=== PATIENT | male | born 1980 | race Caucasian/White ===

== ENCOUNTER 2017-08-29 13:36 | Inpatient (IN) | payer OTHER ==
--- NOTE | 2017-08-29 14:15 | PDOC ---
History of Present Illness - General History Source: Patient Exam Limitations: Other (Poor historian) - History of Present Illness Initial Comments: 08/29/17 15:31 The patient is a 37 year old male with a significant PMH of cirrhosis of liver ( on Lactulose) and further unclear history who presents to the emergency department with generalized malaise and a headache beginning earlier today s/p intoxication. The patient reports feeling lightheaded and weak earlier today with an associated headache and subjective fever. The patient reports being at [facility] yesterday night and falling out of bed, and presents with right hand pain. He notes minimally bleeding from his nose, mouth, and ears last night s/p fall but denies any active bleeding. The patient admits to alcohol and cocaine use yesterday. The patient reports that he is 'currently on the transplant list for a new liver'. The patient is a poor historian. The patient denies chest pain, shortness of breath and dizziness. Denies fever, chills, nausea, vomit, diarrhea and constipation. Denies dysuria, frequency, urgency and hematuria. Allergies: NKA Past surgical history: None reported. Social history: Alcohol use. Cocaine use. No reported cigarette use. PCP: None reported. <Dinesh Haddad - Last Filed: 08/29/17 16:15> <Kaci Morgan - Last Filed: 08/29/17 17:20> - General Chief Complaint: Pain Stated Complaint: ABD PAIN, HEADACHES (INTOX) Time Seen by Provider: 08/29/17 14:15 Past History <Dinesh Haddad - Last Filed: 08/29/17 16:15> - Past Medical History COPD: No Liver Disease: Yes Other medical history: esophogeal variasies - Suicide/Smoking/Psychosocial Hx Smoking History: Never smoked Have you smoked in the past 12 months: No Information on smoking cessation initiated: No Hx Alcohol Use: No Drug/Substance Use Hx: No Substance Use Type: Alcohol <Kaci Morgan - Last Filed: 08/29/17 17:20> - Past Medical History Allergies/Adverse Reactions: Allergies Allergy/AdvReac Type Severity Reaction Status Date / Time No Known Allergies Allergy Verified 08/29/17 14:00 Home Medications: Ambulatory Orders Folic Acid 1 mg PO DAILY 08/29/17 Nadolol 40 mg PO DAILY 08/29/17 Pantoprazole Sodium 40 mg PO DAILY 08/29/17 Prazosin HCl 1 mg PO TID 08/29/17 Rifaximin [Xifaxan] 550 mg PO BID 08/29/17 Review of Systems - Review of Systems Able to Perform ROS?: Yes Comments:: 08/29/17 15:31 GENERAL/CONSTITUTIONAL: (+) Generalized malaise. (+) Subjective fever. No fever or chills. HEAD, EYES, EARS, NOSE AND THROAT: No change in vision. No ear pain or discharge. No sore throat. CARDIOVASCULAR: No chest pain or shortness of breath. RESPIRATORY: No cough, wheezing, or hemoptysis. GASTROINTESTINAL: No nausea, vomiting, diarrhea or constipation. GENITOURINARY: No dysuria, frequency, or change in urination. MUSCULOSKELETAL: (+) Right hand pain. No joint pain. No neck or back pain. SKIN: No rash NEUROLOGIC: (+) Headache. No vertigo, loss of consciousness, or change in sensation. ENDOCRINE: No increased thirst. No abnormal weight change. HEMATOLOGIC/LYMPHATIC: No anemia, easy bleeding, or history of blood clots. ALLERGIC/IMMUNOLOGIC: No hives or skin allergy. <Dinesh Haddad - Last Filed: 08/29/17 16:15> *Physical Exam - Vital Signs Last Vital Signs Temp Pulse Resp BP Pulse Ox 98.6 F 103 H 18 140/68 100 08/29/17 13:55 08/29/17 13:55 08/29/17 13:55 08/29/17 13:55 08/29/17 13:55 - Physical Exam Comments: 08/29/17 16:15 GENERAL: Awake, alert, and fully oriented, in no acute distress HEAD: No signs of trauma EYES: PERRLA, EOMI, sclera anicteric, conjunctiva clear ENT: Auricles normal inspection, hearing grossly normal, nares patent, oropharynx clear without exudates. Moist mucosa NECK: Normal ROM, supple, no lymphadenopathy, JVD, or masses LUNGS: Breath sounds equal, clear to auscultation bilaterally. No wheezes, and no crackles HEART: Regular rate and rhythm, normal S1 and S2, no murmurs, rubs or gallops ABDOMEN: (+) Mild diffuse tenderness to deep palpation. Obese. Soft, nontender, normoactive bowel sounds. No guarding, no rebound. No masses EXTREMITIES: (+) Bruise on right arm. Normal range of motion, no edema. No clubbing or cyanosis. No cords, erythema, or tenderness NEUROLOGICAL: AO x3. Cranial nerves II through XII grossly intact. Normal speech, fluid and clear. SKIN: Warm, Dry, normal turgor, no rashes or lesions noted. <Dinesh Haddad - Last Filed: 08/29/17 16:15> - Vital Signs Last Vital Signs Temp Pulse Resp BP Pulse Ox 98.6 F 103 H 18 140/68 100 08/29/17 13:55 08/29/17 13:55 08/29/17 13:55 08/29/17 13:55 08/29/17 13:55 <Kaci Morgan - Last Filed: 08/29/17 17:20> ED Treatment Course - LABORATORY CBC & Chemistry Diagram: 08/29/17 15:40 08/29/17 15:40 <Dinesh Haddad - Last Filed: 08/29/17 16:15> - LABORATORY CBC & Chemistry Diagram: 08/29/17 15:40 08/29/17 15:40 <Kaci Morgan - Last Filed: 08/29/17 17:20> Medical Decision Making - Medical Decision Making 08/29/17 16:06 Pt presents to the Ed complaining of generalized malaise. Extensive history described above. Patient reports to me that he is on the transplant list, but has no PMD and has continued to drink. Differential includes hepatic encephalopathy, less likely sepsis, electrolyte disturbance, intracranial lesion , ACS. Will check labs, CXR, CT head and reassess. <Kaci Morgan - Last Filed: 08/29/17 17:20> *DC/Admit/Observation/Transfer - Attestations Scribe Attestion: 08/29/17 16:15 Documentation prepared by Dinesh Haddad, acting as registered medical transcriptionist for Kaci Morgan MD. <Dinesh Haddad - Last Filed: 08/29/17 16:15> - Discharge Dispostion Admit: Yes <Kaci Morgan - Last Filed: 08/29/17 17:20> Diagnosis at time of Disposition: Hepatic encephalopathy - Discharge Dispostion Condition at time of disposition: Good
[2017-08-29 15:48] LABS: BASO % 0.4 % (0-2.0); EOS % 0.5 % (0-4.5); HEMATOCRIT 24.8 % (35.4-49); HEMOGLOBIN 8.2 GM/dL (11.7-16.9); LYMPH % 29.6 % (8-40); MCH 25.9 pg (25.7-33.7); MCHC 33.2 g/dl (32.0-35.9); MEAN CELL VOLUME 78.2 fl (80-96); MEAN PLT VOLUME 8.8 fl (7.5-11.1); MONO % 19.4 % (3.8-10.2); NEUT % 50.1 % (42.8-82.8); PLATELET COUNT 92 K/MM3 (134-434); RBC 3.18 M/mm3 (4.00-5.60); RDW 21.5 % (11.9-15.9); WHITE BLOOD COUNT 5.2 K/mm3 (4.0-10.0)
[2017-08-29 15:49] LABS: ADD RBC MORPHOLOGY YES
[2017-08-29 16:31] LABS: INR 2.39 (0.82-1.09)
[2017-08-29 16:44] LABS: ALBUMIN 2.2 g/dl (3.4-5.0); ANION GAP 8 (8-16); BLOOD UREA NITROGEN 5 mg/dL (7-18); CALCIUM 7.3 mg/dL (8.5-10.1); CHLORIDE 108 mmol/L (98-107); CO2 21 mmol/L (21-32); CREATININE 0.6 mg/dL (0.7-1.3); GLUCOSE,RANDOM 123 mg/dL (74-106); POTASSIUM 3.7 mmol/L (3.5-5.1); SGOT/AST 243 U/L (15-37); SGPT/ALT 74 U/L (12-78); SODIUM 137 mmol/L (136-145)
[2017-08-29 16:47] LABS: ALK PHOS 143 U/L (45-117); BILIRUBIN,TOTAL 3.9 mg/dL (0.2-1.0); TOT PROT 8.1 g/dl (6.4-8.2)
[2017-08-29] MEDS ORDERED: LACTULOSE 20 GM/30 ML UDC (FOR ORAL USE ONLY) PO ONE (16:49)
[2017-08-29] MEDS ORDERED: SODIUM CHLORIDE 0.9% 1000 ML INFUS.BAG IV ONE (17:07)
[2017-08-29] MEDS ORDERED: LACTULOSE 20 GM/30 ML UDC (FOR ORAL USE ONLY) PO PRN (17:32)
--- NOTE | 2017-08-29 17:32 | HP ---
CHIEF COMPLAINT: Generalized weakness PCP: none HISTORY OF PRESENT ILLNESS: This is a 37 year old male with PMHx of liver cirrhosis, HCV, esophageal varices , portal hypertension, liver failure (patient reports on transplant list), chronic alcohol use (last drink last night), who presented to the ED with headache and generalized malaise. He reports he drank "a lot" last night. He is able to tell me the last time he drank before last night. He reports being at [facility] yesterday and signed out AMA. He also states he was at [facility] for 1 month and says it was because he has liver failure. The patient reports he sees Dr. Danielson at [facility] in [place] for liver transplant and that he is on the transplant list (however he drank last night). He denies any chest pain, nausea, vomiting, diarrhea, headache, dizziness now. He does state that he feels weak. ER course was notable for: (1) Temp 98.6, pulse 103, BP 140/68, resp 18, O2 100% on RA (2) Hgb 8.2, platelets 92, INR 2.39, ammonia 78.32, CPK 4031 (3) IV fluids given Recent Travel: denies PAST MEDICAL HISTORY: as above PAST SURGICAL HISTORY: denies Social History: Smoking: denies Alcohol: Drank last night, does not remember what Drugs: + Cocaine Family History: Allergies No Known Allergies Allergy (Verified 08/29/17 14:00) HOME MEDICATIONS: Home Medications Medication Instructions Recorded Folic Acid 1 mg PO DAILY 08/29/17 Lactulose 10 gm PO DAILY 08/29/17 Nadolol 40 mg PO DAILY 08/29/17 Pantoprazole Sodium 40 mg PO DAILY 08/29/17 Prazosin HCl 1 mg PO TID 08/29/17 Rifaximin [Xifaxan] 550 mg PO BID 08/29/17 REVIEW OF SYSTEMS CONSTITUTIONAL: Generalized weakness. Absent: fever, chills, diaphoresis, malaise, loss of appetite, weight change HEENT: Absent: rhinorrhea, nasal congestion, throat pain, throat swelling, difficulty swallowing, mouth swelling, ear pain, eye pain, visual changes CARDIOVASCULAR: Absent: chest pain, syncope, palpitations, irregular heart rate , lightheadedness, peripheral edema RESPIRATORY: Absent: cough, shortness of breath, dyspnea with exertion, orthopnea, wheezing, stridor, hemoptysis GASTROINTESTINAL:Absent: abdominal pain, abdominal distension, nausea, vomiting , diarrhea, constipation, melena, hematochezia GENITOURINARY: Absent: dysuria, frequency, urgency, hesitancy, hematuria, flank pain, genital pain MUSCULOSKELETAL: Absent: myalgia, arthralgia, joint swelling, back pain, neck pain SKIN: Absent: rash, itching, pallor HEMATOLOGIC/IMMUNOLOGIC: Absent: easy bleeding, easy bruising, lymphadenopathy, frequent infections ENDOCRINE:Absent: unexplained weight gain, unexplained weight loss, heat intolerance, cold intolerance NEUROLOGIC: Headache that started after drinking alcohol yesterday. Absent: focal weakness or paresthesias, dizziness, unsteady gait, seizure, bladder or bowel incontinence PSYCHIATRIC: Absent: anxiety, depression, suicidal or homicidal ideation, hallucinations. PHYSICAL EXAMINATION Vital Signs - 24 hr 08/29/17 08/29/17 13:55 16:09 Temperature 98.6 F Pulse Rate 103 H Pulse Rate [ 96 H Right Radial] Respiratory 18 18 Rate Blood Pressure 140/68 Blood Pressure 126/57 [Left Arm] O2 Sat by Pulse 100 100 Oximetry (%) GENERAL: Awake, alert, in no acute distress. HEAD: Normal with no signs of trauma. Right cheek scratch EYES: Sclera icteric. Pupils equal, round and reactive to light, extraocular movements intact. No lid lag. EARS, NOSE, THROAT: Ears normal, nares patent, oropharynx clear without exudates. Moist mucous membranes. NECK: Normal range of motion, supple without lymphadenopathy LUNGS: Breath sounds equal, clear to auscultation bilaterally. No wheezes, and no crackles. No accessory muscle use. HEART: Regular rate and rhythm, normal S1 and S2 ABDOMEN: Soft, distended. mild RUQ tenderness. no guarding, no rebound, no masses. MUSCULOSKELETAL: Normal range of motion at all joints. No bony deformities or tenderness. No CVA tenderness. UPPER EXTREMITIES: 2+ pulses, warm, well-perfused. No cyanosis. No clubbing. No peripheral edema. LOWER EXTREMITIES: + edema. 2+ pulses, warm, well-perfused. No calf tenderness. No peripheral edema. NEUROLOGICAL: Cranial nerves II-XII intact. Normal speech. Gait not observed PSYCHIATRIC: Cooperative. Poor eye contact SKIN: Warm, dry, normal turgor, no rashes or lesions noted, normal capillary refill. Laboratory Results - last 24 hr 08/29/17 08/29/17 08/29/17 15:20 15:40 15:40 WBC 5.2 RBC 3.18 L Hgb 8.2 L Hct 24.8 L MCV 78.2 L MCH 25.9 MCHC 33.2 RDW 21.5 H Plt Count 92 L MPV 8.8 Neutrophils % 50.1 Lymphocytes % 29.6 Monocytes % 19.4 H Eosinophils % 0.5 Basophils % 0.4 PT with INR INR PTT (Actin FS) Sodium 137 Potassium 3.7 Chloride 108 H Carbon Dioxide 21 Anion Gap 8 BUN 5 L Creatinine 0.6 L Creat Clearance w eGFR > 60 Random Glucose 123 H Calcium 7.3 L Total Bilirubin 3.9 H AST 243 H ALT 74 Alkaline Phosphatase 143 H Ammonia 78.32 H Creatine Kinase Creatine Kinase Index CK-MB (CK-2) Troponin I Total Protein 8.1 Albumin 2.2 L 08/29/17 08/29/17 08/29/17 15:40 15:40 15:40 WBC RBC Hgb Hct MCV MCH MCHC RDW Plt Count MPV Neutrophils % Lymphocytes % Monocytes % Eosinophils % Basophils % PT with INR 27.00 H INR 2.39 H PTT (Actin FS) 54.6 H Sodium Potassium Chloride Carbon Dioxide Anion Gap BUN Creatinine Creat Clearance w eGFR Random Glucose Calcium Total Bilirubin AST ALT Alkaline Phosphatase Ammonia Creatine Kinase 4031 H Creatine Kinase Index 0.2 CK-MB (CK-2) 9.976 H Troponin I 0.03 Total Protein Albumin Assessment: This is a 37 year old male with PMHx of liver cirrhosis, HCV, esophageal varices, portal hypertension, liver failure (patient reports on transplant list), chronic alcohol use (last drink last night), who presented to the ED with headache and generalized malaise. Plan: 1) Rhabdomyolysis - Elevated CPK may be contributing to patient's weakness - IV fluids (caution the patient doesn't become overloaded) - Trend CPK 2) GI: Liver failure - Thrombocytopenia - Coagulopathy - Hyperammonemia: increase lactulose, trend ammonia level - Continue Rifaximin - Will need to follow-up with outpatient script coordinator upon discharge Portal HTN - Continue Nadolol Esophageal varices - Continue Protonix HCV - Patient reports has not been treated for it 3) Chronic alcohol use - Patient's last drink last night, no signs of acute alcohol withdrawal - CIWA 0 - Will NOT start Librium detox at this time as there are no signs of acute alcohol withdrawal - Ativan prn seizures only - Continue Folic acid - Continue Thiamine 4) F/E/N: - Regular diet - Monitor electrolytes 5) Prophylaxis: - OOB with assistance - Hold all chemical DVT prophylaxis 2/2 elevated INR 6) Dispo: - Requires continued inpatient care CODE STATUS: FULL CODE Visit type - Emergency Visit Emergency Visit: Yes ED Registration Date: 08/29/17 Care time: The patient presented to the Emergency Department on the above date and was hospitalized for further evaluation of their emergent condition. - New Patient This patient is new to me today: Yes Date on this admission: 08/29/17 - Critical Care Critical Care patient: No
[2017-08-29] MEDS ORDERED: LORazepam 2 MG/ML SDV VIAL IVPUSH PRN (18:42)
[2017-08-29 18:51] LABS: ANISOCYTOSIS 2+
[2017-08-29 18:52] LABS: OVALOCYTE 1+; PLATELET ESTIMATE SLT DECREASE
[2017-08-29] MEDS ORDERED: LACTULOSE 20 GM/30 ML UDC (FOR ORAL USE ONLY) ONE (18:52)
--- NOTE | 2017-08-29 19:49 | PDOC ---
*Physical Exam - Vital Signs Last Vital Signs Temp Pulse Resp BP Pulse Ox 98.1 F 100 H 18 121/61 100 08/29/17 18:56 08/29/17 18:56 08/29/17 18:56 08/29/17 18:56 08/29/17 18:56 - Physical Exam Comments: 08/29/17 19:48 Called to patient's bedside. Patient reported a bowel movement with stool mixed with bright red blood. On evaluation, there are no external lesions, digital rectal examination reveals no masses and no active bleeding is noted. Blood pressure is noted to be 127/78. Heart rate is noted to be 96. We will inform the admitting team. No indication for packed RBC transfusion at this time. ED Treatment Course - LABORATORY CBC & Chemistry Diagram: 08/29/17 15:40 08/29/17 15:40 - ADDITIONAL ORDERS Additional order review: Laboratory Results 08/29/17 08/29/17 08/29/17 15:40 15:40 15:40 PT with INR 27.00 H INR 2.39 H PTT (Actin FS) 54.6 H Sodium Potassium Chloride Carbon Dioxide Anion Gap BUN Creatinine Creat Clearance w eGFR Random Glucose Calcium Total Bilirubin AST ALT Alkaline Phosphatase Ammonia Creatine Kinase 4031 H Creatine Kinase Index 0.2 CK-MB (CK-2) 9.976 H Troponin I 0.03 Total Protein Albumin 08/29/17 08/29/17 15:40 15:20 PT with INR INR PTT (Actin FS) Sodium 137 Potassium 3.7 Chloride 108 H Carbon Dioxide 21 Anion Gap 8 BUN 5 L Creatinine 0.6 L Creat Clearance w eGFR > 60 Random Glucose 123 H Calcium 7.3 L Total Bilirubin 3.9 H AST 243 H ALT 74 Alkaline Phosphatase 143 H Ammonia 78.32 H Creatine Kinase Creatine Kinase Index CK-MB (CK-2) Troponin I Total Protein 8.1 Albumin 2.2 L 08/29/17 15:40 RBC 3.18 L MCV 78.2 L MCHC 33.2 RDW 21.5 H MPV 8.8 Neutrophils % 50.1 Lymphocytes % 29.6 Monocytes % 19.4 H Eosinophils % 0.5 Basophils % 0.4 - Medications Given in the ED: ED Medications Discontinued Medications Generic Name Dose Route Start Last Admin Trade Name Freq PRN Reason Stop Dose Admin Lactulose 20 gm 08/29/17 16:49 08/29/17 18:55 Cephulac (Oral Use) PO 08/29/17 16:50 20 gm ONCE ONE Administration Sodium Chloride 1,000 ml 08/29/17 17:07 08/29/17 17:25 Normal Saline - IV 08/29/17 17:08 1,000 ml ONCE ONE Administration *DC/Admit/Observation/Transfer Diagnosis at time of Disposition: Hepatic encephalopathy - Discharge Dispostion Condition at time of disposition: Good - Referrals - Patient Instructions - Post Discharge Activity
[2017-08-29 21:21] VITALS: BMI 40.1
[2017-08-29 22:17] LABS: HEMATOCRIT 23.1 % (35.4-49); HEMOGLOBIN 7.8 GM/dL (11.7-16.9); MCH 26.4 pg (25.7-33.7); MCHC 33.6 g/dl (32.0-35.9); MEAN CELL VOLUME 78.5 fl (80-96); MEAN PLT VOLUME 9.3 fl (7.5-11.1); PLATELET COUNT 89 K/MM3 (134-434); RBC 2.95 M/mm3 (4.00-5.60); RDW 21.1 % (11.9-15.9); WHITE BLOOD COUNT 4.4 K/mm3 (4.0-10.0)
[2017-08-29] MEDS ORDERED: FLU VACCINE QUAD 60 MCG/0.5 ML (MDV 17-18) IM ONE (22:35)
[2017-08-29] MEDS ORDERED: PNEUMOC 13-VAL CONJ-DIP CRM/PF 0.5 ML DISP.SYRIN IM ONE (22:35)
[2017-08-29] MEDS ORDERED: PNEUMOCOCCAL 23 VACCINE 0.5 ML VIAL IM ONE (23:00)
[2017-08-29] MEDS: RIFAXIMIN 550 MG TABLET (UD) PO SCH (23:17)
[2017-08-29] MEDS: PRAZOSIN HCL 1 MG CAPSULE PO SCH (23:17)
[2017-08-30] MEDS: SODIUM CHLORIDE 1,000 ML IV SCH (00:05)
[2017-08-30] MEDS: PRAZOSIN HCL 1 MG CAPSULE PO SCH ×3 (06:20→21:37)
[2017-08-30 07:54] LABS: BASO % 0.8 % (0-2.0); EOS % 1.5 % (0-4.5); HEMATOCRIT 23.7 % (35.4-49); HEMOGLOBIN 7.8 GM/dL (11.7-16.9); MCHC 32.9 g/dl (32.0-35.9); MEAN CELL VOLUME 78.9 fl (80-96); MONO % 21.8 % (3.8-10.2); NEUT % 45.9 % (42.8-82.8); PLATELET COUNT 70 K/MM3 (134-434); WHITE BLOOD COUNT 3.5 K/mm3 (4.0-10.0)
[2017-08-30 08:29] LABS: ALBUMIN 2.2 g/dl (3.4-5.0); ANION GAP 9 (8-16); BLOOD UREA NITROGEN 9 mg/dL (7-18); CALCIUM 7.4 mg/dL (8.5-10.1); CHLORIDE 107 mmol/L (98-107); CO2 22 mmol/L (21-32); GLUCOSE,RANDOM 113 mg/dL (74-106); MAGNESIUM 1.5 mg/dL (1.8-2.4); POTASSIUM 3.5 mmol/L (3.5-5.1); SODIUM 138 mmol/L (136-145)
[2017-08-30 08:34] LABS: ALK PHOS 136 U/L (45-117); BILIRUBIN,TOTAL 4.1 mg/dL (0.2-1.0); CREATININE 0.7 mg/dL (0.7-1.3); SGOT/AST 230 U/L (15-37); SGPT/ALT 73 U/L (12-78); TOT PROT 7.6 g/dl (6.4-8.2)
[2017-08-30] MEDS ORDERED: ACETAMINOPHEN 325 MG TABLET (FP) ONE (08:52)
[2017-08-30] MEDS: FOLIC ACID 1 MG TABLET (FP) PO SCH (09:19)
[2017-08-30] MEDS: RIFAXIMIN 550 MG TABLET (UD) PO SCH ×2 (09:19→21:37)
[2017-08-30] MEDS: THIAMINE HCL 100 MG TABLET (FP) PO SCH (09:19)
[2017-08-30] MEDS: PANTOPRAZOLE 40 MG TABLET (FP) PO SCH (09:19)
[2017-08-30] MEDS ORDERED: NADOLOL 40 MG TABLET (FP) PO SCH (10:00)
[2017-08-30 11:06] LABS: INR 2.42 (0.82-1.09); PROTHROMBIN TIME (PATIENT) 27.4 SEC (9.98-11.88)
[2017-08-30] MEDS ORDERED: MAGNESIUM SULF 50% (8.12 MEQ/2 ML-1 GM VIAL) IVPB ONE (11:22)
--- NOTE | 2017-08-30 12:00 | PN ---
Progress Note (short form) - Note Progress Note: Subjective: The patient was seen and examined at the bedside, he reports his lips are dry and they hurt Stated he wanted to hang himself last night, placed on 1:1. Per patient he reports he did not say that, but that he attempted to hang himself 8 years ago. He reports he has "a lot to live for" now and that he would never kill himself. Awaiting psych evaluation Temp 101 this AM: UA, urine cultures, chest x-ray (PA and lateral), blood cultures, CTAP with po contrast ordered. 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 Discussed with Dr. Cosby who will evaluate the patient Per ED MD, patient had bloody bowel movement yesterday evening. Hgb low but stable (suspect given chronic alcohol abuse and liver failure the patient's Hgb is chronically low, will continue to monitor). F/u GI consult Current Medications Generic Name Dose Route Start Last Admin Trade Name Freq PRN Reason Stop Dose Admin Folic Acid 1 mg 08/30/17 10:00 08/30/17 09:19 Folic Acid - PO 1 mg DAILY KANDY Administration Sodium Chloride 1,000 mls @ 100 mls/hr 08/29/17 18:30 08/30/17 00:05 Normal Saline - IV 100 mls/hr ASDIR KANDY Administration Lactulose 20 gm 08/30/17 14:00 Cephulac (Oral Use) PO QID KANDY Lorazepam 2 mg 08/29/17 18:42 Ativan Injection - IVPUSH Q12H PRN seizure Nadolol 40 mg 08/30/17 10:00 08/30/17 09:20 Corgard - PO 40 mg DAILY KANDY Administration Pantoprazole Sodium 40 mg 08/30/17 10:00 08/30/17 09:19 Protonix - PO 40 mg DAILY KANDY Administration Prazosin HCl 1 mg 08/29/17 22:00 08/30/17 06:20 Minipress - PO 1 mg TID KANDY Administration Rifaximin 550 mg 08/29/17 22:00 08/30/17 09:19 Xifaxan - PO 550 mg BID KANDY Administration Thiamine HCl 100 mg 08/30/17 10:00 08/30/17 09:19 Vitamin B1 - PO 100 mg DAILY KANDY Administration Objective: Vital Signs Period Temp Pulse Resp BP Sys/[place] Pulse Ox Last 24 Hr 98.1 F-101 F 68-113 18-20 103-150/53-88 100-100 Physical Exam: CBCD WBC 3.5 K/mm3 (4.0-10.0) L 08/30/17 05:45 RBC 3.00 M/mm3 (4.00-5.60) L 08/30/17 05:45 Hgb 7.8 GM/dL (11.7-16.9) L 08/30/17 05:45 Hct 23.7 % (35.4-49) L 08/30/17 05:45 MCV 78.9 fl (80-96) L 08/30/17 05:45 MCHC 32.9 g/dl (32.0-35.9) 08/30/17 05:45 RDW 21.0 % (11.9-15.9) H 08/30/17 05:45 Plt Count 70 K/MM3 (134-434) L D 08/30/17 05:45 MPV 9.0 fl (7.5-11.1) 08/30/17 05:45 CMP Sodium 138 mmol/L (136-145) 08/30/17 05:45 Potassium 3.5 mmol/L (3.5-5.1) 08/30/17 05:45 Chloride 107 mmol/L (98-107) 08/30/17 05:45 Carbon Dioxide 22 mmol/L (21-32) 08/30/17 05:45 Anion Gap 9 (8-16) 08/30/17 05:45 BUN 9 mg/dL (7-18) D 08/30/17 05:45 Creatinine 0.7 mg/dL (0.7-1.3) 08/30/17 05:45 Creat Clearance w eGFR > 60 (>60) 08/30/17 05:45 Random Glucose 113 mg/dL (74-106) H 08/30/17 05:45 Calcium 7.4 mg/dL (8.5-10.1) L 08/30/17 05:45 Total Bilirubin 4.1 mg/dL (0.2-1.0) H 08/30/17 05:45 AST 230 U/L (15-37) H 08/30/17 05:45 ALT 73 U/L (12-78) 08/30/17 05:45 Alkaline Phosphatase 136 U/L (45-117) H 08/30/17 05:45 Total Protein 7.6 g/dl (6.4-8.2) 08/30/17 05:45 Albumin 2.2 g/dl (3.4-5.0) L 08/30/17 05:45 CARDIAC ENZYMES Creatine Kinase 2397 IU/L (39-308) H 08/30/17 05:45 Troponin I 0.03 ng/ml (0.00-0.05) 08/29/17 15:40 Assessment: This is a 37 year old male with PMHx of liver cirrhosis, HCV, esophageal varices, portal hypertension, liver failure (patient reports on transplant list), chronic alcohol use (last drink last night), who presented to the ED with headache and generalized malaise. Plan: 1) Rhabdomyolysis - Trending down - Elevated CPK may be contributing to patient's weakness - IV fluids (caution the patient doesn't become overloaded) 2) Fever - Tmax 101 - F/u urine/blood cultures - F/u chest x-ray today - F/u CTAP - F/u HIV testing - Possible abx coverage for peritonitis, f/u ID recommendations 3) GI: Rectal bleeding yesterday evening - Patient reports he gets rectal bleeding from "time to time" - Monitor H/H - F/u stool for occult blood - F/u GI consult Liver failure - F/u RUQ ultrasound - Thrombocytopenia - Coagulopathy - Hyperammonemia: increase lactulose, trend ammonia level - Continue Rifaximin - Will need to follow-up with outpatient supply coordinator upon discharge: attempt to get records from [facility] to report the patient drank alcohol on 08/28 (patient reports he was sober for 7 months prior to 08/28) Portal HTN - Stop Nadolol. Patient admits to using cocaine two nights ago. Should not be discharged on any bblocker Esophageal varices - Continue Protonix HCV - Patient reports has not been treated for it 4) Chronic alcohol use - Patient's last drink last night, no signs of acute alcohol withdrawal - CIWA 0 - Will NOT start Librium detox at this time as there are no signs of acute alcohol withdrawal - Ativan prn seizures only - Continue Folic acid - Continue Thiamine - F/u detox consult 5) F/E/N: - Regular diet - Monitor electrolytes 6) Prophylaxis: - OOB with assistance - Hold all chemical DVT prophylaxis 2/2 elevated INR 7) Dispo: - Requires continued inpatient care CODE STATUS: FULL CODE Visit type - Emergency Visit Emergency Visit: Yes ED Registration Date: 08/29/17 Care time: The patient presented to the Emergency Department on the above date and was hospitalized for further evaluation of their emergent condition. - New Patient This patient is new to me today: No - Critical Care Critical Care patient: No
--- NOTE | 2017-08-30 12:42 | PN ---
Progress Note (short form) - Note Progress Note: ID consult dictated imp/rccd 37 year old man with etoh liver disease (reports prior varices) reports history of lengthy hospitalizations at [facility] and at [facility], had stopped drinking ETOH 7 month ago was depressed yesterday and started drinking, went to [facility] ED and left there and came to [facility] c/o weakness reports he gets his care at the [facility] family practice clinic febrile to 101 today pe notable for jaundice and diffuse abdominal pain on exam bilateral venous stasis suggest fever liver cirrhosis ?GI bleed- patient reported blood in stools in ED-for gi evaluation, monitor cbc cultures ct scan abd/pelvis sonogram abdomen ?ascites with abdominal pain will cover for SBP with ceftriaxone check HIV ?hep serology d/w hospitalist Problem List - Problems (1) Fever Code(s): R50.9 - FEVER, UNSPECIFIED (2) Liver cirrhosis, alcoholic Code(s): K70.30 - ALCOHOLIC CIRRHOSIS OF LIVER WITHOUT ASCITES
--- NOTE | 2017-08-30 13:15 | CONS ---
DATE OF CONSULTATION: REQUESTING PHYSICIAN: Hospitalist service HISTORY: This is a 37-year-old man with a history of alcohol-related liver cirrhosis. He is an extremely poor historian who changes his history many, many times. He reports a history of liver cirrhosis, esophageal varices in the past, and liver failure. States he is on a transplant list, it is unclear where, with a history of chronic alcohol use. He reports that he was hospitalized at [facility] for several months followed by a 6-week hospitalization at [facility]. All of this is for liver-related issues. He reports being home for a while now, definitely before . Apparently, he got depressed and started drinking again. He reports he had been alcohol free for 7 months, and he went to [facility] Emergency Room where he states he fell in the bathroom there and states he left there and came to [facility] with complaints of the weakness. He was given some IV fluids. Today had a fever of 101 for which I am asked to see him. There is no history of any travel. PAST MEDICAL HISTORY: Notable for liver cirrhosis, hepatitis C, although he denies that to me, esophageal varices, portal hypertension, liver failure, chronic alcohol use. He denies any surgery. He was reported in the emergency room to have told the ER physician that he had blood in his stools. Not sure if anybody witnessed this. He had a rectal exam that was normal in the ER. He is now transferred to telemetry for closer observation for possible GI bleed. ALLERGIES: He has no known drug allergies. MEDICATIONS: At home include lactulose, rifaximin, Prazosin, nadolol, folic acid, and pantoprazole, although he reports to the admitting nurse that he does not take his medicines regularly. He states he is followed at [facility]. The hospitalist service has attempted to contacted medical records at [facility] but, unfortunately, has not been able to reach anyone there. FAMILY HISTORY: Noncontributory. SOCIAL HISTORY: He has a history of alcohol use as well as cocaine use. He does not use intravenous needles. He denies any prior history of HIV. He has been in intermediate in the past. REVIEW OF SYSTEMS: He has tattoos. He has no dysuria. He notes he has chronic abdominal pain. PHYSICAL EXAMINATION: General: He is awake and alert. Vital Signs: Temperature 101, pulse 68, blood pressure 120/53, respiratory rate 20. HEENT: He is normocephalic. His eyes are anicteric. He has no thrush. Neck: Supple. Lungs: Diminished breath sounds at the bases. Heart: Regular rate and rhythm. Abdomen: Soft. He has diffuse discomfort on palpation. Question of ascites. Extremities: Notable for bilateral venostasis changes. He has a small laceration on the back of his left calf. LABORATORIES: Notable for a white count 3.5, hemoglobin 7.8, platelets 70,000, INR 2.4. BUN 9, creatinine 0.7 with a bilirubin of 4.1, AST 230, alkaline phosphatase 136, ammonia 86. HIV negative. Blood cultures have been sent. In summary, this is a 37-year-old man with alcohol-related liver disease and cirrhosis admitted for weakness, found to have a fever, question of a GI bleed. Agree with cultures, CAT scan of the abdomen and pelvis. Sonogram of the abdomen to see if he has ascites with the abdominal pain. Would be reasonable to cover for SBP with ceftriaxone. HIV was checked as well. Consider hepatitis serology, but apparently the patient reports history of hepatitis C. Would agree with obtaining prior records. The case was discussed with the hospitalist. ERUM VILLEGAS M.D. [id number]
--- NOTE | 2017-08-30 13:41 | CON.PSY ---
Psychiatry Consult Chief Complaint: Asked to see this patient for suicidal ideation. History of Present Problem: Patient is a 37 year old male with a hx of alcoholic cirrhosis who had his last drink yesterday. Patient denies suicidal ideation at this time has no plan.: " I live for my two kids!" They are his sister's children with whom he has a good relationship and is in close contract q day. Patient denies the documented history of wanting to strangle himself with his phone cord at [facility]? . He is not a reliable historian, however. I called this number, and spoke to his niece who read out his list of medications. List includes zoloft 50 mgs which, according to him he takes q day Symptoms: reports: Depressed Mood - Current Medications Current Medications: Active Medications Folic Acid (Folic Acid -) 1 mg PO DAILY [facility] Last Admin: 08/30/17 09:19 Dose: 1 mg Sodium Chloride (Normal Saline -) 1,000 mls @ 100 mls/hr IV ASDIR [facility] Last Admin: 08/30/17 00:05 Dose: 100 mls/hr Lactulose (Cephulac (Oral Use)) 20 gm PO QID [facility] Lorazepam (Ativan Injection -) 2 mg IVPUSH Q12H PRN PRN Reason: seizure Nadolol (Corgard -) 40 mg PO DAILY [facility] Last Admin: 08/30/17 09:20 Dose: 40 mg Pantoprazole Sodium (Protonix -) 40 mg PO DAILY [facility] Last Admin: 08/30/17 09:19 Dose: 40 mg Prazosin HCl (Minipress -) 1 mg PO TID [facility] Last Admin: 08/30/17 06:20 Dose: 1 mg Rifaximin (Xifaxan -) 550 mg PO BID [facility] Last Admin: 08/30/17 09:19 Dose: 550 mg Thiamine HCl (Vitamin B1 -) 100 mg PO DAILY [facility] Last Admin: 08/30/17 09:19 Dose: 100 mg - Allergies Allergies: Allergies Allergy/AdvReac Type Severity Reaction Status Date / Time No Known Allergies Allergy Verified 08/29/17 14:00 - Current Living Status Usual Living Arrangement: Alone - Current Mental Status Evaluation Attitude: Cooperative - Affect Affect: Labile Appropriateness: Appropriate to Content - Mood Mood: Depressed - Speech/Language Expressive: Coherent Receptive: Age Appropriate Comprehension of Spoken Words - Psychomotor Activity Psychomotor Activity: Normal - Thought Process Thought Process: Intact, Loosening of Associations - Thought Content Hallucinations: Absent Delusions: Absent - Self Perception Self Perception: No Impairment - Cognition Attention: Alert Memory, Short Term: /3 Memory, Remote with Promptin/3 - Concentration Simple Calculations Intact: Yes - Abstraction Judgement: Minimally Impaired - Insight Insight: Intact - Impulse Control Impulse Control: Minimally Impaired - Suicidal Ideation Suicidal Ideation: No - Homicidal Ideation Homicidal Ideation: No Assessment/Plan Patient does not have any plan to hurt himself or others at this time He is not suicidal at this time Rec DC 1: 1 restart his zoloft as he reports taking on a regular basis monitor for ETOH withdrawal
[2017-08-30] MEDS: CEFTRIAXONE 1 GM/50 ML PREMIX IVPB SCH (15:59)
[2017-08-30] MEDS: LACTULOSE 20 GM/30 ML UDC (FOR ORAL USE ONLY) PO SCH ×3 (16:13→21:55)
[2017-08-30 16:25] LABS: URINE APPEARANCE CLEAR; URINE BILIRUBIN NEGATIVE (NEGATIVE); URINE BLOOD 2+ (NEGATIVE); URINE COLOR YELLOW; URINE GLUCOSE (UA) NEGATIVE (NEGATIVE); URINE KETONE TRACE (NEGATIVE); URINE LEUK ESTERASE NEGATIVE (NEGATIVE); URINE NITRITE NEGATIVE (NEGATIVE); URINE PROTEIN NEGATIVE (NEGATIVE); URINE UROBILINOGEN NEGATIVE mg/dL (0.2-1.0)
[2017-08-30 16:37] LABS: URINE MUCUS RARE
--- NOTE | 2017-08-30 20:20 | EKG ---
Test Reason : Blood Pressure : / mmHG Vent. Rate : 096 BPM Atrial Rate : 096 BPM P-R Int : 146 ms QRS Dur : 118 ms QT Int : 404 ms P-R-T Axes : 066 094 059 degrees QTc Int : 510 ms NORMAL SINUS RHYTHM RIGHTWARD AXIS NON-SPECIFIC INTRA-VENTRICULAR CONDUCTION DELAY PROLONGED QT ABNORMAL ECG NO PREVIOUS ECGS AVAILABLE Confirmed by ANABELLA PHILLIPS MD ([id number]) on 08/30/2017 8:20:00 PM Referred By: Confirmed By:ANABELLA PHILLIPS MD
[2017-08-30] MEDS ORDERED: PT OWN MED DRAWER 7, Y5N ONE (21:33)
[2017-08-31] MEDS: SODIUM CHLORIDE 1,000 ML IV SCH ×2 (03:30→17:32)
[2017-08-31] MEDS ORDERED: PT OWN MED DRAWER 7, Y5N ONE ×2 (05:06→09:10)
[2017-08-31] MEDS: PRAZOSIN HCL 1 MG CAPSULE PO SCH ×3 (05:12→22:14)
[2017-08-31 07:43] LABS: HEMATOCRIT 24.3 % (35.4-49); MCH 25.9 pg (25.7-33.7); MCHC 32.7 g/dl (32.0-35.9); MEAN CELL VOLUME 79.1 fl (80-96); RBC 3.08 M/mm3 (4.00-5.60); RDW 20.6 % (11.9-15.9); WHITE BLOOD COUNT 2.9 K/mm3 (4.0-10.0)
[2017-08-31 08:12] LABS: ANION GAP 8 (8-16); BLOOD UREA NITROGEN 5 mg/dL (7-18); CALCIUM 7.2 mg/dL (8.5-10.1); CHLORIDE 106 mmol/L (98-107); CO2 22 mmol/L (21-32); GLUCOSE,RANDOM 100 mg/dL (74-106); POTASSIUM 3.5 mmol/L (3.5-5.1); SGOT/AST 180 U/L (15-37); SGPT/ALT 68 U/L (12-78); SODIUM 136 mmol/L (136-145)
[2017-08-31 08:15] LABS: INR 2.58 (0.82-1.09); PROTHROMBIN TIME (PATIENT) 29.2 SEC (9.98-11.88)
[2017-08-31 08:26] LABS: ALK PHOS 127 U/L (45-117); CREATININE 0.6 mg/dL (0.7-1.3); TOT PROT 7.6 g/dl (6.4-8.2)
[2017-08-31 09:23] LABS: PLATELET COUNT 81 K/MM3 (134-434)
[2017-08-31] MEDS: PANTOPRAZOLE 40 MG TABLET (FP) PO SCH (11:19)
[2017-08-31] MEDS: SERTRALINE HCL 50 MG TABLET (FP) PO SCH (11:19)
[2017-08-31] MEDS: THIAMINE HCL 100 MG TABLET (FP) PO SCH (11:19)
[2017-08-31] MEDS: RIFAXIMIN 550 MG TABLET (UD) PO SCH ×2 (11:19→22:15)
[2017-08-31] MEDS: LACTULOSE 20 GM/30 ML UDC (FOR ORAL USE ONLY) PO SCH ×4 (11:19→22:14)
[2017-08-31] MEDS: CEFTRIAXONE 1 GM/50 ML PREMIX IVPB SCH (11:20)
[2017-08-31] MEDS: FOLIC ACID 1 MG TABLET (FP) PO SCH (11:20)
--- NOTE | 2017-08-31 11:26 | CON.GI ---
Consult Consult Specialty:: Gastroenterology ( covering Dr Kuhn) Referred by:: Rhiannon Bean NP Reason for Consultation:: Abdominal pain - History of Present Illness Chief Complaint: Abdominal pain History of Present Illness: 37M with advanced alcoholic cirrhosis is admitted with weakness and resuming abuse several days ago. He was evaluated at [facility] where he is followed in the clinic and where he has been hospitalized on multiple occasions for liver failure. He has had esophageal variceal bleeding as recently as a month ago when he was at [facility] but cannot recall when he last had an EGD and whether or not he has ever had rubber band ligation, He had quit drinking alcohol for 7 months before resuming several days ago. He was hoping to enter a liver transplant program but never got that far. 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 He fell several days ago sustaining trauma to his head, mouth and right upper extremity. He has intermittent rectal bleeding. - History Source History Provided By: Patient Limitations to Obtaining History: Poor Historian - Past Medical History Cardio/Vascular: Yes: HTN Gastrointestinal: Yes: Diverticulosis, Esophageal Varices, GI Bleed, Other ( hemorrhoidal bleeding) Hepatobiliary: Yes: Cirrhosis (alcoholic) Psych: Yes: Depression - Past Surgical History Past Surgical History: Yes: None - Alcohol/Substance Use Hx Alcohol Use: No History of Substance Use: reports: Cocaine, Heroin, Marijuana - Smoking History Smoking history: Former smoker (quit tobacco over 10 years ago) Have you smoked in the past 12 months: No If you are a former smoker, when did you quit?: over 10 years ago but still smokes marijuana - Social History Usual Living Arrangement: Other (lives with sister) ADL: Support Services Occupation: disabled kitchen staff worker Place of : Other ([place]) Came to [place] (year[place] age 13 History of Recent Travel: No Home Medications - Allergies Allergies/Adverse Reactions: Allergies Allergy/AdvReac Type Severity Reaction Status Date / Time No Known Allergies Allergy Verified 08/29/17 14:00 - Home Medications Home Medications: Ambulatory Orders Folic Acid 1 mg PO DAILY 08/29/17 Lactulose 10 gm PO DAILY 08/29/17 Nadolol 40 mg PO DAILY 08/29/17 Pantoprazole Sodium 40 mg PO DAILY 08/29/17 Prazosin HCl 1 mg PO TID 08/29/17 Rifaximin [Xifaxan] 550 mg PO BID 08/29/17 Family Disease History - Family Disease History Family Disease History: Diabetes: Father ( of diabetic complications), Other : Mother ( age 40 of cirrhosis) Review of Systems - Review of Systems Constitutional: reports: Lethargy, Weakness Eyes: reports: No Symptoms HENT: reports: No Symptoms Neck: reports: No Symptoms Cardiovascular: reports: No Symptoms Respiratory: reports: Exercise Intolerance, SOB on Exertion Gastrointestinal: reports: Abdominal Pain, Bloating, Rectal Bleeding Genitourinary: reports: No Symptoms Musculoskeletal: reports: Other (facial and RUE pain following a fall) Psychiatric: reports: Depression Physical Exam-GI Vital Signs: Vital Signs Temperature 97.6 F 08/31/17 01:00 Pulse Rate 81 08/31/17 01:00 Respiratory Rate 20 08/31/17 01:00 Blood Pressure 117/60 08/31/17 01:00 O2 Sat by Pulse Oximetry (%) 100 08/30/17 20:42 CBC,CMP WBC 2.9 K/mm3 (4.0-10.0) L 08/31/17 05:48 RBC 3.08 M/mm3 (4.00-5.60) L 08/31/17 05:48 Hgb 8.0 GM/dL (11.7-16.9) L 08/31/17 05:48 Hct 24.3 % (35.4-49) L 08/31/17 05:48 MCV 79.1 fl (80-96) L 08/31/17 05:48 MCH 25.9 pg (25.7-33.7) 08/31/17 05:48 MCHC 32.7 g/dl (32.0-35.9) 08/31/17 05:48 RDW 20.6 % (11.9-15.9) H 08/31/17 05:48 Plt Count 81 K/MM3 (134-434) L 08/31/17 05:48 MPV 10.0 fl (7.5-11.1) D 08/31/17 05:48 Neutrophils % 45.9 % (42.8-82.8) 08/30/17 05:45 Lymphocytes % 30.0 % (8-40) 08/30/17 05:45 Monocytes % 21.8 % (3.8-10.2) H 08/30/17 05:45 Eosinophils % 1.5 % (0-4.5) D 08/30/17 05:45 Basophils % 0.8 % (0-2.0) 08/30/17 05:45 Platelet Estimate Slt decrease 08/29/17 15:40 Platelet Comment 08/29/17 15:40 Polychromasia 1+ 08/29/17 15:40 Poikilocytosis 1+ 08/29/17 15:40 Anisocytosis 2+ 08/29/17 15:40 Ovalocytes 1+ 08/29/17 15:40 Sodium 136 mmol/L (136-145) 08/31/17 05:48 Potassium 3.5 mmol/L (3.5-5.1) 08/31/17 05:48 Chloride 106 mmol/L (98-107) 08/31/17 05:48 Carbon Dioxide 22 mmol/L (21-32) 08/31/17 05:48 Anion Gap 8 (8-16) 08/31/17 05:48 BUN 5 mg/dL (7-18) L D 08/31/17 05:48 Creatinine 0.6 mg/dL (0.7-1.3) L 08/31/17 05:48 Creat Clearance w eGFR > 60 (>60) 08/31/17 05:48 Random Glucose 100 mg/dL (74-106) 08/31/17 05:48 Calcium 7.2 mg/dL (8.5-10.1) L 08/31/17 05:48 Phosphorus 3.0 mg/dL (2.5-4.9) 08/30/17 05:45 Magnesium 1.5 mg/dL (1.8-2.4) L 08/30/17 05:45 Total Bilirubin 5.0 mg/dL (0.2-1.0) H D 08/31/17 05:48 AST 180 U/L (15-37) H D 08/31/17 05:48 ALT 68 U/L (12-78) 08/31/17 05:48 Alkaline Phosphatase 127 U/L (45-117) H 08/31/17 05:48 Ammonia 86.67 umol/L (11-32) H 08/30/17 05:45 Creatine Kinase 1117 IU/L (39-308) H 08/31/17 05:48 Creatine Kinase Index 0.2 % (0.0-5.0) 08/30/17 05:45 CK-MB (CK-2) 5.259 ng/mL (0.5-3.6) H 08/30/17 05:45 Troponin I 0.03 ng/ml (0.00-0.05) 08/29/17 15:40 Total Protein 7.6 g/dl (6.4-8.2) 08/31/17 05:48 Albumin 2.0 g/dl (3.4-5.0) L 08/31/17 05:48 Current Medications Generic Name Dose Route Start Last Admin Trade Name Freq PRN Reason Stop Dose Admin Folic Acid 1 mg 08/30/17 10:00 08/31/17 11:20 Folic Acid - PO 1 mg DAILY KANDY Administration Sodium Chloride 1,000 mls @ 100 mls/hr 08/29/17 18:30 08/31/17 03:30 Normal Saline - IV 100 mls/hr ASDIR KANDY Administration Lactulose 20 gm 08/30/17 14:00 08/31/17 11:19 Cephulac (Oral Use) PO 20 gm QID KANDY Administration Lorazepam 2 mg 08/29/17 18:42 Ativan Injection - IVPUSH Q12H PRN seizure Pantoprazole Sodium 40 mg 08/30/17 10:00 08/31/17 11:19 Protonix - PO 40 mg DAILY [facility]Y Administration Prazosin HCl 1 mg 08/29/17 22:00 08/31/17 05:12 Minipress - PO 1 mg TID KANDY Administration Rifaximin 550 mg 08/29/17 22:00 08/31/17 11:19 Xifaxan - PO 550 mg BID KANDY Administration Sertraline HCl 50 mg 08/31/17 10:00 08/31/17 11:19 Zoloft - PO 50 mg DAILY [facility]Y Administration Thiamine HCl 100 mg 08/30/17 10:00 08/31/17 11:19 Vitamin B1 - PO 100 mg DAILY [facility] Administration Constitutional: Yes: Calm, Other Eyes: Yes: Sclera Icterus HENT: Yes: Other (lip and forehead abrasions) Neck: Yes: Supple Cardiovascular: Yes: Regular Rate and Rhythm Respiratory: Yes: CTA Bilaterally, Other (large chest tattoos) Gastrointestinal Inspection: Yes: Distention ...Auscultate: Yes: Normoactive Bowel Sounds ...Palpate: Yes: Soft, Other (nontender) ...Rectal Exam: Yes: Guaiac Negative, Hemorrhoids/External Genitourinary: Yes: Other (atrophic testicles, no hernias) Extremities: Yes: Other (multiple tattoos) Labs: CBC, BMP 08/31/17 05:48 08/31/17 05:48 INR, PTT INR 2.58 (0.82-1.09) H 08/31/17 05:48 Imaging - Results Cat Scan: Image Reviewed (cirrhosis but no ascites or ductal dilation, perisplenic varices, thickened GB wall) Problem List - Problems (1) Esophageal varices in alcoholic cirrhosis Code(s): K70.30 - ALCOHOLIC CIRRHOSIS OF LIVER WITHOUT ASCITES; I85.10 - SECONDARY ESOPHAGEAL VARICES WITHOUT BLEEDING (2) Hepatic encephalopathy Code(s): K72.90 - HEPATIC FAILURE, UNSPECIFIED WITHOUT COMA (3) Liver cirrhosis, alcoholic Assessment/Plan: Alcoholic cirrhosis with hepatic encephalopathy, esophageal varices and thrombocytopenia with resumption of beer after 7 month abstinence. Emphasized the need to resume abstention to regain candidacy for transplantation. Continue Lactulose. The rectal bleeding appears to be hemorrhoidal in origin. He is at risk of developing hepatorenal syndrome and alcohol withdrawal. Given multisubstance abuse will screen for other forms of liver disease. Code(s): K70.30 - ALCOHOLIC CIRRHOSIS OF LIVER WITHOUT ASCITES (4) Abdominal pain Assessment/Plan: Doubt cholecystitis but will confirm with Hida scan Code(s): R10.9 - UNSPECIFIED ABDOMINAL PAIN (5) Substance abuse Code(s): F19.10 - OTHER PSYCHOACTIVE SUBSTANCE ABUSE, UNCOMPLICATED
[2017-08-31] MEDS ORDERED: chlordiazePOXIDE HCL 25 MG CAPSULE PO PRN (11:46)
--- NOTE | 2017-08-31 12:12 | PN ---
Physical Exam: SUBJECTIVE: Patient seen and examined pt c/o abdominal pain, weakness,denies N/V/D, cp, sob or palpitations. OBJECTIVE: Vital Signs Period Temp Pulse Resp BP Sys/[place] Pulse Ox Last 24 Hr 97.6 F-98.9 F 65-81 18-20 117-141/60-76 100 GENERAL: Not in acute distress, lethargic HEAD: Normal with no signs of trauma. EYES: PERRL, extraocular movements intact, sclera anicteric, conjunctiva clear. No ptosis. ENT: Ears normal, nares patent, oropharynx clear without exudates, moist mucous membranes. NECK: Trachea midline, full range of motion, supple. LUNGS: Breath sounds equal, clear to auscultation bilaterally, no wheezes, no crackles, no accessory muscle use. HEART: Regular rate and rhythm, S1, S2 without murmur, rub or gallop. ABDOMEN: Soft, diffuse abdominal tenderness,nondistended, normoactive bowel sounds, no guarding, no rebound, no hepatosplenomegaly, no masses, obese EXTREMITIES: 2+ pulses, warm, well-perfused, no edema. NEUROLOGICAL: Cranial nerves II through XII grossly intact. Normal speech, gait not observed. PSYCH: Normal mood, normal affect. SKIN: Warm, dry, normal turgor, skin abrasion lower lip and forehead Laboratory Results - last 24 hr 08/31/17 08/31/17 08/31/17 05:48 05:48 05:48 WBC 2.9 L RBC 3.08 L Hgb 8.0 L Hct 24.3 L MCV 79.1 L MCH 25.9 MCHC 32.7 RDW 20.6 H Plt Count 81 L MPV 10.0 D PT with INR 29.20 H INR 2.58 H Sodium 136 Potassium 3.5 Chloride 106 Carbon Dioxide 22 Anion Gap 8 BUN 5 L D Creatinine 0.6 L Creat Clearance w eGFR > 60 Random Glucose 100 Calcium 7.2 L Total Bilirubin 5.0 H D AST 180 H D ALT 68 Alkaline Phosphatase 127 H Creatine Kinase 1117 H Creatine Kinase Index CK-MB (CK-2) Total Protein 7.6 Albumin 2.0 L Urine Color Urine Appearance Urine pH Ur Specific [place] Urine Protein Urine Glucose (UA) Urine Ketones Urine Blood Urine Nitrite Urine Bilirubin Urine Urobilinogen Ur Leukocyte Esterase Urine WBC (Auto) Urine RBC (Auto) Urine Mucus HIV 1&2 Antibody Screen HIV P24 Antigen Active Medications Generic Name Dose Route Start Last Admin Trade Name Freq PRN Reason Stop Dose Admin Folic Acid 1 mg 08/30/17 10:00 08/31/17 11:20 Folic Acid - PO 1 mg DAILY KANDY Administration Sodium Chloride 1,000 mls @ 100 mls/hr 08/29/17 18:30 08/31/17 03:30 Normal Saline - IV 100 mls/hr ASDIR KANDY Administration Lactulose 20 gm 08/30/17 14:00 08/31/17 11:19 Cephulac (Oral Use) PO 20 gm QID KANDY Administration Lorazepam 2 mg 08/29/17 18:42 Ativan Injection - IVPUSH Q12H PRN seizure Pantoprazole Sodium 40 mg 08/30/17 10:00 08/31/17 11:19 Protonix - PO 40 mg DAILY KANDY Administration Prazosin HCl 1 mg 08/29/17 22:00 08/31/17 05:12 Minipress - PO 1 mg TID KANDY Administration Rifaximin 550 mg 08/29/17 22:00 08/31/17 11:19 Xifaxan - PO 550 mg BID KANDY Administration Sertraline HCl 50 mg 08/31/17 10:00 08/31/17 11:19 Zoloft - PO 50 mg DAILY [facility] Administration Thiamine HCl 100 mg 08/30/17 10:00 08/31/17 11:19 Vitamin B1 - PO 100 mg DAILY K[facility]Y Administration Microbiology 08/30/17 11:20 Blood Culture - Preliminary Blood - Peripheral Venous NO GROWTH OBTAINED AFTER 24 HOURS, INCUBATION TO CONTINUE FOR 4 DAYS. 08/30/17 11:15 Blood Culture - Preliminary Blood - Peripheral Venous NO GROWTH OBTAINED AFTER 24 HOURS, INCUBATION TO CONTINUE FOR 4 DAYS. ASSESSMENT/PLAN: This is a 37 year old male with PMHx of liver cirrhosis, HCV, esophageal varices , portal hypertension, liver failure (patient reports on transplant list), chronic alcohol use (last drink one day prior to admission), who presented to the ED with headache and generalized malaise. * Rhabdomyolysis- CPK improving - Elevated CPK may be contributing to patient's weakness - IV fluids (caution the patient doesn't become overloaded) Fever - Tmax 101- afebrile now,no leukocytosis - urine culture pending - BC preliminary negative - CxR: No acute pathology - CT abdomen/pelvis: Hepatic cirrhosis, varices,nonspecific pulmonary nodules, cholelithiasis, several retroperitoneal lymph nodes and adrenal nodule, rec 3 mon f/u CT -liver US: Hepatic cirrhosis, no ascites, no evidence of hepatoma - HIV- Negative - will cont on Ceftriaxone for possible abx coverage for peritonitis - ID following * Rectal bleeding yesterday evening- no further rectal bleeding reported - CBC stable -Guaiac Negative,rectal done by GI -GI consult input appreciated *Abdominal pain, ?cholecystitis - GI following- rec Hida scan *Liver cirrhosis with hepatic encephalopathy, -Thrombocytopenia - will cont on Lactulose, Rifaximin -liver US: Hepatic cirrhosis, no ascites, no evidence of hepatoma - F/u RUQ ultrasound - Will need to follow-up with outpatient dental financial coordinator upon discharge: attempt to get records from [facility] to report the patient drank alcohol on 08/28 (patient reports he was sober for 7 months prior to 08/28) Portal HTN - Stop Nadolol. Patient admits to using cocaine two nights ago. Should not be discharged on any bblocker *Esophageal varices - Continue Protonix * Hx of HCV - Patient reports has not been treated for it - f/u on hep profile *Chronic alcohol use - started on Librium - CIWA 0 - Ativan prn seizures only - Continue Folic acid - Continue Thiamine - F/u detox consult * F/E/N: - clears agueda well, will advance diet as tolerated - Monitor electrolytes * Prophylaxis: - OOB with assistance - Hold all chemical DVT prophylaxis 2/2 elevated INR * Dispo:- Requires continued inpatient care CODE STATUS: FULL CODE Visit type - Emergency Visit Emergency Visit: Yes ED Registration Date: 08/29/17 Care time: The patient presented to the Emergency Department on the above date and was hospitalized for further evaluation of their emergent condition. - New Patient This patient is new to me today: Yes Date on this admission: 08/31/17 - Critical Care Critical Care patient: No
[2017-08-31] MEDS: chlordiazePOXIDE HCL 25 MG CAPSULE PO SCH ×2 (16:39→23:01)
[2017-09-01] MEDS: PRAZOSIN HCL 1 MG CAPSULE PO SCH ×3 (05:33→21:46)
[2017-09-01] MEDS: chlordiazePOXIDE HCL 25 MG CAPSULE PO SCH ×4 (05:33→22:23)
[2017-09-01 07:19] LABS: BASO % 0.7 % (0-2.0); EOS % 6.4 % (0-4.5); HEMATOCRIT 23.7 % (35.4-49); HEMOGLOBIN 7.7 GM/dL (11.7-16.9); LYMPH % 41.5 % (8-40); MCH 25.7 pg (25.7-33.7); MCHC 32.3 g/dl (32.0-35.9); MEAN CELL VOLUME 79.7 fl (80-96); MEAN PLT VOLUME 9.1 fl (7.5-11.1); MONO % 20.9 % (3.8-10.2); NEUT % 30.5 % (42.8-82.8); PLATELET COUNT 75 K/MM3 (134-434); RBC 2.98 M/mm3 (4.00-5.60); RDW 21.3 % (11.9-15.9)
[2017-09-01 07:31] LABS: INR 2.47 (0.82-1.09); PROTHROMBIN TIME (PATIENT) 27.9 SEC (9.98-11.88)
[2017-09-01 07:55] LABS: CHLORIDE 108 mmol/L (98-107); POTASSIUM 3.6 mmol/L (3.5-5.1); SODIUM 140 mmol/L (136-145)
[2017-09-01 08:11] LABS: ALK PHOS 150 U/L (45-117); ANION GAP 9 (8-16); BLOOD UREA NITROGEN 7 mg/dL (7-18); CALCIUM 7.7 mg/dL (8.5-10.1); CO2 23 mmol/L (21-32); CREATININE 0.7 mg/dL (0.7-1.3); GLUCOSE,RANDOM 120 mg/dL (74-106); SGOT/AST 147 U/L (15-37); SGPT/ALT 60 U/L (12-78); TOT PROT 7.5 g/dl (6.4-8.2)
--- NOTE | 2017-09-01 10:32 | PN ---
Physical Exam: SUBJECTIVE: Patient seen and examined at the bedside. States he feels tired, but other than than denies pain. OBJECTIVE: Vital Signs Period Temp Pulse Resp BP Sys/[place] Pulse Ox Last 24 Hr 98.0 F-98.4 F 76-92 16-18 103-135/60-80 99 GENERAL: The patient is awake, alert, and fully oriented, in no acute distress, ambulated to the bathroom in my presence. HEAD: Normal with no signs of trauma. EYES: PERRL, extraocular movements intact, sclera anicteric, conjunctiva clear. No ptosis. ENT: Ears normal, nares patent, oropharynx clear without exudates, moist mucous membranes. NECK: Trachea midline, full range of motion, supple. LUNGS: bilateral upper lobes clear to auscultation, bilateral lower lobes diminished HEART: Regular rate and rhythm, S1, S2 without murmur, rub or gallop. ABDOMEN: Obese abdomen, distended, states he had 3 BMs overnight, on lactulose EXTREMITIES: trace edema NEUROLOGICAL: Normal speech, ambulated to bathroom, gait steady PSYCH: Normal mood, normal affect. SKIN: Warm, dry, normal turgor, no rashes or lesions noted Laboratory Results - last 24 hr 08/31/17 09/01/17 09/01/17 05:48 05:28 05:28 WBC RBC Hgb Hct MCV MCH MCHC RDW Plt Count MPV Neutrophils % Lymphocytes % Monocytes % Eosinophils % Basophils % Retic Count 2.43 H PT with INR INR Sodium 140 Potassium 3.6 Chloride 108 H Carbon Dioxide 23 Anion Gap 9 BUN 7 D Creatinine 0.7 Creat Clearance w eGFR > 60 Random Glucose 120 H Calcium 7.7 L Ferritin 45.600 Total Bilirubin 3.0 H D AST 147 H ALT 60 Alkaline Phosphatase 150 H Ammonia Creatine Kinase Index 0.2 CK-MB (CK-2) 2.980 Total Protein 7.5 Albumin 2.0 L 09/01/17 09/01/17 09/01/17 05:28 05:28 05:28 WBC 3.0 L RBC 2.98 L Hgb 7.7 L Hct 23.7 L MCV 79.7 L MCH 25.7 MCHC 32.3 RDW 21.3 H Plt Count 75 L MPV 9.1 Neutrophils % 30.5 L D Lymphocytes % 41.5 H D Monocytes % 20.9 H Eosinophils % 6.4 H D Basophils % 0.7 Retic Count PT with INR 27.90 H INR 2.47 H Sodium Potassium Chloride Carbon Dioxide Anion Gap BUN Creatinine Creat Clearance w eGFR Random Glucose Calcium Ferritin Total Bilirubin AST ALT Alkaline Phosphatase Ammonia 112.90 H Creatine Kinase Index CK-MB (CK-2) Total Protein Albumin Active Medications Generic Name Dose Route Start Last Admin Trade Name Freq PRN Reason Stop Dose Admin Chlordiazepoxide HCl 50 mg 08/31/17 17:00 09/01/17 05:33 Librium - PO 09/01/17 11:01 50 mg [id number] KANDY Administration Chlordiazepoxide HCl 25 mg 09/01/17 17:00 Librium - PO 09/02/17 11:01 [id number] KANDY Chlordiazepoxide HCl 15 mg 09/02/17 17:00 Librium - PO 09/03/17 11:01 [id number] KANDY Chlordiazepoxide HCl 25 mg 08/31/17 11:46 Librium - PO 09/03/17 11:45 Q4H PRN WITHDRAWAL(CONT SUBST) Folic Acid 1 mg 08/30/17 10:00 08/31/17 11:20 Folic Acid - PO 1 mg DAILY KANDY Administration Sodium Chloride 1,000 mls @ 100 mls/hr 08/29/17 18:30 08/31/17 17:32 Normal Saline - IV 100 mls/hr ASDIR KANDY Administration Lactulose 30 gm 09/01/17 09:00 Cephulac (Oral Use) PO QID KANDY Pantoprazole Sodium 40 mg 08/30/17 10:00 08/31/17 11:19 Protonix - PO 40 mg DAILY KANDY Administration Prazosin HCl 1 mg 08/29/17 22:00 09/01/17 05:33 Minipress - PO 1 mg TID KANDY Administration Rifaximin 550 mg 08/29/17 22:00 08/31/17 22:15 Xifaxan - PO 550 mg BID KANDY Administration Sertraline HCl 50 mg 08/31/17 10:00 08/31/17 11:19 Zoloft - PO 50 mg DAILY KANDY Administration Thiamine HCl 100 mg 08/30/17 10:00 08/31/17 11:19 Vitamin B1 - PO 100 mg DAILY KANDY Administration ASSESSMENT/PLAN: Patient is a 37 year old male with PMHx of liver cirrhosis, HCV, esophageal varices, portal hypertension, liver failure (patient reports on transplant list) , chronic alcohol use (last drink one day prior to admission), who presented to the ED with headache and generalized malaise. Renal: Rhabdomyolysis- CPK improving Monitor renal function on IVF ID: Fever Presented with fevers, now afebrile, WBC wnl ID evaluated, continue to monitor Chest xray no acute path BC and UC pending GI: GI bleed, now resolved, monitor Rectal bleeding 2 days prior, now with no further rectal bleeding reported CBC low stable, but will transfuse if hmg <7 GI following Plan for EGD on Friday Abdominal pain, rule out cholecystitis GI following, possible Hida scan Liver cirrhosis with hepatic encephalopathy, in the setting of chronic ETOH abuse Laculose 30mg QID, Rifaximin Monitor ammonia levels in a.m. Will need to follow-up with outpatient real estate closing coordinator upon discharge Portal HTN Stop Nadolol. Patient admits to using cocaine recently. Hold beta blockers Esophageal varices Continue Protonix Hx of HCV Patient reports has not been treated for it Psyche: ETOH abuse, chronic On Librium taper No withdrawals symptoms on exam Folic acid, thiamine Psyche following F.E.N. Fluids: tolerating PO Electolytes: monitor Nutrition: full liquid Prophylaxis: OOB with assistance DVT: Hold all chemical DVT prophylaxis 2/2 elevated INR GI: Protonix
[2017-09-01] MEDS: THIAMINE HCL 100 MG TABLET (FP) PO SCH (10:39)
[2017-09-01] MEDS: CEFTRIAXONE 1 GM/50 ML PREMIX IVPB SCH (10:39)
[2017-09-01] MEDS: SERTRALINE HCL 50 MG TABLET (FP) PO SCH (10:40)
[2017-09-01] MEDS: RIFAXIMIN 550 MG TABLET (UD) PO SCH ×2 (10:40→21:45)
[2017-09-01] MEDS: LACTULOSE 20 GM/30 ML UDC (FOR ORAL USE ONLY) PO SCH ×4 (10:40→21:46)
[2017-09-01] MEDS: PANTOPRAZOLE 40 MG TABLET (FP) PO SCH (10:40)
[2017-09-01] MEDS: FOLIC ACID 1 MG TABLET (FP) PO SCH (10:40)
--- NOTE | 2017-09-01 11:24 | PN ---
Progress Note, Physician History of Present Illness: No events overnight. Alert. - Current Medication List Current Medications: Active Medications Chlordiazepoxide HCl (Librium -) 25 mg PO [id number] [facility] Stop: 09/02/17 11:01 Chlordiazepoxide HCl (Librium -) 15 mg PO Q1O-VFA [facility] Stop: 09/03/17 11:01 Chlordiazepoxide HCl (Librium -) 25 mg PO Q4H PRN PRN Reason: WITHDRAWAL(CONT SUBST) Stop: 09/03/17 11:45 Folic Acid (Folic Acid -) 1 mg PO DAILY [facility] Last Admin: 09/01/17 10:40 Dose: 1 mg Sodium Chloride (Normal Saline -) 1,000 mls @ 100 mls/hr IV ASDIR [facility] Last Admin: 08/31/17 17:32 Dose: 100 mls/hr Lactulose (Cephulac (Oral Use)) 30 gm PO QID [facility] Last Admin: 09/01/17 10:40 Dose: 30 gm Pantoprazole Sodium (Protonix -) 40 mg PO DAILY [facility] Last Admin: 09/01/17 10:40 Dose: 40 mg Prazosin HCl (Minipress -) 1 mg PO TID [facility] Last Admin: 09/01/17 05:33 Dose: 1 mg Rifaximin (Xifaxan -) 550 mg PO BID [facility] Last Admin: 09/01/17 10:40 Dose: 550 mg Sertraline HCl (Zoloft -) 50 mg PO DAILY [facility] Last Admin: 09/01/17 10:40 Dose: 50 mg Thiamine HCl (Vitamin B1 -) 100 mg PO DAILY [facility] Last Admin: 09/01/17 10:39 Dose: 100 mg - Objective Vital Signs: Vital Signs Temperature 98.2 F 09/01/17 08:10 Pulse Rate 92 H 09/01/17 08:10 Respiratory Rate 16 09/01/17 08:10 Blood Pressure 126/68 09/01/17 08:10 O2 Sat by Pulse Oximetry (%) 99 08/31/17 21:00 Constitutional: Yes: No Distress, Calm Eyes: Yes: Conjunctiva Clear HENT: Yes: Atraumatic Neck: Yes: Supple Cardiovascular: Yes: Regular Rate and Rhythm Respiratory: Yes: Regular Gastrointestinal: Yes: Soft, Abdomen, Obese, Distention. No: Melena, Rectal Bleeding, Tenderness, Vomiting Neurological: Yes: Alert, Oriented Psychiatric: Yes: Alert Labs: CBC, BMP 09/01/17 05:28 09/01/17 05:28 INR, PTT INR 2.47 (0.82-1.09) H 09/01/17 05:28 Laboratory Results - last 24 hr 08/31/17 09/01/17 09/01/17 05:48 05:28 05:28 WBC RBC Hgb Hct MCV MCH MCHC RDW Plt Count MPV Neutrophils % Lymphocytes % Monocytes % Eosinophils % Basophils % Retic Count 2.43 H PT with INR INR Sodium 140 Potassium 3.6 Chloride 108 H Carbon Dioxide 23 Anion Gap 9 BUN 7 D Creatinine 0.7 Creat Clearance w eGFR > 60 Random Glucose 120 H Calcium 7.7 L Ferritin 45.600 Total Bilirubin 3.0 H D AST 147 H ALT 60 Alkaline Phosphatase 150 H Ammonia Creatine Kinase 838 H Creatine Kinase Index 0.2 CK-MB (CK-2) 2.980 Total Protein 7.5 Albumin 2.0 L 09/01/17 09/01/17 09/01/17 05:28 05:28 05:28 WBC 3.0 L RBC 2.98 L Hgb 7.7 L Hct 23.7 L MCV 79.7 L MCH 25.7 MCHC 32.3 RDW 21.3 H Plt Count 75 L MPV 9.1 Neutrophils % 30.5 L D Lymphocytes % 41.5 H D Monocytes % 20.9 H Eosinophils % 6.4 H D Basophils % 0.7 Retic Count PT with INR 27.90 H INR 2.47 H Sodium Potassium Chloride Carbon Dioxide Anion Gap BUN Creatinine Creat Clearance w eGFR Random Glucose Calcium Ferritin Total Bilirubin AST ALT Alkaline Phosphatase Ammonia 112.90 H Creatine Kinase Creatine Kinase Index CK-MB (CK-2) Total Protein Albumin 09/01/17 05:28 WBC RBC Hgb Hct MCV MCH MCHC RDW Plt Count MPV Neutrophils % Lymphocytes % Monocytes % Eosinophils % Basophils % Retic Count PT with INR INR Sodium Potassium Chloride Carbon Dioxide Anion Gap BUN Creatinine Creat Clearance w eGFR Random Glucose Calcium Ferritin Total Bilirubin AST ALT Alkaline Phosphatase Ammonia Creatine Kinase Cancelled Creatine Kinase Index CK-MB (CK-2) Total Protein Albumin - ....Imaging Ultrasound: Report Reviewed Problem List - Problems (1) Hypercoagulable state Code(s): D68.59 - OTHER PRIMARY THROMBOPHILIA (2) Esophageal varices in alcoholic cirrhosis Code(s): K70.30 - ALCOHOLIC CIRRHOSIS OF LIVER WITHOUT ASCITES; I85.10 - SECONDARY ESOPHAGEAL VARICES WITHOUT BLEEDING (3) Hepatic encephalopathy Code(s): K72.90 - HEPATIC FAILURE, UNSPECIFIED WITHOUT COMA (4) Liver cirrhosis, alcoholic Code(s): K70.30 - ALCOHOLIC CIRRHOSIS OF LIVER WITHOUT ASCITES (5) Substance abuse Code(s): F19.10 - OTHER PSYCHOACTIVE SUBSTANCE ABUSE, UNCOMPLICATED Assessment/Plan Hepatic cirrhosis, encephalopathy; varices and no ascites on imaging. Normal Bun , Cr. Hypocoagulable state. Agree with current management. Follow viral hepatitis serology Needs EGD for esophageal varices surveillance (FFP, PT, INR prior to the procedure)
[2017-09-01 12:08] LABS: HEMATOCRIT 23.8 % (35.4-49); HEMOGLOBIN 7.5 GM/dL (11.7-16.9); MCH 25.4 pg (25.7-33.7); MCHC 31.6 g/dl (32.0-35.9); MEAN CELL VOLUME 80.2 fl (80-96); MEAN PLT VOLUME 8.8 fl (7.5-11.1); PLATELET COUNT 81 K/MM3 (134-434); RBC 2.97 M/mm3 (4.00-5.60); RDW 21.2 % (11.9-15.9); WHITE BLOOD COUNT 2.9 K/mm3 (4.0-10.0)
--- NOTE | 2017-09-01 13:26 | CONSULT ---
Consult Detox [facility] Reason for Current Admission/Consult: alcohol use disorder - History History of Present Illness: 37 yo m w alcoholic cirrhosis admitted with weakness after relapsing to alcohol use several days ago prior to admission. H He had quit drinking alcohol for 7 months before resuming several days ago. He was hoping to enter a liver transplant program but never got that far. 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 He fell several days ago sustaining trauma to his head, mouth and right upper extremity. He has intermittent rectal bleeding. Patient was started on libirum detox while hospitalized which he is toerating well, is comfortable with no signs of withdrwal noted - History Source History Provided By: Patient, Medical Record Limitations to Obtaining History: No Limitations - Alcohol/Substance Use Hx Alcohol Use: Yes - Current Drug/Alcohol Use Alcohol Route: Oral Frequency: Daily Amount used: unobtainable recent relapsse to daily use Date of Last Use: 08/28/17 - Past Medical History Cardio/Vascular: Yes: HTN Gastrointestinal: Yes: Diverticulosis, Esophageal Varices, GI Bleed, Other ( hemorrhoidal bleeding) Hepatobiliary: Yes: Cirrhosis (alcoholic) Psych: Yes: Depression - Past Surgical History Past Surgical History: Yes: None - Significant Medical Findings: 37 yo m wiht h/o chronic alcoholism admitted with hepatic encephalopathy and GI bleed after relapse to alcohol use, currently on libirum detox which he is tolerating well. CIWA Score - CIWA Score Nausea/Vomitin-No Nausea/No Vomiting Muscle Tremors: None Anxiety: 0-No Anxiety, at Ease Agitation: 0-Normal Activity Paroxysmal Sweats: No Perspiration Orientation: 0-Oriented Tacttile Disturbances: 0-None Auditory Disturbances: 0-None Visual Disturbances: 0-None Headache: 0-None Present CIWA-Ar Total Score: 0 Assessment Plan - Diagnosis (1) Hepatic encephalopathy Status: Acute (2) Alcohol dependence with uncomplicated withdrawal Status: Acute (3) Esophageal varices in alcoholic cirrhosis Status: Acute - Plan Plan: Lina reviewed, labs reviewed, imaging reviewed, casse discussed with nursing staff. Sangita examined 37 yo m with alcohol use disorder, severe, end stage liver disease with esophageal varices admitted after relapse to alcohol use, fall, bleed and hepatic encephalopathy on librium taper with no signs of withdrawal noted If patient can participatte in program consider transferring to rehab for after care at [facility] if he is in agreement. Conor Francis MD - Medication Detox Regimen/Protocol: Librium
--- NOTE | 2017-09-01 13:48 | PN ---
Progress Note (short form) - Note Progress Note: feels well no further fevers Vital Signs Period Temp Pulse Resp BP Sys/[place] Pulse Ox Last 24 Hr 97.8 F-98.4 F 76-92 16-18 103-138/60-87 99-99 cor-rrr llungs clear abd soft,nt ext venous stasis CBC, BMP 09/01/17 12:00 09/01/17 05:28 Microbiology 08/30/17 11:20 Blood - Peripheral Venous Blood Culture - Preliminary NO GROWTH OBTAINED AFTER 48 HOURS, INCUBATION TO CONTINUE FOR 3 DAYS. 08/30/17 11:15 Blood - Peripheral Venous Blood Culture - Preliminary NO GROWTH OBTAINED AFTER 48 HOURS, INCUBATION TO CONTINUE FOR 3 DAYS. 08/30/17 15:05 Urine - Urine Clean Catch Urine Culture - Final NO GROWTH OBTAINED a/p fevers resolve, no ascites on imaging studies, cultures negative, will d/c antibiotics liver cirrhosis ?GI bleed- patient reported blood in stools in ED-for gi evaluation, monitor cbc please call back if needed Problem List - Problems (1) Fever Code(s): R50.9 - FEVER, UNSPECIFIED (2) Liver cirrhosis, alcoholic Code(s): K70.30 - ALCOHOLIC CIRRHOSIS OF LIVER WITHOUT ASCITES
[2017-09-01 14:27] LABS: PLATELET ESTIMATE DECREASED
--- NOTE | 2017-09-01 14:49 | PN ---
Progress Note (short form) - Note Progress Note: Plan EGD on Friday Problem List - Problems (1) Hypercoagulable state Code(s): D68.59 - OTHER PRIMARY THROMBOPHILIA (2) Esophageal varices in alcoholic cirrhosis Code(s): K70.30 - ALCOHOLIC CIRRHOSIS OF LIVER WITHOUT ASCITES; I85.10 - SECONDARY ESOPHAGEAL VARICES WITHOUT BLEEDING (3) Hepatic encephalopathy Code(s): K72.90 - HEPATIC FAILURE, UNSPECIFIED WITHOUT COMA (4) Liver cirrhosis, alcoholic Code(s): K70.30 - ALCOHOLIC CIRRHOSIS OF LIVER WITHOUT ASCITES (5) Substance abuse Code(s): F19.10 - OTHER PSYCHOACTIVE SUBSTANCE ABUSE, UNCOMPLICATED
[2017-09-01] MEDS: SODIUM CHLORIDE 1,000 ML IV SCH (17:38)
[2017-09-02] MEDS: chlordiazePOXIDE HCL 25 MG CAPSULE PO SCH ×2 (04:52→12:33)
[2017-09-02 06:11] LABS: SERUM IRON SATURATION 10 % (15-55); TOTAL IRON BINDING CAPACITY 240 ug/dL (250-450); UIBC 216 ug/dL (111-343)
[2017-09-02] MEDS ORDERED: PT OWN MED DRAWER 7, Y5N ONE (06:25)
[2017-09-02 07:26] LABS: HEMATOCRIT 23.6 % (35.4-49); HEMOGLOBIN 7.5 GM/dL (11.7-16.9); MCH 25.5 pg (25.7-33.7); MCHC 31.8 g/dl (32.0-35.9); MEAN CELL VOLUME 80.2 fl (80-96); MEAN PLT VOLUME 8.9 fl (7.5-11.1); PLATELET COUNT 82 K/MM3 (134-434); RBC 2.94 M/mm3 (4.00-5.60); RDW 20.5 % (11.9-15.9); WHITE BLOOD COUNT 2.9 K/mm3 (4.0-10.0)
[2017-09-02 08:05] LABS: ALBUMIN 1.7 g/dl (3.4-5.0); ANION GAP 7 (8-16); BLOOD UREA NITROGEN 5 mg/dL (7-18); CALCIUM 7.6 mg/dL (8.5-10.1); CHLORIDE 110 mmol/L (98-107); CO2 24 mmol/L (21-32); CREATININE 0.5 mg/dL (0.7-1.3); GLUCOSE,RANDOM 83 mg/dL (74-106); POTASSIUM 3.3 mmol/L (3.5-5.1); SGOT/AST 114 U/L (15-37); SGPT/ALT 53 U/L (12-78); SODIUM 141 mmol/L (136-145)
[2017-09-02 08:07] LABS: ALK PHOS 126 U/L (45-117); BILIRUBIN,TOTAL 2.8 mg/dL (0.2-1.0); TOT PROT 6.6 g/dl (6.4-8.2)
--- NOTE | 2017-09-02 09:14 | PN ---
Physical Exam: SUBJECTIVE: Patient seen and examined OBJECTIVE: Ammonia levels improving EGD tomorrow Symptomatc anemia with ambulation, transfuse 1 unit of prbc. K. 3.3, repleted with PO K dur 40meq x 1 Patient is having an acute outbreak of herpes zoster on borderof lips, started on Valtrex BID, ID consulted Contact precautions Vital Signs Period Temp Pulse Resp BP Sys/[place] Pulse Ox Last 24 Hr 97.8 F-99.0 F 73-93 16-20 117-158/63-88 GENERAL: The patient is awake, alert, and fully oriented, in no acute distress, ambulated to the bathroom in my presence. HEAD: Normal with no signs of trauma. EYES: PERRL, extraocular movements intact, sclera anicteric, conjunctiva clear. No ptosis. ENT: Ears normal, nares patent, oropharynx clear without exudates, moist mucous membranes. NECK: Trachea midline, full range of motion, supple. LUNGS: bilateral upper lobes clear to auscultation, bilateral lower lobes diminished HEART: Regular rate and rhythm, S1, S2 without murmur, rub or gallop. ABDOMEN: Obese abdomen, distended, states he had 3 BMs overnight, on lactulose EXTREMITIES: trace edema NEUROLOGICAL: Normal speech, ambulated to bathroom, gait steady PSYCH: Normal mood, normal affect. SKIN: Warm, dry, normal turgor, no rashes or lesions noted Laboratory Results - last 24 hr 09/01/17 09/01/17 09/01/17 05:28 05:28 05:28 WBC RBC Hgb Hct MCV MCH MCHC RDW Plt Count MPV Neutrophils % Neutrophils % (Manual) Band Neutrophils % Lymphocytes % Lymphocytes % (Manual) Monocytes % (Manual) Eosinophils % (Manual) Basophils % (Manual) Myelocytes % (Man) Metamyelocytes Platelet Estimate Sodium 140 Potassium 3.6 Chloride 108 H Carbon Dioxide 23 Anion Gap 9 BUN 7 D Creatinine 0.7 Creat Clearance w eGFR > 60 Random Glucose 120 H Calcium 7.7 L Iron 24 L TIBC 240 L Iron Saturation 10 L Ferritin 45.600 Total Bilirubin 3.0 H D AST 147 H ALT 60 Alkaline Phosphatase 150 H Ammonia Creatine Kinase 838 H Cancelled Creatine Kinase Index 0.2 CK-MB (CK-2) 1.855 Total Protein 7.5 Albumin 2.0 L Tumor Marker AFP 24.5 H Hepatitis C Antibody 0.2 09/01/17 09/02/17 09/02/17 12:00 05:05 05:05 WBC 2.9 L 2.9 L RBC 2.97 L 2.94 L Hgb 7.5 L 7.5 L Hct 23.8 L 23.6 L MCV 80.2 80.2 MCH 25.4 L 25.5 L MCHC 31.6 L 31.8 L RDW 21.2 H 20.5 H Plt Count 81 L 82 L MPV 8.8 8.9 Neutrophils % No Result Required. No Result Required. Neutrophils % (Manual) 31.3 L Band Neutrophils % 0.0 Lymphocytes % No Result Required. No Result Required. Lymphocytes % (Manual) 51.0 H Monocytes % (Manual) 14 H Eosinophils % (Manual) 4.2 Basophils % (Manual) 0.0 Myelocytes % (Man) 0 Metamyelocytes 0 Platelet Estimate Decreased Sodium 141 Potassium 3.3 L Chloride 110 H Carbon Dioxide 24 Anion Gap 7 L BUN 5 L D Creatinine 0.5 L D Creat Clearance w eGFR > 60 Random Glucose 83 D Calcium 7.6 L Iron TIBC Iron Saturation Ferritin Total Bilirubin 2.8 H AST 114 H D ALT 53 Alkaline Phosphatase 126 H Ammonia Creatine Kinase Creatine Kinase Index CK-MB (CK-2) Total Protein 6.6 Albumin 1.7 L Tumor Marker AFP Hepatitis C Antibody 09/02/17 05:05 WBC RBC Hgb Hct MCV MCH MCHC RDW Plt Count MPV Neutrophils % Neutrophils % (Manual) Band Neutrophils % Lymphocytes % Lymphocytes % (Manual) Monocytes % (Manual) Eosinophils % (Manual) Basophils % (Manual) Myelocytes % (Man) Metamyelocytes Platelet Estimate Sodium Potassium Chloride Carbon Dioxide Anion Gap BUN Creatinine Creat Clearance w eGFR Random Glucose Calcium Iron TIBC Iron Saturation Ferritin Total Bilirubin AST ALT Alkaline Phosphatase Ammonia 71.61 H Creatine Kinase Creatine Kinase Index CK-MB (CK-2) Total Protein Albumin Tumor Marker AFP Hepatitis C Antibody Active Medications Generic Name Dose Route Start Last Admin Trade Name Freq PRN Reason Stop Dose Admin Chlordiazepoxide HCl 25 mg 09/01/17 17:00 09/02/17 04:52 Librium - PO 09/02/17 11:01 25 mg [id number] KANDY Administration Chlordiazepoxide HCl 15 mg 09/02/17 17:00 Librium - PO 09/03/17 11:01 [id number] KANDY Chlordiazepoxide HCl 25 mg 08/31/17 11:46 Librium - PO 09/03/17 11:45 Q4H PRN WITHDRAWAL(CONT SUBST) Folic Acid 1 mg 08/30/17 10:00 09/01/17 10:40 Folic Acid - PO 1 mg DAILY KANDY Administration Sodium Chloride 1,000 mls @ 100 mls/hr 08/29/17 18:30 09/01/17 17:38 Normal Saline - IV 100 mls/hr ASDIR KANDY Administration Lactulose 30 gm 09/01/17 18:00 09/01/17 21:46 Cephulac (Oral Use) PO 30 gm QID KANDY Administration Pantoprazole Sodium 40 mg 08/30/17 10:00 09/01/17 10:40 Protonix - PO 40 mg DAILY KANDY Administration Prazosin HCl 1 mg 08/29/17 22:00 09/01/17 21:46 Minipress - PO 1 mg TID KANDY Administration Rifaximin 550 mg 08/29/17 22:00 09/01/17 21:45 Xifaxan - PO 550 mg BID KANDY Administration Sertraline HCl 50 mg 08/31/17 10:00 09/01/17 10:40 Zoloft - PO 50 mg DAILY KANDY Administration Thiamine HCl 100 mg 08/30/17 10:00 09/01/17 10:39 Vitamin B1 - PO 100 mg DAILY KANDY Administration ASSESSMENT/PLAN: Patient is a 37 year old male with PMHx of liver cirrhosis, HCV, esophageal varices, portal hypertension, liver failure (patient reports on transplant list) , chronic alcohol use (last drink one day prior to admission), who presented to the ED with headache and generalized malaise. Renal: Rhabdomyolysis- CPK improving Monitor renal function on IVF ID: Fevers, resolved Presented with fevers, now afebrile, WBC wnl ID evaluated, continue to monitor Chest xray no acute pathology BC and UC pending Herpes Simplex, acute Cold sores around border of lips Started on Valtrex ID consulted Contact isolation GI: GI bleed, now resolved, monitor Rectal bleeding 2 days prior, no further rectal bleeding reported but having symptomatic anemia CBC 7.5/23.6, transfuse 1 unit of prbc now GI following Plan for EGD tomorrow Abdominal pain, rule out cholecystitis GI following, possible Hida scan Liver cirrhosis with hepatic encephalopathy, in the setting of chronic ETOH abuse Laculose 30mg QID, Rifaximin Monitor ammonia levels in a.m. Will need to follow-up with outpatient home health care coordinator upon discharge Portal HTN Stop Nadolol. Patient admits to using cocaine recently. Hold beta blockers Esophageal varices Continue Protonix Hx of HCV Patient reports has not been treated for it Psyche: ETOH abuse, chronic On Librium taper No withdrawals symptoms on exam Folic acid, thiamine Psyche following F.E.N. Fluids: tolerating PO Electolytes: monitor Nutrition: full liquid Prophylaxis: OOB with assistance DVT: Hold all chemical DVT prophylaxis 2/2 elevated INR GI: Protonix Visit type - Emergency Visit Emergency Visit: Yes ED Registration Date: 08/29/17 Care time: The patient presented to the Emergency Department on the above date and was hospitalized for further evaluation of their emergent condition. - New Patient This patient is new to me today: No - Critical Care Critical Care patient: No - Discharge Referral Referred to [facility] No
[2017-09-02] MEDS ORDERED: POTASSIUM CHLORIDE TABS 20 MEQ TABLET.ER (FP) PO ONE (09:42)
[2017-09-02] MEDS ORDERED: LACTULOSE 20 GM/30 ML UDC (FOR ORAL USE ONLY) PO SCH ×2 (10:00)
[2017-09-02] MEDS: LACTULOSE 20 GM/30 ML UDC (FOR ORAL USE ONLY) PO SCH ×4 (10:14→21:53)
[2017-09-02] MEDS: RIFAXIMIN 550 MG TABLET (UD) PO SCH ×2 (10:14→21:53)
[2017-09-02] MEDS: SERTRALINE HCL 50 MG TABLET (FP) PO SCH (10:14)
[2017-09-02] MEDS: PANTOPRAZOLE 40 MG TABLET (FP) PO SCH (10:14)
[2017-09-02] MEDS: THIAMINE HCL 100 MG TABLET (FP) PO SCH (10:14)
[2017-09-02] MEDS: FOLIC ACID 1 MG TABLET (FP) PO SCH (10:14)
[2017-09-02 10:49] LABS: MAGNESIUM 1.5 mg/dL (1.8-2.4)
[2017-09-02] MEDS ORDERED: MAGNESIUM SULF 50% (8.12 MEQ/2 ML-1 GM VIAL) IVPB ONE (11:42)
[2017-09-02] MEDS: PRAZOSIN HCL 1 MG CAPSULE PO SCH ×2 (13:03→21:52)
[2017-09-02 14:10] LABS: ANISOCYTOSIS 2+; MACROCYTOSIS 2+; TARGET CELLS 3+
[2017-09-02 15:29] LABS: PLATELET ESTIMATE DECREASED
[2017-09-02] MEDS: chlordiazePOXIDE 5 MG CAPSULE PO SCH ×2 (17:12→23:30)
[2017-09-02] MEDS: SODIUM CHLORIDE 1,000 ML IV SCH (18:34)
[2017-09-02 18:44] LABS: BASO % 0.8 % (0-2.0); EOS % 7.8 % (0-4.5); HEMATOCRIT 26.3 % (35.4-49); HEMOGLOBIN 8.6 GM/dL (11.7-16.9); LYMPH % 35.7 % (8-40); MCH 26.5 pg (25.7-33.7); MCHC 32.7 g/dl (32.0-35.9); MEAN CELL VOLUME 80.9 fl (80-96); MEAN PLT VOLUME 9.4 fl (7.5-11.1); MONO % 23.3 % (3.8-10.2); NEUT % 32.4 % (42.8-82.8); PLATELET COUNT 98 K/MM3 (134-434); RBC 3.25 M/mm3 (4.00-5.60); RDW 20.4 % (11.9-15.9); WHITE BLOOD COUNT 2.7 K/mm3 (4.0-10.0)
[2017-09-02] MEDS: valACYclovir HCL 500 MG TABLET (FP) PO SCH ×2 (18:57→21:52)
[2017-09-03] MEDS: chlordiazePOXIDE 5 MG CAPSULE PO SCH ×3 (00:20→13:32)
[2017-09-03] MEDS: PRAZOSIN HCL 1 MG CAPSULE PO SCH ×3 (05:59→21:24)
[2017-09-03 08:19] LABS: BASO % 0.7 % (0-2.0); EOS % 7.9 % (0-4.5); HEMATOCRIT 26.6 % (35.4-49); HEMOGLOBIN 8.7 GM/dL (11.7-16.9); LYMPH % 33.7 % (8-40); MCH 26.4 pg (25.7-33.7); MCHC 32.8 g/dl (32.0-35.9); MEAN CELL VOLUME 80.4 fl (80-96); MEAN PLT VOLUME 9.1 fl (7.5-11.1); MONO % 18.9 % (3.8-10.2); NEUT % 38.8 % (42.8-82.8); PLATELET COUNT 92 K/MM3 (134-434); RBC 3.31 M/mm3 (4.00-5.60); RDW 20.9 % (11.9-15.9); WHITE BLOOD COUNT 3.1 K/mm3 (4.0-10.0)
[2017-09-03 08:25] LABS: ADD RBC MORPHOLOGY YES
[2017-09-03 08:39] LABS: INR 2.57 (0.82-1.09)
[2017-09-03 08:49] LABS: ALBUMIN 1.9 g/dl (3.4-5.0); ANION GAP 9 (8-16); BLOOD UREA NITROGEN 4 mg/dL (7-18); CALCIUM 7.7 mg/dL (8.5-10.1); CHLORIDE 109 mmol/L (98-107); CO2 26 mmol/L (21-32); GLUCOSE,RANDOM 66 mg/dL (74-106); MAGNESIUM 1.6 mg/dL (1.8-2.4); POTASSIUM 3.4 mmol/L (3.5-5.1); SODIUM 144 mmol/L (136-145)
[2017-09-03 08:53] LABS: ALK PHOS 113 U/L (45-117); BILIRUBIN,TOTAL 3.6 mg/dL (0.2-1.0); CREATININE 0.5 mg/dL (0.7-1.3); SGOT/AST 102 U/L (15-37); SGPT/ALT 49 U/L (12-78); TOT PROT 7.1 g/dl (6.4-8.2)
[2017-09-03] MEDS ORDERED: PT OWN MED DRAWER 7, Y5N ONE ×2 (09:11→21:14)
[2017-09-03] MEDS: FOLIC ACID 1 MG TABLET (FP) PO SCH (09:57)
[2017-09-03 10:31] LABS: ANISOCYTOSIS 1+; MACROCYTOSIS 0
[2017-09-03] MEDS ORDERED: MIDAZOLAM HCL 2 MG/2 ML SINGLE DOSE VIAL ONE ×2 (11:32)
[2017-09-03] MEDS ORDERED: PROPOFOL 20 ML ONE ×2 (11:32)
--- NOTE | 2017-09-03 12:11 | PROC ---
Endoscopy Procedure Endoscopy procedure completed. Please see scanned procedure report. single, grade 4 varix with stigmata of impending bleeding was found in the esophagus. The varix was successfully banded x 2. No imediate complications. clear liquid diet today Protonix po bid Liquid carafate 1 gm po qid Nadalol 40 mg po qd
[2017-09-03] MEDS: LACTULOSE 20 GM/30 ML UDC (FOR ORAL USE ONLY) PO SCH ×4 (13:31→21:24)
[2017-09-03] MEDS: PANTOPRAZOLE 40 MG TABLET (FP) PO SCH ×2 (13:33→21:24)
[2017-09-03] MEDS: THIAMINE HCL 100 MG TABLET (FP) PO SCH (13:35)
[2017-09-03] MEDS: RIFAXIMIN 550 MG TABLET (UD) PO SCH ×2 (13:35→21:24)
[2017-09-03] MEDS: valACYclovir HCL 500 MG TABLET (FP) PO SCH ×2 (13:35→21:24)
[2017-09-03] MEDS: SERTRALINE HCL 50 MG TABLET (FP) PO SCH (13:35)
[2017-09-03] MEDS: NADOLOL 40 MG TABLET (FP) PO SCH (15:01)
[2017-09-03] MEDS: SUCRALFATE 1 GM/10 ML UNIT DOSE CUPS PO SCH ×3 (15:03→21:24)
[2017-09-03] MEDS ORDERED: MAGNESIUM SULF 50% (8.12 MEQ/2 ML-1 GM VIAL) IVPB ONE (17:48)
--- NOTE | 2017-09-03 17:57 | PN ---
Progress Note (short form) - Note Progress Note: Subjective: The patient was seen and examined at the bedside, he claims he is hungry and would like to eat. Discussed sustaining from alcohol use as it can lead to and the patient states, "ok, but does that mean I can't do drugs" and then goes on to say that he will "still do cocaine" upon discharge. Instructed the patient that mixing nadolol (which is a varices prophylaxis) and cocaine can cause serious complications, the patient is aware of the risks and states he "does not care". Current Medications Generic Name Dose Route Start Last Admin Trade Name Freq PRN Reason Stop Dose Admin Folic Acid 1 mg 08/30/17 10:00 09/03/17 09:57 Folic Acid - PO Not Given DAILY KANDY Sodium Chloride 1,000 mls @ 100 mls/hr 08/29/17 18:30 09/02/17 18:34 Normal Saline - IV 100 mls/hr ASDIR KANDY Administration Lactulose 30 gm 09/01/17 18:00 09/03/17 17:19 Cephulac (Oral Use) PO 30 gm QID KANDY Administration Nadolol 40 mg 09/03/17 12:15 09/03/17 15:01 Corgard - PO 40 mg DAILY KANDY Administration Pantoprazole Sodium 40 mg 09/03/17 22:00 Protonix - PO BID KANDY Prazosin HCl 1 mg 08/29/17 22:00 09/03/17 15:02 Minipress - PO 1 mg TID KANDY Administration Rifaximin 550 mg 08/29/17 22:00 09/03/17 13:35 Xifaxan - PO 550 mg BID KANDY Administration Sertraline HCl 50 mg 08/31/17 10:00 09/03/17 13:35 Zoloft - PO 50 mg DAILY KANDY Administration Sucralfate 1 gm 09/03/17 14:00 09/03/17 17:19 Carafate Oral Suspension - PO 1 gm QID KANDY Administration Thiamine HCl 100 mg 08/30/17 10:00 09/03/17 13:35 Vitamin B1 - PO 100 mg DAILY KANDY Administration Valacyclovir HCl 500 mg 09/02/17 16:45 09/03/17 13:35 Valtrex - PO 500 mg BID KANDY Administration Objective: Vital Signs Period Temp Pulse Resp BP Sys/[place] Pulse Ox Last 24 Hr 97.4 F-98.4 F 68-84 17-22 108-143/60-89 98-100 Physical Exam: Refused CBCD WBC 3.1 K/mm3 (4.0-10.0) L 09/03/17 05:45 RBC 3.31 M/mm3 (4.00-5.60) L 09/03/17 05:45 Hgb 8.7 GM/dL (11.7-16.9) L 09/03/17 05:45 Hct 26.6 % (35.4-49) L 09/03/17 05:45 MCV 80.4 fl (80-96) 09/03/17 05:45 MCHC 32.8 g/dl (32.0-35.9) 09/03/17 05:45 RDW 20.9 % (11.9-15.9) H 09/03/17 05:45 Plt Count 92 K/MM3 (134-434) L 09/03/17 05:45 MPV 9.1 fl (7.5-11.1) 09/03/17 05:45 CMP Sodium 144 mmol/L (136-145) 09/03/17 05:45 Potassium 3.4 mmol/L (3.5-5.1) L 09/03/17 05:45 Chloride 109 mmol/L (98-107) H 09/03/17 05:45 Carbon Dioxide 26 mmol/L (21-32) 09/03/17 05:45 Anion Gap 9 (8-16) 09/03/17 05:45 BUN 4 mg/dL (7-18) L 09/03/17 05:45 Creatinine 0.5 mg/dL (0.7-1.3) L 09/03/17 05:45 Creat Clearance w eGFR > 60 (>60) 09/03/17 05:45 Random Glucose 66 mg/dL (74-106) L D 09/03/17 05:45 Calcium 7.7 mg/dL (8.5-10.1) L 09/03/17 05:45 Total Bilirubin 3.6 mg/dL (0.2-1.0) H D 09/03/17 05:45 AST 102 U/L (15-37) H 09/03/17 05:45 ALT 49 U/L (12-78) 09/03/17 05:45 Alkaline Phosphatase 113 U/L (45-117) 09/03/17 05:45 Total Protein 7.1 g/dl (6.4-8.2) 09/03/17 05:45 Albumin 1.9 g/dl (3.4-5.0) L 09/03/17 05:45 CARDIAC ENZYMES Creatine Kinase 385 IU/L (39-308) H 09/02/17 18:00 Troponin I 0.03 ng/ml (0.00-0.05) 08/29/17 15:40 Microbiology 08/30/17 11:20 Blood - Peripheral Venous Blood Culture - Preliminary NO GROWTH OBTAINED AFTER 96 HOURS, INCUBATION TO CONTINUE FOR 1 DAYS. 08/30/17 11:15 Blood - Peripheral Venous Blood Culture - Preliminary NO GROWTH OBTAINED AFTER 96 HOURS, INCUBATION TO CONTINUE FOR 1 DAYS. 08/30/17 15:05 Urine - Urine Clean Catch Urine Culture - Final NO GROWTH OBTAINED Assessment: This is a 37 year old male with PMHx of liver cirrhosis, HCV, esophageal varices, portal hypertension, liver failure (patient reports on transplant list), chronic alcohol use (last drink last night), who presented to the ED with headache and generalized malaise. Plan: 1) Rhabdomyolysis - Resolved 2) Esophageal varices in alcoholic cirrhosis - S/p EGD today: single grade 4 varix with stigmata of impending bleeding found in the esophagus. Varix was banded x2 - Clear liquid diet - Protonix bid - Liquid carafate 1gm po qid - Nadolol 40 po qd - Appreciate GI consult 2) Fever - Resolved - No ascites on imaging to culture - Cultures negative - Continue to monitor off all antibiotics - Appreciate ID consult 3) GI: Liver failure - RUQ ultrasound reviewed - Thrombocytopenia - Coagulopathy - Hyperammonemia: continue lactulose, trend ammonia level - Continue Rifaximin - Will need to follow-up with outpatient GI provider: reviewed notes from [facility] recent admission, does not appear the patient is on a liver transplant list HCV - Patient reports has not been treated for it 4) Chronic alcohol use - Completed Librium detox - Continue Folic acid - Continue Thiamine 5) F/E/N: - Regular diet - Monitor electrolytes 6) Prophylaxis: - OOB with assistance - Hold all chemical DVT prophylaxis 2/2 elevated INR 7) Dispo: - Requires continued inpatient care CODE STATUS: FULL CODE Visit type - Emergency Visit Emergency Visit: Yes ED Registration Date: 08/29/17 Care time: The patient presented to the Emergency Department on the above date and was hospitalized for further evaluation of their emergent condition. - New Patient This patient is new to me today: No - Critical Care Critical Care patient: No
[2017-09-03] MEDS ORDERED: SODIUM CHLORIDE IVPB ONE (18:00)
[2017-09-03] MEDS ORDERED: POTASSIUM CHLORIDE IVPB ONE (18:00)
[2017-09-03] MEDS: SODIUM CHLORIDE 1,000 ML IV SCH (18:23)
[2017-09-04 00:06] LABS: HBSAG SCREEN Negative (Negative); HEP A AB, IGM Negative (Negative); HEP B CORE AB, TOT Negative (Negative)
[2017-09-04] MEDS: PRAZOSIN HCL 1 MG CAPSULE PO SCH ×2 (05:46→14:05)
[2017-09-04 07:26] LABS: HEMATOCRIT 27.5 % (35.4-49); HEMOGLOBIN 8.8 GM/dL (11.7-16.9); MCHC 32.2 g/dl (32.0-35.9); MEAN CELL VOLUME 80.6 fl (80-96); MEAN PLT VOLUME 8.8 fl (7.5-11.1); PLATELET COUNT 87 K/MM3 (134-434); RBC 3.41 M/mm3 (4.00-5.60); RDW 20.7 % (11.9-15.9)
[2017-09-04 07:39] LABS: INR 2.35 (0.82-1.09); PROTHROMBIN TIME (PATIENT) 26.5 SEC (9.98-11.88)
[2017-09-04 08:04] LABS: BLOOD UREA NITROGEN 4 mg/dL (7-18); CALCIUM 7.2 mg/dL (8.5-10.1); CHLORIDE 108 mmol/L (98-107); POTASSIUM 3.4 mmol/L (3.5-5.1); SODIUM 141 mmol/L (136-145)
[2017-09-04 08:10] LABS: ALK PHOS 110 U/L (45-117); ANION GAP 7 (8-16); BILIRUBIN,TOTAL 3.6 mg/dL (0.2-1.0); CO2 26 mmol/L (21-32); CREATININE 0.5 mg/dL (0.7-1.3); GLUCOSE,RANDOM 63 mg/dL (74-106); MAGNESIUM 1.7 mg/dL (1.8-2.4); SGOT/AST 89 U/L (15-37); SGPT/ALT 45 U/L (12-78); TOT PROT 7.5 g/dl (6.4-8.2)
[2017-09-04] MEDS ORDERED: PT OWN MED DRAWER 7, Y5N ONE (09:32)
[2017-09-04] MEDS ORDERED: MAGNESIUM OXIDE 400 MG TABLET (FP) PO ONE (09:59)
[2017-09-04] MEDS ORDERED: KCL 10 MEQ IVPB 10 MEQ/100 ML INFUS.BAG IVPB SCH (10:00)
[2017-09-04] MEDS: THIAMINE HCL 100 MG TABLET (FP) PO SCH (10:01)
[2017-09-04] MEDS: RIFAXIMIN 550 MG TABLET (UD) PO SCH (10:02)
[2017-09-04] MEDS: FOLIC ACID 1 MG TABLET (FP) PO SCH (10:02)
[2017-09-04] MEDS: PANTOPRAZOLE 40 MG TABLET (FP) PO SCH (10:02)
[2017-09-04] MEDS: valACYclovir HCL 500 MG TABLET (FP) PO SCH ×2 (10:02→14:52)
[2017-09-04] MEDS: SERTRALINE HCL 50 MG TABLET (FP) PO SCH (10:02)
[2017-09-04] MEDS: SUCRALFATE 1 GM/10 ML UNIT DOSE CUPS PO SCH ×2 (10:02→14:05)
[2017-09-04] MEDS: LACTULOSE 20 GM/30 ML UDC (FOR ORAL USE ONLY) PO SCH ×2 (10:03→14:05)
[2017-09-04] MEDS: NADOLOL 40 MG TABLET (FP) PO SCH (10:13)
[2017-09-04] MEDS ORDERED: POTASSIUM CHLORIDE 20 MEQ in SODIUM CHLORIDE 250 ML IVPB ONE (11:00)
--- NOTE | 2017-09-04 11:37 | EKG ---
Test Reason : Blood Pressure : / mmHG Vent. Rate : 094 BPM Atrial Rate : 094 BPM P-R Int : 148 ms QRS Dur : 116 ms QT Int : 414 ms P-R-T Axes : 058 090 048 degrees QTc Int : 517 ms NORMAL SINUS RHYTHM RIGHTWARD AXIS PROLONGED QT ABNORMAL ECG WHEN COMPARED WITH ECG OF 29-AUG-2017 15:47, NO SIGNIFICANT CHANGE WAS FOUND Confirmed by VILMA THORPE MD ([id number]) on 09/04/2017 11:37:22 AM Referred By: Confirmed By:VILMA THORPE MD
--- NOTE | 2017-09-04 12:13 | PN ---
Progress Note, Physician History of Present Illness: No events overnight. Alert. Some epigastric discomfort. No melena, hematochezia , hematemesis, fever. - Current Medication List Current Medications: Active Medications Folic Acid (Folic Acid -) 1 mg PO DAILY [facility] Last Admin: 09/04/17 10:02 Dose: 1 mg Sodium Chloride (Normal Saline -) 1,000 mls @ 100 mls/hr IV ASDIR [facility] Last Admin: 09/03/17 18:23 Dose: 100 mls/hr Potassium Chloride 20 meq/ (Sodium Chloride) 260 mls @ 130 mls/hr IVPB ONCE ONE Stop: 09/04/17 12:59 Lactulose (Cephulac (Oral Use)) 30 gm PO QID [facility] Last Admin: 09/04/17 10:03 Dose: 30 gm Nadolol (Corgard -) 40 mg PO DAILY [facility] Last Admin: 09/04/17 10:13 Dose: 40 mg Pantoprazole Sodium (Protonix -) 40 mg PO BID [facility] Last Admin: 09/04/17 10:02 Dose: 40 mg Prazosin HCl (Minipress -) 1 mg PO TID [facility] Last Admin: 09/04/17 05:46 Dose: 1 mg Rifaximin (Xifaxan -) 550 mg PO BID [facility] Last Admin: 09/04/17 10:02 Dose: 550 mg Sertraline HCl (Zoloft -) 50 mg PO DAILY [facility] Last Admin: 09/04/17 10:02 Dose: 50 mg Sucralfate (Carafate Oral Suspension -) 1 gm PO QID [facility] Last Admin: 09/04/17 10:02 Dose: 1 gm Thiamine HCl (Vitamin B1 -) 100 mg PO DAILY [facility] Last Admin: 09/04/17 10:01 Dose: 100 mg Valacyclovir HCl (Valtrex -) 500 mg PO BID [facility] Last Admin: 09/04/17 10:02 Dose: 500 mg - Objective Vital Signs: Vital Signs Temperature 97.3 F L 09/04/17 09:11 Pulse Rate 81 09/04/17 09:11 Respiratory Rate 16 09/04/17 09:11 Blood Pressure 131/74 09/04/17 09:11 O2 Sat by Pulse Oximetry (%) 96 09/04/17 09:00 Constitutional: Yes: No Distress, Calm Gastrointestinal: Yes: Soft, Abdomen, Obese. No: Tenderness Neurological: Yes: Alert, Oriented Labs: CBC, BMP 09/04/17 05:05 09/04/17 05:05 INR, PTT INR 2.35 (0.82-1.09) H 09/04/17 05:05 Laboratory Results - last 24 hr 09/01/17 09/04/17 09/04/17 05:28 05:05 05:05 WBC 3.0 L RBC 3.41 L Hgb 8.8 L Hct 27.5 L MCV 80.6 MCH 26.0 MCHC 32.2 RDW 20.7 H Plt Count 87 L MPV 8.8 PT with INR 26.50 H INR 2.35 H Sodium Potassium Chloride Carbon Dioxide Anion Gap BUN Creatinine Creat Clearance w eGFR Random Glucose Calcium Magnesium Total Bilirubin AST ALT Alkaline Phosphatase Total Protein Albumin Hep A IgM Ab Confirm Negative Hepatitis A Ab Total Positive H Hep Bs Antigen Negative Hep Bs Antibody Non reactive Hep B Core Total Ab Negative 09/04/17 05:05 WBC RBC Hgb Hct MCV MCH MCHC RDW Plt Count MPV PT with INR INR Sodium 141 Potassium 3.4 L Chloride 108 H Carbon Dioxide 26 Anion Gap 7 L BUN 4 L Creatinine 0.5 L Creat Clearance w eGFR > 60 Random Glucose 63 L Calcium 7.2 L Magnesium 1.7 L Total Bilirubin 3.6 H AST 89 H ALT 45 Alkaline Phosphatase 110 Total Protein 7.5 Albumin 2.0 L Hep A IgM Ab Confirm Hepatitis A Ab Total Hep Bs Antigen Hep Bs Antibody Hep B Core Total Ab Problem List - Problems (1) Hypercoagulable state Code(s): D68.59 - OTHER PRIMARY THROMBOPHILIA (2) Esophageal varices in alcoholic cirrhosis Code(s): K70.30 - ALCOHOLIC CIRRHOSIS OF LIVER WITHOUT ASCITES; I85.10 - SECONDARY ESOPHAGEAL VARICES WITHOUT BLEEDING (3) Hepatic encephalopathy Code(s): K72.90 - HEPATIC FAILURE, UNSPECIFIED WITHOUT COMA (4) Liver cirrhosis, alcoholic Code(s): K70.30 - ALCOHOLIC CIRRHOSIS OF LIVER WITHOUT ASCITES (5) Substance abuse Code(s): F19.10 - OTHER PSYCHOACTIVE SUBSTANCE ABUSE, UNCOMPLICATED Assessment/Plan continue current management soft diet
[2017-09-04] MEDS ORDERED: MAG HYDROX/AL HYDROX/SIMETH 30 ML UNIT-DOSE CUP PO ONE (14:20)
--- NOTE | 2017-09-04 14:27 | DS ---
Physical Examination Vital Signs: Vital Signs Temperature 97.3 F L 09/04/17 09:11 Pulse Rate 81 09/04/17 09:11 Respiratory Rate 16 09/04/17 09:11 Blood Pressure 131/74 09/04/17 09:11 O2 Sat by Pulse Oximetry (%) 96 09/04/17 09:00 Labs: CBC, BMP 09/04/17 05:05 09/04/17 05:05 Discharge Summary Reason For Visit: HEPATIC ENCEPHALOPATHY Current Active Problems Abdominal pain (Acute) Alcohol dependence with uncomplicated withdrawal (Acute) Esophageal varices in alcoholic cirrhosis (Acute) Fever (Acute) Hepatic encephalopathy (Acute) Hypercoagulable state (Acute) Liver cirrhosis, alcoholic (Acute) Substance abuse (Acute) Hospital Course: Discussed with the patient the possibility of going to inpatient rehab, he has refused stating "I am a strong person, I will not drink or do drugs if I don't want to". Informed patient of the dangers of taking Nadolol and cocaine. The patient states he will NOT stop his cocaine use. Because of this, instructed the patient not to take his home nadolol and to follow-up with his GI doctor for further instruction regarding restarting this medication. Dr. Kuhn informed of the same. Reviewed medical records sent from [facility] for the patient's recent admission there. According to those notes, the patient is NOT on the liver transplant list and does not follow-up with a liver center. Would recommend having Dr. Kuhn refer the patient to a liver service at a tertiary care center once he becomes sober. Discussed with patient that if he does not abstain from alcohol use that he will . The patient is aware of the gravity of the situation and states he "will quit if he wants to". Again, the patient decline rehab. Condition: Improved - Instructions Diet, Activity, Other Instructions: Please return to the ED with new, persistent, or worsening symptoms. Please follow-up with your GI doctor as scheduled on 09/09 at 3:30 pm. You MUST STOP taking the Nadolol. Discuss with your outpatient GI physician whether or not you will restart it. Referrals: David Mendoza MD [Staff Physician] - 1 Week Alejandro Kuhn MD [Staff Physician] - (Please follow-up with GI on 09/09/17 at 3: 20pm to further management of your end stage liver disease.) Disposition: HOME - Home Medications Comprehensive Discharge Medication List: Ambulatory Orders Folic Acid 1 mg PO DAILY 08/29/17 Prazosin HCl 1 mg PO TID 08/29/17 Rifaximin [Xifaxan -] 550 mg PO BID 08/29/17 Lactulose (Oral Use) [Cephulac -] 30 gm PO QID #40 udc 09/04/17 Pantoprazole Sodium [Protonix -] 40 mg PO BID #60 tablet.ec 09/04/17 Sertraline HCl [Zoloft -] 50 mg PO DAILY #10 tablet 09/04/17 Sucralfate Oral Suspension [Carafate Oral Suspension -] 1 gm PO QID #120 ml Thiamine HCl [Vitamin B1 -] 100 mg PO DAILY #30 tablet 09/04/17 - Discharge Referral Referred to [facility] No
[2017-09-04 15:06] VITALS: BP 138/72; PULSE 83; TEMP 97.6
== END 2017-09-04 15:25 | disposition home or self-care (01) | DRG 279 ==
LOC: JER 13:36 → JERBED 17:20 → J7W 20:44 → J4W 22:59
PROVIDERS: ADMIT Internal Medicine; ATTEND Registered Nurse
PROC: 30233N1 Transfusion of Nonautologous Red Blood Cells into Peripheral Vein, Percutaneous Approach (ICD-10-PCS; 2017-09-02)
PROC: 30233L1 Transfusion of Nonautologous Fresh Plasma into Peripheral Vein, Percutaneous Approach (ICD-10-PCS; 2017-09-03)
PROC: 30233K1 Transfusion of Nonautologous Frozen Plasma into Peripheral Vein, Percutaneous Approach (ICD-10-PCS; 2017-09-03)
PROC: 06L38CZ Occlusion of Esophageal Vein with Extraluminal Device, Via Natural or Artificial Opening Endoscopic (ICD-10-PCS; principal; 2017-09-03 10:30)
DX: K72.90 Hepatic failure, unspecified without coma (principal); E72.20 Disorder of urea cycle metabolism, unspecified; M62.82 Rhabdomyolysis; I85.10 Secondary esophageal varices without bleeding; K92.2 Gastrointestinal hemorrhage, unspecified; D69.6 Thrombocytopenia, unspecified; B02.9 Zoster without complications; D68.59 Other primary thrombophilia; R91.1 Solitary pulmonary nodule; F12.10 Cannabis abuse, uncomplicated; B19.20 Unspecified viral hepatitis C without hepatic coma; K76.6 Portal hypertension; F14.10 Cocaine abuse, uncomplicated; R50.9 Fever, unspecified; K70.30 Alcoholic cirrhosis of liver without ascites; D64.9 Anemia, unspecified; K80.20 Calculus of gallbladder without cholecystitis without obstruction
CPT/HCPCS: 36415; 36430; 70450-TC; 71010-TC; 71020-TC; 74176-TC; 76705-TC; 80053; 81003; 81015; 82105; 82140; 82550; 82553; 82728; 83540; 83550; 83735; 84100; 84484; 85025; 85027; 85044; 85610; 85730; 86038; 86704; 86706; 86708; 86803; 86850; 86900; 86901; 86922; 87040; 87086; 87340; 87389; 90688; 90732; 93005; 93010; 99284-25; G0008; G0009; P9017; P9038; P9058

== ENCOUNTER 2017-09-07 12:40 | Inpatient (IN) | payer OTHER ==
[2017-09-07 13:01] VITALS: BMI 40.7
--- NOTE | 2017-09-07 13:26 | PDOC ---
History of Present Illness - General Chief Complaint: Pain Stated Complaint: ABDOMINAL PAIN, CHEST PAIN Time Seen by Provider: 09/07/17 13:25 Past History - Past Medical History Allergies/Adverse Reactions: Allergies Allergy/AdvReac Type Severity Reaction Status Date / Time No Known Allergies Allergy Verified 09/07/17 13:01 Home Medications: Ambulatory Orders Folic Acid 1 mg PO DAILY 08/29/17 Prazosin HCl 1 mg PO TID 08/29/17 Rifaximin [Xifaxan -] 550 mg PO BID 08/29/17 Lactulose (Oral Use) [Cephulac -] 30 gm PO QID #40 udc 09/04/17 Pantoprazole Sodium [Protonix -] 40 mg PO BID #60 tablet.ec 09/04/17 Sertraline HCl [Zoloft -] 50 mg PO DAILY #10 tablet 09/04/17 Sucralfate Oral Suspension [Carafate Oral Suspension -] 1 gm PO QID #120 ml Thiamine HCl [Vitamin B1 -] 100 mg PO DAILY #30 tablet 09/04/17 COPD: No HTN: Yes Liver Disease: Yes (CIRRHOSIS) - Suicide/Smoking/Psychosocial Hx Smoking History: Never smoked Have you smoked in the past 12 months: No If you are a former smoker, when did you quit?: over 10 years ago but still smokes marijuana Hx Alcohol Use: No Drug/Substance Use Hx: No Substance Use Type: None Hx Substance Use Treatment: No *Physical Exam - Vital Signs Last Vital Signs Temp Pulse Resp BP Pulse Ox 100.4 F H 134 H 26 H 163/94 99 09/07/17 12:55 09/07/17 12:55 09/07/17 12:55 09/07/17 12:55 09/07/17 12:55
[2017-09-07 13:52] LABS: VENOUS BLOOD GAS HCO3 23.1 meq/L (19-25); VENOUS PH 7.38 (7.32-7.42)
[2017-09-07 13:58] LABS: EOS % 3.9 % (0-4.5); MCH 25.5 pg (25.7-33.7); MCHC 31.2 g/dl (32.0-35.9); MEAN CELL VOLUME 81.9 fl (80-96); MEAN PLT VOLUME 8.4 fl (7.5-11.1); NEUT % 49.5 % (42.8-82.8); PLATELET COUNT 92 K/MM3 (134-434); RDW 21.4 % (11.9-15.9); WHITE BLOOD COUNT 2.1 K/mm3 (4.0-10.0)
--- NOTE | 2017-09-07 14:01 | PDOC ---
History of Present Illness - General Chief Complaint: Pain Stated Complaint: ABDOMINAL PAIN, CHEST PAIN Time Seen by Provider: 09/07/17 13:25 - History of Present Illness Initial Comments: 09/07/17 13:58 37 yo M with h/o liver cirrhosis, HCV, portal HTN, and liver failure (patient reported to be on transplant list), EtOH abuse,and cocaine abuse, who presents to ED with AMS and abdominal pain. Patient niece and sister at bedside to assist in reports. Patient is non verbal and non communicative. Family reports that patient was alert and oriented yesterday, but this morning developed severe abdominal pain, shortness of breath with labored breathing, and confusion. Has had reported episodes of non bloody emesis this morning. Patient has not spoken since arrival to the emergency department. Family is unaware of last alcoholic intake or drug status. Patient last seen in [facility] ED. Past History - Past Medical History Allergies/Adverse Reactions: Allergies Allergy/AdvReac Type Severity Reaction Status Date / Time No Known Allergies Allergy Verified 09/07/17 13:01 Home Medications: Ambulatory Orders Folic Acid 1 mg PO DAILY 09/07/17 Lactulose [Cephulac -] 30 gm PO QID 09/07/17 Pantoprazole Sodium [Protonix] 40 mg PO BID 09/07/17 Prazosin HCl [Minipress -] 1 mg PO TID 09/07/17 Rifaximin [Xifaxan] 550 mg PO BID 09/07/17 Sertraline HCl [Zoloft -] 50 mg PO DAILY 09/07/17 Sucralfate [Carafate -] 1 gm PO QID 09/07/17 Thiamine HCl [Vitamin B-1] 100 mg PO DAILY 09/07/17 COPD: No HTN: Yes Liver Disease: Yes (CIRRHOSIS) - Suicide/Smoking/Psychosocial Hx Smoking History: Never smoked Have you smoked in the past 12 months: No If you are a former smoker, when did you quit?: over 10 years ago but still smokes marijuana Hx Alcohol Use: No Drug/Substance Use Hx: No Substance Use Type: None Hx Substance Use Treatment: No Review of Systems - Review of Systems Comments:: 09/07/17 14:19 Patient with AMS and non verbal/non communicative. Unable to provide ROS. *Physical Exam - Vital Signs Last Vital Signs Temp Pulse Resp BP Pulse Ox 100.4 F H 113 H 26 H 163/94 99 09/07/17 12:55 09/07/17 13:47 09/07/17 12:55 09/07/17 12:55 09/07/17 13:47 - Physical Exam Comments: 09/07/17 14:20 GENERAL: Awake, alert and disoriented. HEAD: No signs of trauma, normocephalic, atraumatic EYES: PERRLA, sclera icterus ENT: Fissures present on bottom and upper lip . exudates. Moist mucosa NECK: Normal ROM, supple, no lymphadenopathy, JVD, or masses LUNGS: Patient tachypneic with labored breathing. HEART: Regular rate and rhythm, normal S1 and S2, no murmurs, rubs or gallops, peripheral pulses normal and equal bilaterally. ABDOMEN: Abdomen is distended with diffuse ttp and RLQ, LLQ predominance, hypoactive BS, dull percussion, and guarding. No masses. Neg CVA ttp. EXTREMITIES : Normal inspection, Normal range of motion, no edema. No clubbing or cyanosis. NEUROLOGICAL: Unable to adequately asses d/t AMS. SKIN: Warm, Dry, normal turgor, no rashes or lesions noted. ED Treatment Course - LABORATORY CBC & Chemistry Diagram: 09/07/17 13:47 09/07/17 13:47 - ADDITIONAL ORDERS Additional order review: Laboratory Results 09/07/17 13:47 VBG pH 7.38 POC VBG pCO2 40.4 POC VBG pO2 33.0 Mixed VBG HCO3 23.1 Medical Decision Making - Medical Decision Making 09/07/17 14:25 37 yo M with h/o liver cirrhosis, HCV, portal HTN, and liver failure/ESLD ( patient reported to be on transplant list), EtOH abuse,and cocaine abuse, who presents to ED with 3/4 SIRS criteria ( tachycardic 134, tachypeniec 26, and temp 100.4 criteria ), AMS and abdominal pain. Patient niece and sister at bedside to assist in reports. Patient is non verbal and non communicative. Family reports that patient was alert and oriented yesterday, but this morning developed severe abdominal pain, shortness of breath with labored breathing, and confusion. Has had reported episodes of non bloody emesis this morning. Patient has not spoken since arrival to the emergency department. Family is unaware of last alcoholic intake or drug status. Physical exam reveals scleral icetrus,and disorientation. Abdomen is distended with diffuse ttp and RLQ, LLQ predominance, hypoactive BS, dull percussion, and guarding. No masses. Patient AMS most likely d/t hepatic encephalopathy 2/2 suspected EtOH abuse. Patient is septic with suspected abdominal source of infection. Pain and distension of abdomen consistent with spontaneous bacterial peritonitis in setting of heavy/ chronic alcohol use. ED Course: WBC: 2 Plt: 92 H/H: 10.1/32.5 09/07/17 14:31 VBG: Normal pH 7.38 09/07/17 14:31 Ammonia 163 H Lactic acid 4.3 Has received Ceftriaxone 1 g ( no Cefotaxime in ED 2 g IV), Vancomycin 1 G IVPB. 09/07/17 15:12 Attempted u/s paracentesis with no identifiable fluid collections visualized. 09/07/17 15:[address] Cantu Med/Surg Inpt. *DC/Admit/Observation/Transfer Diagnosis at time of Disposition: Hepatic encephalopathy - Discharge Dispostion Admit: Yes - Referrals Referrals: STAFF,NOT ON [Primary Care Provider] - - Patient Instructions - Post Discharge Activity
[2017-09-07 14:10] LABS: INR 2.58 (0.82-1.09); PROTHROMBIN TIME (PATIENT) 29.1 SEC (9.98-11.88)
[2017-09-07] MEDS ORDERED: CEFOTAXIME SODIUM 2,000 MG in DEXTROSE 5%-WATER - 50 ML IVPB ONE (14:10)
[2017-09-07] MEDS ORDERED: THIAMINE HCL 200 MG/2 ML VIAL IVPB ONE (14:10)
[2017-09-07 14:13] LABS: ACTIVATED PTT 46.3 SECONDS (26.9-34.4)
[2017-09-07] MEDS ORDERED: ONDANSETRON 4 MG/2 ML VIAL IVPUSH ONE (14:14)
[2017-09-07] MEDS ORDERED: SODIUM CHLORIDE 0.9% 1000 ML INFUS.BAG IV ONE (14:14)
--- NOTE | 2017-09-07 14:14 | PDOC ---
Attending Attestation - Resident Resident Name: NolbertoRickRaoul - ED Attending Attestation I have performed the following: I have examined & evaluated the patient, The case was reviewed & discussed with the resident, I agree w/resident's findings & plan, Exceptions are as noted - HPI HPI: 09/07/17 14:21 37-year-old male with a history of end-stage liver disease secondary to presumed alcohol abuse and hepatitis C, recently admitted to our hospital last week for similar symptoms presents with diffuse abdominal pain associated with innumerable episodes of nonbloody and nonbilious emesis. Patient is currently vomiting and thus difficult interview. On arrival he is tachycardic to the 130s and febrile to 100.4 orally. Patient admits to drinking alcohol since discharge from the hospital 2 days ago. - Physicial Exam PE: 09/07/17 14:24 GENERAL: Awake, appears uncomfortable, actively vomiting NBNB emesis HEAD: No signs of trauma EYES: PERRLA, EOMI, scleral icterus ENT: dry MM NECK: Normal ROM, supple, no lymphadenopathy, JVD, or masses LUNGS: Breath sounds equal, clear to auscultation bilaterally. No wheezes, and no crackles HEART: tachy to 120 but regular, normal S1 and S2, no murmurs, rubs or gallops ABDOMEN: Soft, diffusely tender and distended. +dullness to percussion EXTREMITIES: Normal range of motion, no edema. No clubbing or cyanosis. No cords, erythema, or tenderness NEUROLOGICAL: Normal speech, cranial nerves grossly intact, negative pronator drift, 5/5 strength in all 4 extremities, normal sensation to light touch in all 4 extremities, normal gait - Medical Decision Making 09/07/17 14:29 37-year-old male with end-stage liver disease presents with diffuse abdominal pain associated with nausea and vomiting. In the ED the patient is febrile tachycardic and tachypneic. Exam is remarkable for diffuse abdominal tenderness to palpation and dullness percussion. High suspicion for SBP, will cover the patient with ceftriaxone (cefotaxime is not availible in the hospital) and do a diagnostic tap. 09/07/17 15:38 No large pocket of ascites for diagnostic tap and thus the tap was deferred for now. Pt covered with ceftriaxone and vanco given elevated lactate, fever, tachycardia. The patient has been admitted to Dr. Shepherd for further management. Case discussed in detail with admitting physician including history, physical exam and ancillary studies. Admitting physician has assumed care for the patient, will follow all pending diagnostics and will complete the evaluation and treatment. Heart Score/ECG Review #1 09/07/17 14:32 Twelve-lead EKG was performed and reviewed by me. Sinus tachycardia, rate 113. Normal axis and intervals. No ST elevations.
[2017-09-07] MEDS ORDERED: THIAMINE HCL 200 MG/2 ML VIAL ONE (14:15)
[2017-09-07] MEDS ORDERED: CEFTRIAXONE 1 GM in DEXTROSE 5%-WATER - 50 ML IVPB ONE (14:18)
[2017-09-07 14:21] LABS: ALBUMIN 2.2 g/dl (3.4-5.0); ANION GAP 11 (8-16); CALCIUM 7.9 mg/dL (8.5-10.1); CO2 23 mmol/L (21-32); CREATININE 0.9 mg/dL (0.7-1.3); GLUCOSE,RANDOM 121 mg/dL (74-106); SGOT/AST 81 U/L (15-37); SGPT/ALT 43 U/L (12-78); TOT PROT 8.2 g/dl (6.4-8.2)
[2017-09-07 14:23] LABS: ALK PHOS 309 U/L (45-117); CPK 159 IU/L (39-308); TROPONIN I < 0.02 ng/ml (0.00-0.05)
[2017-09-07] MEDS ORDERED: CEFTRIAXONE 1 GM/50 ML BAG ONE (14:23)
[2017-09-07] MEDS ORDERED: ONDANSETRON 4 MG/2 ML VIAL ONE (14:25)
[2017-09-07] MEDS ORDERED: VANCOMYCIN 1 GRAM (PRE-DOCKED) 1,000 MG/250 ML BAG IVPB ONE ×2 (14:43→14:59)
[2017-09-07] MEDS ORDERED: LORazepam 2 MG/ML SDV VIAL IVPUSH PRN (15:59)
--- NOTE | 2017-09-07 16:18 | HP ---
CHIEF COMPLAINT: altered mental status PCP: none HISTORY OF PRESENT ILLNESS: This is a 37 year old male with PMHx of liver cirrhosis, HCV, esophageal varices (banding 09/03/17), portal hypertension, liver failure, chronic alcohol use (last drink 2 days ago), cocaine use, who presented to the ED with his sister for altered mental status. The patient's niece and sister at the bedside stat that the patient's last drink was 2 days ago. They are unaware if the patient is complaint with his home medications. The patient is A&Ox1 (person only), he awakes to speech but is lethargic. He states he has chest pain that radiates to his abdomen. He denies any vomiting or bloody bowel movements. He does state that his last cocaine use was this morning. The patient and family deny any falls with any trauma to head or body ER course was notable for: (1) WBC 2.1, Hgb 10.1, Hct 32.5, platelets 92 (2) INR 2.58 (3) Lactic acid: 4.3 (4) Ammonia 163 (5) Temp 100.4, pulse 134, resp 26, O2 99% on RA (6) Chest X-ray with no acute pathology Recent Travel: denies PAST MEDICAL HISTORY: as above PAST SURGICAL HISTORY: Esophageal varix banding on 09/03/17 Social History: Smoking: denies Alcohol: Last drink 2 days ago Drugs: +cocaine, last use today Family History: Allergies No Known Allergies Allergy (Verified 09/07/17 13:01) HOME MEDICATIONS: Home Medications Medication Instructions Recorded Folic Acid 1 mg PO DAILY 09/07/17 Lactulose [Cephulac -] 30 gm PO QID 09/07/17 Pantoprazole Sodium [Protonix] 40 mg PO BID 09/07/17 Prazosin HCl [Minipress -] 1 mg PO TID 09/07/17 Rifaximin [Xifaxan] 550 mg PO BID 09/07/17 Sertraline HCl [Zoloft -] 50 mg PO DAILY 09/07/17 Sucralfate [Carafate -] 1 gm PO QID 09/07/17 Thiamine HCl [Vitamin B-1] 100 mg PO DAILY 09/07/17 REVIEW OF SYSTEMS: obtained partially from patient, not reliable historian CONSTITUTIONAL: Absent: fever, chills CARDIOVASCULAR: Chest pain, unknown when it began. Radiates to RUQ. Absent: chest pain RESPIRATORY: Absent: cough, shortness of breath, GASTROINTESTINAL: RUQ pain, unknown when it began. Last alcoholic beverage was 2 days ago according to the niece and sister. Absent: vomiting, melena SKIN: Absent: rash, itching, pallor PSYCHIATRIC: Absent: suicidal or homicidal ideation, hallucinations. PHYSICAL EXAMINATION Vital Signs - 24 hr 09/07/17 09/07/17 09/07/17 12:55 13:47 14:32 Temperature 100.4 F H Pulse Rate 134 H 113 H Pulse Rate [ 115 H Apical] Respiratory 26 H 22 Rate Blood Pressure 163/94 Blood Pressure 100/57 [Left Arm] O2 Sat by Pulse 99 99 100 Oximetry (%) 09/07/17 15:16 Temperature Pulse Rate Pulse Rate [ 113 H Apical] Respiratory 18 Rate Blood Pressure Blood Pressure 118/65 [Left Arm] O2 Sat by Pulse 99 Oximetry (%) GENERAL: Lethargic, arousable to verbal stimuli HEAD: Normal with no signs of trauma. EYES: Sclera icteric. Pupils equal, round and reactive to light EARS, NOSE, THROAT: Lips with dried blood. Ears normal, nares patent, oropharynx clear without exudates. Moist mucous membranes. NECK: Normal range of motion, supple without lymphadenopathy LUNGS: Snoring. Breath sounds equal. No wheezes, and no crackles. No accessory muscle use. HEART: Regular rate and rhythm, normal S1 and S2 ABDOMEN: Soft, distended. Non-tender. No guarding, no rebound, no masses. MUSCULOSKELETAL: Normal range of motion at all joints. No bony deformities or tenderness. No CVA tenderness. UPPER EXTREMITIES: 2+ pulses, warm, well-perfused. No cyanosis. No clubbing. No peripheral edema. LOWER EXTREMITIES: + edema. 2+ pulses, warm, well-perfused. No calf tenderness. No peripheral edema. NEUROLOGICAL: Unable to assess cranial nerves. Gait not observed PSYCHIATRIC: Uncooperative. Poor eye contact SKIN: Warm, dry, normal turgor, no rashes or lesions noted, normal capillary refill. Laboratory Results - last 24 hr 09/07/17 09/07/17 09/07/17 13:45 13:47 13:47 WBC 2.1 L RBC 3.97 L Hgb 10.1 L D Hct 32.5 L D MCV 81.9 MCH 25.5 L MCHC 31.2 L RDW 21.4 H Plt Count 92 L MPV 8.4 Neutrophils % 49.5 D Lymphocytes % 43.7 H D Monocytes % 0.9 L D Eosinophils % 3.9 Basophils % 2.0 PT with INR 29.10 H INR 2.58 H PTT (Actin FS) 46.3 H VBG pH POC VBG pCO2 POC VBG pO2 Mixed VBG HCO3 Sodium Potassium Chloride Carbon Dioxide Anion Gap BUN Creatinine Creat Clearance w eGFR Random Glucose Lactic Acid Calcium Total Bilirubin AST ALT Alkaline Phosphatase Ammonia Creatine Kinase Creatine Kinase Index CK-MB (CK-2) Troponin I Total Protein Albumin Blood Type O POSITIVE Antibody Screen 09/07/17 09/07/17 09/07/17 13:47 13:47 13:47 WBC RBC Hgb Hct MCV MCH MCHC RDW Plt Count MPV Neutrophils % Lymphocytes % Monocytes % Eosinophils % Basophils % PT with INR INR PTT (Actin FS) VBG pH 7.38 POC VBG pCO2 40.4 POC VBG pO2 33.0 Mixed VBG HCO3 23.1 Sodium 140 Potassium 3.6 Chloride 106 Carbon Dioxide 23 Anion Gap 11 BUN 7 D Creatinine 0.9 D Creat Clearance w eGFR > 60 Random Glucose 121 H D Lactic Acid 4.3 H* Calcium 7.9 L Total Bilirubin 3.0 H AST 81 H ALT 43 Alkaline Phosphatase 309 H D Ammonia Creatine Kinase 159 Creatine Kinase Index 0.6 CK-MB (CK-2) < 1.000 Troponin I < 0.02 D Total Protein 8.2 Albumin 2.2 L Blood Type Antibody Screen 09/07/17 09/07/17 13:47 13:47 WBC RBC Hgb Hct MCV MCH MCHC RDW Plt Count MPV Neutrophils % Lymphocytes % Monocytes % Eosinophils % Basophils % PT with INR INR PTT (Actin FS) VBG pH POC VBG pCO2 POC VBG pO2 Mixed VBG HCO3 Sodium Potassium Chloride Carbon Dioxide Anion Gap BUN Creatinine Creat Clearance w eGFR Random Glucose Lactic Acid Calcium Total Bilirubin AST ALT Alkaline Phosphatase Ammonia 163 H Creatine Kinase Creatine Kinase Index CK-MB (CK-2) Troponin I Total Protein Albumin Blood Type O POSITIVE Antibody Screen Negative Assessment: This is a 37 year old male with PMHx of liver cirrhosis, HCV, esophageal varices, portal hypertension, liver failure (patient reports on transplant list), chronic alcohol use (last drink last night), who presented to the ED with headache and generalized malaise. 1) Cardiology: Chest pain - R/o CO - EKG with sinus tachycardia, incomplete RBBB, left posterior fascicular block - Cardiac monitoring - Trend troponins 2) GI: Abdominal pain - F/u lipase - F/u abdominal ultrasound to r/o ascites and evaluate for cholecystitis - Elevated lactate with concern for SBP. On last admission patient did not have ascites on ultrasound. Was given Ceftriaxone and Vancomycin in the ED. Will continue Ceftriaxone for now until all cultures return - Trend lactic acid Acute hepatic encephalopathy 2/2 liver cirrhosis - Unknown if compliant with home medications - Will give Lactulose enema now as patient has poor mental status - Resume home Lactulose - Resume home Rifaximin Liver failure - Thrombocytopenia - Coagulopathy - Needs outpatient GI follow-up. Per review of chart from [facility] the patient does not appear to be on a liver transplant list or follow-up with any GI specialist outpatient Esophageal varices - S/p EGD with banding x2 on 09/03 - Not on Nadolol as the patient admits to cocaine use and is unwilling to abstain - Continue Protonix - Continue carafate 3) Psych: Chronic alcohol use - Patient's last drink 2 days ago per niece and sister - Difficult to obtain CIWA - Concern for starting Librium detox as the patient has liver failure - Ativan prn seizures only - Continue Folic acid - Continue Thiamine - F/u detox consult 4) F/E/N: - NPO until mental status improves - Monitor electrolytes 5) Prophylaxis: - OOB with assistance - Hold all chemical DVT prophylaxis 2/2 elevated INR 6) Dispo: - Requires continued inpatient care CODE STATUS: FULL CODE Visit type - Emergency Visit Emergency Visit: Yes ED Registration Date: 09/07/17 Care time: The patient presented to the Emergency Department on the above date and was hospitalized for further evaluation of their emergent condition. - New Patient This patient is new to me today: Yes Date on this admission: 09/10/17 - Critical Care Critical Care patient: No
[2017-09-07] MEDS ORDERED: LACTULOSE 20 GM/30 ML UDC (FOR RECTAL USE ONLY) PR ONE (16:30)
[2017-09-07] MEDS ORDERED: LACTULOSE 20 GM/30 ML UDC (FOR ORAL USE ONLY) ONE (16:32)
[2017-09-07] MEDS: SODIUM CHLORIDE 1,000 ML IV SCH (17:06)
[2017-09-07 18:03] LABS: CPK 168 IU/L (39-308); TROPONIN I < 0.02 ng/ml (0.00-0.05)
[2017-09-07] MEDS ORDERED: SUCRALFATE 1 GM TABLET (FP) ONE ×2 (20:50→22:57)
[2017-09-07] MEDS: SUCRALFATE 1 GM TABLET (FP) PO SCH ×2 (20:57→23:17)
[2017-09-07] MEDS ORDERED: PANTOPRAZOLE 40 MG TABLET (FP) PO SCH (22:00)
[2017-09-07] MEDS ORDERED: RIFAXIMIN 550 MG TABLET (UD) PO SCH (22:00)
[2017-09-07] MEDS ORDERED: PANTOPRAZOLE 40 MG TABLET (FP) ONE (22:57)
[2017-09-07] MEDS: PRAZOSIN HCL 1 MG CAPSULE PO SCH (23:17)
[2017-09-08 01:18] LABS: CPK 193 IU/L (39-308); TROPONIN I < 0.02 ng/ml (0.00-0.05)
[2017-09-08] MEDS ORDERED: SODIUM CHLORIDE 500 ML IV ONE (01:45)
[2017-09-08] MEDS ORDERED: ACETAMINOPHEN 650 MG SUPP.RECT PR ONE (02:45)
[2017-09-08 04:36] LABS: URINE APPEARANCE CLOUDY; URINE BILIRUBIN NEGATIVE (NEGATIVE); URINE BLOOD 3+ (NEGATIVE); URINE COLOR AMBER; URINE GLUCOSE (UA) 1+ (NEGATIVE); URINE KETONE TRACE (NEGATIVE); URINE LEUK ESTERASE NEGATIVE (NEGATIVE); URINE NITRITE NEGATIVE (NEGATIVE); URINE UROBILINOGEN NEGATIVE mg/dL (0.2-1.0)
[2017-09-08 04:40] LABS: URINE PROTEIN 2+ (NEGATIVE)
[2017-09-08 04:47] LABS: URINE BACTERIA RARE /hpf (NONE SEEN); URINE MUCUS RARE; URINE RBC 67 /hpf (0-3); URINE WBC 8 /hpf (3-5); YEAST RARE
[2017-09-08] MEDS: PRAZOSIN HCL 1 MG CAPSULE PO SCH (05:34)
[2017-09-08] MEDS ORDERED: IBUPROFEN 800 MG/8 ML IJ IVPB ONE (05:45)
[2017-09-08 05:49] LABS: URINE MARIJUANA THC NEGATIVE ng/ml (CUTOFF=50)
[2017-09-08] MEDS ORDERED: LACTULOSE 20 GM/30 ML UDC (FOR ORAL USE ONLY) PO SCH ×2 (06:00)
[2017-09-08] MEDS: SODIUM CHLORIDE 1,000 ML IV SCH ×3 (06:30→17:07)
[2017-09-08] MEDS: LACTULOSE 20 GM/30 ML UDC (FOR RECTAL USE ONLY) PR SCH ×2 (06:58→15:58)
[2017-09-08 08:10] LABS: ARTERIAL BLD GAS O2 SATURATION 94.4 % (90-98.9); ARTERIAL BLOOD GAS BASE EXCESS -5.7 meq/l (-2-2); ARTERIAL BLOOD GAS HCO3 17.9 meq/L (22-26)
[2017-09-08 08:12] LABS: ALLENS TEST POSITIVE
[2017-09-08 08:13] LABS: ART PUNCT SITE RIGHT RADIAL; PT. ON O2? YES
[2017-09-08] MEDS ORDERED: SODIUM CHLORIDE 2,000 ML IV STA (08:18)
[2017-09-08] MEDS ORDERED: PIPERACIL/TAZOB 3.375 GM 3.375 GM/50 ML PREMIX IVPB ONE (08:24)
[2017-09-08 08:38] LABS: BASO % 0.2 % (0-2.0); MCH 25.4 pg (25.7-33.7); MCHC 31.5 g/dl (32.0-35.9); MEAN CELL VOLUME 80.7 fl (80-96); MEAN PLT VOLUME 8.4 fl (7.5-11.1); NEUT % 86.1 % (42.8-82.8); PLATELET COUNT 62 K/MM3 (134-434); RDW 21.4 % (11.9-15.9)
[2017-09-08 08:53] LABS: PROTHROMBIN TIME (PATIENT) 46.3 SEC (9.98-11.88)
[2017-09-08] MEDS ORDERED: SODIUM CHLORIDE 500 ML IV STA (08:53)
[2017-09-08 08:59] LABS: ALBUMIN 1.7 g/dl (3.4-5.0); ANION GAP 12 (8-16); CO2 18 mmol/L (21-32); CREATININE 1.8 mg/dL (0.7-1.3); GLUCOSE,RANDOM 90 mg/dL (74-106); MAGNESIUM 1.3 mg/dL (1.8-2.4); PHOSPHOROUS 3.9 mg/dL (2.5-4.9); SGOT/AST 83 U/L (15-37); SGPT/ALT 39 U/L (12-78)
[2017-09-08 09:00] LABS: ALK PHOS 99 U/L (45-117); BILIRUBIN,TOTAL 2.8 mg/dL (0.2-1.0); TOT PROT 6.6 g/dl (6.4-8.2)
[2017-09-08] MEDS: DOPAMINE 400 MG/D5W - 400,000 MCG/250 ML INFUS.BAG IVPB SCH (09:00)
[2017-09-08 09:08] LABS: CALCIUM 6.6 mg/dL (8.5-10.1)
[2017-09-08 09:12] LABS: INR 4.1 (0.82-1.09)
[2017-09-08] MEDS ORDERED: IBUPROFEN 800 MG/8 ML IJ IVPB PRN (09:29)
[2017-09-08] MEDS ORDERED: MAGNESIUM SULF 50% (8.12 MEQ/2 ML-1 GM VIAL) IVPB ONE (09:30)
[2017-09-08] MEDS ORDERED: PIPERACILLIN/TAZOB 3.375 GM 3.375 GM in DEXTROSE 5%-WATER - 100 ML IVPB ONE (09:30)
--- NOTE | 2017-09-08 09:49 | PN ---
Physical Exam: SUBJECTIVE: Patient seen and examined. Rapid response called for severe hypotension, 60/30. Fluid resuscitation NS x 2L without improvement, dopamine drip started. Transferred to ICU. OBJECTIVE: Vital Signs Period Temp Pulse Resp BP Sys/[place] Pulse Ox Last 24 Hr 98.4 F-102.2 F 77-134 16-26 97-163/37-94 98-100 GENERAL: The patient was initially somnolent; more awake, interacting with staff HEAD: Normal with no signs of trauma. EYES: PERRL, sclera anicteric, conjunctiva clear. No ptosis. LUNGS: Wheezing anterior left upper lobe HEART: Regular rate and rhythm, S1, S2 without murmur, rub or gallop. ABDOMEN: Soft, nontender, nondistended, normoactive bowel sounds, no guarding, no rebound, no hepatosplenomegaly, no masses. EXTREMITIES: 2+ pulses, warm, well-perfused, no edema. NEUROLOGICAL: Cranial nerves II through XII grossly intact. Normal speech, gait not observed. PSYCH: Normal mood, normal affect. SKIN: Warm, dry, normal turgor, no rashes or lesions noted Laboratory Results - last 24 hr 09/07/17 09/07/17 09/07/17 13:45 13:47 13:47 WBC 2.1 L RBC 3.97 L Hgb 10.1 L D Hct 32.5 L D MCV 81.9 MCH 25.5 L MCHC 31.2 L RDW 21.4 H Plt Count 92 L MPV 8.4 Neutrophils % 49.5 D Lymphocytes % 43.7 H D Monocytes % 0.9 L D Eosinophils % 3.9 Basophils % 2.0 PT with INR 29.10 H INR 2.58 H PTT (Actin FS) 46.3 H Puncture Site ABG pH ABG pCO2 at Pt Temp ABG pO2 at Pt Temp ABG HCO3 ABG O2 Sat (Measured) ABG O2 Content ABG Base Excess Luther Test VBG pH POC VBG pCO2 POC VBG pO2 Mixed VBG HCO3 Oxygen Flow Rate Sodium Potassium Chloride Carbon Dioxide Anion Gap BUN Creatinine Creat Clearance w eGFR Random Glucose Lactic Acid Calcium Phosphorus Magnesium Total Bilirubin AST ALT Alkaline Phosphatase Ammonia Creatine Kinase Creatine Kinase Index CK-MB (CK-2) Troponin I C-Reactive Protein Total Protein Albumin Lipase Urine Color Urine Appearance Urine pH Ur Specific [place] Urine Protein Urine Glucose (UA) Urine Ketones Urine Blood Urine Nitrite Urine Bilirubin Urine Urobilinogen Urine WBC (Auto) Urine RBC (Auto) Ur Epithelial Cells Urine Bacteria Urine Mucus Urine Yeast Opiates Screen Methadone Screen Barbiturate Screen Phencyclidine Screen Ur Amphetamines Screen MDMA (Ecstasy) Screen Benzodiazepines Screen Cocaine Screen U Marijuana (THC) Screen Alcohol, Quantitative Blood Type O POSITIVE Antibody Screen 09/07/17 09/07/17 09/07/17 13:47 13:47 13:47 WBC RBC Hgb Hct MCV MCH MCHC RDW Plt Count MPV Neutrophils % Lymphocytes % Monocytes % Eosinophils % Basophils % PT with INR INR PTT (Actin FS) Puncture Site ABG pH ABG pCO2 at Pt Temp ABG pO2 at Pt Temp ABG HCO3 ABG O2 Sat (Measured) ABG O2 Content ABG Base Excess Luther Test VBG pH 7.38 POC VBG pCO2 40.4 POC VBG pO2 33.0 Mixed VBG HCO3 23.1 Oxygen Flow Rate Sodium 140 Potassium 3.6 Chloride 106 Carbon Dioxide 23 Anion Gap 11 BUN 7 D Creatinine 0.9 D Creat Clearance w eGFR > 60 Random Glucose 121 H D Lactic Acid 4.3 H* Calcium 7.9 L Phosphorus Magnesium Total Bilirubin 3.0 H AST 81 H ALT 43 Alkaline Phosphatase 309 H D Ammonia Creatine Kinase 159 Creatine Kinase Index 0.6 CK-MB (CK-2) < 1.000 Troponin I < 0.02 D C-Reactive Protein Total Protein 8.2 Albumin 2.2 L Lipase 321 Urine Color Urine Appearance Urine pH Ur Specific [place] Urine Protein Urine Glucose (UA) Urine Ketones Urine Blood Urine Nitrite Urine Bilirubin Urine Urobilinogen Urine WBC (Auto) Urine RBC (Auto) Ur Epithelial Cells Urine Bacteria Urine Mucus Urine Yeast Opiates Screen Methadone Screen Barbiturate Screen Phencyclidine Screen Ur Amphetamines Screen MDMA (Ecstasy) Screen Benzodiazepines Screen Cocaine Screen U Marijuana (THC) Screen Alcohol, Quantitative Blood Type Antibody Screen 09/07/17 09/07/17 09/07/17 13:47 13:47 17:06 WBC RBC Hgb Hct MCV MCH MCHC RDW Plt Count MPV Neutrophils % Lymphocytes % Monocytes % Eosinophils % Basophils % PT with INR INR PTT (Actin FS) Puncture Site ABG pH ABG pCO2 at Pt Temp ABG pO2 at Pt Temp ABG HCO3 ABG O2 Sat (Measured) ABG O2 Content ABG Base Excess Luther Test VBG pH POC VBG pCO2 POC VBG pO2 Mixed VBG HCO3 Oxygen Flow Rate Sodium Potassium Chloride Carbon Dioxide Anion Gap BUN Creatinine Creat Clearance w eGFR Random Glucose Lactic Acid Calcium Phosphorus Magnesium Total Bilirubin AST ALT Alkaline Phosphatase Ammonia 163 H Creatine Kinase Creatine Kinase Index CK-MB (CK-2) Troponin I C-Reactive Protein Total Protein Albumin Lipase Cancelled Urine Color Urine Appearance Urine pH Ur Specific [place] Urine Protein Urine Glucose (UA) Urine Ketones Urine Blood Urine Nitrite Urine Bilirubin Urine Urobilinogen Urine WBC (Auto) Urine RBC (Auto) Ur Epithelial Cells Urine Bacteria Urine Mucus Urine Yeast Opiates Screen Methadone Screen Barbiturate Screen Phencyclidine Screen Ur Amphetamines Screen MDMA (Ecstasy) Screen Benzodiazepines Screen Cocaine Screen U Marijuana (THC) Screen Alcohol, Quantitative Blood Type O POSITIVE Antibody Screen Negative 09/07/17 09/07/17 09/07/17 17:15 17:15 17:23 WBC RBC Hgb Hct MCV MCH MCHC RDW Plt Count MPV Neutrophils % Lymphocytes % Monocytes % Eosinophils % Basophils % PT with INR INR PTT (Actin FS) Puncture Site ABG pH ABG pCO2 at Pt Temp ABG pO2 at Pt Temp ABG HCO3 ABG O2 Sat (Measured) ABG O2 Content ABG Base Excess Luther Test VBG pH POC VBG pCO2 POC VBG pO2 Mixed VBG HCO3 Oxygen Flow Rate Sodium Potassium Chloride Carbon Dioxide Anion Gap BUN Creatinine Creat Clearance w eGFR Random Glucose Lactic Acid 3.1 H* Calcium Phosphorus Magnesium Total Bilirubin AST ALT Alkaline Phosphatase Ammonia Creatine Kinase 168 Creatine Kinase Index 0.5 CK-MB (CK-2) < 1.000 Troponin I < 0.02 C-Reactive Protein Total Protein Albumin Lipase Urine Color Urine Appearance Urine pH Ur Specific [place] Urine Protein Urine Glucose (UA) Urine Ketones Urine Blood Urine Nitrite Urine Bilirubin Urine Urobilinogen Urine WBC (Auto) Urine RBC (Auto) Ur Epithelial Cells Urine Bacteria Urine Mucus Urine Yeast Opiates Screen Methadone Screen Barbiturate Screen Phencyclidine Screen Ur Amphetamines Screen MDMA (Ecstasy) Screen Benzodiazepines Screen Cocaine Screen U Marijuana (THC) Screen Alcohol, Quantitative < 5.0 Blood Type Antibody Screen 09/08/17 09/08/17 09/08/17 00:24 00:24 03:37 WBC RBC Hgb Hct MCV MCH MCHC RDW Plt Count MPV Neutrophils % Lymphocytes % Monocytes % Eosinophils % Basophils % PT with INR INR PTT (Actin FS) Puncture Site ABG pH ABG pCO2 at Pt Temp ABG pO2 at Pt Temp ABG HCO3 ABG O2 Sat (Measured) ABG O2 Content ABG Base Excess Luther Test VBG pH POC VBG pCO2 POC VBG pO2 Mixed VBG HCO3 Oxygen Flow Rate Sodium Potassium Chloride Carbon Dioxide Anion Gap BUN Creatinine Creat Clearance w eGFR Random Glucose Lactic Acid 4.4 H* Calcium Phosphorus Magnesium Total Bilirubin AST ALT Alkaline Phosphatase Ammonia Creatine Kinase 193 Creatine Kinase Index 0.5 CK-MB (CK-2) < 1.000 Troponin I < 0.02 C-Reactive Protein Total Protein Albumin Lipase Urine Color Andra Urine Appearance Cloudy Urine pH 6.0 Ur Specific [place] 1.019 Urine Protein 2+ H Urine Glucose (UA) 1+ H Urine Ketones Trace H Urine Blood 3+ H Urine Nitrite Negative Urine Bilirubin Negative Urine Urobilinogen Negative Urine WBC (Auto) 8 Urine RBC (Auto) 67 Ur Epithelial Cells Rare Urine Bacteria Rare Urine Mucus Rare Urine Yeast Rare Opiates Screen Methadone Screen Barbiturate Screen Phencyclidine Screen Ur Amphetamines Screen MDMA (Ecstasy) Screen Benzodiazepines Screen Cocaine Screen U Marijuana (THC) Screen Alcohol, Quantitative Blood Type Antibody Screen 09/08/17 09/08/17 09/08/17 03:37 08:06 08:30 WBC RBC Hgb Hct MCV MCH MCHC RDW Plt Count MPV Neutrophils % Lymphocytes % Monocytes % Eosinophils % Basophils % PT with INR 46.30 H INR 4.10 H* D PTT (Actin FS) Puncture Site Right radial ABG pH 7.40 ABG pCO2 at Pt Temp 29.5 L ABG pO2 at Pt Temp 71.0 L ABG HCO3 17.9 L ABG O2 Sat (Measured) 94.4 ABG O2 Content 10.5 L ABG Base Excess -5.7 L Luther Test Positive VBG pH POC VBG pCO2 POC VBG pO2 Mixed VBG HCO3 Oxygen Flow Rate Yes Sodium Potassium Chloride Carbon Dioxide Anion Gap BUN Creatinine Creat Clearance w eGFR Random Glucose Lactic Acid Calcium Phosphorus Magnesium Total Bilirubin AST ALT Alkaline Phosphatase Ammonia Creatine Kinase Creatine Kinase Index CK-MB (CK-2) Troponin I C-Reactive Protein Total Protein Albumin Lipase Urine Color Urine Appearance Urine pH Ur Specific [place] Urine Protein Urine Glucose (UA) Urine Ketones Urine Blood Urine Nitrite Urine Bilirubin Urine Urobilinogen Urine WBC (Auto) Urine RBC (Auto) Ur Epithelial Cells Urine Bacteria Urine Mucus Urine Yeast Opiates Screen Negative Methadone Screen Negative Barbiturate Screen Negative Phencyclidine Screen Negative Ur Amphetamines Screen Negative MDMA (Ecstasy) Screen Negative Benzodiazepines Screen Positive Cocaine Screen Negative U Marijuana (THC) Screen Negative Alcohol, Quantitative Blood Type Antibody Screen 09/08/17 09/08/17 09/08/17 08:30 08:30 08:30 WBC 11.0 H D RBC 3.13 L D Hgb 8.0 L D Hct 25.3 L D MCV 80.7 MCH 25.4 L MCHC 31.5 L RDW 21.4 H Plt Count 62 L D MPV 8.4 Neutrophils % 86.1 H D Lymphocytes % 5.4 L D Monocytes % 8.3 D Eosinophils % 0.0 D Basophils % 0.2 PT with INR INR PTT (Actin FS) Puncture Site ABG pH ABG pCO2 at Pt Temp ABG pO2 at Pt Temp ABG HCO3 ABG O2 Sat (Measured) ABG O2 Content ABG Base Excess Luther Test VBG pH POC VBG pCO2 POC VBG pO2 Mixed VBG HCO3 Oxygen Flow Rate Sodium 143 Cancelled Potassium 3.5 Cancelled Chloride 113 H Cancelled Carbon Dioxide 18 L D Cancelled Anion Gap 12 Cancelled BUN 19 H D Cancelled Creatinine 1.8 H D Cancelled Creat Clearance w eGFR 42.67 Cancelled Random Glucose 90 D Cancelled Lactic Acid Calcium 6.6 L* Cancelled Phosphorus 3.9 D Magnesium 1.3 L D Total Bilirubin 2.8 H Cancelled AST 83 H Cancelled ALT 39 Cancelled Alkaline Phosphatase 99 D Cancelled Ammonia Creatine Kinase Creatine Kinase Index CK-MB (CK-2) Troponin I < 0.02 C-Reactive Protein Total Protein 6.6 Cancelled Albumin 1.7 L D Cancelled Lipase Urine Color Urine Appearance Urine pH Ur Specific [place] Urine Protein Urine Glucose (UA) Urine Ketones Urine Blood Urine Nitrite Urine Bilirubin Urine Urobilinogen Urine WBC (Auto) Urine RBC (Auto) Ur Epithelial Cells Urine Bacteria Urine Mucus Urine Yeast Opiates Screen Methadone Screen Barbiturate Screen Phencyclidine Screen Ur Amphetamines Screen MDMA (Ecstasy) Screen Benzodiazepines Screen Cocaine Screen U Marijuana (THC) Screen Alcohol, Quantitative Blood Type Antibody Screen 09/08/17 09/08/17 08:30 09:25 WBC RBC Hgb Hct MCV MCH MCHC RDW Plt Count MPV Neutrophils % Lymphocytes % Monocytes % Eosinophils % Basophils % PT with INR INR PTT (Actin FS) Puncture Site ABG pH ABG pCO2 at Pt Temp ABG pO2 at Pt Temp ABG HCO3 ABG O2 Sat (Measured) ABG O2 Content ABG Base Excess Luther Test VBG pH POC VBG pCO2 POC VBG pO2 Mixed VBG HCO3 Oxygen Flow Rate Sodium Potassium Chloride Carbon Dioxide Anion Gap BUN Creatinine Creat Clearance w eGFR Random Glucose Lactic Acid 4.3 H* Calcium Phosphorus Magnesium Total Bilirubin AST ALT Alkaline Phosphatase Ammonia Creatine Kinase Creatine Kinase Index CK-MB (CK-2) Troponin I C-Reactive Protein Cancelled Total Protein Albumin Lipase Urine Color Urine Appearance Urine pH Ur Specific [place] Urine Protein Urine Glucose (UA) Urine Ketones Urine Blood Urine Nitrite Urine Bilirubin Urine Urobilinogen Urine WBC (Auto) Urine RBC (Auto) Ur Epithelial Cells Urine Bacteria Urine Mucus Urine Yeast Opiates Screen Methadone Screen Barbiturate Screen Phencyclidine Screen Ur Amphetamines Screen MDMA (Ecstasy) Screen Benzodiazepines Screen Cocaine Screen U Marijuana (THC) Screen Alcohol, Quantitative Blood Type Antibody Screen Active Medications Generic Name Dose Route Start Last Admin Trade Name Freq PRN Reason Stop Dose Admin Sodium Chloride 1,000 mls @ 100 mls/hr 09/07/17 15:45 09/08/17 06:30 Normal Saline - IV 100 mls/hr ASDIR KANDY Administration Dopamine HCl/Dextrose 400,000 mcg in 250 mls @ 22.113 mls/hr 09/08/17 09:00 Dopamine 400 Mg/D5w - IVPB TITR KANDY Protocol 5 MCG/KG/MIN Sodium Chloride 500 mls @ 500 mls/hr 09/08/17 08:53 Normal Saline - IV 09/08/17 09:52 ASDIR STA Ceftriaxone Sodium 2 gm/ 100 mls @ 200 mls/hr 09/08/17 10:00 Dextrose IVPB DAILY KANDY Potassium Chloride 10 meq in 100 mls @ 100 mls/hr 09/08/17 09:30 Potassium Chloride 10 Meq Premix Ivpb - IVPB 09/08/17 12:29 Q60M KANDY Vancomycin HCl 1,250 mg/ 250 mls @ 166.667 mls/hr 09/09/17 10:00 Dextrose IVPB BID KANDY Protocol Vancomycin HCl 1,250 mg/ 250 mls @ 166.667 mls/hr 09/08/17 10:00 Dextrose IVPB 09/08/17 23:29 BID KANDY Protocol Ibuprofen 400 mg 09/08/17 09:29 Caldolor Injection - IVPB Q6H PRN FEVER Lactulose 200 gm 09/08/17 06:45 09/08/17 06:58 Cephulac (Rectal Use) IA 200 gm Q6HPO KANDY Administration Sucralfate 1 gm 09/07/17 18:00 09/07/17 23:17 Carafate - PO 1 gm QID KANDY Administration Microbiology 09/07/17 13:47 Blood - Peripheral Venous Blood Culture - Preliminary Pending Organism-GPC in chains 09/07/17 13:47 Blood - Peripheral Venous Blood Culture - Preliminary Pending Organism-GPC in chains ASSESSMENT/PLAN 37 year-old male with PMH significant for liver cirrhosis, HCV, esophageal varices (banding 09/03/17), portal hypertension, polysubstance abuse (alcohol, cocaine). Liver cirrhosis Hep C Esophageal varices s/p banding Portal hypertension --INR 2.58-->4.1 --there is no ascites, low suspicion for SBP --ammonia 163 on admission, continue lactulose enemas q6h Septic shock likely secondary to bacterial pneumonia --remained hypotensive after 3L resuscitation, dopamine drip started --lactic acid 4.3 --ceftriaxone (09/07--); Vanc (09/07--) --duonebs Hypomagnesemia --replete Hypokalemia --replete Hypocalcemia --corrected calcium 8.4, borderline; repeat Polysubstance abuse --detox consult pending DVT prophylaxis: INR supratherapeutic Visit type - Emergency Visit Emergency Visit: Yes ED Registration Date: 09/07/17 Care time: The patient presented to the Emergency Department on the above date and was hospitalized for further evaluation of their emergent condition. - New Patient This patient is new to me today: Yes Date on this admission: 09/09/17 - Critical Care Critical Care patient: Yes Total Critical Care Time (in minutes): 60 Critical Care Statement: The care of this patient involved high complexity decision making to prevent further life threatening deterioration of the patient 's condition and/or to evaluate & treat vital organ system(s) failure or risk of failure.
[2017-09-08] MEDS ORDERED: SODIUM CHLORIDE 1,000 ML IV STA ×2 (09:57→11:05)
[2017-09-08 09:58] LABS: C-REACTIVE PROTEIN 3.8 MG/DL (0.00-0.3)
[2017-09-08] MEDS ORDERED: THIAMINE HCL 100 MG TABLET (FP) PO SCH (10:00)
[2017-09-08] MEDS ORDERED: FOLIC ACID 1 MG TABLET (FP) PO SCH (10:00)
[2017-09-08] MEDS ORDERED: VANCOMYCIN 1,250 MG in DEXTROSE 5%-WATER - 250 ML IVPB SCH (10:00)
[2017-09-08] MEDS ORDERED: chlordiazePOXIDE HCL 25 MG CAPSULE PO PRN (10:38)
--- NOTE | 2017-09-08 10:41 | CON.GI ---
Consult Consult Specialty:: GI - History of Present Illness History of Present Illness: This is a 37 year old male know to GI service from recent admission. Continues to drink alcohol, last intake 3 days ago. Used cocaine 2 days go. Has liver cirrhosis with PHT and esophageal varices, s/p banding last week. untreated HCV , presented to the ED with his sister for altered mental status. As per records , he stated he had chest pain that radiates to his abdomen. He denied any vomiting or bloody bowel movements. A the time of this encounter, lethargic, responds to verbal stimuli, however unable to maintain conversation. Found to have low grade fever and positive blood cultures. No ascites on repeat US of the abdomen. - History Source History Provided By: Medical Record Limitations to Obtaining History: Clinical Condition - Past Medical History Cardio/Vascular: Yes: HTN Gastrointestinal: Yes: Diverticulosis, Esophageal Varices, GI Bleed, Other ( hemorrhoidal bleeding) Hepatobiliary: Yes: Cirrhosis (alcoholic), Hepatitis C Psych: Yes: Depression - Past Surgical History Past Surgical History: Yes: None - Alcohol/Substance Use Hx Alcohol Use: Yes (BEERS-09/03/17) History of Substance Use: reports: Cocaine, Heroin, Marijuana - Smoking History Smoking history: Never smoked Have you smoked in the past 12 months: No If you are a former smoker, when did you quit?: over 10 years ago but still smokes marijuana - Social History Usual Living Arrangement: Other (lives with sister) ADL: Support Services Occupation: disabled kitchen staff worker History of Recent Travel: No Home Medications - Allergies Allergies/Adverse Reactions: Allergies Allergy/AdvReac Type Severity Reaction Status Date / Time No Known Allergies Allergy Verified 09/07/17 13:01 - Home Medications Home Medications: Ambulatory Orders Folic Acid 1 mg PO DAILY 09/07/17 Lactulose [Cephulac -] 30 gm PO QID 09/07/17 Pantoprazole Sodium [Protonix] 40 mg PO BID 09/07/17 Prazosin HCl [Minipress -] 1 mg PO TID 09/07/17 Rifaximin [Xifaxan] 550 mg PO BID 09/07/17 Sertraline HCl [Zoloft -] 50 mg PO DAILY 09/07/17 Sucralfate [Carafate -] 1 gm PO QID 09/07/17 Thiamine HCl [Vitamin B-1] 100 mg PO DAILY 09/07/17 Family Disease History - Family Disease History Family History: Unremarkable Family Disease History: Diabetes: Father ( of diabetic complications), Other : Mother ( age 40 of cirrhosis) Review of Systems Findings/Remarks: please refer to H&P Physical Exam-GI Vital Signs: Vital Signs Temperature 98.4 F 09/08/17 08:50 Pulse Rate 113 H 09/08/17 09:05 Respiratory Rate 17 09/08/17 09:05 Blood Pressure 113/49 09/08/17 09:05 O2 Sat by Pulse Oximetry (%) 100 09/08/17 09:00 Constitutional: Yes: Calm Eyes: No: Sclera Icterus Respiratory: Yes: Regular ...Auscultate: Yes: Normoactive Bowel Sounds ...Palpate: Yes: Soft. No: Tenderness Neurological: Yes: Lethargy Labs: CBC, BMP 09/08/17 08:30 09/08/17 08:30 INR, PTT INR 4.10 (0.82-1.09) H* D 09/08/17 08:30 Laboratory Tests 09/07/17 09/07/17 09/07/17 13:45 13:47 13:47 WBC 2.1 L RBC 3.97 L Hgb 10.1 L D Hct 32.5 L D MCV 81.9 MCH 25.5 L MCHC 31.2 L RDW 21.4 H Plt Count 92 L MPV 8.4 Neutrophils % 49.5 D Lymphocytes % 43.7 H D Monocytes % 0.9 L D Eosinophils % 3.9 Basophils % 2.0 PT with INR 29.10 H INR 2.58 H PTT (Actin FS) 46.3 H Puncture Site ABG pH ABG pCO2 at Pt Temp ABG pO2 at Pt Temp ABG HCO3 ABG O2 Sat (Measured) ABG O2 Content ABG Base Excess Luther Test VBG pH POC VBG pCO2 POC VBG pO2 Mixed VBG HCO3 Oxygen Flow Rate Sodium Potassium Chloride Carbon Dioxide Anion Gap BUN Creatinine Creat Clearance w eGFR Random Glucose Lactic Acid Calcium Phosphorus Magnesium Total Bilirubin AST ALT Alkaline Phosphatase Ammonia Creatine Kinase Creatine Kinase Index CK-MB (CK-2) Troponin I C-Reactive Protein Total Protein Albumin Lipase Urine Color Urine Appearance Urine pH Ur Specific [place] Urine Protein Urine Glucose (UA) Urine Ketones Urine Blood Urine Nitrite Urine Bilirubin Urine Urobilinogen Urine WBC (Auto) Urine RBC (Auto) Ur Epithelial Cells Urine Bacteria Urine Mucus Urine Yeast Opiates Screen Methadone Screen Barbiturate Screen Phencyclidine Screen Ur Amphetamines Screen MDMA (Ecstasy) Screen Benzodiazepines Screen Cocaine Screen U Marijuana (THC) Screen Alcohol, Quantitative Blood Type O POSITIVE Antibody Screen 09/07/17 09/07/17 09/07/17 13:47 13:47 13:47 WBC RBC Hgb Hct MCV MCH MCHC RDW Plt Count MPV Neutrophils % Lymphocytes % Monocytes % Eosinophils % Basophils % PT with INR INR PTT (Actin FS) Puncture Site ABG pH ABG pCO2 at Pt Temp ABG pO2 at Pt Temp ABG HCO3 ABG O2 Sat (Measured) ABG O2 Content ABG Base Excess Luther Test VBG pH 7.38 POC VBG pCO2 40.4 POC VBG pO2 33.0 Mixed VBG HCO3 23.1 Oxygen Flow Rate Sodium 140 Potassium 3.6 Chloride 106 Carbon Dioxide 23 Anion Gap 11 BUN 7 D Creatinine 0.9 D Creat Clearance w eGFR > 60 Random Glucose 121 H D Lactic Acid 4.3 H* Calcium 7.9 L Phosphorus Magnesium Total Bilirubin 3.0 H AST 81 H ALT 43 Alkaline Phosphatase 309 H D Ammonia Creatine Kinase 159 Creatine Kinase Index 0.6 CK-MB (CK-2) < 1.000 Troponin I < 0.02 D C-Reactive Protein Total Protein 8.2 Albumin 2.2 L Lipase 321 Urine Color Urine Appearance Urine pH Ur Specific [place] Urine Protein Urine Glucose (UA) Urine Ketones Urine Blood Urine Nitrite Urine Bilirubin Urine Urobilinogen Urine WBC (Auto) Urine RBC (Auto) Ur Epithelial Cells Urine Bacteria Urine Mucus Urine Yeast Opiates Screen Methadone Screen Barbiturate Screen Phencyclidine Screen Ur Amphetamines Screen MDMA (Ecstasy) Screen Benzodiazepines Screen Cocaine Screen U Marijuana (THC) Screen Alcohol, Quantitative Blood Type Antibody Screen 09/07/17 09/07/17 09/07/17 13:47 13:47 17:06 WBC RBC Hgb Hct MCV MCH MCHC RDW Plt Count MPV Neutrophils % Lymphocytes % Monocytes % Eosinophils % Basophils % PT with INR INR PTT (Actin FS) Puncture Site ABG pH ABG pCO2 at Pt Temp ABG pO2 at Pt Temp ABG HCO3 ABG O2 Sat (Measured) ABG O2 Content ABG Base Excess Luther Test VBG pH POC VBG pCO2 POC VBG pO2 Mixed VBG HCO3 Oxygen Flow Rate Sodium Potassium Chloride Carbon Dioxide Anion Gap BUN Creatinine Creat Clearance w eGFR Random Glucose Lactic Acid Calcium Phosphorus Magnesium Total Bilirubin AST ALT Alkaline Phosphatase Ammonia 163 H Creatine Kinase Creatine Kinase Index CK-MB (CK-2) Troponin I C-Reactive Protein Total Protein Albumin Lipase Cancelled Urine Color Urine Appearance Urine pH Ur Specific [place] Urine Protein Urine Glucose (UA) Urine Ketones Urine Blood Urine Nitrite Urine Bilirubin Urine Urobilinogen Urine WBC (Auto) Urine RBC (Auto) Ur Epithelial Cells Urine Bacteria Urine Mucus Urine Yeast Opiates Screen Methadone Screen Barbiturate Screen Phencyclidine Screen Ur Amphetamines Screen MDMA (Ecstasy) Screen Benzodiazepines Screen Cocaine Screen U Marijuana (THC) Screen Alcohol, Quantitative Blood Type O POSITIVE Antibody Screen Negative 09/07/17 09/07/17 09/07/17 17:15 17:15 17:23 WBC RBC Hgb Hct MCV MCH MCHC RDW Plt Count MPV Neutrophils % Lymphocytes % Monocytes % Eosinophils % Basophils % PT with INR INR PTT (Actin FS) Puncture Site ABG pH ABG pCO2 at Pt Temp ABG pO2 at Pt Temp ABG HCO3 ABG O2 Sat (Measured) ABG O2 Content ABG Base Excess Luther Test VBG pH POC VBG pCO2 POC VBG pO2 Mixed VBG HCO3 Oxygen Flow Rate Sodium Potassium Chloride Carbon Dioxide Anion Gap BUN Creatinine Creat Clearance w eGFR Random Glucose Lactic Acid 3.1 H* Calcium Phosphorus Magnesium Total Bilirubin AST ALT Alkaline Phosphatase Ammonia Creatine Kinase 168 Creatine Kinase Index 0.5 CK-MB (CK-2) < 1.000 Troponin I < 0.02 C-Reactive Protein Total Protein Albumin Lipase Urine Color Urine Appearance Urine pH Ur Specific [place] Urine Protein Urine Glucose (UA) Urine Ketones Urine Blood Urine Nitrite Urine Bilirubin Urine Urobilinogen Urine WBC (Auto) Urine RBC (Auto) Ur Epithelial Cells Urine Bacteria Urine Mucus Urine Yeast Opiates Screen Methadone Screen Barbiturate Screen Phencyclidine Screen Ur Amphetamines Screen MDMA (Ecstasy) Screen Benzodiazepines Screen Cocaine Screen U Marijuana (THC) Screen Alcohol, Quantitative < 5.0 Blood Type Antibody Screen 09/08/17 09/08/17 09/08/17 00:24 00:24 03:37 WBC RBC Hgb Hct MCV MCH MCHC RDW Plt Count MPV Neutrophils % Lymphocytes % Monocytes % Eosinophils % Basophils % PT with INR INR PTT (Actin FS) Puncture Site ABG pH ABG pCO2 at Pt Temp ABG pO2 at Pt Temp ABG HCO3 ABG O2 Sat (Measured) ABG O2 Content ABG Base Excess Luther Test VBG pH POC VBG pCO2 POC VBG pO2 Mixed VBG HCO3 Oxygen Flow Rate Sodium Potassium Chloride Carbon Dioxide Anion Gap BUN Creatinine Creat Clearance w eGFR Random Glucose Lactic Acid 4.4 H* Calcium Phosphorus Magnesium Total Bilirubin AST ALT Alkaline Phosphatase Ammonia Creatine Kinase 193 Creatine Kinase Index 0.5 CK-MB (CK-2) < 1.000 Troponin I < 0.02 C-Reactive Protein Total Protein Albumin Lipase Urine Color Andra Urine Appearance Cloudy Urine pH 6.0 Ur Specific [place] 1.019 Urine Protein 2+ H Urine Glucose (UA) 1+ H Urine Ketones Trace H Urine Blood 3+ H Urine Nitrite Negative Urine Bilirubin Negative Urine Urobilinogen Negative Urine WBC (Auto) 8 Urine RBC (Auto) 67 Ur Epithelial Cells Rare Urine Bacteria Rare Urine Mucus Rare Urine Yeast Rare Opiates Screen Methadone Screen Barbiturate Screen Phencyclidine Screen Ur Amphetamines Screen MDMA (Ecstasy) Screen Benzodiazepines Screen Cocaine Screen U Marijuana (THC) Screen Alcohol, Quantitative Blood Type Antibody Screen 09/08/17 09/08/17 09/08/17 03:37 08:06 08:30 WBC RBC Hgb Hct MCV MCH MCHC RDW Plt Count MPV Neutrophils % Lymphocytes % Monocytes % Eosinophils % Basophils % PT with INR 46.30 H INR 4.10 H* D PTT (Actin FS) Puncture Site Right radial ABG pH 7.40 ABG pCO2 at Pt Temp 29.5 L ABG pO2 at Pt Temp 71.0 L ABG HCO3 17.9 L ABG O2 Sat (Measured) 94.4 ABG O2 Content 10.5 L ABG Base Excess -5.7 L Luther Test Positive VBG pH POC VBG pCO2 POC VBG pO2 Mixed VBG HCO3 Oxygen Flow Rate Yes Sodium Potassium Chloride Carbon Dioxide Anion Gap BUN Creatinine Creat Clearance w eGFR Random Glucose Lactic Acid Calcium Phosphorus Magnesium Total Bilirubin AST ALT Alkaline Phosphatase Ammonia Creatine Kinase Creatine Kinase Index CK-MB (CK-2) Troponin I C-Reactive Protein Total Protein Albumin Lipase Urine Color Urine Appearance Urine pH Ur Specific [place] Urine Protein Urine Glucose (UA) Urine Ketones Urine Blood Urine Nitrite Urine Bilirubin Urine Urobilinogen Urine WBC (Auto) Urine RBC (Auto) Ur Epithelial Cells Urine Bacteria Urine Mucus Urine Yeast Opiates Screen Negative Methadone Screen Negative Barbiturate Screen Negative Phencyclidine Screen Negative Ur Amphetamines Screen Negative MDMA (Ecstasy) Screen Negative Benzodiazepines Screen Positive Cocaine Screen Negative U Marijuana (THC) Screen Negative Alcohol, Quantitative Blood Type Antibody Screen 09/08/17 09/08/17 09/08/17 08:30 08:30 08:30 WBC 11.0 H D RBC 3.13 L D Hgb 8.0 L D Hct 25.3 L D MCV 80.7 MCH 25.4 L MCHC 31.5 L RDW 21.4 H Plt Count 62 L D MPV 8.4 Neutrophils % 86.1 H D Lymphocytes % 5.4 L D Monocytes % 8.3 D Eosinophils % 0.0 D Basophils % 0.2 PT with INR INR PTT (Actin FS) Puncture Site ABG pH ABG pCO2 at Pt Temp ABG pO2 at Pt Temp ABG HCO3 ABG O2 Sat (Measured) ABG O2 Content ABG Base Excess Luther Test VBG pH POC VBG pCO2 POC VBG pO2 Mixed VBG HCO3 Oxygen Flow Rate Sodium 143 Cancelled Potassium 3.5 Cancelled Chloride 113 H Cancelled Carbon Dioxide 18 L D Cancelled Anion Gap 12 Cancelled BUN 19 H D Cancelled Creatinine 1.8 H D Cancelled Creat Clearance w eGFR 42.67 Cancelled Random Glucose 90 D Cancelled Lactic Acid Calcium 6.6 L* Cancelled Phosphorus 3.9 D Magnesium 1.3 L D Total Bilirubin 2.8 H Cancelled AST 83 H Cancelled ALT 39 Cancelled Alkaline Phosphatase 99 D Cancelled Ammonia Creatine Kinase Creatine Kinase Index CK-MB (CK-2) Troponin I < 0.02 C-Reactive Protein 3.8 H Total Protein 6.6 Cancelled Albumin 1.7 L D Cancelled Lipase Urine Color Urine Appearance Urine pH Ur Specific [place] Urine Protein Urine Glucose (UA) Urine Ketones Urine Blood Urine Nitrite Urine Bilirubin Urine Urobilinogen Urine WBC (Auto) Urine RBC (Auto) Ur Epithelial Cells Urine Bacteria Urine Mucus Urine Yeast Opiates Screen Methadone Screen Barbiturate Screen Phencyclidine Screen Ur Amphetamines Screen MDMA (Ecstasy) Screen Benzodiazepines Screen Cocaine Screen U Marijuana (THC) Screen Alcohol, Quantitative Blood Type Antibody Screen 09/08/17 09/08/17 08:30 09:25 WBC RBC Hgb Hct MCV MCH MCHC RDW Plt Count MPV Neutrophils % Lymphocytes % Monocytes % Eosinophils % Basophils % PT with INR INR PTT (Actin FS) Puncture Site ABG pH ABG pCO2 at Pt Temp ABG pO2 at Pt Temp ABG HCO3 ABG O2 Sat (Measured) ABG O2 Content ABG Base Excess Luther Test VBG pH POC VBG pCO2 POC VBG pO2 Mixed VBG HCO3 Oxygen Flow Rate Sodium Potassium Chloride Carbon Dioxide Anion Gap BUN Creatinine Creat Clearance w eGFR Random Glucose Lactic Acid 4.3 H* Calcium Phosphorus Magnesium Total Bilirubin AST ALT Alkaline Phosphatase Ammonia Creatine Kinase Creatine Kinase Index CK-MB (CK-2) Troponin I C-Reactive Protein Cancelled Total Protein Albumin Lipase Urine Color Urine Appearance Urine pH Ur Specific [place] Urine Protein Urine Glucose (UA) Urine Ketones Urine Blood Urine Nitrite Urine Bilirubin Urine Urobilinogen Urine WBC (Auto) Urine RBC (Auto) Ur Epithelial Cells Urine Bacteria Urine Mucus Urine Yeast Opiates Screen Methadone Screen Barbiturate Screen Phencyclidine Screen Ur Amphetamines Screen MDMA (Ecstasy) Screen Benzodiazepines Screen Cocaine Screen U Marijuana (THC) Screen Alcohol, Quantitative Blood Type Antibody Screen Imaging - Results Ultrasound: Report Reviewed Problem List - Problems (1) Cholestasis Code(s): K83.1 - OBSTRUCTION OF BILE DUCT (2) Hepatic encephalopathy Code(s): K72.90 - HEPATIC FAILURE, UNSPECIFIED WITHOUT COMA (3) Alcohol dependence with uncomplicated withdrawal Code(s): F10.230 - ALCOHOL DEPENDENCE WITH WITHDRAWAL, UNCOMPLICATED (4) Esophageal varices in alcoholic cirrhosis Code(s): K70.30 - ALCOHOLIC CIRRHOSIS OF LIVER WITHOUT ASCITES; I85.10 - SECONDARY ESOPHAGEAL VARICES WITHOUT BLEEDING (5) Fever Code(s): R50.9 - FEVER, UNSPECIFIED (6) Hypercoagulable state Code(s): D68.59 - OTHER PRIMARY THROMBOPHILIA (7) Liver cirrhosis, alcoholic Code(s): K70.30 - ALCOHOLIC CIRRHOSIS OF LIVER WITHOUT ASCITES (8) Substance abuse Code(s): F19.10 - OTHER PSYCHOACTIVE SUBSTANCE ABUSE, UNCOMPLICATED Assessment/Plan A 37 yom with advanced, multifactorial, liver disease and continued use of alcohol and cocaine. Now with positive blood cultures and low grade fever. No US evidence of ascites. No sighs of recent or ongoing GI bleeding. Lethargic. Acute changes in bloodwork results in the last 24 hrs. Repeat CBC, CMP, PT/INR Lactulose FL NPO Gentle hydration Abx, septic workup as per ID do not suspect SBP substances of abuse withdrawal protocol
[2017-09-08 10:52] LABS: URINE APPEARANCE SLCLOUDY; URINE BILIRUBIN NEGATIVE (NEGATIVE); URINE BLOOD 3+ (NEGATIVE); URINE COLOR YELLOW; URINE GLUCOSE (UA) NEGATIVE (NEGATIVE); URINE KETONE NEGATIVE (NEGATIVE); URINE LEUK ESTERASE NEGATIVE (NEGATIVE); URINE NITRITE NEGATIVE (NEGATIVE); URINE PROTEIN NEGATIVE (NEGATIVE); URINE UROBILINOGEN NEGATIVE mg/dL (0.2-1.0)
[2017-09-08] MEDS: SUCRALFATE 1 GM TABLET (FP) PO SCH ×4 (11:09→23:47)
[2017-09-08 11:15] LABS: URINE BACTERIA RARE /hpf (NONE SEEN); URINE MUCUS RARE; URINE RBC 14 /hpf (0-3); URINE WBC 5 /hpf (3-5)
[2017-09-08 11:29] LABS: BASO % 0.3 % (0-2.0); MCH 25.6 pg (25.7-33.7); MCHC 31.7 g/dl (32.0-35.9); MEAN CELL VOLUME 80.7 fl (80-96); MEAN PLT VOLUME 8.4 fl (7.5-11.1); NEUT % 86.8 % (42.8-82.8); PLATELET COUNT 60 K/MM3 (134-434); RDW 21.3 % (11.9-15.9); WHITE BLOOD COUNT 9.9 K/mm3 (4.0-10.0)
[2017-09-08 11:44] LABS: PROTHROMBIN TIME (PATIENT) 49.3 SEC (9.98-11.88)
[2017-09-08 11:51] LABS: ALBUMIN 1.8 g/dl (3.4-5.0); ANION GAP 12 (8-16); CO2 19 mmol/L (21-32); GLUCOSE,RANDOM 98 mg/dL (74-106)
[2017-09-08 11:55] LABS: BILIRUBIN,DIRECT 1.6 mg/dL (0.0-0.2); BILIRUBIN,TOTAL 2.9 mg/dL (0.2-1.0); CREATININE 1.4 mg/dL (0.7-1.3); SGOT/AST 88 U/L (15-37); SGPT/ALT 41 U/L (12-78)
[2017-09-08 11:57] LABS: ALK PHOS 93 U/L (45-117); INR 4.36 (0.82-1.09)
[2017-09-08] MEDS ORDERED: MAGNESIUM SULF 50% (8.12 MEQ/2 ML-1 GM VIAL) ONE (12:01)
[2017-09-08 12:02] LABS: CALCIUM 6.9 mg/dL (8.5-10.1)
[2017-09-08] MEDS: CEFTRIAXONE 2 GM in DEXTROSE 5%-WATER - 100 ML IVPB SCH (12:06)
[2017-09-08] MEDS: KCL 10 MEQ IVPB 10 MEQ/100 ML INFUS.BAG IVPB SCH ×4 (12:33→17:06)
--- NOTE | 2017-09-08 12:46 | PN ---
Teaching Attending Note Name of Resident: Gabriel Davies ATTENDING PHYSICIAN STATEMENT I saw and evaluated the patient. I reviewed the resident's note and discussed the case with the resident. I agree with the resident's findings and plan as documented. SUBJECTIVE: Pt seen and examined in the ICU. Briefly, 37yo male with h/o alcoholic liver cirrhosis, Hep C, esophageal varices s/p recent banding, cocaine abuse who was admitted with altered mental status. Febrile, tachycardic, transferred to the ICU for worsening lethargy and hypotension. Started on dopamine gtt after IVF boluses. Gram positive cocci in chains growing in blood cultures. OBJECTIVE: Last Vital Signs Temp Pulse Resp BP Pulse Ox 99.8 F H 104 H 19 136/48 100 09/08/17 11:03 09/08/17 12:00 09/08/17 12:00 09/08/17 12:00 09/08/17 09:00 Intake & Output 09/05/17 09/06/17 09/07/17 09/08/17 23:59 23:59 23:59 23:59 Intake Total 5350 Output Total 400 Balance 4950 Weight 259 lb 15.999 oz Gen: lethargic, mildly tachypneic Heart: tachycardic, regular Lung: decreased breath sounds at the bases Abd: soft, obese, nontender Ext: no edema CBC, BMP 09/08/17 11:14 09/08/17 11:14 INR, PTT INR 4.36 (0.82-1.09) H* 09/08/17 11:14 Active Medications Albuterol/Ipratropium (Duoneb -) 1 amp NEB TIDR KANDY Chlordiazepoxide HCl (Librium -) 25 mg PO ONCE PRN PRN Reason: AGITATION Stop: 09/08/17 23:59 Sodium Chloride (Normal Saline -) 1,000 mls @ 100 mls/hr IV ASDIR KANDY Last Admin: 09/08/17 06:30 Dose: 100 mls/hr Dopamine HCl/Dextrose (Dopamine 400 Mg/D5w -) 400,000 mcg in 250 mls @ 22.113 mls/hr IVPB TITR KANDY; 5 MCG/KG/MIN PRN Reason: Protocol Last Admin: 09/08/17 09:00 Dose: 5 mcg/kg/min, 22.113 mls/hr Ceftriaxone Sodium 2 gm/ (Dextrose) 100 mls @ 200 mls/hr IVPB DAILY [facility] Last Admin: 09/08/17 12:06 Dose: 200 mls/hr Vancomycin HCl 1,250 mg/ (Dextrose) 250 mls @ 166.667 mls/hr IVPB BID KANDY PRN Reason: Protocol Stop: 09/08/17 23:29 Last Admin: 09/08/17 12:04 Dose: 166.667 mls/hr Sodium Chloride (Normal Saline -) 1,000 mls @ 150 mls/hr IV ASDIR [facility] Ibuprofen (Caldolor Injection -) 400 mg IVPB Q6H PRN PRN Reason: FEVER Lactulose (Cephulac (Rectal Use)) 200 gm CO Q6HPO [facility] Last Admin: 09/08/17 06:58 Dose: 200 gm Lorazepam (Ativan Injection -) 2 mg IVPUSH ONCE PRN PRN Reason: AGITATION Stop: 09/08/17 23:59 Phytonadione (Aqua Mephyton Injection -) 5 mg IVPB ONCE ONE Stop: 09/08/17 13:01 Sucralfate (Carafate -) 1 gm PO QID [facility] Last Admin: 09/08/17 11:09 Dose: Not Given ASSESSMENT AND PLAN: Altered Mental Status Gram Positive Bacteremia Septic Shock Acute Kidney Injury Lactic Acidosis Alcoholic Liver Cirrhosis Hepatic Encephalopathy Cocaine Abuse Coagulopathy Thrombocytopenia - IV antibiotics - f/u cultures - IVF resuscitation - titrate pressors to keep MAP >65 - may need central line and levophed gtt if remains hypotensive - monitor urine output, creatinine - trend lactate - replete lytes - check ammonia level - vitamin K - monitor coags, platelets - DVT prophylaxis - continue ICU monitoring critical care time spent in reviewing chart, evaluating patient and formulating plan 40 min
[2017-09-08] MEDS ORDERED: PHYTONADIONE 10 MG/1 ML AMP IVPB ONE (13:00)
[2017-09-08] MEDS ORDERED: PHYTONADIONE 5 MG TABLET PO ONE (13:00)
--- NOTE | 2017-09-08 13:50 | PN ---
Teaching Attending Note Name of Resident: Carley Winkler ATTENDING PHYSICIAN STATEMENT I saw and evaluated the patient. I reviewed the resident's note and discussed the case with the resident. I agree with the resident's findings and plan as documented. SUBJECTIVE:37 year old [place] man living in [place] with sepsis syndrome altered mental status and Liver cirrhosis with Hep C Lab report positive blood for gram positive in chains. Denies headaches abd pains No ascites on songram. Uses cocaine but no IVDA. ECHO shows no vegetations OBJECTIVE: ASSESSMENT AND PLAN: Selected Entries 09/08/17 09/08/17 11:03 12:00 Temperature 99.8 F H Pulse Rate 104 H Respiratory 19 Rate Blood Pressure 136/48 Neck Supple Lung Clear Cor S1S2 RR Abd Soft nontender Ext No edema Microbiology 09/07/17 13:47 Blood - Peripheral Venous Blood Culture - Preliminary Pending Organism 09/07/17 13:47 Blood - Peripheral Venous Blood Culture - Preliminary Pending Organism Laboratory Tests 09/07/17 09/08/17 09/08/17 13:47 03:37 08:06 WBC 2.1 L Hgb 10.1 L D Hct 32.5 L D Plt Count 92 L INR ABG pH 7.40 ABG pCO2 at Pt Temp 29.5 L ABG pO2 at Pt Temp 71.0 L BUN Creatinine Creat Clearance w eGFR Direct Bilirubin AST ALT Ammonia Urine Blood 3+ H Urine WBC (Auto) 8 Urine RBC (Auto) 67 09/08/17 09/08/17 09/08/17 10:10 11:14 11:14 WBC 9.9 Hgb 8.6 L Hct 27.0 L Plt Count 60 L INR 4.36 H* ABG pH ABG pCO2 at Pt Temp ABG pO2 at Pt Temp BUN Creatinine Creat Clearance w eGFR Direct Bilirubin AST ALT Ammonia Urine Blood 3+ H Urine WBC (Auto) 5 Urine RBC (Auto) 14 09/08/17 09/08/17 11:14 11:14 WBC Hgb Hct Plt Count INR ABG pH ABG pCO2 at Pt Temp ABG pO2 at Pt Temp BUN 17 Creatinine 1.4 H D Creat Clearance w eGFR 57.03 Direct Bilirubin 1.6 H AST 88 H ALT 41 Ammonia 58.2 H Urine Blood Urine WBC (Auto) Urine RBC (Auto) Assessment Sepsis syndrome with bacteremia ? source Lung Consider pneumococcus or Group B strep ? lung Liver cirrhosis Hepatitis C ELSI Pancytopenia Varices Plan Repeat the blood cultures tomorrow Vancomcycin 15mg kg/ should be 1.75 grs first dose Continue Ceftriaxone for now Legionella Ag for strep pneumonia CRP HIV testing Miryam AMBROSE Problem List - Problems (1) Gram-positive bacteremia Code(s): R78.81 - BACTEREMIA (2) Hepatic encephalopathy Code(s): K72.90 - HEPATIC FAILURE, UNSPECIFIED WITHOUT COMA (3) Alcohol dependence with uncomplicated withdrawal Code(s): F10.230 - ALCOHOL DEPENDENCE WITH WITHDRAWAL, UNCOMPLICATED (4) Fever Code(s): R50.9 - FEVER, UNSPECIFIED (5) Liver cirrhosis, alcoholic Code(s): K70.30 - ALCOHOLIC CIRRHOSIS OF LIVER WITHOUT ASCITES
[2017-09-08] MEDS ORDERED: LACTULOSE 20 GM/30 ML UDC (FOR ORAL USE ONLY) PO PRN (13:56)
[2017-09-08] MEDS: ALBUTEROL SO4 2.5/IPRATROPIUM 0.5 INH SOL 3 ML VIAL.NEB. NEB SCH ×2 (14:33→23:00)
[2017-09-08 15:09] LABS: C-REACTIVE PROTEIN 4.8 MG/DL (0.00-0.3)
--- NOTE | 2017-09-08 15:18 | CONSULT ---
Consultation: REQUESTING PROVIDER: CONSULT REQUEST: We have been asked to medically evaluate this patient for bacteremia. HISTORY OF PRESENT ILLNESS: 37 y/o M with PMH liver cirrhosis, HCV, esophageal varices (banded 09/03/17), liver failure, chronic EtOH use (last drink two days prior to admission), and cocaine use (on day of admission, though - utox), who presented with headache, general malaise and altered mental status x 1 week. Pt also endorsed episodes of nonbloody emesis. Denied fever, chills, SOB, N/V/D. In ED, pt had WBC count of 2.1, thrombocytopenia (72k), elevated lactic acid 4.3 , elevated ammonia level 163. He fulfilled 3/4 sepsis criteria as he was febrile (100.4F), tachycardic (rate 134), RR 26. He received 1 dose of ceftriaxone and vancomycin in ED. Pt subsequently had a rapid response called where he became hypotensive, without response to NS fluid bolus challenges. He was thus placed on dopamine gtt. ID team consulted for bacteremia. REVIEW OF SYSTEMS: CONSTITUTIONAL: +generalized weakness Absent: fever, chills, diaphoresis, generalized weakness, malaise, loss of appetite, weight change HEENT: Absent: rhinorrhea, nasal congestion, throat pain, throat swelling, difficulty swallowing, mouth swelling, ear pain, eye pain, visual changes CARDIOVASCULAR: Absent: chest pain, syncope, palpitations, irregular heart rate, lightheadedness , peripheral edema RESPIRATORY: +SOB Absent: cough, shortness of breath, dyspnea with exertion, orthopnea, wheezing, stridor, hemoptysis GASTROINTESTINAL: Absent: abdominal pain, abdominal distension, nausea, vomiting, diarrhea, constipation, melena, hematochezia GENITOURINARY: Absent: dysuria, frequency, urgency, hesitancy, hematuria, flank pain, genital pain MUSCULOSKELETAL: Absent: myalgia, arthralgia, joint swelling, back pain, neck pain SKIN: Absent: rash, itching, pallor HEMATOLOGIC/IMMUNOLOGIC: Absent: easy bleeding, easy bruising, lymphadenopathy, frequent infections ENDOCRINE: Absent: unexplained weight gain, unexplained weight loss, heat intolerance, cold intolerance NEUROLOGIC: Absent: headache, focal weakness or paresthesias, dizziness, unsteady gait, seizure, mental status changes, bladder or bowel incontinence PSYCHIATRIC: Absent: anxiety, depression, suicidal or homicidal ideation, hallucinations. PHYSICAL EXAMINATION Selected Entries 09/08/17 11:03 Temperature 99.8 F H Pulse Rate 110 H Respiratory 18 Rate Blood Pressure 125/57 GENERAL: Awake,lethargic, in mild distress. Lying down, on 2L NC. HEAD: Normal with no signs of trauma. EYES: Pupils equal, round and reactive to light, extraocular movements intact, sclera anicteric, conjunctiva clear, without hemorrhages. EARS, NOSE, THROAT: Ears normal, nares patent, oropharynx clear without exudates. Moist mucous membranes. NECK: Normal range of motion, supple. Without neck stiffness LUNGS: rhonchi appreciated b/l. Did not appreciate wheezes or crackles. HEART: Regular rate and rhythm, normal S1 and S2 without murmur, rub or gallop. ABDOMEN: Soft, obese, diffusely tender to palpation. Mildly distended, with normoactive bowel sounds, no guarding, no rebound LOWER EXTREMITIES: 2+ posterior tibial pulses, well-perfused. No calf tenderness. No peripheral edema. NEUROLOGICAL: Cranial nerves II-XII intact. Laboratory Tests 09/07/17 09/07/17 09/08/17 13:47 13:47 08:06 WBC Hgb Hct ABG pH 7.40 ABG pCO2 at Pt Temp 29.5 L ABG pO2 at Pt Temp 71.0 L ABG HCO3 17.9 L Sodium Potassium Lactic Acid 4.3 H* Ammonia 163 H 09/08/17 09/08/17 09/08/17 08:30 08:30 08:30 WBC 11.0 H D Hgb 8.0 L D Hct 25.3 L D ABG pH ABG pCO2 at Pt Temp ABG pO2 at Pt Temp ABG HCO3 Sodium 143 Potassium 3.5 Lactic Acid 4.3 H* Ammonia 09/08/17 11:14 WBC Hgb Hct ABG pH ABG pCO2 at Pt Temp ABG pO2 at Pt Temp ABG HCO3 Sodium Potassium Lactic Acid Ammonia 58.2 H Active Medications Generic Name Dose Route Start Last Admin Trade Name Freq PRN Reason Stop Dose Admin Albuterol/Ipratropium 1 amp 09/08/17 14:00 09/08/17 14:33 Duoneb - NEB Not Given TIDR KANDY Chlordiazepoxide HCl 25 mg 09/08/17 10:38 Librium - PO 09/08/17 23:59 ONCE PRN AGITATION Sodium Chloride 1,000 mls @ 100 mls/hr 09/07/17 15:45 09/08/17 06:30 Normal Saline - IV 100 mls/hr ASDIR KANDY Administration Dopamine HCl/Dextrose 400,000 mcg in 250 mls @ 22.113 mls/hr 09/08/17 09:00 09/08/17 09:00 Dopamine 400 Mg/D5w - IVPB 5 mcg/kg/min TITR KANDY 22.113 mls/hr Protocol Administration 5 MCG/KG/MIN Ceftriaxone Sodium 2 gm/ 100 mls @ 200 mls/hr 09/08/17 10:00 09/08/17 12:06 Dextrose IVPB 200 mls/hr DAILY KANDY Administration Vancomycin HCl 1,250 mg/ 250 mls @ 166.667 mls/hr 09/08/17 10:00 09/08/17 12: 04 Dextrose IVPB 09/08/17 23:29 166.667 mls/hr BID KANDY Administration Protocol Sodium Chloride 1,000 mls @ 150 mls/hr 09/08/17 12:45 Normal Saline - IV ASDIR KANDY Ibuprofen 400 mg 09/08/17 09:29 Caldolor Injection - IVPB Q6H PRN FEVER Lactulose 20 gm 09/08/17 13:56 Cephulac (Oral Use) PO TID PRN elevated ammonia/consitpation Lorazepam 2 mg 09/08/17 10:39 Ativan Injection - IVPUSH 09/08/17 23:59 ONCE PRN AGITATION Sucralfate 1 gm 09/07/17 18:00 09/08/17 11:09 Carafate - PO Not Given QID [facility] Microbiology 09/08/17 11:35 Nasopharyngeal Swab Influenza Types A,B Antigen (FLORIDALMA) - Final 09/08/17 11:35 Nasopharyngeal Swab - Final 09/07/17 13:47 Blood - Peripheral Venous Blood Culture - Preliminary Pending Organism 09/07/17 13:47 Blood - Peripheral Venous Blood Culture - Preliminary Pending Organism ASSESSMENT/PLAN: #Sepsis with bacteremia 2/2 possible liver, cardiac, lung source -Pt hx Hep C, liver cirrhosis, encephalopathy -Currently afebrile, leukocytosis 11k -ECHO: no vegetations noted, ?may have already embolized (+) Blood cx : gram + cocci in chains -F/u urine cx -F/u legionella antigen strep pneumo -F/u CRP -F/u HIV test -Vanco loading dose 1.75 g -Continue ceftriaxone -Repeat blood cx tomorrow Carley Winkler MD PGY-1 ID Team Dispo: We will continue to follow the patient. Thank you for this consultative opportunity. Visit type - Emergency Visit Emergency Visit: No - New Patient This patient is new to me today: Yes Date on this admission: 09/08/17 - Critical Care Critical Care patient: No
--- NOTE | 2017-09-08 15:49 | CONSULT ---
Consult Consult Specialty:: Pulm/CCM Referred by:: Lul Reason for Consultation:: ICU admission - History of Present Illness Chief Complaint: hypotension History of Present Illness: 37M PMH of liver cirrhosis, HCV, esophageal varices s/p banding on 09/03/17, portal hypertension, liver failure, chronic alcohol use (last drink 2 days ago) , cocaine use last use 1 day ago, who presented to the ED for altered mental status. Patient had an elevated ammonia level and was being treated with lactulose. Patient presented with leukopenia, tachycardia, and fever. Patient was on telemetry and a rapid response was called as the patient became hypotensive to 60s/30s. Patient was resuscitated with IVF started on dopamine and transferred to ICU. Patient has been spiking fevers on the floor and was found to have streptococci bacteremia. - History Source History Provided By: Medical Record Limitations to Obtaining History: Clinical Condition - Past Medical History Cardio/Vascular: Yes: HTN Gastrointestinal: Yes: Diverticulosis, Esophageal Varices, GI Bleed, Other ( hemorrhoidal bleeding) Hepatobiliary: Yes: Cirrhosis (alcoholic), Hepatitis C Psych: Yes: Depression - Past Surgical History Past Surgical History: Yes: None - Alcohol/Substance Use Hx Alcohol Use: Yes (BEERS-09/03/17) History of Substance Use: reports: Cocaine, Heroin, Marijuana - Smoking History Smoking history: Never smoked Have you smoked in the past 12 months: No If you are a former smoker, when did you quit?: over 10 years ago but still smokes marijuana - Social History Usual Living Arrangement: Other (lives with sister) ADL: Support Services Occupation: disabled kitchen staff worker History of Recent Travel: No Home Medications - Allergies Allergies/Adverse Reactions: Allergies Allergy/AdvReac Type Severity Reaction Status Date / Time No Known Allergies Allergy Verified 09/07/17 13:01 - Home Medications Home Medications: Ambulatory Orders Folic Acid 1 mg PO DAILY 09/07/17 Lactulose [Cephulac -] 30 gm PO QID 09/07/17 Pantoprazole Sodium [Protonix] 40 mg PO BID 09/07/17 Prazosin HCl [Minipress -] 1 mg PO TID 09/07/17 Rifaximin [Xifaxan] 550 mg PO BID 09/07/17 Sertraline HCl [Zoloft -] 50 mg PO DAILY 09/07/17 Sucralfate [Carafate -] 1 gm PO QID 09/07/17 Thiamine HCl [Vitamin B-1] 100 mg PO DAILY 09/07/17 Family Disease History - Family Disease History Family Disease History: Diabetes: Father ( of diabetic complications), Other : Mother ( age 40 of cirrhosis) Review of Systems Unable to obtain ROS, reason: patient lehtargic Physical Exam Vital Signs: Vital Signs Temperature 98.8 F 09/08/17 14:00 Pulse Rate 88 09/08/17 15:00 Respiratory Rate 14 09/08/17 15:00 Blood Pressure 110/67 09/08/17 15:00 O2 Sat by Pulse Oximetry (%) 100 09/08/17 09:00 Constitutional: Yes: Other (lethargic) Eyes: Yes: PERRL HENT: Yes: Atraumatic Neck: Yes: Supple Cardiovascular: Yes: Regular Rate and Rhythm. No: Murmur Respiratory: Yes: Diminished (at bases) Gastrointestinal: Yes: Soft, Abdomen, Obese Labs: CBC, BMP 09/08/17 11:14 09/08/17 11:14 Imaging - Results Chest X-ray: Report Reviewed, Image Reviewed Assessment/Plan 37M with multiple medical problems presents to the ICU with septic shock requiring aggressive resuscitation and pressors. Altered Mental Status/hepatic encephalopathy: likely due to elevated ammonia levels Give lactulose trend ammonia levels septic shock secondary to Gram Positive Bacteremia ID consult appreciated possibly source is coming from lungs continue vanco ceftriaxone Central line if worsens wean off dopamine Acute Kidney Injury likely prerenal from dehydration aggressive fluid resuscitation trend Cr Lactic acidosis given 4 liters IVF will repeat Lactic acid Liver failure: Alcoholic liver cirrhosis: patient refuses to stop drinking alcohol GI consult appreciated no ascites on abdominal ultrasound unlikely to have SBP Coagulopathy Will give vitamin K Thrombocytopenia: FEN: NS @ 150ml/hr hypokalemia and hypomagnesemia: will replete NPO for now PPx: SCDs/supratherapeutic INR no GI PPx indicated CCTime 60min
[2017-09-08] MEDS ORDERED: PHYTONADIONE 10 MG/1 ML AMP ONE (15:51)
[2017-09-08 15:59] LABS: URINE LEUK ESTERASE Negative (NEGATIVE)
[2017-09-08 16:21] LABS: URINE LEUK ESTERASE Negative (NEGATIVE)
--- NOTE | 2017-09-08 16:27 | PN ---
Progress Note (short form) - Note Progress Note: CBCD WBC 9.9 K/mm3 (4.0-10.0) 09/08/17 11:14 RBC 3.34 M/mm3 (4.00-5.60) L 09/08/17 11:14 Hgb 8.6 GM/dL (11.7-16.9) L 09/08/17 11:14 Hct 27.0 % (35.4-49) L 09/08/17 11:14 MCV 80.7 fl (80-96) 09/08/17 11:14 MCHC 31.7 g/dl (32.0-35.9) L 09/08/17 11:14 RDW 21.3 % (11.9-15.9) H 09/08/17 11:14 Plt Count 60 K/MM3 (134-434) L 09/08/17 11:14 MPV 8.4 fl (7.5-11.1) 09/08/17 11:14 CMP Sodium 145 mmol/L (136-145) 09/08/17 11:14 Potassium 3.3 mmol/L (3.5-5.1) L 09/08/17 11:14 Chloride 114 mmol/L (98-107) H 09/08/17 11:14 Carbon Dioxide 19 mmol/L (21-32) L 09/08/17 11:14 Anion Gap 12 (8-16) 09/08/17 11:14 BUN 17 mg/dL (7-18) 09/08/17 11:14 Creatinine 1.4 mg/dL (0.7-1.3) H D 09/08/17 11:14 Creat Clearance w eGFR 57.03 (>60) 09/08/17 11:14 Calcium 6.9 mg/dL (8.5-10.1) L* 09/08/17 11:14 Total Bilirubin 2.9 mg/dL (0.2-1.0) H 09/08/17 11:14 AST 88 U/L (15-37) H 09/08/17 11:14 ALT 41 U/L (12-78) 09/08/17 11:14 Alkaline Phosphatase 93 U/L (45-117) 09/08/17 11:14 Total Protein 7.0 g/dl (6.4-8.2) 09/08/17 11:14 Albumin 1.8 g/dl (3.4-5.0) L 09/08/17 11:14 INR, PTT INR 4.36 (0.82-1.09) H* 09/08/17 11:14 MELD 28 Problem List - Problems (1) Cholestasis Code(s): K83.1 - OBSTRUCTION OF BILE DUCT (2) Hepatic encephalopathy Code(s): K72.90 - HEPATIC FAILURE, UNSPECIFIED WITHOUT COMA (3) Alcohol dependence with uncomplicated withdrawal Code(s): F10.230 - ALCOHOL DEPENDENCE WITH WITHDRAWAL, UNCOMPLICATED (4) Esophageal varices in alcoholic cirrhosis Code(s): K70.30 - ALCOHOLIC CIRRHOSIS OF LIVER WITHOUT ASCITES; I85.10 - SECONDARY ESOPHAGEAL VARICES WITHOUT BLEEDING (5) Fever Code(s): R50.9 - FEVER, UNSPECIFIED (6) Hypercoagulable state Code(s): D68.59 - OTHER PRIMARY THROMBOPHILIA (7) Liver cirrhosis, alcoholic Code(s): K70.30 - ALCOHOLIC CIRRHOSIS OF LIVER WITHOUT ASCITES (8) Substance abuse Code(s): F19.10 - OTHER PSYCHOACTIVE SUBSTANCE ABUSE, UNCOMPLICATED
[2017-09-08] MEDS ORDERED: VANCOMYCIN 500 MG in DEXTROSE 5%-WATER - 100 ML IVPB ONE (16:45)
--- NOTE | 2017-09-08 17:38 | CONSULT ---
Consult Detox [facility] Reason for Current Admission/Consult: alcohol use disorder Referred by:: ace queen NP - History History of Present Illness: 37 y o m known to me from previous admission with PMHx chronic alcoholism, actively drinking on last admission requiring detox, as per chart last drink 2 days prior to admission and cocaine use day of admission, liver cirrhosis, HCV, esophageal varices (banding 09/03/17), portal hypertension, liver failure, presented to the ED w AMS, Patient unresponsive in ICU at time of consultation. - History Source History Provided By: Medical Record, Caregiver Limitations to Obtaining History: Clinical Condition - Alcohol/Substance Use Hx Alcohol Use: Yes (BEERS-09/03/17) Hx Substance Use: Yes Hx Substance Use Treatment: Yes - Current Drug/Alcohol Use Alcohol Route: Oral Frequency: Daily Date of Last Use: 09/06/17 Cocaine Route: Inhalation Frequency: Daily Date of Last Use: 09/07/17 - Past Medical History Cardio/Vascular: Yes: HTN Gastrointestinal: Yes: Diverticulosis, Esophageal Varices, GI Bleed, Other ( hemorrhoidal bleeding) Hepatobiliary: Yes: Cirrhosis (alcoholic), Hepatitis C Psych: Yes: Depression - Past Surgical History Past Surgical History: Yes: None - Significant Medical Findings: 37 yo m with chronic alcoholism and cocaine use, active , admitted by fmaily to ICU w AMS, unresponsive no signs of withdrwal noted. CIWA Score - CIWA Score Nausea/Vomitin-No Nausea/No Vomiting Muscle Tremors: None Anxiety: 0-No Anxiety, at Ease Agitation: 0-Normal Activity Paroxysmal Sweats: No Perspiration Orientation: 4Disoriented Place/Person Tacttile Disturbances: 0-None Auditory Disturbances: 0-None Visual Disturbances: 0-None Headache: 0-None Present (unable to respond to questioning) CIWA-Ar Total Score: 4 Assessment Plan - Diagnosis (1) Alcohol dependence Status: Acute (2) Cocaine dependence Status: Acute (3) Hepatic encephalopathy Status: Acute (4) Esophageal varices in alcoholic cirrhosis Status: Acute (5) Liver cirrhosis, alcoholic Status: Acute - Plan Plan: Chart reviewed, labs reviewed, imaging reviewed, case discussed with staff, patient examined. 37 yo m known to me from prior admission with cnronic alcoholism and cocaine dependence PMHX end stage liver disease with hepatic cirrhosis, esophageal varices admitted with AMS now unresponsive. would not use libirum detox at this time, if needed can use ativan ivp for anxiety or agitation. consider subduralintracranial bleed from previous falls and bleeding diathesis from liver disease Conor Francis MD [phone] - Medication Detox Regimen/Protocol: Not Applicable
[2017-09-08] MEDS ORDERED: LORazepam 2 MG/ML SDV VIAL IVPUSH PRN (17:40)
[2017-09-08] MEDS ORDERED: POTASSIUM CHLORIDE TABS 20 MEQ TABLET.ER (FP) PO ONE (17:42)
--- NOTE | 2017-09-08 19:16 | RAPID ---
Physical Examination Vital Signs: Vital Signs Temperature 98.2 F 09/08/17 17:00 Pulse Rate 76 09/08/17 18:06 Respiratory Rate 18 09/08/17 18:00 Blood Pressure 104/49 09/08/17 18:06 O2 Sat by Pulse Oximetry (%) 100 09/08/17 09:00 Constitutional: Yes: Diaphoresis Eyes: Yes: Other (left pupil tremored in response to light) Cardiovascular: Yes: WNL Respiratory: Yes: Tachypnea. No: Rales, Rhonchi Gastrointestinal: Yes: WNL Extremities: Yes: WNL Edema: Yes Edema: LLE: Trace, RLE: Trace Peripheral Pulses WNL: Yes Neurological: Yes: Lethargy, Unresponsive Labs: CBC, BMP 09/08/17 11:14 09/08/17 11:14 Rapid Response - Rapid Response Assessment: rapid response called for this 37M w/ hx of liver cirrhosis and HCV who presented with AMS who was found to have BP of 70s/30s. MD came to evaluate pt who was found mainly unresponsive to verbal and physical stimuli. BP was repeated, and it was 60/30s, pt satting in the 90% range on O2. Cardiac exam revealed RRR, no murmurs. Pulmonary exam showed tachypnea, no wheezing, rales, or rhonchi. Abdominal exam soft, ND. Extremities warm to touch, distal pulses palpable. A/P: Low BP 2/2 septic shock of unclear etiology. -b/l NS boluses given. BP did not significantly increase. -dopamine initiated -pt transferred to ICU -EKG, CXR, CBC, CMP, lactic acid, trop ordered. Critical Care Total Critical Care Time (in minutes): 40 Critical Care Statement: The care of this patient involved high complexity decision making to prevent further life threatening deterioration of the patient 's condition and/or to evaluate & treat vital organ system(s) failure or risk of failure.
[2017-09-08] MEDS ORDERED: PROPOFOL 1,000,000 MCG/100 ML VIAL ONE (22:41)
[2017-09-08] MEDS ORDERED: MIDAZOLAM HCL 5 MG/1 ML Single Dose Vial ONE (22:41)
[2017-09-08] MEDS ORDERED: RAPID SEQUENCE INTUBATION KIT NR ONE (22:47)
[2017-09-08] MEDS ORDERED: LACTULOSE 20 GM/30 ML UDC (FOR ORAL USE ONLY) GT PRN (22:55)
[2017-09-08] MEDS ORDERED: PROPOFOL 1,000,000 MCG/100 ML VIAL IVPB SCH (23:00)
--- NOTE | 2017-09-08 23:06 | RAPID ---
Physical Examination Vital Signs: Vital Signs Temperature 98.2 F 09/08/17 17:00 Pulse Rate 76 09/08/17 18:06 Respiratory Rate 18 09/08/17 21:00 Blood Pressure 104/49 09/08/17 18:06 O2 Sat by Pulse Oximetry (%) 100 09/08/17 21:18 Findings/Remarks: Called to see a 37M PMH of liver cirrhosis, HCV, esophageal varices s/p banding on 09/03/17, portal hypertension, liver failure, chronic alcohol use (last drink 2 days ago), recent cocaine use, who presented to the ED for altered mental status, had improved earlier today and was talking, but was said to have become non responsive this evening. Pulse present. As patient was non responsive , patient was intubated to protect his airway. OGT was placed with minimal blood. Phone call to the patient's brother via the patient's niece as an residential finish carpenter, confirmed the patient as full code. The brother said he is on his way. Constitutional: Yes: Obese, Other (Patient is non responsive) Eyes: Yes: Other (Right eye- 3mm, L eye 5mm both reacting to light) HENT: Yes: Atraumatic, Other (bleeding esophageal varices) Cardiovascular: Yes: S1, S2 Respiratory: Yes: Intubated, Rales Gastrointestinal: Yes: Abdomen, Obese Labs: CBC, BMP 09/08/17 11:14 09/08/17 11:14 Rapid Response - Rapid Response Assessment: Assessment Metabolic encephalopathy 2/2 to elevated ammonia in background Plan: Intubated stat CXR ABG Propofol drip PRN Head CT OGT placed Family (Richy Umanzor) was contacted and updated about the situation
--- NOTE | 2017-09-08 23:17 | PN ---
Progress Note (short form) - Note Progress Note: Anesthesiologist note stat call to ICU for intubation. Pat with ESLD. Sudden LOC and labor breathing. Pat non responsive, Spontaneous ventilation with supplemental O2 with ambu. SpO2 : 98%. BP: 125/75 HR: 87 RR: 22. Midazolam 2mg and succinylcholine 100 mg given, X1 attempt, EZ intubation. Kurtz #3, ETT #8. Secured at 22 cm at teeth. + ET Co2. CXRAY post intubation. VSS post intubation.
[2017-09-08] MEDS: PRENATAL VITAMINS W/ FOLIC ACID TABLET (FP) PO SCH (23:46)
[2017-09-09 00:30] LABS: ARTERIAL BLD GAS O2 SATURATION 96.7 % (90-98.9); ARTERIAL BLOOD GAS BASE EXCESS -9.4 meq/l (-2-2); ARTERIAL BLOOD GAS HCO3 14.8 meq/L (22-26); ARTERIAL BLOOD GAS PO2 89.8 mmHg (80-100); ARTERIAL BLOOD GAS pH 7.35 (7.35-7.45)
[2017-09-09 00:34] LABS: ART PUNCT SITE RIGHT RADIAL; LPM/O2% 40; PT. ON O2? YES; TYPE OF O2 VENTILATOR
[2017-09-09 00:35] LABS: VENT RATE 14
[2017-09-09] MEDS: THIAMINE HCL 100 MG TABLET (FP) PO SCH ×2 (01:14→23:45)
--- NOTE | 2017-09-09 01:24 | EKG ---
Test Reason : Blood Pressure : / mmHG Vent. Rate : 076 BPM Atrial Rate : 076 BPM P-R Int : 156 ms QRS Dur : 120 ms QT Int : 440 ms P-R-T Axes : 037 085 023 degrees QTc Int : 495 ms NORMAL SINUS RHYTHM NON-SPECIFIC INTRA-VENTRICULAR CONDUCTION DELAY BORDERLINE ECG WHEN COMPARED WITH ECG OF 07-SEP-2017 22:57, NO SIGNIFICANT CHANGE WAS FOUND Confirmed by ANGELICA FREEDMAN MD ([id number]) on 09/09/2017 1:24:04 AM Referred By: Confirmed By:ANGELICA FREEDMAN MD
--- NOTE | 2017-09-09 01:29 | EKG ---
Test Reason : Blood Pressure : / mmHG Vent. Rate : 099 BPM Atrial Rate : 099 BPM P-R Int : 144 ms QRS Dur : 110 ms QT Int : 380 ms P-R-T Axes : 044 093 048 degrees QTc Int : 487 ms NORMAL SINUS RHYTHM ABNORMAL ECG WHEN COMPARED WITH ECG OF 07-SEP-2017 13:45, INCOMPLETE RIGHT BUNDLE BRANCH BLOCK IS NO LONGER VENT. RATE HAS DECREASED Confirmed by TANO AMBROSE, ANGELICA ([id number]) on 09/09/2017 1:29:34 AM Referred By: Confirmed By:ANGELICA FREEDMAN MD
--- NOTE | 2017-09-09 03:56 | HOSP ---
Subjective - Review of Symptoms Events since last encounter: Called by ICU nurse: CT head with massive ICH and shift. Subjective: pt is unresponsive, unable to contribute to ROS Physical Examination Vital Signs: Vital Signs Temperature 98.8 F 09/09/17 02:00 Pulse Rate 72 09/09/17 02:00 Respiratory Rate 20 09/09/17 02:00 Blood Pressure 125/76 09/09/17 02:00 O2 Sat by Pulse Oximetry (%) 97 09/08/17 23:00 Constitutional: Yes: No Distress Eyes: Yes: Other (right pupil nonreactive 3mm, left pupil nonreactive 5mm, absent corneal reflex left, intermittent right) Cardiovascular: Yes: Regular Rate and Rhythm, S1, S2. No: Murmur Respiratory: Yes: CTA Bilaterally Gastrointestinal: Yes: Normal Bowel Sounds, Soft. No: Tenderness Neurological: Yes: Other (unresponsive to noxious stimuli) Labs: CBC, BMP 09/08/17 11:14 09/08/17 11:14 Hospitalist Encounter Assessment: ICH in setting of coagulopathy due to ESLD - CT scan report reviewed with Dr. Steiner via telephone. He advises not a candidate for surgical intervention. - family (sister Sera) made aware of poor prognosis, likely outcome of . Still want "everything done" including blood products and resuscitation - will give 2u FFP and 1u platelets, AM labs for INR and CBC - palliative care consult Critical Care Total Critical Care Time (in minutes): 50 Critical Care Statement: The care of this patient involved high complexity decision making to prevent further life threatening deterioration of the patient 's condition and/or to evaluate & treat vital organ system(s) failure or risk of failure.
[2017-09-09] MEDS: ALBUTEROL SO4 2.5/IPRATROPIUM 0.5 INH SOL 3 ML VIAL.NEB. NEB SCH ×3 (06:50→22:28)
[2017-09-09 07:21] LABS: MCH 25.6 pg (25.7-33.7); MCHC 31.1 g/dl (32.0-35.9); MEAN CELL VOLUME 82.3 fl (80-96); PLATELET COUNT 68 K/MM3 (134-434); RDW 21.4 % (11.9-15.9); WHITE BLOOD COUNT 10.2 K/mm3 (4.0-10.0)
[2017-09-09 07:41] LABS: ANION GAP 16 (8-16); CALCIUM 7.6 mg/dL (8.5-10.1); CO2 15 mmol/L (21-32); GLUCOSE,RANDOM 153 mg/dL (74-106); PHOSPHOROUS 2.6 mg/dL (2.5-4.9); SGOT/AST 97 U/L (15-37)
[2017-09-09 07:48] LABS: ALK PHOS 82 U/L (45-117); BILIRUBIN,TOTAL 2.8 mg/dL (0.2-1.0); CREATININE 1.2 mg/dL (0.7-1.3); SGPT/ALT 48 U/L (12-78); TOT PROT 7.9 g/dl (6.4-8.2)
--- NOTE | 2017-09-09 07:48 | PN ---
Progress Note (short form) - Note Progress Note: NEUROSURGERY CONSULT DICTATED Chart reviewed Pt examined CT's reviewed H/o Hep C with cirrhosis, esophageal varices s/p banding, portal hypertension, chronic alcohol dependence, cocaine abuse, presented to the ED with altered mental status 3 days ago. Initially with chest pain radiating to his abdomen. Transferred to ICU yesterday due to hypotension. Most recently discharged 1 week ago. Deteriorated yesterday evening and CT showed massive intracranical bleed. PE: 98.3, 123/70, 53; O2 sat 99% HEENT- NC/AT; Neck- no bruit; Cor- reg; Chest- decreased BS at bases; Abd- obese ; Ext- edema GCS- 3T CN- + corneal reflex on R, no gag, no Doll's; Motor- no movement to voice or pain; Sensation- unable to assess; DTR- hyporeflexia Head CT 08-28: No acute intracranial pathology, no fx, no bleed, no stroke Head CT 09-09: Large L parietal parenchymal hemorrhage extending into B lateral ventricle; 2 cm L to R shift INR 4.36 to 2.54 after 2 U FFP; platelet 68K L parrietal ICH with extension into lateral ventricle and significant midline shift (?cocaine related and exacerbated by hepatic dysfunction and coagulopathy) No neurosurgical intervention appropriate Prognosis is grave, and care d/w GERMAN Jones earlier and with medical team/RN this am Condition complicated by his hepatic cirrhosis/failure Transfuse 2 more U FFP and 1 monodonor platelet, repeat INR/CBC after transfusion Pt condition and prognosis d/w sister, who is at bedside
[2017-09-09 08:00] LABS: INR 2.54 (0.82-1.09); PROTHROMBIN TIME (PATIENT) 28.7 SEC (9.98-11.88)
[2017-09-09 08:02] LABS: ACTIVATED PTT 51.3 SECONDS (26.9-34.4)
[2017-09-09] MEDS ORDERED: HYDROmorphone *PCA* 10MG/50ML DISP.SYRIN PCA ONE (08:41)
[2017-09-09] MEDS ORDERED: PT OWN MED DRAWER 7, Y5N ONE ×2 (09:03→15:52)
[2017-09-09] MEDS: CEFTRIAXONE 2 GM in DEXTROSE 5%-WATER - 100 ML IVPB SCH (09:17)
[2017-09-09] MEDS: DOPAMINE 400 MG/D5W - 400,000 MCG/250 ML INFUS.BAG IVPB SCH (09:18)
[2017-09-09] MEDS ORDERED: VANCOMYCIN 1,250 MG in DEXTROSE 5%-WATER - 250 ML IVPB SCH (10:00)
[2017-09-09] MEDS: SUCRALFATE 1 GM TABLET (FP) PO SCH ×4 (10:00→23:36)
--- NOTE | 2017-09-09 12:20 | PN ---
Progress Note, Physician History of Present Illness: In the ICU on vent support. ICB with herniation on head CT. - Current Medication List Current Medications: Active Medications Albuterol/Ipratropium (Duoneb -) 1 amp NEB TIDR [facility] Last Admin: 09/09/17 06:50 Dose: 1 amp Dopamine HCl/Dextrose (Dopamine 400 Mg/D5w -) 400,000 mcg in 250 mls @ 22.113 mls/hr IVPB TITR KANDY; 5 MCG/KG/MIN PRN Reason: Protocol Last Admin: 09/09/17 09:18 Dose: Not Given Ceftriaxone Sodium 2 gm/ (Dextrose) 100 mls @ 200 mls/hr IVPB DAILY [facility] Last Admin: 09/09/17 09:17 Dose: 200 mls/hr Sodium Chloride (Normal Saline -) 1,000 mls @ 150 mls/hr IV ASDIR KANDY Last Admin: 09/08/17 13:00 Dose: 150 mls/hr Lactulose (Cephulac (Oral Use)) 20 gm GT Q8H PRN PRN Reason: elevated ammonia/consitpation Lorazepam (Ativan Injection -) 1 mg IVPUSH Q6H PRN PRN Reason: ANXIETY Multivit/Folic Acid/Iron ( Vitamins (Sjr) -) 1 tab PO DAILY [facility] Last Admin: 09/08/17 23:46 Dose: Not Given Sucralfate (Carafate -) 1 gm PO QID [facility] Last Admin: 09/08/17 23:47 Dose: Not Given Thiamine HCl (Vitamin B1 -) 100 mg PO HS [facility] Last Admin: 09/09/17 01:14 Dose: Not Given - Objective Vital Signs: Vital Signs Temperature 98.8 F 09/09/17 10:00 Pulse Rate 74 09/09/17 10:00 Respiratory Rate 22 09/09/17 10:00 Blood Pressure 149/70 09/09/17 10:00 O2 Sat by Pulse Oximetry (%) 97 09/08/17 23:00 Gastrointestinal: No: Melena, Rectal Bleeding, Vomiting Labs: CBC, BMP 09/09/17 06:20 09/09/17 06:20 INR, PTT INR 2.54 (0.82-1.09) H D 09/09/17 06:20 Abnormal Lab Results 09/07/17 09/08/17 09/09/17 13:47 11:14 00:20 WBC RBC Hgb Hct MCH MCHC RDW Plt Count PT with INR INR PTT (Actin FS) ABG pCO2 at Pt Temp 27.6 L ABG HCO3 14.8 L* ABG O2 Content 12.3 L ABG Base Excess -9.4 L Sodium Potassium 3.3 L Chloride 114 H Carbon Dioxide 19 L Creatinine 1.4 H D Random Glucose Lactic Acid 4.3 H* Calcium 6.9 L* Total Bilirubin 2.9 H Direct Bilirubin 1.6 H AST 88 H Ammonia C-Reactive Protein 4.8 H D Albumin 1.8 L 09/09/17 09/09/17 09/09/17 06:20 06:20 06:20 WBC 10.2 H RBC 3.66 L Hgb 9.4 L Hct 30.2 L MCH 25.6 L MCHC 31.1 L RDW 21.4 H Plt Count 68 L PT with INR 28.70 H INR 2.54 H D PTT (Actin FS) 51.3 H ABG pCO2 at Pt Temp ABG HCO3 ABG O2 Content ABG Base Excess Sodium 149 H Potassium Chloride 118 H Carbon Dioxide 15 L D Creatinine Random Glucose 153 H D Lactic Acid Calcium 7.6 L Total Bilirubin 2.8 H Direct Bilirubin AST 97 H Ammonia C-Reactive Protein Albumin 2.0 L 09/09/17 09/09/17 06:20 06:20 WBC RBC Hgb Hct MCH MCHC RDW Plt Count PT with INR INR PTT (Actin FS) ABG pCO2 at Pt Temp ABG HCO3 ABG O2 Content ABG Base Excess Sodium Potassium Chloride Carbon Dioxide Creatinine Random Glucose Lactic Acid Calcium Total Bilirubin Direct Bilirubin AST Ammonia 66.14 H C-Reactive Protein 6.8 H D Albumin - ....Imaging Cat Scan: Report Reviewed Problem List - Problems (1) Cholestasis Code(s): K83.1 - OBSTRUCTION OF BILE DUCT (2) Hepatic encephalopathy Code(s): K72.90 - HEPATIC FAILURE, UNSPECIFIED WITHOUT COMA (3) Alcohol dependence with uncomplicated withdrawal Code(s): F10.230 - ALCOHOL DEPENDENCE WITH WITHDRAWAL, UNCOMPLICATED (4) Esophageal varices in alcoholic cirrhosis Code(s): K70.30 - ALCOHOLIC CIRRHOSIS OF LIVER WITHOUT ASCITES; I85.10 - SECONDARY ESOPHAGEAL VARICES WITHOUT BLEEDING (5) Fever Code(s): R50.9 - FEVER, UNSPECIFIED (6) Hypercoagulable state Code(s): D68.59 - OTHER PRIMARY THROMBOPHILIA (7) Liver cirrhosis, alcoholic Code(s): K70.30 - ALCOHOLIC CIRRHOSIS OF LIVER WITHOUT ASCITES (8) Substance abuse Code(s): F19.10 - OTHER PSYCHOACTIVE SUBSTANCE ABUSE, UNCOMPLICATED (9) Intracranial hemorrhage Code(s): I62.9 - NONTRAUMATIC INTRACRANIAL HEMORRHAGE, UNSPECIFIED (10) Gram-positive bacteremia Code(s): R78.81 - BACTEREMIA Assessment/Plan A 37 yom with advanced, multifactorial, liver disease and continued use of alcohol and cocaine, positive blood cultures, hypocoagulable state. No US evidence of ascites. No sighs of recent or ongoing GI bleeding. Acute intracranial hemorrhage with mass effect and brain herniation. Acute care as per ICU/Neurosurgery/neurology. Prognosis grave
[2017-09-09] MEDS ORDERED: PHYTONADIONE 5 MG TABLET PO ONE (12:27)
--- NOTE | 2017-09-09 12:50 | PN ---
Teaching Attending Note Name of Resident: Kaur Sanches ATTENDING PHYSICIAN STATEMENT I saw and evaluated the patient. I reviewed the resident's note and discussed the case with the resident. I agree with the resident's findings and plan as documented. SUBJECTIVE: Pt seen and examined in the ICU. Overnight events reviewed. Acute decompensation in hemodynamics and mental status. CT head revealing large intracranial hemorrhage with midline shifts. Currently intubated, unresponsive off sedation. OBJECTIVE: Last Vital Signs Temp Pulse Resp BP Pulse Ox 98.8 F 129 H 14 136/66 100 09/09/17 10:00 09/09/17 12:00 09/09/17 12:00 09/09/17 12:00 09/09/17 09:00 Intake & Output 09/06/17 09/07/17 09/08/17 09/09/17 23:59 23:59 23:59 23:59 Intake Total 7178 1323 Output Total 2900 1800 Balance 4278 -477 Weight 259 lb 15.999 oz 259 lb 15.999 oz Gen: intubated, unresponsive Heart: tachycardic, regular Lung: scattered rhonchi Abd: soft, nontender Ext: + edema CBC, BMP 09/09/17 06:20 09/09/17 06:20 Active Medications Albuterol/Ipratropium (Duoneb -) 1 amp NEB TIDR [facility] Last Admin: 09/09/17 06:50 Dose: 1 amp Ceftriaxone Sodium 2 gm/ (Dextrose) 100 mls @ 200 mls/hr IVPB DAILY [facility] Last Admin: 09/09/17 09:17 Dose: 200 mls/hr Sodium Chloride (Normal Saline -) 1,000 mls @ 150 mls/hr IV ASDIR [facility] Last Admin: 09/08/17 13:00 Dose: 150 mls/hr Lactulose (Cephulac (Oral Use)) 20 gm GT Q8H PRN PRN Reason: elevated ammonia/consitpation Lorazepam (Ativan Injection -) 1 mg IVPUSH Q6H PRN PRN Reason: ANXIETY Mannitol (Osmitrol -) 12.5 gm IVPB Q6H KANDY Pantoprazole Sodium (Protonix Iv) 40 mg IVPUSH DAILY [facility] Multivit/Folic Acid/Iron ( Vitamins (Sjr) -) 1 tab PO DAILY [facility] Last Admin: 09/08/17 23:46 Dose: Not Given Sucralfate (Carafate -) 1 gm PO QID [facility] Last Admin: 09/08/17 23:47 Dose: Not Given Thiamine HCl (Vitamin B1 -) 100 mg PO HS [facility] Last Admin: 09/09/17 01:14 Dose: Not Given ASSESSMENT AND PLAN: Acute Respiratory Failure Intracranial Hemorrhage Gram Positive Bacteremia Septic Shock Acute Kidney Injury Lactic Acidosis Alcoholic Liver Cirrhosis Hepatic Encephalopathy Cocaine Abuse Coagulopathy Thrombocytopenia - neurosurgery input appreciated - mannitol, elevate HOB, keep hypocarbic - transfuse FFP, platelets - vitamin K - monitor coags, platelets - neuro checks - continue antibiotics - f/u cultures - d/c IVF - monitor urine output, creatinine - replete lytes - monitor ammonia level - minimize sedation to assess mental status - not a candidate for weaning at this time - DVT/GI prophylaxis - continue ICU monitoring - poor overall prognosis critical care time spent in reviewing chart, evaluating patient and formulating plan 40 min
[2017-09-09 13:20] LABS: HIV 1 & 2 AB NEGATIVE; HIV 1 AGp24 NEGATIVE
--- NOTE | 2017-09-09 13:29 | PN ---
Progress Note (short form) - Note Progress Note: unresponsive, intubated events noted massive [employer] bleed Vital Signs Period Temp Pulse Resp BP Sys/[place] Pulse Ox Last 24 Hr 98.2 F-98.8 F 54-129 14-26 104-149/45-76 97-100 cor-rrr lungs decreased bs at bases abd soft,nt ext no edema CBC, BMP 09/09/17 06:20 09/09/17 06:20 Microbiology 09/07/17 13:47 Blood - Peripheral Venous Blood Culture - Preliminary Alpha Hemolytic Streptococcus 09/08/17 03:37 Urine - Urine Clean Catch Urine Culture - Final NO GROWTH OBTAINED 09/07/17 13:47 Blood - Peripheral Venous Blood Culture - Preliminary Alpha Hemolytic Streptococcus 09/08/17 11:35 Nasopharyngeal Swab Influenza Types A,B Antigen (FLORIDALMA) - Final 09/08/17 11:35 Nasopharyngeal Swab - Final Current Medications Generic Name Dose Route Start Last Admin Trade Name Freq PRN Reason Stop Dose Admin Albuterol/Ipratropium 1 amp 09/08/17 14:00 09/09/17 06:50 Duoneb - NEB 1 amp TIDR KANDY Administration Desmopressin Acetate 2 mcg 09/09/17 16:01 Ddavp Injection - IVPB BID KANDY Ceftriaxone Sodium 2 gm/ 100 mls @ 200 mls/hr 09/08/17 10:00 09/09/17 09:17 Dextrose IVPB 200 mls/hr DAILY KANDY Administration Dextrose 1,000 mls @ 125 mls/hr 09/09/17 15:30 D5w - IV .Q8H KANDY Lactulose 20 gm 09/09/17 15:30 09/09/17 15:56 Cephulac (Oral Use) GT 20 gm QID KANDY Administration Lorazepam 1 mg 09/08/17 17:40 Ativan Injection - IVPUSH Q6H PRN ANXIETY Pantoprazole Sodium 40 mg 09/09/17 12:45 09/09/17 14:29 Protonix Iv IVPUSH 40 mg DAILY KANDY Administration Multivit/Folic Acid/Iron 1 tab 09/08/17 17:45 09/09/17 15:55 Vitamins (Sjr) - PO 1 tab DAILY KANDY Administration Sucralfate 1 gm 09/07/17 18:00 09/09/17 15:00 Carafate - PO 1 gm QID KANDY Administration Thiamine HCl 100 mg 09/08/17 22:00 09/09/17 01:14 Vitamin B1 - PO Not Given HS KANDY a/p s/p skip loader bleed strep bacteremia-continue ceftriaxone/vancomycin, f/u cultures liver cirrhosis coagulopathy
--- NOTE | 2017-09-09 14:24 | PN ---
Physical Exam: SUBJECTIVE: Patient seen and examined in ICU Overnight, patient found to be nonresponsive. He was intubated. Patient found to hvae a L parietal ICH on CT head with 2 cm midline shift. Patient intubated on no sedation in the ICU OBJECTIVE: Vital Signs Period Temp Pulse Resp BP Sys/[place] Pulse Ox Last 24 Hr 98.2 F-98.8 F 54-129 14-26 104-149/45-76 97-100 GENERAL: The patient is intubated and unresponsive HEAD: Normal with no signs of trauma. EYES: Pupils minimally reactive, negative corneal reflex, no oculocephalic reflex LUNGS: Breath sounds equal, Rhonchi heard scattered throughout, no accessory muscle use. HEART: Tachycardic, S1, S2 without murmur, rub or gallop. ABDOMEN: Soft, nontender, nondistended, normoactive bowel sounds, no guarding, no rebound, no hepatosplenomegaly, no masses. EXTREMITIES: 2+ pulses, warm, well-perfused, + peripheral edema. NEUROLOGICAL: Hyporeflexive, unable to assess, no corneal reflex, minimal gag reflex, pupils minimally reactive Laboratory Results - last 24 hr 09/07/17 09/07/17 09/08/17 13:47 13:47 03:37 WBC RBC Hgb Hct MCV MCH MCHC RDW Plt Count MPV PT with INR INR PTT (Actin FS) Anticoagulation Therapy Puncture Site ABG pH ABG pCO2 at Pt Temp ABG pO2 at Pt Temp ABG HCO3 ABG O2 Sat (Measured) ABG O2 Content ABG Base Excess Luther Test VBG pH 7.38 POC VBG pCO2 40.4 POC VBG pO2 33.0 Mixed VBG HCO3 23.1 O2 Delivery Device Oxygen Flow Rate Vent Mode Vent Rate Mechanical Rate PEEP Pressure Support Vent Sodium Potassium Chloride Carbon Dioxide Anion Gap BUN Creatinine Creat Clearance w eGFR Random Glucose Lactic Acid 4.3 H* Calcium Phosphorus Magnesium Total Bilirubin Direct Bilirubin AST ALT Alkaline Phosphatase Ammonia C-Reactive Protein Total Protein Albumin Ur Leukocyte Esterase Negative Vancomycin Pre-Dose HIV 1&2 Antibody Screen HIV P24 Antigen 09/08/17 09/08/17 09/08/17 10:10 11:14 14:28 WBC RBC Hgb Hct MCV MCH MCHC RDW Plt Count MPV PT with INR INR PTT (Actin FS) Anticoagulation Therapy Puncture Site ABG pH ABG pCO2 at Pt Temp ABG pO2 at Pt Temp ABG HCO3 ABG O2 Sat (Measured) ABG O2 Content ABG Base Excess Luther Test VBG pH POC VBG pCO2 POC VBG pO2 Mixed VBG HCO3 O2 Delivery Device Oxygen Flow Rate Vent Mode Vent Rate Mechanical Rate PEEP Pressure Support Vent Sodium 145 Potassium 3.3 L Chloride 114 H Carbon Dioxide 19 L Anion Gap 12 BUN 17 Creatinine 1.4 H D Creat Clearance w eGFR 57.03 Random Glucose 98 Lactic Acid Calcium 6.9 L* Phosphorus Magnesium Total Bilirubin 2.9 H Direct Bilirubin 1.6 H AST 88 H ALT 41 Alkaline Phosphatase 93 Ammonia C-Reactive Protein 4.8 H D Cancelled Total Protein 7.0 Albumin 1.8 L Ur Leukocyte Esterase Negative Vancomycin Pre-Dose HIV 1&2 Antibody Screen HIV P24 Antigen 09/08/17 09/09/17 09/09/17 18:00 00:20 06:20 WBC 10.2 H RBC 3.66 L Hgb 9.4 L Hct 30.2 L MCV 82.3 MCH 25.6 L MCHC 31.1 L RDW 21.4 H Plt Count 68 L MPV 9.0 PT with INR INR PTT (Actin FS) Anticoagulation Therapy Y Puncture Site Right radial ABG pH 7.35 ABG pCO2 at Pt Temp 27.6 L ABG pO2 at Pt Temp 89.8 D ABG HCO3 14.8 L* ABG O2 Sat (Measured) 96.7 ABG O2 Content 12.3 L ABG Base Excess -9.4 L Luther Test Y VBG pH POC VBG pCO2 POC VBG pO2 Mixed VBG HCO3 O2 Delivery Device Ventilator Oxygen Flow Rate 40 Vent Mode A/c Vent Rate 14 Mechanical Rate Y PEEP 10.0 Pressure Support Vent Y Sodium Potassium Chloride Carbon Dioxide Anion Gap BUN Creatinine Creat Clearance w eGFR Random Glucose Lactic Acid 1.6 Calcium Phosphorus Magnesium Total Bilirubin Direct Bilirubin AST ALT Alkaline Phosphatase Ammonia C-Reactive Protein Total Protein Albumin Ur Leukocyte Esterase Vancomycin Pre-Dose HIV 1&2 Antibody Screen HIV P24 Antigen 09/09/17 09/09/17 09/09/17 06:20 06:20 06:20 WBC RBC Hgb Hct MCV MCH MCHC RDW Plt Count MPV PT with INR 28.70 H INR 2.54 H D PTT (Actin FS) 51.3 H Anticoagulation Therapy Puncture Site ABG pH ABG pCO2 at Pt Temp ABG pO2 at Pt Temp ABG HCO3 ABG O2 Sat (Measured) ABG O2 Content ABG Base Excess Luther Test VBG pH POC VBG pCO2 POC VBG pO2 Mixed VBG HCO3 O2 Delivery Device Oxygen Flow Rate Vent Mode Vent Rate Mechanical Rate PEEP Pressure Support Vent Sodium 149 H Potassium 4.1 D Chloride 118 H Carbon Dioxide 15 L D Anion Gap 16 BUN 14 Creatinine 1.2 Creat Clearance w eGFR > 60 Random Glucose 153 H D Lactic Acid Calcium 7.6 L Phosphorus 2.6 D Magnesium 2.0 D Total Bilirubin 2.8 H Direct Bilirubin AST 97 H ALT 48 Alkaline Phosphatase 82 Ammonia 66.14 H C-Reactive Protein Total Protein 7.9 Albumin 2.0 L Ur Leukocyte Esterase Vancomycin Pre-Dose HIV 1&2 Antibody Screen HIV P24 Antigen 09/09/17 09/09/17 09/09/17 06:20 06:20 11:58 WBC RBC Hgb Hct MCV MCH MCHC RDW Plt Count MPV PT with INR INR PTT (Actin FS) Anticoagulation Therapy Puncture Site ABG pH ABG pCO2 at Pt Temp ABG pO2 at Pt Temp ABG HCO3 ABG O2 Sat (Measured) ABG O2 Content ABG Base Excess Luther Test VBG pH POC VBG pCO2 POC VBG pO2 Mixed VBG HCO3 O2 Delivery Device Oxygen Flow Rate Vent Mode Vent Rate Mechanical Rate PEEP Pressure Support Vent Sodium Potassium Chloride Carbon Dioxide Anion Gap BUN Creatinine Creat Clearance w eGFR Random Glucose Lactic Acid Calcium Phosphorus Magnesium Total Bilirubin Direct Bilirubin AST ALT Alkaline Phosphatase Ammonia C-Reactive Protein 6.8 H D Total Protein Albumin Ur Leukocyte Esterase Vancomycin Pre-Dose 5.765 HIV 1&2 Antibody Screen Negative HIV P24 Antigen Negative Active Medications Generic Name Dose Route Start Last Admin Trade Name Freq PRN Reason Stop Dose Admin Albuterol/Ipratropium 1 amp 09/08/17 14:00 09/09/17 06:50 Duoneb - NEB 1 amp TIDR KANDY Administration Ceftriaxone Sodium 2 gm/ 100 mls @ 200 mls/hr 09/08/17 10:00 09/09/17 09:17 Dextrose IVPB 200 mls/hr DAILY KANDY Administration Sodium Chloride 1,000 mls @ 150 mls/hr 09/08/17 12:45 09/08/17 13:00 Normal Saline - IV 150 mls/hr ASDIR KANDY Administration Lactulose 20 gm 09/08/17 22:55 Cephulac (Oral Use) GT Q8H PRN elevated ammonia/consitpation Lorazepam 1 mg 09/08/17 17:40 Ativan Injection - IVPUSH Q6H PRN ANXIETY Mannitol 12.5 gm 09/09/17 12:45 Osmitrol - IVPB Q6H KANDY Pantoprazole Sodium 40 mg 09/09/17 12:45 Protonix Iv IVPUSH DAILY [facility] Multivit/Folic Acid/Iron 1 tab 09/08/17 17:45 09/08/17 23:46 Vitamins (Sjr) - PO Not Given DAILY KANDY Sucralfate 1 gm 09/07/17 18:00 09/08/17 23:47 Carafate - PO Not Given QID KANDY Thiamine HCl 100 mg 09/08/17 22:00 09/09/17 01:14 Vitamin B1 - PO Not Given HS [facility] ASSESSMENT/PLAN: 37M with multiple medical problems presented to the ICU with septic shock requiring aggressive resuscitation and pressors found unresponsive with massive ICH and midline shift, intubated. Neuro Altered Mental Status/hepatic encephalopathy ICH with 2 cm midline shift -Neurosurgery on board, Dr. Steiner -Elevate head of bed, keep patient hypocarbic -Patient received multiple units of FFP/plts -PO Vit K 5mg po -Monitor PT/INR, H/H -Neuro checks -Last INR 2.54 -Repeat head CT tonight Resp Acute respiratory failure -Intubated ID Septic shock secondary to Gram Positive Bacteremia -Dr Cosby on board -Continue ceftriaxone -Patient off pressors Nephro Acute Kidney Injury -monitor Cr -Resolved -Urine osm, serum osm pending -UA pending -Started patient on ddAVP for DI GI Liver failure/Alcoholic liver cirrhosis -Lactulose 20 gm GT q6h -Dr Kuhn on board Heme Coagulopathy/Thrombocytopenia -Vit K, FFP, Plts given -Monitor CBC FEN/GI -No IVF at this time -WNL -NPO PPx -SCDs/supratherapeutic INR -IV protonix for GI PPx Visit type - Emergency Visit Emergency Visit: Yes ED Registration Date: 09/07/17 Care time: The patient presented to the Emergency Department on the above date and was hospitalized for further evaluation of their emergent condition. - New Patient This patient is new to me today: Yes Date on this admission: 09/09/17 - Critical Care Critical Care patient: Yes Total Critical Care Time (in minutes): 40 Critical Care Statement: The care of this patient involved high complexity decision making to prevent further life threatening deterioration of the patient 's condition and/or to evaluate & treat vital organ system(s) failure or risk of failure.
[2017-09-09] MEDS: PANTOPRAZOLE SODIUM 40 MG VIAL IVPUSH SCH (14:29)
[2017-09-09] MEDS: MANNITOL 25% 12.5 GM/50 ML VIAL IVPB SCH ×2 (14:30→15:48)
--- NOTE | 2017-09-09 14:34 | PN ---
Physical Exam: SUBJECTIVE: Patient seen and examined at bedside in ICU. Overnight events noted. Patient intubated. On no sedation. OBJECTIVE: Vital Signs Period Temp Pulse Resp BP Sys/[place] Pulse Ox Last 24 Hr 98.2 F-98.8 F 54-129 14-26 104-149/45-76 97-100 GENERAL/NEURO: Unresponsive. Does not respond to painful stimuli. Pupils 3mm, fixed, absent corneal reflexes. LUNGS: Mechanical breath sounds; no wheezing, no rhonchi. HEART: Regular rate and rhythm, S1, S2 ABDOMEN: Soft, nontender, nondistended, normoactive bowel sounds EXTREMITIES: 2+ pulses, warm, well-perfused, no edema. Laboratory Results - last 24 hr 09/07/17 09/07/17 09/08/17 13:47 13:47 03:37 WBC RBC Hgb Hct MCV MCH MCHC RDW Plt Count MPV PT with INR INR PTT (Actin FS) Anticoagulation Therapy Puncture Site ABG pH ABG pCO2 at Pt Temp ABG pO2 at Pt Temp ABG HCO3 ABG O2 Sat (Measured) ABG O2 Content ABG Base Excess Luther Test VBG pH 7.38 POC VBG pCO2 40.4 POC VBG pO2 33.0 Mixed VBG HCO3 23.1 O2 Delivery Device Oxygen Flow Rate Vent Mode Vent Rate Mechanical Rate PEEP Pressure Support Vent Sodium Potassium Chloride Carbon Dioxide Anion Gap BUN Creatinine Creat Clearance w eGFR Random Glucose Lactic Acid 4.3 H* Calcium Phosphorus Magnesium Total Bilirubin Direct Bilirubin AST ALT Alkaline Phosphatase Ammonia C-Reactive Protein Total Protein Albumin Ur Leukocyte Esterase Negative Vancomycin Pre-Dose HIV 1&2 Antibody Screen HIV P24 Antigen 09/08/17 09/08/17 09/08/17 10:10 11:14 14:28 WBC RBC Hgb Hct MCV MCH MCHC RDW Plt Count MPV PT with INR INR PTT (Actin FS) Anticoagulation Therapy Puncture Site ABG pH ABG pCO2 at Pt Temp ABG pO2 at Pt Temp ABG HCO3 ABG O2 Sat (Measured) ABG O2 Content ABG Base Excess Luther Test VBG pH POC VBG pCO2 POC VBG pO2 Mixed VBG HCO3 O2 Delivery Device Oxygen Flow Rate Vent Mode Vent Rate Mechanical Rate PEEP Pressure Support Vent Sodium 145 Potassium 3.3 L Chloride 114 H Carbon Dioxide 19 L Anion Gap 12 BUN 17 Creatinine 1.4 H D Creat Clearance w eGFR 57.03 Random Glucose 98 Lactic Acid Calcium 6.9 L* Phosphorus Magnesium Total Bilirubin 2.9 H Direct Bilirubin 1.6 H AST 88 H ALT 41 Alkaline Phosphatase 93 Ammonia C-Reactive Protein 4.8 H D Cancelled Total Protein 7.0 Albumin 1.8 L Ur Leukocyte Esterase Negative Vancomycin Pre-Dose HIV 1&2 Antibody Screen HIV P24 Antigen 09/08/17 09/09/17 09/09/17 18:00 00:20 06:20 WBC 10.2 H RBC 3.66 L Hgb 9.4 L Hct 30.2 L MCV 82.3 MCH 25.6 L MCHC 31.1 L RDW 21.4 H Plt Count 68 L MPV 9.0 PT with INR INR PTT (Actin FS) Anticoagulation Therapy Y Puncture Site Right radial ABG pH 7.35 ABG pCO2 at Pt Temp 27.6 L ABG pO2 at Pt Temp 89.8 D ABG HCO3 14.8 L* ABG O2 Sat (Measured) 96.7 ABG O2 Content 12.3 L ABG Base Excess -9.4 L Luther Test Y VBG pH POC VBG pCO2 POC VBG pO2 Mixed VBG HCO3 O2 Delivery Device Ventilator Oxygen Flow Rate 40 Vent Mode A/c Vent Rate 14 Mechanical Rate Y PEEP 10.0 Pressure Support Vent Y Sodium Potassium Chloride Carbon Dioxide Anion Gap BUN Creatinine Creat Clearance w eGFR Random Glucose Lactic Acid 1.6 Calcium Phosphorus Magnesium Total Bilirubin Direct Bilirubin AST ALT Alkaline Phosphatase Ammonia C-Reactive Protein Total Protein Albumin Ur Leukocyte Esterase Vancomycin Pre-Dose HIV 1&2 Antibody Screen HIV P24 Antigen 09/09/17 09/09/17 09/09/17 06:20 06:20 06:20 WBC RBC Hgb Hct MCV MCH MCHC RDW Plt Count MPV PT with INR 28.70 H INR 2.54 H D PTT (Actin FS) 51.3 H Anticoagulation Therapy Puncture Site ABG pH ABG pCO2 at Pt Temp ABG pO2 at Pt Temp ABG HCO3 ABG O2 Sat (Measured) ABG O2 Content ABG Base Excess Luther Test VBG pH POC VBG pCO2 POC VBG pO2 Mixed VBG HCO3 O2 Delivery Device Oxygen Flow Rate Vent Mode Vent Rate Mechanical Rate PEEP Pressure Support Vent Sodium 149 H Potassium 4.1 D Chloride 118 H Carbon Dioxide 15 L D Anion Gap 16 BUN 14 Creatinine 1.2 Creat Clearance w eGFR > 60 Random Glucose 153 H D Lactic Acid Calcium 7.6 L Phosphorus 2.6 D Magnesium 2.0 D Total Bilirubin 2.8 H Direct Bilirubin AST 97 H ALT 48 Alkaline Phosphatase 82 Ammonia 66.14 H C-Reactive Protein Total Protein 7.9 Albumin 2.0 L Ur Leukocyte Esterase Vancomycin Pre-Dose HIV 1&2 Antibody Screen HIV P24 Antigen 09/09/17 09/09/17 09/09/17 06:20 06:20 11:58 WBC RBC Hgb Hct MCV MCH MCHC RDW Plt Count MPV PT with INR INR PTT (Actin FS) Anticoagulation Therapy Puncture Site ABG pH ABG pCO2 at Pt Temp ABG pO2 at Pt Temp ABG HCO3 ABG O2 Sat (Measured) ABG O2 Content ABG Base Excess Luther Test VBG pH POC VBG pCO2 POC VBG pO2 Mixed VBG HCO3 O2 Delivery Device Oxygen Flow Rate Vent Mode Vent Rate Mechanical Rate PEEP Pressure Support Vent Sodium Potassium Chloride Carbon Dioxide Anion Gap BUN Creatinine Creat Clearance w eGFR Random Glucose Lactic Acid Calcium Phosphorus Magnesium Total Bilirubin Direct Bilirubin AST ALT Alkaline Phosphatase Ammonia C-Reactive Protein 6.8 H D Total Protein Albumin Ur Leukocyte Esterase Vancomycin Pre-Dose 5.765 HIV 1&2 Antibody Screen Negative HIV P24 Antigen Negative Active Medications Generic Name Dose Route Start Last Admin Trade Name Freq PRN Reason Stop Dose Admin Albuterol/Ipratropium 1 amp 09/08/17 14:00 09/09/17 06:50 Duoneb - NEB 1 amp TIDR KANDY Administration Ceftriaxone Sodium 2 gm/ 100 mls @ 200 mls/hr 09/08/17 10:00 09/09/17 09:17 Dextrose IVPB 200 mls/hr DAILY KANDY Administration Lactulose 20 gm 09/08/17 22:55 Cephulac (Oral Use) GT Q8H PRN elevated ammonia/consitpation Lorazepam 1 mg 09/08/17 17:40 Ativan Injection - IVPUSH Q6H PRN ANXIETY Mannitol 12.5 gm 09/09/17 12:45 09/09/17 14:30 Osmitrol - IVPB 12.5 gm Q6H KANDY Administration Pantoprazole Sodium 40 mg 09/09/17 12:45 09/09/17 14:29 Protonix Iv IVPUSH 40 mg DAILY KANDY Administration Multivit/Folic Acid/Iron 1 tab 09/08/17 17:45 09/08/17 23:46 Vitamins (Sjr) - PO Not Given DAILY [facility] Sucralfate 1 gm 09/07/17 18:00 09/08/17 23:47 Carafate - PO Not Given QID KANDY Thiamine HCl 100 mg 09/08/17 22:00 09/09/17 01:14 Vitamin B1 - PO Not Given HS KANDY Assessment & Plan 37 year-old male with PMH significant for liver cirrhosis, HCV, esophageal varices (banding 09/03/17), portal hypertension, polysubstance abuse (alcohol, cocaine). Liver cirrhosis Hep C Esophageal varices s/p banding Portal hypertension Hepatic encephalopathy --INR 2.58-->4.1--> --there is no ascites, low suspicion for SBP --ammonia 163 on admission, continue lactulose enemas q6h Severe sepsis likely secondary to strep pneumonia --off pressors --continue ceftriaxone and vanc Acute respiratory failure --intubated Intracranial hemorrhage --09/09 CT head: large left cerebellar hematoma with diffuse edema involving left cerebral hemisphere; midline shift 2cm; intraventricular hemorrhage; compressed left lateral ventricle, dilated right lateral ventricle; uncal herniation --Dr. Steiner following --mannitol, elevate HOB, keep hypocarbic --transfuse FFP, platelets --poor prognosis Polysubstance abuse --detox consult DVT prophylaxis: SCDs GI prophylaxis: protonix Visit type - Emergency Visit Emergency Visit: Yes ED Registration Date: 09/07/17 Care time: The patient presented to the Emergency Department on the above date and was hospitalized for further evaluation of their emergent condition. - New Patient This patient is new to me today: No - Critical Care Critical Care patient: Yes Total Critical Care Time (in minutes): 45 Critical Care Statement: The care of this patient involved high complexity decision making to prevent further life threatening deterioration of the patient 's condition and/or to evaluate & treat vital organ system(s) failure or risk of failure.
[2017-09-09 14:54] LABS: ANION GAP 7 (8-16); CALCIUM 7.6 mg/dL (8.5-10.1); CO2 25 mmol/L (21-32); CREATININE 0.9 mg/dL (0.7-1.3); GLUCOSE,RANDOM 82 mg/dL (74-106)
[2017-09-09] MEDS ORDERED: DESMOPRESSIN ACETATE 4 MCG/ML AMP IVPB ONE (15:23)
--- NOTE | 2017-09-09 15:23 | CONS ---
DATE OF CONSULTATION: DATE OF DICTATION: 09/09/2017 REQUESTING PHYSICIAN: FRANTZ Brooks CHIEF COMPLAINT: Large left-sided intracranial hemorrhage. MANAGER UTILIZATION REVIEW: George Gil MD, Neurosurgery. HISTORY OF PRESENT ILLNESS: The patient is a 37-year-old, right-handed male with a history of cocaine abuse, hepatitis C with cirrhosis, esophageal varices status post banding procedure 6 days ago, portal hypertension, chronic ethanol dependence, who had presented to the emergency room approximately 2 days ago with altered mental status. The patient had undergone esophageal banding procedure just approximately 1 week earlier. The patient's sister had noticed that the patient was drinking as soon as he went home a couple of days ago from his discharge from the banding procedure. They found him to be lethargic, and he was disoriented. He had some chest pain and abdominal pain at the time. He was brought back to the emergency room for evaluation and was subsequently admitted. The patient has hepatic dysfunction from hepatitis C and cirrhosis and has continued to drink. PAST MEDICAL HISTORY: Significant for hepatitis C, hepatic cirrhosis, alcoholism, cocaine abuse, portal hypertension, esophageal varices s/p banding. CURRENT MEDICATIONS: Include lactulose, ceftriaxone, Ativan, albuterol, dopamine, vitamins, Carafate. ALLERGIES: There is no known drug allergy. FAMILY HISTORY: Noncontributory. SOCIAL HISTORY: He does not smoke. He did drink, and he uses cocaine very recently. REVIEW OF SYSTEMS: Otherwise negative for other major cardiovascular, pulmonary , gastrointestinal, genitourinary, endocrinological, neurological, and psychological problems except for the above. PHYSICAL EXAMINATION: Vital Signs: Temperature was 98.3, blood pressure is 123/70 with pulse rate of 54. He is on FiO2 of 40%, with O2 saturations 99%. HEENT: Examination shows him to be normocephalic, atraumatic. He is intubated. Neck: Supple with no bruit. Coronary: Examination demonstrated regular rhythm. Abdomen: Obese but benign. Extremity: Examination shows mild diffuse edema. Neurologic: He is comatose. He does not follow commands. His [place] coma score of 3T. Cranial nerve examination shows left pupil to be 8 mm and right pupil to be 7 mm, which are both fixed and dilated. He does retain right-sided corneal reflex. He has no gag. He has no doll's eyes. Motor examination shows him to not have any movement to painful stimuli or voice. Sensory examination is difficult to assess. Deep tendon reflexes are hyporeflexic throughout. LABORATORY EXAMINATION: Shows initial toxicology to be positive for benzodiazepine. White blood cell count is 10.2, and hemoglobin is 9.4, platelet count of 68, 000. INR was previous 4.36, and after 2 units of FFP, it was 2.54. Serum sodium is 149, potassium is 4.1. BUN is 14 and creatinine 1.2. Ammonia level was 66.14 most recently. C-reactive protein is 6.8. Urinalysis shows 3+ blood, 5 WBCs, and 14 RBCs. There was negative leukocyte esterase. A CT scan of the head performed on August 29 did not demonstrate intracranial bleed or stroke. There were symmetric ventricles, and there was no fracture of the skull. CT scan of the head performed earlier this morning demonstrated a large left parietal parenchymal hematoma which extends into the left and right lateral ventricles, nearly completely casting the ventricle. There is significant associated mass effect. There is [id number] shift of approximately 2 cm. The basal cisterns are obliterated. There is significant mass effect on the basal ganglia. IMPRESSION: 1. Large left parietal parenchymal hemorrhage with extension into the left and right lateral ventricles. 2. Coagulopathy. 3. Hepatitis C/hepatic cirrhosis. 4. Cirrhosis with portal hypertension and esophageal varices. 5. Cocaine abuse and alcohol dependence. RECOMMENDATIONS: The patient unfortunately sustained a large intracranial hemorrhage. There is significant extension of the blood into the bilateral ventricular system. There is trapping of the right-sided lateral ventricle. There is associated 2-cm midline shift. There is significant edema or infarct of the left hemisphere associated with the hematoma. Unfortunately, his bleeding is exacerbated by his underlying coagulopathy and thrombocytopenia. He did receive 2 units of FFP and 2 additional units of FFP have been ordered. He will also receive 1 monodonor platelet transfusion. Unfortunately, prognosis is extremely poor because of his underlying medical conditions. He is currently a [place] coma score of 3. His chance of functional recovery is minimal to none, unfortunately. His prognosis is grave. The above was discussed with the patient's medical team as well as the patient's sister who was at the bedside. All questions were answered. Repeat laboratory examination after transfusion should be done, and repeat head imaging should be done later on today. Further worsening is to be expected. GEORGE GIL M.D. CORTNEY/[id number]
[2017-09-09] MEDS ORDERED: DESMOPRESSIN ACETATE 4 MCG/ML AMP IVPB SCH (15:28)
[2017-09-09] MEDS ORDERED: DEXTROSE 5%-WATER - 1,000 ML IV SCH (15:30)
[2017-09-09] MEDS: PRENATAL VITAMINS W/ FOLIC ACID TABLET (FP) PO SCH (15:55)
[2017-09-09] MEDS: LACTULOSE 20 GM/30 ML UDC (FOR ORAL USE ONLY) GT SCH ×3 (15:56→23:35)
[2017-09-09] MEDS: SODIUM CHLORIDE 1,000 ML IV SCH (16:52)
--- NOTE | 2017-09-09 17:13 | PN ---
[facility] Progress Note (SOAP) Subjective: Patient remains unresponsive, family at bedside Objective: 09/09/17 17:11 Vital Signs - 24 hr 09/08/17 09/08/17 09/08/17 18:00 18:06 20:00 Temperature Pulse Rate 76 76 89 Respiratory 18 14 Rate Blood Pressure 104/49 104/49 145/75 O2 Sat by Pulse Oximetry (%) 09/08/17 09/08/17 09/08/17 21:00 21:18 22:00 Temperature Pulse Rate 86 Respiratory 18 24 Rate Blood Pressure 117/47 O2 Sat by Pulse 100 100 Oximetry (%) 09/08/17 09/09/17 09/09/17 23:00 00:00 01:15 Temperature Pulse Rate 75 74 Respiratory 22 24 22 Rate Blood Pressure 119/45 O2 Sat by Pulse 97 Oximetry (%) 09/09/17 09/09/17 09/09/17 02:00 03:39 04:00 Temperature 98.8 F Pulse Rate 72 56 L Respiratory 20 19 20 Rate Blood Pressure 125/76 110/58 O2 Sat by Pulse Oximetry (%) 09/09/17 09/09/17 09/09/17 05:00 06:00 06:30 Temperature Pulse Rate 54 L 54 L Respiratory 14 14 20 Rate Blood Pressure 124/67 123/70 O2 Sat by Pulse Oximetry (%) 09/09/17 09/09/17 09/09/17 06:49 08:00 09:00 Temperature 98.3 F Pulse Rate 55 L Respiratory 22 22 Rate Blood Pressure 136/74 O2 Sat by Pulse 100 Oximetry (%) 09/09/17 09/09/17 09/09/17 10:00 12:00 14:00 Temperature 98.8 F 99.0 F Pulse Rate 74 129 H 98 H Respiratory 22 20 14 Rate Blood Pressure 149/70 136/66 100/53 O2 Sat by Pulse Oximetry (%) 09/09/17 09/09/17 14:15 16:00 Temperature Pulse Rate 81 Respiratory 16 16 Rate Blood Pressure 106/62 O2 Sat by Pulse Oximetry (%) Laboratory Tests 09/07/17 09/07/17 09/07/17 13:45 13:47 13:47 WBC 2.1 L RBC 3.97 L Hgb 10.1 L D Hct 32.5 L D MCV 81.9 MCH 25.5 L MCHC 31.2 L RDW 21.4 H Plt Count 92 L MPV 8.4 Neutrophils % 49.5 D Lymphocytes % 43.7 H D Monocytes % 0.9 L D Eosinophils % 3.9 Basophils % 2.0 PT with INR 29.10 H INR 2.58 H PTT (Actin FS) 46.3 H Anticoagulation Therapy Puncture Site ABG pH ABG pCO2 at Pt Temp ABG pO2 at Pt Temp ABG HCO3 ABG O2 Sat (Measured) ABG O2 Content ABG Base Excess Luther Test VBG pH POC VBG pCO2 POC VBG pO2 Mixed VBG HCO3 O2 Delivery Device Oxygen Flow Rate Vent Mode Vent Rate Mechanical Rate PEEP Pressure Support Vent Sodium Potassium Chloride Carbon Dioxide Anion Gap BUN Creatinine Creat Clearance w eGFR Random Glucose Lactic Acid Calcium Phosphorus Magnesium Total Bilirubin Direct Bilirubin AST ALT Alkaline Phosphatase Ammonia Creatine Kinase Creatine Kinase Index CK-MB (CK-2) Troponin I C-Reactive Protein Total Protein Albumin Lipase Urine Color Urine Appearance Urine pH Ur Specific [place] Urine Protein Urine Glucose (UA) Urine Ketones Urine Blood Urine Nitrite Urine Bilirubin Urine Urobilinogen Ur Leukocyte Esterase Urine WBC (Auto) Urine RBC (Auto) Ur Epithelial Cells Urine Bacteria Urine Mucus Urine Yeast Vancomycin Pre-Dose Opiates Screen Methadone Screen Barbiturate Screen Phencyclidine Screen Ur Amphetamines Screen MDMA (Ecstasy) Screen Benzodiazepines Screen Cocaine Screen U Marijuana (THC) Screen Alcohol, Quantitative HIV 1&2 Antibody Screen HIV P24 Antigen Blood Type O POSITIVE Antibody Screen 09/07/17 09/07/17 09/07/17 13:47 13:47 13:47 WBC RBC Hgb Hct MCV MCH MCHC RDW Plt Count MPV Neutrophils % Lymphocytes % Monocytes % Eosinophils % Basophils % PT with INR INR PTT (Actin FS) Anticoagulation Therapy Puncture Site ABG pH ABG pCO2 at Pt Temp ABG pO2 at Pt Temp ABG HCO3 ABG O2 Sat (Measured) ABG O2 Content ABG Base Excess Luther Test VBG pH 7.38 POC VBG pCO2 40.4 POC VBG pO2 33.0 Mixed VBG HCO3 23.1 O2 Delivery Device Oxygen Flow Rate Vent Mode Vent Rate Mechanical Rate PEEP Pressure Support Vent Sodium 140 Potassium 3.6 Chloride 106 Carbon Dioxide 23 Anion Gap 11 BUN 7 D Creatinine 0.9 D Creat Clearance w eGFR > 60 Random Glucose 121 H D Lactic Acid 4.3 H* Calcium 7.9 L Phosphorus Magnesium Total Bilirubin 3.0 H Direct Bilirubin AST 81 H ALT 43 Alkaline Phosphatase 309 H D Ammonia Creatine Kinase 159 Creatine Kinase Index 0.6 CK-MB (CK-2) < 1.000 Troponin I < 0.02 D C-Reactive Protein Total Protein 8.2 Albumin 2.2 L Lipase 321 Urine Color Urine Appearance Urine pH Ur Specific [place] Urine Protein Urine Glucose (UA) Urine Ketones Urine Blood Urine Nitrite Urine Bilirubin Urine Urobilinogen Ur Leukocyte Esterase Urine WBC (Auto) Urine RBC (Auto) Ur Epithelial Cells Urine Bacteria Urine Mucus Urine Yeast Vancomycin Pre-Dose Opiates Screen Methadone Screen Barbiturate Screen Phencyclidine Screen Ur Amphetamines Screen MDMA (Ecstasy) Screen Benzodiazepines Screen Cocaine Screen U Marijuana (THC) Screen Alcohol, Quantitative HIV 1&2 Antibody Screen HIV P24 Antigen Blood Type Antibody Screen 09/07/17 09/07/17 09/07/17 13:47 13:47 17:06 WBC RBC Hgb Hct MCV MCH MCHC RDW Plt Count MPV Neutrophils % Lymphocytes % Monocytes % Eosinophils % Basophils % PT with INR INR PTT (Actin FS) Anticoagulation Therapy Puncture Site ABG pH ABG pCO2 at Pt Temp ABG pO2 at Pt Temp ABG HCO3 ABG O2 Sat (Measured) ABG O2 Content ABG Base Excess Luther Test VBG pH POC VBG pCO2 POC VBG pO2 Mixed VBG HCO3 O2 Delivery Device Oxygen Flow Rate Vent Mode Vent Rate Mechanical Rate PEEP Pressure Support Vent Sodium Potassium Chloride Carbon Dioxide Anion Gap BUN Creatinine Creat Clearance w eGFR Random Glucose Lactic Acid Calcium Phosphorus Magnesium Total Bilirubin Direct Bilirubin AST ALT Alkaline Phosphatase Ammonia 163 H Creatine Kinase Creatine Kinase Index CK-MB (CK-2) Troponin I C-Reactive Protein Total Protein Albumin Lipase Cancelled Urine Color Urine Appearance Urine pH Ur Specific [place] Urine Protein Urine Glucose (UA) Urine Ketones Urine Blood Urine Nitrite Urine Bilirubin Urine Urobilinogen Ur Leukocyte Esterase Urine WBC (Auto) Urine RBC (Auto) Ur Epithelial Cells Urine Bacteria Urine Mucus Urine Yeast Vancomycin Pre-Dose Opiates Screen Methadone Screen Barbiturate Screen Phencyclidine Screen Ur Amphetamines Screen MDMA (Ecstasy) Screen Benzodiazepines Screen Cocaine Screen U Marijuana (THC) Screen Alcohol, Quantitative HIV 1&2 Antibody Screen HIV P24 Antigen Blood Type O POSITIVE Antibody Screen Negative 09/07/17 09/07/17 09/07/17 17:15 17:15 17:23 WBC RBC Hgb Hct MCV MCH MCHC RDW Plt Count MPV Neutrophils % Lymphocytes % Monocytes % Eosinophils % Basophils % PT with INR INR PTT (Actin FS) Anticoagulation Therapy Puncture Site ABG pH ABG pCO2 at Pt Temp ABG pO2 at Pt Temp ABG HCO3 ABG O2 Sat (Measured) ABG O2 Content ABG Base Excess Luther Test VBG pH POC VBG pCO2 POC VBG pO2 Mixed VBG HCO3 O2 Delivery Device Oxygen Flow Rate Vent Mode Vent Rate Mechanical Rate PEEP Pressure Support Vent Sodium Potassium Chloride Carbon Dioxide Anion Gap BUN Creatinine Creat Clearance w eGFR Random Glucose Lactic Acid 3.1 H* Calcium Phosphorus Magnesium Total Bilirubin Direct Bilirubin AST ALT Alkaline Phosphatase Ammonia Creatine Kinase 168 Creatine Kinase Index 0.5 CK-MB (CK-2) < 1.000 Troponin I < 0.02 C-Reactive Protein Total Protein Albumin Lipase Urine Color Urine Appearance Urine pH Ur Specific [place] Urine Protein Urine Glucose (UA) Urine Ketones Urine Blood Urine Nitrite Urine Bilirubin Urine Urobilinogen Ur Leukocyte Esterase Urine WBC (Auto) Urine RBC (Auto) Ur Epithelial Cells Urine Bacteria Urine Mucus Urine Yeast Vancomycin Pre-Dose Opiates Screen Methadone Screen Barbiturate Screen Phencyclidine Screen Ur Amphetamines Screen MDMA (Ecstasy) Screen Benzodiazepines Screen Cocaine Screen U Marijuana (THC) Screen Alcohol, Quantitative < 5.0 HIV 1&2 Antibody Screen HIV P24 Antigen Blood Type Antibody Screen 09/08/17 09/08/17 09/08/17 00:24 00:24 03:37 WBC RBC Hgb Hct MCV MCH MCHC RDW Plt Count MPV Neutrophils % Lymphocytes % Monocytes % Eosinophils % Basophils % PT with INR INR PTT (Actin FS) Anticoagulation Therapy Puncture Site ABG pH ABG pCO2 at Pt Temp ABG pO2 at Pt Temp ABG HCO3 ABG O2 Sat (Measured) ABG O2 Content ABG Base Excess Luther Test VBG pH POC VBG pCO2 POC VBG pO2 Mixed VBG HCO3 O2 Delivery Device Oxygen Flow Rate Vent Mode Vent Rate Mechanical Rate PEEP Pressure Support Vent Sodium Potassium Chloride Carbon Dioxide Anion Gap BUN Creatinine Creat Clearance w eGFR Random Glucose Lactic Acid 4.4 H* Calcium Phosphorus Magnesium Total Bilirubin Direct Bilirubin AST ALT Alkaline Phosphatase Ammonia Creatine Kinase 193 Creatine Kinase Index 0.5 CK-MB (CK-2) < 1.000 Troponin I < 0.02 C-Reactive Protein Total Protein Albumin Lipase Urine Color [place] Urine Appearance Cloudy Urine pH 6.0 Ur Specific [place] 1.019 Urine Protein 2+ H Urine Glucose (UA) 1+ H Urine Ketones Trace H Urine Blood 3+ H Urine Nitrite Negative Urine Bilirubin Negative Urine Urobilinogen Negative Ur Leukocyte Esterase Negative Urine WBC (Auto) 8 Urine RBC (Auto) 67 Ur Epithelial Cells Rare Urine Bacteria Rare Urine Mucus Rare Urine Yeast Rare Vancomycin Pre-Dose Opiates Screen Methadone Screen Barbiturate Screen Phencyclidine Screen Ur Amphetamines Screen MDMA (Ecstasy) Screen Benzodiazepines Screen Cocaine Screen U Marijuana (THC) Screen Alcohol, Quantitative HIV 1&2 Antibody Screen HIV P24 Antigen Blood Type Antibody Screen 09/08/17 09/08/17 09/08/17 03:37 08:06 08:30 WBC RBC Hgb Hct MCV MCH MCHC RDW Plt Count MPV Neutrophils % Lymphocytes % Monocytes % Eosinophils % Basophils % PT with INR 46.30 H INR 4.10 H* D PTT (Actin FS) Anticoagulation Therapy Puncture Site Right radial ABG pH 7.40 ABG pCO2 at Pt Temp 29.5 L ABG pO2 at Pt Temp 71.0 L ABG HCO3 17.9 L ABG O2 Sat (Measured) 94.4 ABG O2 Content 10.5 L ABG Base Excess -5.7 L Luther Test Positive VBG pH POC VBG pCO2 POC VBG pO2 Mixed VBG HCO3 O2 Delivery Device Oxygen Flow Rate Yes Vent Mode Vent Rate Mechanical Rate PEEP Pressure Support Vent Sodium Potassium Chloride Carbon Dioxide Anion Gap BUN Creatinine Creat Clearance w eGFR Random Glucose Lactic Acid Calcium Phosphorus Magnesium Total Bilirubin Direct Bilirubin AST ALT Alkaline Phosphatase Ammonia Creatine Kinase Creatine Kinase Index CK-MB (CK-2) Troponin I C-Reactive Protein Total Protein Albumin Lipase Urine Color Urine Appearance Urine pH Ur Specific [place] Urine Protein Urine Glucose (UA) Urine Ketones Urine Blood Urine Nitrite Urine Bilirubin Urine Urobilinogen Ur Leukocyte Esterase Urine WBC (Auto) Urine RBC (Auto) Ur Epithelial Cells Urine Bacteria Urine Mucus Urine Yeast Vancomycin Pre-Dose Opiates Screen Negative Methadone Screen Negative Barbiturate Screen Negative Phencyclidine Screen Negative Ur Amphetamines Screen Negative MDMA (Ecstasy) Screen Negative Benzodiazepines Screen Positive Cocaine Screen Negative U Marijuana (THC) Screen Negative Alcohol, Quantitative HIV 1&2 Antibody Screen HIV P24 Antigen Blood Type Antibody Screen 09/08/17 09/08/17 09/08/17 08:30 08:30 08:30 WBC 11.0 H D RBC 3.13 L D Hgb 8.0 L D Hct 25.3 L D MCV 80.7 MCH 25.4 L MCHC 31.5 L RDW 21.4 H Plt Count 62 L D MPV 8.4 Neutrophils % 86.1 H D Lymphocytes % 5.4 L D Monocytes % 8.3 D Eosinophils % 0.0 D Basophils % 0.2 PT with INR INR PTT (Actin FS) Anticoagulation Therapy Puncture Site ABG pH ABG pCO2 at Pt Temp ABG pO2 at Pt Temp ABG HCO3 ABG O2 Sat (Measured) ABG O2 Content ABG Base Excess Luther Test VBG pH POC VBG pCO2 POC VBG pO2 Mixed VBG HCO3 O2 Delivery Device Oxygen Flow Rate Vent Mode Vent Rate Mechanical Rate PEEP Pressure Support Vent Sodium 143 Cancelled Potassium 3.5 Cancelled Chloride 113 H Cancelled Carbon Dioxide 18 L D Cancelled Anion Gap 12 Cancelled BUN 19 H D Cancelled Creatinine 1.8 H D Cancelled Creat Clearance w eGFR 42.67 Cancelled Random Glucose 90 D Cancelled Lactic Acid Calcium 6.6 L* Cancelled Phosphorus 3.9 D Magnesium 1.3 L D Total Bilirubin 2.8 H Cancelled Direct Bilirubin AST 83 H Cancelled ALT 39 Cancelled Alkaline Phosphatase 99 D Cancelled Ammonia Creatine Kinase Creatine Kinase Index CK-MB (CK-2) Troponin I < 0.02 C-Reactive Protein 3.8 H Total Protein 6.6 Cancelled Albumin 1.7 L D Cancelled Lipase Urine Color Urine Appearance Urine pH Ur Specific [place] Urine Protein Urine Glucose (UA) Urine Ketones Urine Blood Urine Nitrite Urine Bilirubin Urine Urobilinogen Ur Leukocyte Esterase Urine WBC (Auto) Urine RBC (Auto) Ur Epithelial Cells Urine Bacteria Urine Mucus Urine Yeast Vancomycin Pre-Dose Opiates Screen Methadone Screen Barbiturate Screen Phencyclidine Screen Ur Amphetamines Screen MDMA (Ecstasy) Screen Benzodiazepines Screen Cocaine Screen U Marijuana (THC) Screen Alcohol, Quantitative HIV 1&2 Antibody Screen HIV P24 Antigen Blood Type Antibody Screen 09/08/17 09/08/17 09/08/17 08:30 09:25 10:10 WBC RBC Hgb Hct MCV MCH MCHC RDW Plt Count MPV Neutrophils % Lymphocytes % Monocytes % Eosinophils % Basophils % PT with INR INR PTT (Actin FS) Anticoagulation Therapy Puncture Site ABG pH ABG pCO2 at Pt Temp ABG pO2 at Pt Temp ABG HCO3 ABG O2 Sat (Measured) ABG O2 Content ABG Base Excess Luther Test VBG pH POC VBG pCO2 POC VBG pO2 Mixed VBG HCO3 O2 Delivery Device Oxygen Flow Rate Vent Mode Vent Rate Mechanical Rate PEEP Pressure Support Vent Sodium Potassium Chloride Carbon Dioxide Anion Gap BUN Creatinine Creat Clearance w eGFR Random Glucose Lactic Acid 4.3 H* Calcium Phosphorus Magnesium Total Bilirubin Direct Bilirubin AST ALT Alkaline Phosphatase Ammonia Creatine Kinase Creatine Kinase Index CK-MB (CK-2) Troponin I C-Reactive Protein Cancelled Total Protein Albumin Lipase Urine Color Yellow Urine Appearance Slcloudy Urine pH 6.0 Ur Specific [place] 1.006 Urine Protein Negative Urine Glucose (UA) Negative Urine Ketones Negative Urine Blood 3+ H Urine Nitrite Negative Urine Bilirubin Negative Urine Urobilinogen Negative Ur Leukocyte Esterase Negative Urine WBC (Auto) 5 Urine RBC (Auto) 14 Ur Epithelial Cells Rare Urine Bacteria Rare Urine Mucus Rare Urine Yeast Vancomycin Pre-Dose Opiates Screen Methadone Screen Barbiturate Screen Phencyclidine Screen Ur Amphetamines Screen MDMA (Ecstasy) Screen Benzodiazepines Screen Cocaine Screen U Marijuana (THC) Screen Alcohol, Quantitative HIV 1&2 Antibody Screen HIV P24 Antigen Blood Type Antibody Screen 09/08/17 09/08/17 09/08/17 11:14 11:14 11:14 WBC 9.9 RBC 3.34 L Hgb 8.6 L Hct 27.0 L MCV 80.7 MCH 25.6 L MCHC 31.7 L RDW 21.3 H Plt Count 60 L MPV 8.4 Neutrophils % 86.8 H Lymphocytes % 5.7 L Monocytes % 7.2 Eosinophils % 0.0 Basophils % 0.3 PT with INR 49.30 H INR 4.36 H* PTT (Actin FS) Anticoagulation Therapy Puncture Site ABG pH ABG pCO2 at Pt Temp ABG pO2 at Pt Temp ABG HCO3 ABG O2 Sat (Measured) ABG O2 Content ABG Base Excess Luther Test VBG pH POC VBG pCO2 POC VBG pO2 Mixed VBG HCO3 O2 Delivery Device Oxygen Flow Rate Vent Mode Vent Rate Mechanical Rate PEEP Pressure Support Vent Sodium 145 Potassium 3.3 L Chloride 114 H Carbon Dioxide 19 L Anion Gap 12 BUN 17 Creatinine 1.4 H D Creat Clearance w eGFR 57.03 Random Glucose 98 Lactic Acid Calcium 6.9 L* Phosphorus Magnesium Total Bilirubin 2.9 H Direct Bilirubin 1.6 H AST 88 H ALT 41 Alkaline Phosphatase 93 Ammonia Creatine Kinase Creatine Kinase Index CK-MB (CK-2) Troponin I C-Reactive Protein 4.8 H D Total Protein 7.0 Albumin 1.8 L Lipase Urine Color Urine Appearance Urine pH Ur Specific [place] Urine Protein Urine Glucose (UA) Urine Ketones Urine Blood Urine Nitrite Urine Bilirubin Urine Urobilinogen Ur Leukocyte Esterase Urine WBC (Auto) Urine RBC (Auto) Ur Epithelial Cells Urine Bacteria Urine Mucus Urine Yeast Vancomycin Pre-Dose Opiates Screen Methadone Screen Barbiturate Screen Phencyclidine Screen Ur Amphetamines Screen MDMA (Ecstasy) Screen Benzodiazepines Screen Cocaine Screen U Marijuana (THC) Screen Alcohol, Quantitative HIV 1&2 Antibody Screen HIV P24 Antigen Blood Type Antibody Screen 09/08/17 09/08/17 09/08/17 11:14 14:28 18:00 WBC RBC Hgb Hct MCV MCH MCHC RDW Plt Count MPV Neutrophils % Lymphocytes % Monocytes % Eosinophils % Basophils % PT with INR INR PTT (Actin FS) Anticoagulation Therapy Puncture Site ABG pH ABG pCO2 at Pt Temp ABG pO2 at Pt Temp ABG HCO3 ABG O2 Sat (Measured) ABG O2 Content ABG Base Excess Luther Test VBG pH POC VBG pCO2 POC VBG pO2 Mixed VBG HCO3 O2 Delivery Device Oxygen Flow Rate Vent Mode Vent Rate Mechanical Rate PEEP Pressure Support Vent Sodium Potassium Chloride Carbon Dioxide Anion Gap BUN Creatinine Creat Clearance w eGFR Random Glucose Lactic Acid 1.6 Calcium Phosphorus Magnesium Total Bilirubin Direct Bilirubin AST ALT Alkaline Phosphatase Ammonia 58.2 H Creatine Kinase Creatine Kinase Index CK-MB (CK-2) Troponin I C-Reactive Protein Cancelled Total Protein Albumin Lipase Urine Color Urine Appearance Urine pH Ur Specific [place] Urine Protein Urine Glucose (UA) Urine Ketones Urine Blood Urine Nitrite Urine Bilirubin Urine Urobilinogen Ur Leukocyte Esterase Urine WBC (Auto) Urine RBC (Auto) Ur Epithelial Cells Urine Bacteria Urine Mucus Urine Yeast Vancomycin Pre-Dose Opiates Screen Methadone Screen Barbiturate Screen Phencyclidine Screen Ur Amphetamines Screen MDMA (Ecstasy) Screen Benzodiazepines Screen Cocaine Screen U Marijuana (THC) Screen Alcohol, Quantitative HIV 1&2 Antibody Screen HIV P24 Antigen Blood Type Antibody Screen 09/09/17 09/09/17 09/09/17 00:20 06:20 06:20 WBC 10.2 H RBC 3.66 L Hgb 9.4 L Hct 30.2 L MCV 82.3 MCH 25.6 L MCHC 31.1 L RDW 21.4 H Plt Count 68 L MPV 9.0 Neutrophils % Lymphocytes % Monocytes % Eosinophils % Basophils % PT with INR 28.70 H INR 2.54 H D PTT (Actin FS) 51.3 H Anticoagulation Therapy Y Puncture Site Right radial ABG pH 7.35 ABG pCO2 at Pt Temp 27.6 L ABG pO2 at Pt Temp 89.8 D ABG HCO3 14.8 L* ABG O2 Sat (Measured) 96.7 ABG O2 Content 12.3 L ABG Base Excess -9.4 L Luther Test Y VBG pH POC VBG pCO2 POC VBG pO2 Mixed VBG HCO3 O2 Delivery Device Ventilator Oxygen Flow Rate 40 Vent Mode A/c Vent Rate 14 Mechanical Rate Y PEEP 10.0 Pressure Support Vent Y Sodium Potassium Chloride Carbon Dioxide Anion Gap BUN Creatinine Creat Clearance w eGFR Random Glucose Lactic Acid Calcium Phosphorus Magnesium Total Bilirubin Direct Bilirubin AST ALT Alkaline Phosphatase Ammonia Creatine Kinase Creatine Kinase Index CK-MB (CK-2) Troponin I C-Reactive Protein Total Protein Albumin Lipase Urine Color Urine Appearance Urine pH Ur Specific [place] Urine Protein Urine Glucose (UA) Urine Ketones Urine Blood Urine Nitrite Urine Bilirubin Urine Urobilinogen Ur Leukocyte Esterase Urine WBC (Auto) Urine RBC (Auto) Ur Epithelial Cells Urine Bacteria Urine Mucus Urine Yeast Vancomycin Pre-Dose Opiates Screen Methadone Screen Barbiturate Screen Phencyclidine Screen Ur Amphetamines Screen MDMA (Ecstasy) Screen Benzodiazepines Screen Cocaine Screen U Marijuana (THC) Screen Alcohol, Quantitative HIV 1&2 Antibody Screen HIV P24 Antigen Blood Type Antibody Screen 09/09/17 09/09/17 09/09/17 06:20 06:20 06:20 WBC RBC Hgb Hct MCV MCH MCHC RDW Plt Count MPV Neutrophils % Lymphocytes % Monocytes % Eosinophils % Basophils % PT with INR INR PTT (Actin FS) Anticoagulation Therapy Puncture Site ABG pH ABG pCO2 at Pt Temp ABG pO2 at Pt Temp ABG HCO3 ABG O2 Sat (Measured) ABG O2 Content ABG Base Excess Luther Test VBG pH POC VBG pCO2 POC VBG pO2 Mixed VBG HCO3 O2 Delivery Device Oxygen Flow Rate Vent Mode Vent Rate Mechanical Rate PEEP Pressure Support Vent Sodium 149 H Potassium 4.1 D Chloride 118 H Carbon Dioxide 15 L D Anion Gap 16 BUN 14 Creatinine 1.2 Creat Clearance w eGFR > 60 Random Glucose 153 H D Lactic Acid Calcium 7.6 L Phosphorus 2.6 D Magnesium 2.0 D Total Bilirubin 2.8 H Direct Bilirubin AST 97 H ALT 48 Alkaline Phosphatase 82 Ammonia 66.14 H Creatine Kinase Creatine Kinase Index CK-MB (CK-2) Troponin I C-Reactive Protein 6.8 H D Total Protein 7.9 Albumin 2.0 L Lipase Urine Color Urine Appearance Urine pH Ur Specific [place] Urine Protein Urine Glucose (UA) Urine Ketones Urine Blood Urine Nitrite Urine Bilirubin Urine Urobilinogen Ur Leukocyte Esterase Urine WBC (Auto) Urine RBC (Auto) Ur Epithelial Cells Urine Bacteria Urine Mucus Urine Yeast Vancomycin Pre-Dose Opiates Screen Methadone Screen Barbiturate Screen Phencyclidine Screen Ur Amphetamines Screen MDMA (Ecstasy) Screen Benzodiazepines Screen Cocaine Screen U Marijuana (THC) Screen Alcohol, Quantitative HIV 1&2 Antibody Screen HIV P24 Antigen Blood Type Antibody Screen 09/09/17 09/09/17 09/09/17 06:20 11:58 14:28 WBC RBC Hgb Hct MCV MCH MCHC RDW Plt Count MPV Neutrophils % Lymphocytes % Monocytes % Eosinophils % Basophils % PT with INR INR PTT (Actin FS) Anticoagulation Therapy Puncture Site ABG pH ABG pCO2 at Pt Temp ABG pO2 at Pt Temp ABG HCO3 ABG O2 Sat (Measured) ABG O2 Content ABG Base Excess Luther Test VBG pH POC VBG pCO2 POC VBG pO2 Mixed VBG HCO3 O2 Delivery Device Oxygen Flow Rate Vent Mode Vent Rate Mechanical Rate PEEP Pressure Support Vent Sodium 158 H Potassium 4.0 Chloride 126 H Carbon Dioxide 25 D Anion Gap 7 L BUN 12 Creatinine 0.9 D Creat Clearance w eGFR Random Glucose 82 D Lactic Acid Calcium 7.6 L Phosphorus Magnesium Total Bilirubin Direct Bilirubin AST ALT Alkaline Phosphatase Ammonia Creatine Kinase Creatine Kinase Index CK-MB (CK-2) Troponin I C-Reactive Protein Total Protein Albumin Lipase Urine Color Urine Appearance Urine pH Ur Specific [place] Urine Protein Urine Glucose (UA) Urine Ketones Urine Blood Urine Nitrite Urine Bilirubin Urine Urobilinogen Ur Leukocyte Esterase Urine WBC (Auto) Urine RBC (Auto) Ur Epithelial Cells Urine Bacteria Urine Mucus Urine Yeast Vancomycin Pre-Dose 5.765 Opiates Screen Methadone Screen Barbiturate Screen Phencyclidine Screen Ur Amphetamines Screen MDMA (Ecstasy) Screen Benzodiazepines Screen Cocaine Screen U Marijuana (THC) Screen Alcohol, Quantitative HIV 1&2 Antibody Screen Negative HIV P24 Antigen Negative Blood Type Antibody Screen unresponsive, reponds to sternal rub, no tremors or other signs of withdawal noted, no agitation or distress noted Assessment: 09/09/17 17:12 subdrual hematoma noted on ct head, keep comfortable with HR and bp well controlled, ativan prn for distress or withdrawal, lactualose for encephalopaty , virmamin supplementation as ordered, k for hypokalemia. Conor Francis MD
[2017-09-09] MEDS: VANCOMYCIN 1,250 MG in DEXTROSE 5%-WATER - 250 ML IVPB SCH (18:36)
[2017-09-09 19:13] LABS: URINE APPEARANCE CLEAR; URINE BILIRUBIN NEGATIVE (NEGATIVE); URINE BLOOD 2+ (NEGATIVE); URINE COLOR LTYELLOW; URINE GLUCOSE (UA) NEGATIVE (NEGATIVE); URINE KETONE NEGATIVE (NEGATIVE); URINE LEUK ESTERASE NEGATIVE (NEGATIVE); URINE NITRITE NEGATIVE (NEGATIVE); URINE PROTEIN NEGATIVE (NEGATIVE); URINE UROBILINOGEN NEGATIVE mg/dL (0.2-1.0)
--- NOTE | 2017-09-09 20:11 | CON.NEURO ---
Consult - History of Present Illness History of Present Illness: 37 y o m with PMHx chronic alcoholism, actively drinking on last admission requiring detox, as per chart last drink 2 days prior to admission and cocaine use day of admission, liver cirrhosis, HCV, esophageal varices (banding 09/03/17 ), portal hypertension, liver failure, presented to the ED w AMS, +cocaine, found to have large L F/T/P ICH with midline extension and uncal herniation and compression on 4 th ventricle. Pt unresponsive, intubated , no sedation x18 hours CT BRAIN Examination of the bone windows show no fracture. Impression. Large left cerebellar hematoma with diffuse edema involving left cerebral hemisphere, loss of differentiation between the white and galvan matter. Midline shift of midline structure to the right approximately 2 cm. Intraventricular hemorrhage. Compress left lateral ventricle. Dilated right lateral ventricle. Subfalcine, uncal herniation. Effaced prepontine cistern. - History Source History Provided By: Medical Record - Past Medical History Cardio/Vascular: Yes: HTN Gastrointestinal: Yes: Diverticulosis, Esophageal Varices, GI Bleed, Other ( hemorrhoidal bleeding) Hepatobiliary: Yes: Cirrhosis (alcoholic), Hepatitis C Psych: Yes: Depression - Past Surgical History Past Surgical History: Yes: None - Alcohol/Substance Use Hx Alcohol Use: Yes (BEERS-09/03/17) History of Substance Use: reports: Cocaine, Heroin, Marijuana - Smoking History Smoking history: Never smoked Have you smoked in the past 12 months: No If you are a former smoker, when did you quit?: over 10 years ago but still smokes marijuana - Social History Usual Living Arrangement: Other (lives with sister) ADL: Support Services Occupation: disabled kitchen staff worker History of Recent Travel: No Home Medications - Allergies Allergies/Adverse Reactions: Allergies Allergy/AdvReac Type Severity Reaction Status Date / Time No Known Allergies Allergy Verified 09/07/17 13:01 - Home Medications Home Medications: Ambulatory Orders Folic Acid 1 mg PO DAILY 09/07/17 Lactulose [Cephulac -] 30 gm PO QID 09/07/17 Pantoprazole Sodium [Protonix] 40 mg PO BID 09/07/17 Prazosin HCl [Minipress -] 1 mg PO TID 09/07/17 Rifaximin [Xifaxan] 550 mg PO BID 09/07/17 Sertraline HCl [Zoloft -] 50 mg PO DAILY 09/07/17 Sucralfate [Carafate -] 1 gm PO QID 09/07/17 Thiamine HCl [Vitamin B-1] 100 mg PO DAILY 09/07/17 Family Disease History - Family Disease History Family Disease History: Diabetes: Father ( of diabetic complications), Other : Mother ( age 40 of cirrhosis) Physical Exam-Neuro Vital Signs: Vital Signs Temperature 98.8 F 09/09/17 18:00 Pulse Rate 74 09/09/17 18:00 Respiratory Rate 14 09/09/17 19:00 Blood Pressure 105/57 09/09/17 18:00 O2 Sat by Pulse Oximetry (%) 100 09/09/17 09:00 Labs: CBC, BMP 09/09/17 06:20 09/09/17 14:28 INR, PTT INR 2.54 (0.82-1.09) H D 09/09/17 06:20 - Neuro Exam Level Of Consciousness: Yes: Comatose (breathing with vent , eyes closed, unresponsive, -Dolls, -corneals, , fixed and dilated pupils, no focal twitching , minimal withdrawl of LE , planatars down) Imaging - Results Cat Scan: Report Reviewed, Image Reviewed Problem List - Problems (1) Alcohol dependence Code(s): F10.20 - ALCOHOL DEPENDENCE, UNCOMPLICATED (2) Cocaine dependence Code(s): F14.20 - COCAINE DEPENDENCE, UNCOMPLICATED (3) Hepatic encephalopathy Code(s): K72.90 - HEPATIC FAILURE, UNSPECIFIED WITHOUT COMA (4) Intracranial hemorrhage Code(s): I62.9 - NONTRAUMATIC INTRACRANIAL HEMORRHAGE, UNSPECIFIED Assessment/Plan 7 y o m with PMHx chronic alcoholism, actively drinking on last admission requiring detox, as per chart last drink 2 days prior to admission and cocaine use day of admission, liver cirrhosis, HCV, esophageal varices (banding 09/03/17 ), portal hypertension, liver failure, presented to the ED w AMS, +cocaine, found to have large L F/T/P ICH with midline extension and uncal herniation and compression on 4 th ventricle. Pt unresponsive, intubated , no sedation x18 hours ICH--cocaine /coagulopathy with ETOH cirrhosis contributing factors devastating ICH , with herniation and impending hydrocephalus-- clinically appears to have no cortical or brainstem reflexes (minimal withdwrawl toes--may be spinal reflex) spoke to , no chance of reconvey given this mechanism and cobmorbid state and radiographic findings palliative /withdrawal measures should be addressed in AM Dr Tubbs
[2017-09-09 20:38] LABS: MCH 25.5 pg (25.7-33.7); MCHC 31.6 g/dl (32.0-35.9); MEAN CELL VOLUME 80.8 fl (80-96); MEAN PLT VOLUME 8.4 fl (7.5-11.1); PLATELET COUNT 65 K/MM3 (134-434); RDW 21.2 % (11.9-15.9); WHITE BLOOD COUNT 6.9 K/mm3 (4.0-10.0)
[2017-09-09 21:05] LABS: ANION GAP 6 (8-16); CALCIUM 7.8 mg/dL (8.5-10.1); CO2 24 mmol/L (21-32); CREATININE 0.9 mg/dL (0.7-1.3); GLUCOSE,RANDOM 81 mg/dL (74-106)
[2017-09-09 21:15] LABS: INR 2.03 (0.82-1.09); PROTHROMBIN TIME (PATIENT) 22.9 SEC (9.98-11.88)
[2017-09-09 21:17] LABS: ACTIVATED PTT 41.7 SECONDS (26.9-34.4)
[2017-09-09 21:38] LABS: URINE RBC <1 /hpf (0-3); URINE WBC <1 /hpf (3-5)
[2017-09-09 22:47] LABS: MYELOCYTE 1 % (0-2); TOTAL CELLS COUNTED 100
[2017-09-09 22:48] LABS: ANISOCYTOSIS 2+; POIKILOCYTOSIS 1+; POLYCHROMASIA 1+
[2017-09-09 22:49] LABS: OVALOCYTE 1+; PLATELET ESTIMATE MOD DECREASED; TEAR DROP CELLS FEW
[2017-09-09 22:51] LABS: URINE LEUK ESTERASE TRACE (NEGATIVE)
[2017-09-09 23:35] LABS: OSMOLALITY,SERUM 324 mosm/kg (278-305)
[2017-09-09] MEDS: DESMOPRESSIN ACETATE 4 MCG/ML AMP IVPB SCH (23:36)
[2017-09-09] MEDS: DEXTROSE 5%-WATER - 1,000 ML IV SCH (23:46)
[2017-09-10] MEDS: VANCOMYCIN 1,250 MG in DEXTROSE 5%-WATER - 250 ML IVPB SCH ×2 (05:47→17:38)
[2017-09-10] MEDS: ALBUTEROL SO4 2.5/IPRATROPIUM 0.5 INH SOL 3 ML VIAL.NEB. NEB SCH ×3 (06:00→23:35)
[2017-09-10 06:37] LABS: MCH 26.1 pg (25.7-33.7); MCHC 32.3 g/dl (32.0-35.9); MEAN CELL VOLUME 80.8 fl (80-96); MEAN PLT VOLUME 8.7 fl (7.5-11.1); PLATELET COUNT 63 K/MM3 (134-434); RDW 21.3 % (11.9-15.9); WHITE BLOOD COUNT 5.7 K/mm3 (4.0-10.0)
[2017-09-10 06:51] LABS: INR 2.23 (0.82-1.09); PROTHROMBIN TIME (PATIENT) 25.2 SEC (9.98-11.88)
--- NOTE | 2017-09-10 06:54 | PN ---
Progress Note, Physician Chief Complaint: ID Vancomycin and Ceftriaxone Massive brain bleed with coma and neurology consult read re chances for neurological recovery poor. Intubated - Current Medication List Current Medications: Active Medications Albuterol/Ipratropium (Duoneb -) 1 amp NEB TIDR [facility] Last Admin: 09/10/17 06:00 Dose: 1 amp Desmopressin Acetate (Ddavp Injection -) 2 mcg IVPB BID [facility] Last Admin: 09/09/17 23:36 Dose: 2 mcg Ceftriaxone Sodium 2 gm/ (Dextrose) 100 mls @ 200 mls/hr IVPB DAILY [facility] Last Admin: 09/09/17 09:17 Dose: 200 mls/hr Vancomycin HCl 1,250 mg/ (Dextrose) 250 mls @ 166.667 mls/hr IVPB Q12H [facility] PRN Reason: Protocol Last Admin: 09/10/17 05:47 Dose: 166.667 mls/hr Dextrose (D5w -) 1,000 mls @ 150 mls/hr IV ASDIR [facility] Last Admin: 09/09/17 23:46 Dose: 150 mls/hr Lactulose (Cephulac (Oral Use)) 20 gm GT QID [facility] Last Admin: 09/09/17 23:35 Dose: 20 gm Lorazepam (Ativan Injection -) 1 mg IVPUSH Q6H PRN PRN Reason: ANXIETY Pantoprazole Sodium (Protonix Iv) 40 mg IVPUSH DAILY [facility] Last Admin: 09/09/17 14:29 Dose: 40 mg Multivit/Folic Acid/Iron ( Vitamins (Sjr) -) 1 tab PO DAILY [facility] Last Admin: 09/09/17 15:55 Dose: 1 tab Sucralfate (Carafate -) 1 gm PO QID [facility] Last Admin: 09/09/17 23:36 Dose: 1 gm Thiamine HCl (Vitamin B1 -) 100 mg PO HS [facility] Last Admin: 09/09/17 23:45 Dose: 100 mg - Objective Vital Signs: Vital Signs Temperature 97.5 F L 09/10/17 02:00 Pulse Rate 66 09/10/17 04:00 Respiratory Rate 14 09/10/17 05:30 Blood Pressure 98/53 09/10/17 04:00 O2 Sat by Pulse Oximetry (%) 100 09/09/17 09:00 Constitutional: Yes: Other (INtubated) Cardiovascular: Yes: Regular Rate and Rhythm, S1, S2. No: Murmur Respiratory: Yes: WNL, Regular, CTA Bilaterally Gastrointestinal: Yes: Soft. No: Tenderness Edema: No Labs: CBC, BMP 09/10/17 06:20 INR, PTT INR 2.03 (0.82-1.09) H 09/09/17 19:45 Problem List - Problems (1) Gram-positive bacteremia Code(s): R78.81 - BACTEREMIA (2) Hepatic encephalopathy Code(s): K72.90 - HEPATIC FAILURE, UNSPECIFIED WITHOUT COMA (3) Alcohol dependence with uncomplicated withdrawal Code(s): F10.230 - ALCOHOL DEPENDENCE WITH WITHDRAWAL, UNCOMPLICATED (4) Fever Code(s): R50.9 - FEVER, UNSPECIFIED (5) Liver cirrhosis, alcoholic Code(s): K70.30 - ALCOHOLIC CIRRHOSIS OF LIVER WITHOUT ASCITES Assessment/Plan Microbiology 09/07/17 13:47 Blood - Peripheral Venous Blood Culture - Preliminary Alpha Hemolytic Streptococcus 09/07/17 13:47 Blood - Peripheral Venous Blood Culture - Preliminary Alpha Hemolytic Streptococcus Laboratory Tests 09/08/17 09/09/17 09/09/17 08:30 00:20 06:20 WBC Hgb Hct Plt Count INR 4.10 H* D ABG pO2 at Pt Temp 89.8 D Ammonia 66.14 H HIV 1&2 Antibody Screen HIV P24 Antigen 09/09/17 09/09/17 09/10/17 06:20 19:45 06:20 WBC 5.7 Hgb 8.2 L Hct 25.4 L Plt Count 63 L INR 2.03 H ABG pO2 at Pt Temp Ammonia HIV 1&2 Antibody Screen Negative HIV P24 Antigen Negative 09/10/17 06:20 WBC Hgb Hct Plt Count INR Pending ABG pO2 at Pt Temp Ammonia HIV 1&2 Antibody Screen HIV P24 Antigen Assessment Coma secondary massive brain bleed Coagulopathy secondary cirrhosis Hepatic cirrhosis Thrombocytopenia Alcoholism Espophageal banding Hepatic encephalopathy Alpha strep bacteremia to be identified Plan Continue Vancomycin pending final blood culture Palliative End of life terminal weaning to be discussed with his family today Miryam AMBROSE
[2017-09-10 07:02] LABS: ALBUMIN 1.9 g/dl (3.4-5.0); ANION GAP 6 (8-16); CALCIUM 7.7 mg/dL (8.5-10.1); CO2 24 mmol/L (21-32); GLUCOSE,RANDOM 83 mg/dL (74-106); MAGNESIUM 2.2 mg/dL (1.8-2.4)
[2017-09-10 07:10] LABS: ALK PHOS 69 U/L (45-117); BILIRUBIN,TOTAL 2.7 mg/dL (0.2-1.0); SGOT/AST 73 U/L (15-37); SGPT/ALT 37 U/L (12-78); TOT PROT 6.7 g/dl (6.4-8.2)
--- NOTE | 2017-09-10 07:35 | PN ---
Physical Exam: SUBJECTIVE: Patient seen and examined in ICU. OBJECTIVE: Vital Signs Period Temp Pulse Resp BP Sys/[place] Pulse Ox Last 24 Hr 97.5 F-99.0 F 55-129 12-26 95-149/53-74 100 GENERAL/NEURO: Unresponsive. Does not respond to painful stimuli. Pupils 3mm, fixed, absent corneal reflexes. LUNGS: Mechanical breath sounds; no wheezing, no rhonchi. HEART: Regular rate and rhythm, S1, S2 ABDOMEN: Soft, nontender, nondistended, normoactive bowel sounds EXTREMITIES: 2+ pulses, warm, well-perfused, no edema. Laboratory Results - last 24 hr 09/07/17 09/07/17 09/09/17 13:47 13:47 06:20 WBC RBC Hgb Hct MCV MCH MCHC RDW Plt Count MPV Total Counted Neutrophils % Neutrophils % (Manual) Band Neutrophils % Lymphocytes % Lymphocytes % (Manual) Monocytes % (Manual) Eosinophils % (Manual) Myelocytes % (Man) Differential Comment Platelet Estimate Platelet Comment Polychromasia Poikilocytosis Anisocytosis Tear Drop Cells Ovalocytes PT with INR 28.70 H INR 2.54 H D PTT (Actin FS) 51.3 H VBG pH 7.38 POC VBG pCO2 40.4 POC VBG pO2 33.0 Mixed VBG HCO3 23.1 Sodium Potassium Chloride Carbon Dioxide Anion Gap BUN Creatinine Creat Clearance w eGFR Random Glucose Serum Osmolality Lactic Acid 4.3 H* Calcium Phosphorus Magnesium Total Bilirubin AST ALT Alkaline Phosphatase Ammonia C-Reactive Protein Total Protein Albumin Urine Color Urine Appearance Urine pH Ur Specific [place] Urine Protein Urine Glucose (UA) Urine Ketones Urine Blood Urine Nitrite Urine Bilirubin Urine Urobilinogen Ur Leukocyte Esterase Urine WBC (Auto) Urine RBC (Auto) Urine Osmolality Vancomycin Pre-Dose HIV 1&2 Antibody Screen HIV P24 Antigen 09/09/17 09/09/17 09/09/17 06:20 06:20 06:20 WBC RBC Hgb Hct MCV MCH MCHC RDW Plt Count MPV Total Counted Neutrophils % Neutrophils % (Manual) Band Neutrophils % Lymphocytes % Lymphocytes % (Manual) Monocytes % (Manual) Eosinophils % (Manual) Myelocytes % (Man) Differential Comment Platelet Estimate Platelet Comment Polychromasia Poikilocytosis Anisocytosis Tear Drop Cells Ovalocytes PT with INR INR PTT (Actin FS) VBG pH POC VBG pCO2 POC VBG pO2 Mixed VBG HCO3 Sodium 149 H Potassium 4.1 D Chloride 118 H Carbon Dioxide 15 L D Anion Gap 16 BUN 14 Creatinine 1.2 Creat Clearance w eGFR > 60 Random Glucose 153 H D Serum Osmolality Lactic Acid Calcium 7.6 L Phosphorus 2.6 D Magnesium 2.0 D Total Bilirubin 2.8 H AST 97 H ALT 48 Alkaline Phosphatase 82 Ammonia 66.14 H C-Reactive Protein 6.8 H D Total Protein 7.9 Albumin 2.0 L Urine Color Urine Appearance Urine pH Ur Specific [place] Urine Protein Urine Glucose (UA) Urine Ketones Urine Blood Urine Nitrite Urine Bilirubin Urine Urobilinogen Ur Leukocyte Esterase Urine WBC (Auto) Urine RBC (Auto) Urine Osmolality Vancomycin Pre-Dose HIV 1&2 Antibody Screen HIV P24 Antigen 09/09/17 09/09/17 09/09/17 06:20 11:58 14:28 WBC RBC Hgb Hct MCV MCH MCHC RDW Plt Count MPV Total Counted Neutrophils % Neutrophils % (Manual) Band Neutrophils % Lymphocytes % Lymphocytes % (Manual) Monocytes % (Manual) Eosinophils % (Manual) Myelocytes % (Man) Differential Comment Platelet Estimate Platelet Comment Polychromasia Poikilocytosis Anisocytosis Tear Drop Cells Ovalocytes PT with INR INR PTT (Actin FS) VBG pH POC VBG pCO2 POC VBG pO2 Mixed VBG HCO3 Sodium 158 H Potassium 4.0 Chloride 126 H Carbon Dioxide 25 D Anion Gap 7 L BUN 12 Creatinine 0.9 D Creat Clearance w eGFR Random Glucose 82 D Serum Osmolality 324 H Lactic Acid Calcium 7.6 L Phosphorus Magnesium Total Bilirubin AST ALT Alkaline Phosphatase Ammonia C-Reactive Protein Total Protein Albumin Urine Color Urine Appearance Urine pH Ur Specific [place] Urine Protein Urine Glucose (UA) Urine Ketones Urine Blood Urine Nitrite Urine Bilirubin Urine Urobilinogen Ur Leukocyte Esterase Urine WBC (Auto) Urine RBC (Auto) Urine Osmolality Vancomycin Pre-Dose 5.765 HIV 1&2 Antibody Screen Negative HIV P24 Antigen Negative 09/09/17 09/09/17 09/09/17 14:40 14:40 19:45 WBC 6.9 D RBC 3.02 L Hgb 7.7 L D Hct 24.4 L D MCV 80.8 MCH 25.5 L MCHC 31.6 L RDW 21.2 H Plt Count 65 L MPV 8.4 Total Counted 100 Neutrophils % No Result Required. Neutrophils % (Manual) 59.0 D Band Neutrophils % 10.0 Lymphocytes % No Result Required. Lymphocytes % (Manual) 14.0 D Monocytes % (Manual) 13 H Eosinophils % (Manual) 2.0 Myelocytes % (Man) 1 D Differential Comment Man diff performed Platelet Estimate Mod decreased Platelet Comment Polychromasia 1+ Poikilocytosis 1+ Anisocytosis 2+ Tear Drop Cells Few Ovalocytes 1+ PT with INR INR PTT (Actin FS) VBG pH POC VBG pCO2 POC VBG pO2 Mixed VBG HCO3 Sodium Potassium Chloride Carbon Dioxide Anion Gap BUN Creatinine Creat Clearance w eGFR Random Glucose Serum Osmolality Lactic Acid Calcium Phosphorus Magnesium Total Bilirubin AST ALT Alkaline Phosphatase Ammonia C-Reactive Protein Total Protein Albumin Urine Color Ltyellow Urine Appearance Clear Urine pH 6.0 Ur Specific [place] 1.002 Urine Protein Negative Urine Glucose (UA) Negative Urine Ketones Negative Urine Blood 2+ H Urine Nitrite Negative Urine Bilirubin Negative Urine Urobilinogen Negative Ur Leukocyte Esterase Trace H Urine WBC (Auto) <1 Urine RBC (Auto) <1 Urine Osmolality 91 L Vancomycin Pre-Dose HIV 1&2 Antibody Screen HIV P24 Antigen 09/09/17 09/09/17 09/09/17 19:45 19:45 19:45 WBC RBC Hgb Hct MCV MCH MCHC RDW Plt Count MPV Total Counted Neutrophils % Neutrophils % (Manual) Band Neutrophils % Lymphocytes % Lymphocytes % (Manual) Monocytes % (Manual) Eosinophils % (Manual) Myelocytes % (Man) Differential Comment Platelet Estimate Platelet Comment Polychromasia Poikilocytosis Anisocytosis Tear Drop Cells Ovalocytes PT with INR 22.90 H INR 2.03 H PTT (Actin FS) 41.7 H VBG pH POC VBG pCO2 POC VBG pO2 Mixed VBG HCO3 Sodium 159 H Potassium 3.8 Chloride 129 H Carbon Dioxide 24 Anion Gap 6 L BUN 11 Creatinine 0.9 Creat Clearance w eGFR Random Glucose 81 Serum Osmolality Cancelled Lactic Acid Calcium 7.8 L Phosphorus Magnesium Total Bilirubin AST ALT Alkaline Phosphatase Ammonia C-Reactive Protein Total Protein Albumin Urine Color Urine Appearance Urine pH Ur Specific [place] Urine Protein Urine Glucose (UA) Urine Ketones Urine Blood Urine Nitrite Urine Bilirubin Urine Urobilinogen Ur Leukocyte Esterase Urine WBC (Auto) Urine RBC (Auto) Urine Osmolality Vancomycin Pre-Dose HIV 1&2 Antibody Screen HIV P24 Antigen 09/10/17 09/10/17 09/10/17 06:20 06:20 06:20 WBC 5.7 RBC 3.15 L Hgb 8.2 L Hct 25.4 L MCV 80.8 MCH 26.1 MCHC 32.3 RDW 21.3 H Plt Count 63 L MPV 8.7 Total Counted Neutrophils % No Result Required. Neutrophils % (Manual) Band Neutrophils % Lymphocytes % No Result Required. Lymphocytes % (Manual) Monocytes % (Manual) Eosinophils % (Manual) Myelocytes % (Man) Differential Comment Platelet Estimate Platelet Comment Polychromasia Poikilocytosis Anisocytosis Tear Drop Cells Ovalocytes PT with INR 25.20 H INR 2.23 H PTT (Actin FS) VBG pH POC VBG pCO2 POC VBG pO2 Mixed VBG HCO3 Sodium Potassium 3.5 Chloride 131 H Carbon Dioxide 24 Anion Gap 6 L BUN 14 D Creatinine 1.0 Creat Clearance w eGFR > 60 Random Glucose 83 Serum Osmolality Lactic Acid Calcium 7.7 L Phosphorus Magnesium 2.2 Total Bilirubin 2.7 H AST 73 H D ALT 37 D Alkaline Phosphatase 69 Ammonia C-Reactive Protein Total Protein 6.7 Albumin 1.9 L Urine Color Urine Appearance Urine pH Ur Specific [place] Urine Protein Urine Glucose (UA) Urine Ketones Urine Blood Urine Nitrite Urine Bilirubin Urine Urobilinogen Ur Leukocyte Esterase Urine WBC (Auto) Urine RBC (Auto) Urine Osmolality Vancomycin Pre-Dose HIV 1&2 Antibody Screen HIV P24 Antigen Active Medications Generic Name Dose Route Start Last Admin Trade Name Freq PRN Reason Stop Dose Admin Albuterol/Ipratropium 1 amp 09/08/17 14:00 09/10/17 06:00 Duoneb - NEB 1 amp TIDR [facility] Administration Desmopressin Acetate 2 mcg 09/09/17 16:01 09/09/17 23:36 Ddavp Injection - IVPB 2 mcg BID [facility] Administration Vancomycin HCl 1,250 mg/ 250 mls @ 166.667 mls/hr 09/09/17 17:00 09/10/17 05: 47 Dextrose IVPB 166.667 mls/hr Q12H [facility] Administration Protocol Dextrose 1,000 mls @ 150 mls/hr 09/09/17 22:10 09/09/17 23:46 D5w - IV 150 mls/hr ASDIR [facility] Administration Lactulose 20 gm 09/09/17 15:30 09/09/17 23:35 Cephulac (Oral Use) GT 20 gm QID [facility] Administration Lorazepam 1 mg 09/08/17 17:40 Ativan Injection - IVPUSH Q6H PRN ANXIETY Pantoprazole Sodium 40 mg 09/09/17 12:45 09/09/17 14:29 Protonix Iv IVPUSH 40 mg DAILY [facility] Administration Multivit/Folic Acid/Iron 1 tab 09/08/17 17:45 09/09/17 15:55 Vitamins (Sjr) - PO 1 tab DAILY [facility] Administration Sucralfate 1 gm 09/07/17 18:00 09/09/17 23:36 Carafate - PO 1 gm QID [facility] Administration Thiamine HCl 100 mg 09/08/17 22:00 09/09/17 23:45 Vitamin B1 - PO 100 mg HS [facility] Administration Microbiology 09/07/17 13:47 Blood - Peripheral Venous Blood Culture - Preliminary Alpha Hemolytic Streptococcus 09/07/17 13:47 Blood - Peripheral Venous Blood Culture - Final Streptococcus Salivarius 09/09/17 13:11 Urine For Antigen Detection Legionella Antigen - Final 09/09/17 13:11 Urine For Antigen Detection Streptococcus pneumoniae Antigen (M - Final 09/09/17 06:20 Blood - Peripheral Venous Blood Culture - Preliminary NO GROWTH OBTAINED AFTER 24 HOURS, INCUBATION TO CONTINUE FOR 4 DAYS. 09/09/17 06:56 Blood - Peripheral Venous Blood Culture - Preliminary NO GROWTH OBTAINED AFTER 24 HOURS, INCUBATION TO CONTINUE FOR 4 DAYS. 09/08/17 03:37 Urine - Urine Clean Catch Urine Culture - Final NO GROWTH OBTAINED 09/08/17 11:35 Nasopharyngeal Swab Influenza Types A,B Antigen (FLORIDALMA) - Final 09/08/17 11:35 Nasopharyngeal Swab - Final ASSESSMENT/PLAN: 37 year-old male with PMH significant for liver cirrhosis, HCV, esophageal varices (banding 09/03/17), portal hypertension, polysubstance abuse (alcohol, cocaine). Hospital course complicated by septic shock and large, severe intracranial bleed. Intracranial hemorrhage --09/09 CT head: large left cerebellar hematoma with diffuse edema involving left cerebral hemisphere; midline shift 2cm; intraventricular hemorrhage; compressed left lateral ventricle, dilated right lateral ventricle; uncal herniation --breathing slightly over the vent; no corneal or gag reflexes; pupils fixed and dilated --Dr. Steiner following: no neurosurgical intervention appropriate --prognosis grave, chances for functional recovery is none --family meeting today with sister, brother, jewelry estimator of family's choosing, Dr. Summers, Rev. Caio Pressley, trim line worker Litzy Lema, Marcia Antonino; duration one hour; all questions answered. Family was unanimous and clear that patient is a DNR. There should be no cardiac resuscitation. Patient will remain intubated for now. Severe sepsis likely secondary to strep pneumonia --off pressors --blood cultures + strep --continue vanc Liver cirrhosis Hep C Esophageal varices s/p banding Portal hypertension Hepatic encephalopathy --PT mixing study pending --there is no ascites, low suspicion for SBP --ammonia 163 on admission, continue lactulose enemas q6h Acute respiratory failure --intubated, off sedation Polysubstance abuse --no signs of withdrawal DVT prophylaxis: SCDs GI prophylaxis: protonix, carafate Dispo: continues to require ICU level of care. Visit type - Emergency Visit Emergency Visit: Yes ED Registration Date: 09/07/17 Care time: The patient presented to the Emergency Department on the above date and was hospitalized for further evaluation of their emergent condition. - New Patient This patient is new to me today: No - Critical Care Critical Care patient: Yes Total Critical Care Time (in minutes): 45 Critical Care Statement: The care of this patient involved high complexity decision making to prevent further life threatening deterioration of the patient 's condition and/or to evaluate & treat vital organ system(s) failure or risk of failure.
[2017-09-10 07:52] LABS: PHOSPHOROUS 1.1 mg/dL (2.5-4.9)
--- NOTE | 2017-09-10 08:47 | PN ---
Progress Note (short form) - Note Progress Note: NEUROSURGERY Intubated On vanco PE: AF, VSS HEENT- NC/AT; Neck- no bruit; Cor- reg; Chest- decreased BS at bases; Abd- obese ; Ext- edema GCS- 3T CN- Pupils B F/D, No corneal reflex, no gag, no Doll's; Motor- no movement to voice or pain; Sensation- unable to assess; DTR- hyporeflexia Blood culture- 2/2 alpha hemolytic strep Head CT 08-28: No acute intracranial pathology, no fx, no bleed, no stroke Head CT 09-09: Large L parietal parenchymal hemorrhage extending into B lateral ventricle; 2 cm L to R shift; basal and perimesecephalic cisterns obliterated Repeat head CT: more blurring/ground glass appearance of entire L hemisphere; otherwise without major change INR 4.36 to 2.54 after 2 U FFP; platelet 68K L parietal ICH with extension into lateral ventricle and significant midline shift (?cocaine related and exacerbated by hepatic dysfunction and coagulopathy) , no detectible neurological function No neurosurgical intervention appropriate Prognosis is grave, and chances for functional recovery is none Condition and care d/w sister at bedside Condition complicated by his hepatic cirrhosis/failure
[2017-09-10] MEDS ORDERED: PT OWN MED DRAWER 7, Y5N ONE ×3 (09:11→21:41)
[2017-09-10 09:35] LABS: ANION GAP 4 (8-16); CALCIUM 7.6 mg/dL (8.5-10.1); CO2 24 mmol/L (21-32); GLUCOSE,RANDOM 83 mg/dL (74-106)
[2017-09-10] MEDS: LACTULOSE 20 GM/30 ML UDC (FOR ORAL USE ONLY) GT SCH ×4 (09:51→22:57)
[2017-09-10] MEDS: PANTOPRAZOLE SODIUM 40 MG VIAL IVPUSH SCH (09:52)
[2017-09-10] MEDS: DESMOPRESSIN ACETATE 4 MCG/ML AMP IVPB SCH ×2 (09:53→23:09)
[2017-09-10] MEDS: PRENATAL VITAMINS W/ FOLIC ACID TABLET (FP) PO SCH (09:53)
[2017-09-10] MEDS: SUCRALFATE 1 GM TABLET (FP) PO SCH ×4 (09:54→22:57)
[2017-09-10] MEDS ORDERED: NAPH,MB-DB/K PH,MBDB POWDER PACKET PO ONE (10:52)
[2017-09-10 10:53] LABS: ARTERIAL BLOOD GAS BASE EXCESS -0.4 meq/l (-2-2); ARTERIAL BLOOD GAS HCO3 24.2 meq/L (22-26); ARTERIAL BLOOD GAS PO2 76.1 mmHg (80-100); ARTERIAL BLOOD GAS pH 7.38 (7.35-7.45)
[2017-09-10] MEDS ORDERED: PHYTONADIONE 10 MG/1 ML AMP IVPB ONE (10:53)
[2017-09-10 10:57] LABS: ALLENS TEST POSITIVE; PT. ON O2? YES; TYPE OF O2 MECH VENT
[2017-09-10 10:58] LABS: MECH. VENT. YES; VENT RATE 14; VT/PRESS 40
--- NOTE | 2017-09-10 11:06 | PN ---
Physical Exam: SUBJECTIVE: Patient seen and examined Patient remains intubated in the ICU. No acute events overnight. OBJECTIVE: Vital Signs Period Temp Pulse Resp BP Sys/[place] Pulse Ox Last 24 Hr 95.8 F-99.0 F 64-129 12-20 95-136/52-66 100 GENERAL: The patient is intubated and unresponsive HEAD: Normal with no signs of trauma. EYES: Pupils nonreactive, negative corneal reflex, no oculocephalic reflex, scleral icterus LUNGS: Breath sounds equal, Rhonchi heard scattered throughout, no accessory muscle use. HEART: Tachycardic, S1, S2 without murmur, rub or gallop. ABDOMEN: Soft, nontender, nondistended, normoactive bowel sounds, no guarding, no rebound, no hepatosplenomegaly, no masses. EXTREMITIES: + peripheral edema. NEUROLOGICAL: Hyporeflexive, unable to assess, no corneal reflex, No gag reflex , downgoing babinski bilaterally Laboratory Results - last 24 hr 09/07/17 09/07/17 09/09/17 13:47 13:47 06:20 WBC RBC Hgb Hct MCV MCH MCHC RDW Plt Count MPV Total Counted Neutrophils % Neutrophils % (Manual) Band Neutrophils % Lymphocytes % Lymphocytes % (Manual) Monocytes % (Manual) Eosinophils % (Manual) Myelocytes % (Man) Differential Comment Platelet Estimate Platelet Comment Polychromasia Poikilocytosis Anisocytosis Tear Drop Cells Ovalocytes PT with INR INR PTT (Actin FS) Puncture Site ABG pH ABG pCO2 at Pt Temp ABG pO2 at Pt Temp ABG HCO3 ABG O2 Sat (Measured) ABG O2 Content ABG Base Excess Luther Test VBG pH 7.38 POC VBG pCO2 40.4 POC VBG pO2 33.0 Mixed VBG HCO3 23.1 O2 Delivery Device Oxygen Flow Rate Vent Mode Vent Rate Mechanical Rate PEEP Pressure Support Vent Sodium Potassium Chloride Carbon Dioxide Anion Gap BUN Creatinine Creat Clearance w eGFR Random Glucose Serum Osmolality Lactic Acid 4.3 H* Calcium Phosphorus Magnesium Total Bilirubin AST ALT Alkaline Phosphatase Total Protein Albumin Urine Color Urine Appearance Urine pH Ur Specific [place] Urine Protein Urine Glucose (UA) Urine Ketones Urine Blood Urine Nitrite Urine Bilirubin Urine Urobilinogen Ur Leukocyte Esterase Urine WBC (Auto) Urine RBC (Auto) Urine Osmolality Vancomycin Pre-Dose HIV 1&2 Antibody Screen Negative HIV P24 Antigen Negative 09/09/17 09/09/1717 11:58 14:28 14:40 WBC RBC Hgb Hct MCV MCH MCHC RDW Plt Count MPV Total Counted Neutrophils % Neutrophils % (Manual) Band Neutrophils % Lymphocytes % Lymphocytes % (Manual) Monocytes % (Manual) Eosinophils % (Manual) Myelocytes % (Man) Differential Comment Platelet Estimate Platelet Comment Polychromasia Poikilocytosis Anisocytosis Tear Drop Cells Ovalocytes PT with INR INR PTT (Actin FS) Puncture Site ABG pH ABG pCO2 at Pt Temp ABG pO2 at Pt Temp ABG HCO3 ABG O2 Sat (Measured) ABG O2 Content ABG Base Excess Luther Test VBG pH POC VBG pCO2 POC VBG pO2 Mixed VBG HCO3 O2 Delivery Device Oxygen Flow Rate Vent Mode Vent Rate Mechanical Rate PEEP Pressure Support Vent Sodium 158 H Potassium 4.0 Chloride 126 H Carbon Dioxide 25 D Anion Gap 7 L BUN 12 Creatinine 0.9 D Creat Clearance w eGFR Random Glucose 82 D Serum Osmolality 324 H Lactic Acid Calcium 7.6 L Phosphorus Magnesium Total Bilirubin AST ALT Alkaline Phosphatase Total Protein Albumin Urine Color Urine Appearance Urine pH Ur Specific [place] Urine Protein Urine Glucose (UA) Urine Ketones Urine Blood Urine Nitrite Urine Bilirubin Urine Urobilinogen Ur Leukocyte Esterase Urine WBC (Auto) Urine RBC (Auto) Urine Osmolality 91 L Vancomycin Pre-Dose 5.765 HIV 1&2 Antibody Screen HIV P24 Antigen 09/09/17 09/09/17 09/09/17 14:40 19:45 19:45 WBC 6.9 D RBC 3.02 L Hgb 7.7 L D Hct 24.4 L D MCV 80.8 MCH 25.5 L MCHC 31.6 L RDW 21.2 H Plt Count 65 L MPV 8.4 Total Counted 100 Neutrophils % No Result Required. Neutrophils % (Manual) 59.0 D Band Neutrophils % 10.0 Lymphocytes % No Result Required. Lymphocytes % (Manual) 14.0 D Monocytes % (Manual) 13 H Eosinophils % (Manual) 2.0 Myelocytes % (Man) 1 D Differential Comment Man diff performed Platelet Estimate Mod decreased Platelet Comment Polychromasia 1+ Poikilocytosis 1+ Anisocytosis 2+ Tear Drop Cells Few Ovalocytes 1+ PT with INR 22.90 H INR 2.03 H PTT (Actin FS) 41.7 H Puncture Site ABG pH ABG pCO2 at Pt Temp ABG pO2 at Pt Temp ABG HCO3 ABG O2 Sat (Measured) ABG O2 Content ABG Base Excess Luther Test VBG pH POC VBG pCO2 POC VBG pO2 Mixed VBG HCO3 O2 Delivery Device Oxygen Flow Rate Vent Mode Vent Rate Mechanical Rate PEEP Pressure Support Vent Sodium Potassium Chloride Carbon Dioxide Anion Gap BUN Creatinine Creat Clearance w eGFR Random Glucose Serum Osmolality Lactic Acid Calcium Phosphorus Magnesium Total Bilirubin AST ALT Alkaline Phosphatase Total Protein Albumin Urine Color Ltyellow Urine Appearance Clear Urine pH 6.0 Ur Specific [place] 1.002 Urine Protein Negative Urine Glucose (UA) Negative Urine Ketones Negative Urine Blood 2+ H Urine Nitrite Negative Urine Bilirubin Negative Urine Urobilinogen Negative Ur Leukocyte Esterase Trace H Urine WBC (Auto) <1 Urine RBC (Auto) <1 Urine Osmolality Vancomycin Pre-Dose HIV 1&2 Antibody Screen HIV P24 Antigen 09/09/17 09/09/17 09/10/17 19:45 19:45 06:20 WBC RBC Hgb Hct MCV MCH MCHC RDW Plt Count MPV Total Counted Neutrophils % Neutrophils % (Manual) Band Neutrophils % Lymphocytes % Lymphocytes % (Manual) Monocytes % (Manual) Eosinophils % (Manual) Myelocytes % (Man) Differential Comment Platelet Estimate Platelet Comment Polychromasia Poikilocytosis Anisocytosis Tear Drop Cells Ovalocytes PT with INR INR PTT (Actin FS) Puncture Site ABG pH ABG pCO2 at Pt Temp ABG pO2 at Pt Temp ABG HCO3 ABG O2 Sat (Measured) ABG O2 Content ABG Base Excess Luther Test VBG pH POC VBG pCO2 POC VBG pO2 Mixed VBG HCO3 O2 Delivery Device Oxygen Flow Rate Vent Mode Vent Rate Mechanical Rate PEEP Pressure Support Vent Sodium 159 H Potassium 3.8 Chloride 129 H Carbon Dioxide 24 Anion Gap 6 L BUN 11 Creatinine 0.9 Creat Clearance w eGFR Random Glucose 81 Serum Osmolality Cancelled 329 H Lactic Acid Calcium 7.8 L Phosphorus Magnesium Total Bilirubin AST ALT Alkaline Phosphatase Total Protein Albumin Urine Color Urine Appearance Urine pH Ur Specific [place] Urine Protein Urine Glucose (UA) Urine Ketones Urine Blood Urine Nitrite Urine Bilirubin Urine Urobilinogen Ur Leukocyte Esterase Urine WBC (Auto) Urine RBC (Auto) Urine Osmolality Vancomycin Pre-Dose HIV 1&2 Antibody Screen HIV P24 Antigen 09/10/17 09/10/17 09/10/17 06:20 06:20 06:20 WBC 5.7 RBC 3.15 L Hgb 8.2 L Hct 25.4 L MCV 80.8 MCH 26.1 MCHC 32.3 RDW 21.3 H Plt Count 63 L MPV 8.7 Total Counted Neutrophils % No Result Required. Neutrophils % (Manual) Band Neutrophils % Lymphocytes % No Result Required. Lymphocytes % (Manual) Monocytes % (Manual) Eosinophils % (Manual) Myelocytes % (Man) Differential Comment Platelet Estimate Platelet Comment Polychromasia Poikilocytosis Anisocytosis Tear Drop Cells Ovalocytes PT with INR 25.20 H INR 2.23 H PTT (Actin FS) Puncture Site ABG pH ABG pCO2 at Pt Temp ABG pO2 at Pt Temp ABG HCO3 ABG O2 Sat (Measured) ABG O2 Content ABG Base Excess Luther Test VBG pH POC VBG pCO2 POC VBG pO2 Mixed VBG HCO3 O2 Delivery Device Oxygen Flow Rate Vent Mode Vent Rate Mechanical Rate PEEP Pressure Support Vent Sodium 161 H* Potassium 3.5 Chloride 131 H Carbon Dioxide 24 Anion Gap 6 L BUN 14 D Creatinine 1.0 Creat Clearance w eGFR > 60 Random Glucose 83 Serum Osmolality Lactic Acid Calcium 7.7 L Phosphorus 1.1 L* D Magnesium 2.2 Total Bilirubin 2.7 H AST 73 H D ALT 37 D Alkaline Phosphatase 69 Total Protein 6.7 Albumin 1.9 L Urine Color Urine Appearance Urine pH Ur Specific [place] Urine Protein Urine Glucose (UA) Urine Ketones Urine Blood Urine Nitrite Urine Bilirubin Urine Urobilinogen Ur Leukocyte Esterase Urine WBC (Auto) Urine RBC (Auto) Urine Osmolality Vancomycin Pre-Dose HIV 1&2 Antibody Screen HIV P24 Antigen 09/10/17 09/10/17 09/10/17 06:20 09:08 10:35 WBC RBC Hgb Hct MCV MCH MCHC RDW Plt Count MPV Total Counted Neutrophils % Neutrophils % (Manual) Band Neutrophils % Lymphocytes % Lymphocytes % (Manual) Monocytes % (Manual) Eosinophils % (Manual) Myelocytes % (Man) Differential Comment Platelet Estimate Platelet Comment Polychromasia Poikilocytosis Anisocytosis Tear Drop Cells Ovalocytes PT with INR INR PTT (Actin FS) Puncture Site Y ABG pH 7.38 ABG pCO2 at Pt Temp 41.9 D ABG pO2 at Pt Temp 76.1 L ABG HCO3 24.2 ABG O2 Sat (Measured) 95.0 ABG O2 Content 11.2 L ABG Base Excess -0.4 Luther Test Positive VBG pH POC VBG pCO2 POC VBG pO2 Mixed VBG HCO3 O2 Delivery Device Mech vent Oxygen Flow Rate Yes Vent Mode A/c Vent Rate 14 Mechanical Rate Yes PEEP 5.0 Pressure Support Vent 40 Sodium Cancelled 158 H Potassium Cancelled 4.4 D Chloride Cancelled 130 H Carbon Dioxide Cancelled 24 Anion Gap Cancelled 4 L BUN Cancelled 14 Creatinine Cancelled 1.0 Creat Clearance w eGFR Random Glucose Cancelled 83 Serum Osmolality Lactic Acid Calcium Cancelled 7.6 L Phosphorus Magnesium Total Bilirubin AST ALT Alkaline Phosphatase Total Protein Albumin Urine Color Urine Appearance Urine pH Ur Specific [place] Urine Protein Urine Glucose (UA) Urine Ketones Urine Blood Urine Nitrite Urine Bilirubin Urine Urobilinogen Ur Leukocyte Esterase Urine WBC (Auto) Urine RBC (Auto) Urine Osmolality Vancomycin Pre-Dose HIV 1&2 Antibody Screen HIV P24 Antigen Active Medications Generic Name Dose Route Start Last Admin Trade Name Freq PRN Reason Stop Dose Admin Albuterol/Ipratropium 1 amp 09/08/17 14:00 09/10/17 06:00 Duoneb - NEB 1 amp TIDR KANDY Administration Desmopressin Acetate 2 mcg 09/09/17 16:01 09/10/17 09:53 Ddavp Injection - IVPB 2 mcg BID KANDY Administration Vancomycin HCl 1,250 mg/ 250 mls @ 166.667 mls/hr 09/09/17 17:00 09/10/17 05: 47 Dextrose IVPB 166.667 mls/hr Q12H KANDY Administration Protocol Dextrose 1,000 mls @ 150 mls/hr 09/09/17 22:10 09/09/17 23:46 D5w - IV 150 mls/hr ASDIR KANDY Administration Lactulose 20 gm 09/09/17 15:30 09/10/17 09:51 Cephulac (Oral Use) GT 20 gm QID KANDY Administration Lorazepam 1 mg 09/08/17 17:40 Ativan Injection - IVPUSH Q6H PRN ANXIETY Pantoprazole Sodium 40 mg 09/09/17 12:45 09/10/17 09:52 Protonix Iv IVPUSH 40 mg DAILY KANDY Administration Multivit/Folic Acid/Iron 1 tab 09/08/17 17:45 09/10/17 09:53 Vitamins (Sjr) - PO 1 tab DAILY KANDY Administration Sucralfate 1 gm 09/07/17 18:00 09/10/17 09:54 Carafate - PO 1 gm QID KANDY Administration Thiamine HCl 100 mg 09/08/17 22:00 09/09/17 23:45 Vitamin B1 - PO 100 mg HS KANDY Administration ASSESSMENT/PLAN: 37M with multiple medical problems presented to the ICU with septic shock requiring aggressive resuscitation and pressors found unresponsive with massive ICH and midline shift, intubated. Neuro Altered Mental Status/hepatic encephalopathy ICH with 2 cm midline shift -Neurosurgery on board, Dr. Steiner -Elevate head of bed, keep patient hypocarbic -2 more units of FFP given -5 mg IV Vit K IVPB -Monitor PT/INR, H/H -Neuro checks -Last INR 2.23 -Repeat head CT revealed no interval change Resp Acute respiratory failure -Intubated -No sedation -Taking spontaneous respirations, but cannot be weaned currently ID Septic shock secondary to Gram Positive Bacteremia -Dr Cosby on board -Continue vancomycin -Patient off pressors Nephro Acute Kidney Injury DI -monitor Cr -Resolved -Serum osm q4h -BMP q4h -Continue ddAVP 2 mcg bid GI Liver failure/Alcoholic liver cirrhosis -Lactulose 20 gm GT q6h -Dr Kuhn on board Heme Coagulopathy/Thrombocytopenia -Vit K, FFP, Plts given -Monitor CBC FEN/GI -No IVF at this time -Hypophosphetemia, will replete -NPO PPx -SCDs/supratherapeutic INR -IV protonix for GI PPx Dispo: Poor prognosis, family meeting to be conducted by social work today. Visit type - Emergency Visit Emergency Visit: Yes ED Registration Date: 09/07/17 Care time: The patient presented to the Emergency Department on the above date and was hospitalized for further evaluation of their emergent condition. - New Patient This patient is new to me today: Yes Date on this admission: 09/10/17 - Critical Care Critical Care patient: Yes Total Critical Care Time (in minutes): 45 Critical Care Statement: The care of this patient involved high complexity decision making to prevent further life threatening deterioration of the patient 's condition and/or to evaluate & treat vital organ system(s) failure or risk of failure.
--- NOTE | 2017-09-10 11:21 | PN ---
Teaching Attending Note Name of Resident: Jhonatan Oden ATTENDING PHYSICIAN STATEMENT I saw and evaluated the patient. I reviewed the resident's note and discussed the case with the resident. I agree with the resident's findings and plan as documented. SUBJECTIVE: Pt seen and examined in the ICU. Remains intubated, unresponsive off sedation. No further cough reflex. Taking spontaneous breaths. Went into diabetes insipidus yesterday, started on desmopressin and D5W. OBJECTIVE: Last Vital Signs Temp Pulse Resp BP Pulse Ox 95.8 F L 68 14 101/62 100 09/10/17 10:00 09/10/17 10:00 09/10/17 10:00 09/10/17 10:00 09/10/17 07:45 Intake & Output 09/07/17 09/08/17 09/09/17 09/10/17 23:59 23:59 23:59 23:59 Intake Total 7178 3119 850 Output Total 2900 6000 500 Balance 4278 -2881 350 Weight 259 lb 15.999 oz 259 lb 15.999 oz 256 lb Gen: intubated, unresponsive HEENT: scleral icterus, pupils dilated, fixed, no oculocephalic reflex Heart: RRR Lung: scattered rhonchi Abd: soft, nontender Ext: + edema CBC, BMP 09/10/17 06:20 09/10/17 09:08 Active Medications Albuterol/Ipratropium (Duoneb -) 1 amp NEB TIDR [facility] Last Admin: 09/10/17 06:00 Dose: 1 amp Desmopressin Acetate (Ddavp Injection -) 2 mcg IVPB BID [facility] Last Admin: 09/10/17 09:53 Dose: 2 mcg Vancomycin HCl 1,250 mg/ (Dextrose) 250 mls @ 166.667 mls/hr IVPB Q12H KANDY PRN Reason: Protocol Last Admin: 09/10/17 05:47 Dose: 166.667 mls/hr Dextrose (D5w -) 1,000 mls @ 150 mls/hr IV ASDIR KANDY Last Admin: 09/09/17 23:46 Dose: 150 mls/hr Lactulose (Cephulac (Oral Use)) 20 gm GT QID KANDY Last Admin: 09/10/17 09:51 Dose: 20 gm Lorazepam (Ativan Injection -) 1 mg IVPUSH Q6H PRN PRN Reason: ANXIETY Pantoprazole Sodium (Protonix Iv) 40 mg IVPUSH DAILY [facility] Last Admin: 09/10/17 09:52 Dose: 40 mg Multivit/Folic Acid/Iron ( Vitamins (Sjr) -) 1 tab PO DAILY [facility] Last Admin: 09/10/17 09:53 Dose: 1 tab Sucralfate (Carafate -) 1 gm PO QID [facility] Last Admin: 09/10/17 09:54 Dose: 1 gm Thiamine HCl (Vitamin B1 -) 100 mg PO HS [facility] Last Admin: 09/09/17 23:45 Dose: 100 mg ASSESSMENT AND PLAN: Acute Respiratory Failure Intracranial Hemorrhage Alpha Strep Bacteremia Septic Shock Acute Kidney Injury Lactic Acidosis Alcoholic Liver Cirrhosis Hepatic Encephalopathy Cocaine Abuse Coagulopathy Thrombocytopenia Diabetes Insipidus - continue desmopressin, D5W - monitor BMP - elevate HOB, keep hypocarbic - transfuse FFP, platelets - vitamin K - monitor coags, platelets - neuro checks - continue antibiotics - f/u cultures - monitor urine output, creatinine - replete lytes - hold all sedation to assess mental status - not a candidate for weaning at this time - DVT/GI prophylaxis - continue ICU monitoring - poor overall prognosis, palliative care consult critical care time spent in reviewing chart, evaluating patient and formulating plan 40 min
[2017-09-10 12:48] LABS: ANION GAP 5 (8-16); CO2 25 mmol/L (21-32); GLUCOSE,RANDOM 84 mg/dL (74-106)
[2017-09-10 14:31] LABS: ANISOCYTOSIS 2+; BAND % 4.1 %; HYPOCHROMIA 2+; MACROCYTOSIS 0; METAMYELOCYTE 0 % (0-2); MICROCYTOSIS 2+; MYELOCYTE 0 % (0-2); PLATELET ESTIMATE DECREASED; POIKILOCYTOSIS 0; POLYCHROMASIA 0; REACTIVE LYMPHOCYTES 0 % (0-80); TARGET CELLS 1+
--- NOTE | 2017-09-10 15:15 | PN ---
Progress Note (short form) - Note Progress Note: [facility] Meeting with family today including siblings. Updated them on pt's condition and grave prognosis. Explained absent cranial reflexes but still with spontaneous breaths when back up rate decreased. They appeared to understand, made pt DNR but undecided on withdrawal of care at this time. Shai Summers MD
[2017-09-10 17:46] LABS: ANION GAP 6 (8-16); CALCIUM 8.1 mg/dL (8.5-10.1); CO2 25 mmol/L (21-32); GLUCOSE,RANDOM 96 mg/dL (74-106)
--- NOTE | 2017-09-10 18:31 | PN ---
Progress Note (short form) - Note Progress Note: 37 y o m with PMHx chronic alcoholism, actively drinking on last admission requiring detox, as per chart last drink 2 days prior to admission and cocaine use day of admission, liver cirrhosis, HCV, esophageal varices (banding 09/03/17 ), portal hypertension, liver failure, presented to the ED w AMS, +cocaine, found to have large L F/T/P ICH with midline extension and uncal herniation and compression on 4 th ventricle. Pt unresponsive, intubated , no sedation x18 hours CT BRAIN Examination of the bone windows show no fracture. Impression. Large left cerebellar hematoma with diffuse edema involving left cerebral hemisphere, loss of differentiation between the white and galvan matter. Midline shift of midline structure to the right approximately 2 cm. Intraventricular hemorrhage. Compress left lateral ventricle. Dilated right lateral ventricle. Subfalcine, uncal herniation. Effaced prepontine cistern. FU : unresponsive , was minimally overbreathing vent this AM 15 - History Source History Provided By: Medical Record - Past Medical History Cardio/Vascular: Yes: HTN Gastrointestinal: Yes: Diverticulosis, Esophageal Varices, GI Bleed, Other ( hemorrhoidal bleeding) Hepatobiliary: Yes: Cirrhosis (alcoholic), Hepatitis C Psych: Yes: Depression - Past Surgical History Past Surgical History: Yes: None - Alcohol/Substance Use Hx Alcohol Use: Yes (BEERS-09/03/17) History of Substance Use: reports: Cocaine, Heroin, Marijuana - Smoking History Smoking history: Never smoked Have you smoked in the past 12 months: No If you are a former smoker, when did you quit?: over 10 years ago but still smokes marijuana - Social History Usual Living Arrangement: Other (lives with sister) ADL: Support Services Occupation: disabled kitchen staff worker History of Recent Travel: No Home Medications - Allergies Allergies/Adverse Reactions: Allergies Allergy/AdvReac Type Severity Reaction Status Date / Time No Known Allergies Allergy Verified 09/07/17 13:01 - Home Medications Home Medications: Ambulatory Orders Folic Acid 1 mg PO DAILY 09/07/17 Lactulose [Cephulac -] 30 gm PO QID 09/07/17 Pantoprazole Sodium [Protonix] 40 mg PO BID 09/07/17 Prazosin HCl [Minipress -] 1 mg PO TID 09/07/17 Rifaximin [Xifaxan] 550 mg PO BID 09/07/17 Sertraline HCl [Zoloft -] 50 mg PO DAILY 09/07/17 Sucralfate [Carafate -] 1 gm PO QID 09/07/17 Thiamine HCl [Vitamin B-1] 100 mg PO DAILY 09/07/17 Family Disease History - Family Disease History Family Disease History: Diabetes: Father ( of diabetic complications), Other : Mother ( age 40 of cirrhosis) Physical Exam-Neuro Vital Signs: Vital Signs Temperature 97.4 F L 09/10/17 14:00 Pulse Rate 62 09/10/17 16:00 Respiratory Rate 20 09/10/17 16:00 Blood Pressure 111/71 09/10/17 16:00 O2 Sat by Pulse Oximetry (%) 100 09/10/17 07:45 Labs: CBC, BMP 09/09/17 06:20 09/09/17 14:28 INR, PTT INR 2.54 (0.82-1.09) H D 09/09/17 06:20 - Neuro Exam Level Of Consciousness: Yes: Comatose (breathing with vent 15/14, eyes closed, unresponsive, -Dolls, -corneals, , fixed and dilated pupils, no focal twitching , no withdrawl of LE , planatars down) Imaging - Results Cat Scan: Report Reviewed, Image Reviewed Problem List - Problems (1) Alcohol dependence Code(s): F10.20 - ALCOHOL DEPENDENCE, UNCOMPLICATED (2) Cocaine dependence Code(s): F14.20 - COCAINE DEPENDENCE, UNCOMPLICATED (3) Hepatic encephalopathy Code(s): K72.90 - HEPATIC FAILURE, UNSPECIFIED WITHOUT COMA (4) Intracranial hemorrhage Code(s): I62.9 - NONTRAUMATIC INTRACRANIAL HEMORRHAGE, UNSPECIFIED Assessment/Plan 7 y o m with PMHx chronic alcoholism, actively drinking on last admission requiring detox, as per chart last drink 2 days prior to admission and cocaine use day of admission, liver cirrhosis, HCV, esophageal varices (banding 09/03/17 ), portal hypertension, liver failure, presented to the ED w AMS, +cocaine, found to have large L F/T/P ICH with midline extension and uncal herniation and compression on 4 th ventricle. Pt unresponsive, intubated , no sedation ICH--cocaine /coagulopathy with ETOH cirrhosis contributing factors devastating ICH , with herniation and impending hydrocephalus-- clinically appears to have no cortical or brainstem reflexes --minimally overbreathing vent spoke to , no chance of reconvey given this mechanism and cobmorbid state and radiographic findings palliative /withdrawal measures when family agrees Dr Tubbs Problem List - Problems (1) Alcohol dependence Code(s): F10.20 - ALCOHOL DEPENDENCE, UNCOMPLICATED (2) Cocaine dependence Code(s): F14.20 - COCAINE DEPENDENCE, UNCOMPLICATED (3) Hepatic encephalopathy Code(s): K72.90 - HEPATIC FAILURE, UNSPECIFIED WITHOUT COMA (4) Intracranial hemorrhage Code(s): I62.9 - NONTRAUMATIC INTRACRANIAL HEMORRHAGE, UNSPECIFIED
[2017-09-10 21:34] LABS: ANION GAP 7 (8-16); CALCIUM 7.8 mg/dL (8.5-10.1); CO2 24 mmol/L (21-32); GLUCOSE,RANDOM 66 mg/dL (74-106)
[2017-09-10] MEDS: DEXTROSE 5%-WATER - 1,000 ML IV SCH (22:58)
[2017-09-10] MEDS: THIAMINE HCL 100 MG TABLET (FP) PO SCH (23:17)
[2017-09-11] MEDS: VANCOMYCIN 1,250 MG in DEXTROSE 5%-WATER - 250 ML IVPB SCH (05:40)
[2017-09-11 06:27] LABS: MCH 25.8 pg (25.7-33.7); MCHC 32.1 g/dl (32.0-35.9); MEAN CELL VOLUME 80.4 fl (80-96); RDW 21.7 % (11.9-15.9); WHITE BLOOD COUNT 4.8 K/mm3 (4.0-10.0)
[2017-09-11] MEDS: ALBUTEROL SO4 2.5/IPRATROPIUM 0.5 INH SOL 3 ML VIAL.NEB. NEB SCH ×3 (06:27→22:24)
[2017-09-11 06:32] LABS: INR 2.35 (0.82-1.09); PROTHROMBIN TIME (PATIENT) 26.5 SEC (9.98-11.88)
[2017-09-11 06:45] LABS: ALBUMIN 1.8 g/dl (3.4-5.0); ANION GAP 7 (8-16); BILIRUBIN,TOTAL 3.1 mg/dL (0.2-1.0); CALCIUM 8.3 mg/dL (8.5-10.1); CO2 24 mmol/L (21-32); GLUCOSE,RANDOM 90 mg/dL (74-106); MAGNESIUM 1.8 mg/dL (1.8-2.4); PHOSPHOROUS 2.3 mg/dL (2.5-4.9); SGOT/AST 80 U/L (15-37); SGPT/ALT 34 U/L (12-78); TOT PROT 6.6 g/dl (6.4-8.2)
[2017-09-11 06:46] LABS: ALK PHOS 78 U/L (45-117)
[2017-09-11 07:51] LABS: ARTERIAL BLD GAS O2 SATURATION 95.8 % (90-98.9); ARTERIAL BLOOD GAS HCO3 23.8 meq/L (22-26); ARTERIAL BLOOD GAS PO2 84.3 mmHg (80-100); ARTERIAL BLOOD GAS pH 7.36 (7.35-7.45)
--- NOTE | 2017-09-11 07:59 | PN ---
Progress Note, Physician Chief Complaint: ID Neurology note reveiwed regarding no possibility for meaningful recovery DNR in effect Vent dependent No response - Current Medication List Current Medications: Active Medications Albuterol/Ipratropium (Duoneb -) 1 amp NEB TIDR [facility] Last Admin: 09/11/17 06:27 Dose: 1 amp Desmopressin Acetate (Ddavp Injection -) 2 mcg IVPB BID [facility] Last Admin: 09/10/17 23:09 Dose: 2 mcg Vancomycin HCl 1,250 mg/ (Dextrose) 250 mls @ 166.667 mls/hr IVPB Q12H KANDY PRN Reason: Protocol Last Admin: 09/11/17 05:40 Dose: 166.667 mls/hr Dextrose (D5w -) 1,000 mls @ 150 mls/hr IV ASDIR [facility] Last Admin: 09/10/17 22:58 Dose: 150 mls/hr Lactulose (Cephulac (Oral Use)) 20 gm GT QID [facility] Last Admin: 09/10/17 22:57 Dose: 20 gm Lorazepam (Ativan Injection -) 1 mg IVPUSH Q6H PRN PRN Reason: ANXIETY Pantoprazole Sodium (Protonix Iv) 40 mg IVPUSH DAILY [facility] Last Admin: 09/10/17 09:52 Dose: 40 mg Multivit/Folic Acid/Iron ( Vitamins (Sjr) -) 1 tab PO DAILY [facility] Last Admin: 09/10/17 09:53 Dose: 1 tab Sucralfate (Carafate -) 1 gm PO QID [facility] Last Admin: 09/10/17 22:57 Dose: 1 gm Thiamine HCl (Vitamin B1 -) 100 mg PO HS [facility] Last Admin: 09/10/17 23:17 Dose: 100 mg - Objective Vital Signs: Vital Signs Temperature 96.7 F L 09/11/17 06:00 Pulse Rate 69 09/11/17 06:00 Respiratory Rate 14 09/11/17 07:33 Blood Pressure 102/56 09/11/17 06:00 O2 Sat by Pulse Oximetry (%) 97 09/11/17 06:23 Labs: CBC, BMP 09/11/17 06:00 09/11/17 06:00 INR, PTT INR 2.35 (0.82-1.09) H 09/11/17 06:00 Problem List - Problems (1) Gram-positive bacteremia Code(s): R78.81 - BACTEREMIA (2) Hepatic encephalopathy Code(s): K72.90 - HEPATIC FAILURE, UNSPECIFIED WITHOUT COMA (3) Alcohol dependence with uncomplicated withdrawal Code(s): F10.230 - ALCOHOL DEPENDENCE WITH WITHDRAWAL, UNCOMPLICATED (4) Fever Code(s): R50.9 - FEVER, UNSPECIFIED (5) Liver cirrhosis, alcoholic Code(s): K70.30 - ALCOHOLIC CIRRHOSIS OF LIVER WITHOUT ASCITES Assessment/Plan Microbiology 09/07/17 13:47 Blood - Peripheral Venous Blood Culture - Final Streptococcus Salivarius 09/07/17 13:47 Blood - Peripheral Venous Blood Culture - Preliminary Alpha Hemolytic Streptococcus Laboratory Tests 09/10/17 09/11/17 09/11/17 06:20 06:00 06:00 WBC 4.8 Plt Count 63 L Pending BUN 14 Creatinine 1.0 AST 80 H ALT 34 Alkaline Phosphatase 78 Assessment Massive intracranial bleed with coma and vent dependency Admitting bacteremia Strep Salivarius source unknown. Endocarditis still a possibility Plan Based on sensitivities would go back to CEFTRIAXONE 2 GRS daily for now until end of life measures clarify. Miryam AMBROSE
[2017-09-11 08:00] LABS: ALLENS TEST POSITIVE; ART PUNCT SITE RIGHT RADIAL; LPM/O2% 40; PT. ON O2? YES
[2017-09-11 08:01] LABS: MECH. VENT. YES; TYPE OF O2 A/C; VENT RATE 14; VT/PRESS 450
[2017-09-11] MEDS ORDERED: POTASSIUM CHLORIDE TABS 20 MEQ TABLET.ER (FP) PO ONE (08:35)
[2017-09-11] MEDS ORDERED: NAPH,MB-DB/K PH,MBDB POWDER PACKET PO ONE (08:35)
--- NOTE | 2017-09-11 08:52 | PN ---
Progress Note (short form) - Note Progress Note: NEUROSURGERY Intubated On vanco PE: Tmax 97.3, VSS HEENT- NC/AT; Neck- no bruit; Cor- reg; Chest- decreased BS at bases; Abd- obese ; Ext- edema GCS- 3T CN- Pupils B F/D, No corneal reflex, no gag, no Doll's; Motor- no movement to voice or pain; Sensation- unable to assess; DTR- hyporeflexia Blood culture- 2/2 alpha hem[address] strep Head CT 08-28: No acute intracranial pathology, no fx, no bleed, no stroke Head CT 09-09: Large L parietal parenchymal hemorrhage extending into B lateral ventricle; 2 cm L to R shift; basal and perimesecephalic cisterns obliterated Repeat head CT: more blurring/ground glass appearance of entire L hemisphere; otherwise without major change L parietal ICH with extension into lateral ventricle and significant midline shift (?cocaine related and exacerbated by hepatic dysfunction and coagulopathy) , no detectible neurological function No neurosurgical intervention indicated nor appropriate Prognosis is grave Condition and care d/w sister at bedside
[2017-09-11] MEDS ORDERED: POTASSIUM CHLORIDE ORAL LIQUID 20 MEQ/15 ML PO ONE (09:00)
[2017-09-11 09:21] LABS: MEAN PLT VOLUME 9.1 fl (7.5-11.1); PLATELET COUNT 50 K/MM3 (134-434); PLATELET ESTIMATE DECREASED
[2017-09-11] MEDS: LACTULOSE 20 GM/30 ML UDC (FOR ORAL USE ONLY) GT SCH ×4 (09:27→21:50)
[2017-09-11] MEDS: SUCRALFATE 1 GM TABLET (FP) PO SCH ×4 (09:28→23:30)
[2017-09-11] MEDS: DESMOPRESSIN ACETATE 4 MCG/ML AMP IVPB SCH (09:30)
[2017-09-11] MEDS: PANTOPRAZOLE SODIUM 40 MG VIAL IVPUSH SCH (09:31)
[2017-09-11] MEDS ORDERED: PT OWN MED DRAWER 7, Y5N ONE (09:50)
[2017-09-11] MEDS: CEFTRIAXONE 2 GM in DEXTROSE 5%-WATER - 100 ML IVPB SCH (09:51)
[2017-09-11] MEDS: PRENATAL VITAMINS W/ FOLIC ACID TABLET (FP) PO SCH (09:52)
[2017-09-11 11:00] LABS: METAMYELOCYTE 1 % (0-2); MYELOCYTE 1 % (0-2); TOTAL CELLS COUNTED 100
--- NOTE | 2017-09-11 12:31 | PN ---
Physical Exam: SUBJECTIVE: Patient seen and examined in ICU Patient remains intubated in the ICU. Patient become hypothermic to 96.7 rectally. Patient was put on rajiv hugger and temperature improved. No other events overnight. OBJECTIVE: Vital Signs Period Temp Pulse Resp BP Sys/[place] Pulse Ox Last 24 Hr 95.3 F-98.1 F 59-92 14-21 97-118/41-71 95-97 GENERAL: The patient is intubated and unresponsive HEAD: Normal with no signs of trauma. EYES: Pupils nonreactive, negative corneal reflex, no oculocephalic reflex, scleral icterus LUNGS: Breath sounds equal, Rhonchi heard scattered throughout, no accessory muscle use. Breathing spontaneously. HEART: Tachycardic, S1, S2 without murmur, rub or gallop. ABDOMEN: Soft, nontender, nondistended, normoactive bowel sounds, no guarding, no rebound, no hepatosplenomegaly, no masses. EXTREMITIES: + peripheral edema. NEUROLOGICAL: Hyporeflexive, unable to assess, no corneal reflex, No gag reflex , downgoing babinski bilaterally Laboratory Results - last 24 hr 09/07/17 09/07/17 09/10/17 13:47 13:47 06:20 WBC RBC Hgb Hct MCV MCH MCHC RDW Plt Count MPV Total Counted Neutrophils % Neutrophils % (Manual) 70.1 Band Neutrophils % 4.1 Lymphocytes % Lymphocytes % (Manual) 12.4 Monocytes % (Manual) 12 H Eosinophils % (Manual) 1.0 Basophils % (Manual) 0.0 Myelocytes % (Man) 0 D Metamyelocytes 0 Hypochromia 2+ Platelet Estimate Decreased Polychromasia 0 Poikilocytosis 0 Anisocytosis 2+ Microcytosis 2+ Macrocytosis 0 Target Cells 1+ Fragmented RBCs 1+ PT with INR INR Puncture Site ABG pH ABG pCO2 at Pt Temp ABG pO2 at Pt Temp ABG HCO3 ABG O2 Sat (Measured) ABG O2 Content ABG Base Excess Luther Test VBG pH 7.38 POC VBG pCO2 40.4 POC VBG pO2 33.0 Mixed VBG HCO3 23.1 O2 Delivery Device Oxygen Flow Rate Vent Rate Mechanical Rate PEEP Pressure Support Vent Sodium Potassium Chloride Carbon Dioxide Anion Gap BUN Creatinine Creat Clearance w eGFR Random Glucose Serum Osmolality Lactic Acid 4.3 H* Calcium Phosphorus Magnesium Total Bilirubin AST ALT Alkaline Phosphatase Total Protein Albumin 09/10/17 09/10/17 09/10/17 11:50 13:00 16:00 WBC RBC Hgb Hct MCV MCH MCHC RDW Plt Count MPV Total Counted Neutrophils % Neutrophils % (Manual) Band Neutrophils % Lymphocytes % Lymphocytes % (Manual) Monocytes % (Manual) Eosinophils % (Manual) Basophils % (Manual) Myelocytes % (Man) Metamyelocytes Hypochromia Platelet Estimate Polychromasia Poikilocytosis Anisocytosis Microcytosis Macrocytosis Target Cells Fragmented RBCs PT with INR INR Puncture Site ABG pH ABG pCO2 at Pt Temp ABG pO2 at Pt Temp ABG HCO3 ABG O2 Sat (Measured) ABG O2 Content ABG Base Excess Luther Test VBG pH POC VBG pCO2 POC VBG pO2 Mixed VBG HCO3 O2 Delivery Device Oxygen Flow Rate Vent Rate Mechanical Rate PEEP Pressure Support Vent Sodium 159 H 158 H Potassium 3.4 L D 3.2 L Chloride 129 H 127 H Carbon Dioxide 25 25 Anion Gap 5 L 6 L BUN 14 15 Creatinine 1.0 1.0 Creat Clearance w eGFR Random Glucose 84 96 Serum Osmolality 321 H Lactic Acid Calcium 8.0 L 8.1 L Phosphorus Magnesium Total Bilirubin AST ALT Alkaline Phosphatase Total Protein Albumin 09/10/17 09/10/17 09/11/17 19:00 19:00 06:00 WBC RBC Hgb Hct MCV MCH MCHC RDW Plt Count MPV Total Counted Neutrophils % Neutrophils % (Manual) Band Neutrophils % Lymphocytes % Lymphocytes % (Manual) Monocytes % (Manual) Eosinophils % (Manual) Basophils % (Manual) Myelocytes % (Man) Metamyelocytes Hypochromia Platelet Estimate Polychromasia Poikilocytosis Anisocytosis Microcytosis Macrocytosis Target Cells Fragmented RBCs PT with INR INR Puncture Site ABG pH ABG pCO2 at Pt Temp ABG pO2 at Pt Temp ABG HCO3 ABG O2 Sat (Measured) ABG O2 Content ABG Base Excess Luther Test VBG pH POC VBG pCO2 POC VBG pO2 Mixed VBG HCO3 O2 Delivery Device Oxygen Flow Rate Vent Rate Mechanical Rate PEEP Pressure Support Vent Sodium 158 H Potassium 3.5 Chloride 127 H Carbon Dioxide 24 Anion Gap 7 L BUN 14 Creatinine 1.0 Creat Clearance w eGFR Random Glucose 66 L D Serum Osmolality 321 H 316 H Lactic Acid Calcium 7.8 L Phosphorus Magnesium Total Bilirubin AST ALT Alkaline Phosphatase Total Protein Albumin 1209/11/17 09/11/17 06:00 06:00 06:00 WBC 4.8 RBC 3.41 L Hgb 8.8 L Hct 27.4 L MCV 80.4 MCH 25.8 MCHC 32.1 RDW 21.7 H Plt Count 50 L D MPV 9.1 Total Counted 100 Neutrophils % No Result Required. Neutrophils % (Manual) 67.0 Band Neutrophils % 1.0 Lymphocytes % No Result Required. Lymphocytes % (Manual) 13.0 Monocytes % (Manual) 14 H Eosinophils % (Manual) 3.0 D Basophils % (Manual) Myelocytes % (Man) 1 D Metamyelocytes 1 D Hypochromia Platelet Estimate Decreased Polychromasia Poikilocytosis Anisocytosis Microcytosis Macrocytosis Target Cells Fragmented RBCs PT with INR 26.50 H INR 2.35 H Puncture Site ABG pH ABG pCO2 at Pt Temp ABG pO2 at Pt Temp ABG HCO3 ABG O2 Sat (Measured) ABG O2 Content ABG Base Excess Luther Test VBG pH POC VBG pCO2 POC VBG pO2 Mixed VBG HCO3 O2 Delivery Device Oxygen Flow Rate Vent Rate Mechanical Rate PEEP Pressure Support Vent Sodium 156 H Potassium 3.0 L Chloride 125 H Carbon Dioxide 24 Anion Gap 7 L BUN 14 Creatinine 1.0 Creat Clearance w eGFR > 60 Random Glucose 90 D Serum Osmolality Lactic Acid Calcium 8.3 L Phosphorus 2.3 L D Magnesium 1.8 Total Bilirubin 3.1 H AST 80 H ALT 34 Alkaline Phosphatase 78 Total Protein 6.6 Albumin 1.8 L 09/11/17 07:35 WBC RBC Hgb Hct MCV MCH MCHC RDW Plt Count MPV Total Counted Neutrophils % Neutrophils % (Manual) Band Neutrophils % Lymphocytes % Lymphocytes % (Manual) Monocytes % (Manual) Eosinophils % (Manual) Basophils % (Manual) Myelocytes % (Man) Metamyelocytes Hypochromia Platelet Estimate Polychromasia Poikilocytosis Anisocytosis Microcytosis Macrocytosis Target Cells Fragmented RBCs PT with INR INR Puncture Site Right radial ABG pH 7.36 ABG pCO2 at Pt Temp 42.9 ABG pO2 at Pt Temp 84.3 ABG HCO3 23.8 ABG O2 Sat (Measured) 95.8 ABG O2 Content 11.5 L ABG Base Excess -1.0 Luther Test Positive VBG pH POC VBG pCO2 POC VBG pO2 Mixed VBG HCO3 O2 Delivery Device A/c Oxygen Flow Rate 40 Vent Rate 14 Mechanical Rate Yes PEEP 5.0 Pressure Support Vent 450 Sodium Potassium Chloride Carbon Dioxide Anion Gap BUN Creatinine Creat Clearance w eGFR Random Glucose Serum Osmolality Lactic Acid Calcium Phosphorus Magnesium Total Bilirubin AST ALT Alkaline Phosphatase Total Protein Albumin Active Medications Generic Name Dose Route Start Last Admin Trade Name Freq PRN Reason Stop Dose Admin Albuterol/Ipratropium 1 amp 09/08/17 14:00 09/11/17 06:27 Duoneb - NEB 1 amp TIDR KANDY Administration Desmopressin Acetate 2 mcg 09/09/17 16:01 09/11/17 09:30 Ddavp Injection - IVPB 2 mcg BID KANDY Administration Dextrose 1,000 mls @ 150 mls/hr 09/09/17 22:10 09/10/17 22:58 D5w - IV 150 mls/hr ASDIR KANDY Administration Ceftriaxone Sodium 2 gm/ 100 mls @ 200 mls/hr 09/11/17 10:00 09/11/17 09:51 Dextrose IVPB 200 mls/hr DAILY KANDY Administration Lactulose 20 gm 09/09/17 15:30 09/11/17 09:27 Cephulac (Oral Use) GT 20 gm QID KANDY Administration Lorazepam 1 mg 09/08/17 17:40 Ativan Injection - IVPUSH Q6H PRN ANXIETY Pantoprazole Sodium 40 mg 09/09/17 12:45 09/11/17 09:31 Protonix Iv IVPUSH 40 mg DAILY KANDY Administration Multivit/Folic Acid/Iron 1 tab 09/08/17 17:45 09/11/17 09:52 Vitamins (Sjr) - PO 1 tab DAILY KANDY Administration Sucralfate 1 gm 09/07/17 18:00 09/11/17 09:28 Carafate - PO 1 gm QID KANDY Administration Thiamine HCl 100 mg 09/08/17 22:00 09/10/17 23:17 Vitamin B1 - PO 100 mg HS KANDY Administration ASSESSMENT/PLAN: 37M with multiple medical problems presented to the ICU with septic shock requiring aggressive resuscitation and pressors found unresponsive with massive ICH and midline shift, intubated. Neuro Altered Mental Status/hepatic encephalopathy ICH with 2 cm midline shift -Repeat head CT revealed no interval change -Neurosurgery on board, Dr. Steiner -Neurology on board, Dr. Arley -Elevate head of bed, keep patient hypocarbic -Vit K/FFP as needed -Monitor PT/INR, H/H -Neuro checks -Last INR 2.35 Resp Acute respiratory failure -Intubated -No sedation -Taking spontaneous respirations, but cannot be weaned currently ID Septic shock secondary to Gram Positive Bacteremia -Dr Cosby on board -Ceftriaxone 2g daily -Patient off pressors Nephro Acute Kidney Injury DI -monitor Cr -Resolved -Serum osm q4h, urine osm- will repeat. If patient is no longer in DI, we can stop the Desmopressin and continue D5 -BMP q4h -Continue ddAVP 2 mcg bid GI Liver failure/Alcoholic liver cirrhosis -Lactulose 20 gm GT q6h -Dr Kuhn on board Heme Coagulopathy/Thrombocytopenia -Vit K, FFP, Plts given prior -Monitor CBC FEN/GI -No IVF at this time -Hypophosphetemia and hypokalemia, will replete -NPO PPx -SCDs/supratherapeutic INR -IV protonix for GI PPx Dispo: Poor prognosis, family meeting yesterday. Patient made DNR. Visit type - Emergency Visit Emergency Visit: Yes ED Registration Date: 09/07/17 Care time: The patient presented to the Emergency Department on the above date and was hospitalized for further evaluation of their emergent condition. - New Patient This patient is new to me today: Yes Date on this admission: 09/11/17 - Critical Care Critical Care patient: Yes Total Critical Care Time (in minutes): 40 Critical Care Statement: The care of this patient involved high complexity decision making to prevent further life threatening deterioration of the patient 's condition and/or to evaluate & treat vital organ system(s) failure or risk of failure.
--- NOTE | 2017-09-11 12:56 | PN ---
Teaching Attending Note Name of Resident: Jhonatan Oden ATTENDING PHYSICIAN STATEMENT I saw and evaluated the patient. I reviewed the resident's note and discussed the case with the resident. I agree with the resident's findings and plan as documented. SUBJECTIVE: Pt seen and examined in the ICU. Remains intubated, unresponsive off sedation. Hypothermic overnight. Still with spontaneous breaths. OBJECTIVE: Last Vital Signs Temp Pulse Resp BP Pulse Ox 98.1 F 86 16 97/41 95 09/11/17 10:00 09/11/17 12:00 09/11/17 12:00 09/11/17 12:00 09/11/17 10:26 Intake & Output 09/08/17 09/09/17 09/10/17 09/11/17 23:59 23:59 23:59 23:59 Intake Total 7132 3119 3375 1300 Output Total 2900 6000 900 250 Balance 4278 -5302 2475 1050 Weight 117.934 kg 116.12 kg 117.617 kg Gen: intubated, unresponsive HEENT: pupils fixed, dilated, no oculocephalic reflex Heart: RRR Lung: decreased breath sounds at the bases Abd: soft, nontender Ext: + edema CBC, BMP 09/11/17 06:00 INR, PTT INR 2.35 (0.82-1.09) H 09/11/17 06:00 Active Medications Albuterol/Ipratropium (Duoneb -) 1 amp NEB TIDR [facility] Last Admin: 09/11/17 06:27 Dose: 1 amp Desmopressin Acetate (Ddavp Injection -) 2 mcg IVPB BID [facility] Last Admin: 09/11/17 09:30 Dose: 2 mcg Dextrose (D5w -) 1,000 mls @ 150 mls/hr IV ASDIR KANDY Last Admin: 09/10/17 22:58 Dose: 150 mls/hr Ceftriaxone Sodium 2 gm/ (Dextrose) 100 mls @ 200 mls/hr IVPB DAILY [facility] Last Admin: 09/11/17 09:51 Dose: 200 mls/hr Lactulose (Cephulac (Oral Use)) 20 gm GT QID [facility] Last Admin: 09/11/17 09:27 Dose: 20 gm Lorazepam (Ativan Injection -) 1 mg IVPUSH Q6H PRN PRN Reason: ANXIETY Pantoprazole Sodium (Protonix Iv) 40 mg IVPUSH DAILY [facility] Last Admin: 09/11/17 09:31 Dose: 40 mg Multivit/Folic Acid/Iron ( Vitamins (Sjr) -) 1 tab PO DAILY [facility] Last Admin: 09/11/17 09:52 Dose: 1 tab Sucralfate (Carafate -) 1 gm PO QID [facility] Last Admin: 09/11/17 09:28 Dose: 1 gm Thiamine HCl (Vitamin B1 -) 100 mg PO HS [facility] Last Admin: 09/10/17 23:17 Dose: 100 mg ASSESSMENT AND PLAN: Acute Respiratory Failure Intracranial Hemorrhage Alpha Strep Bacteremia Septic Shock Acute Kidney Injury Lactic Acidosis Alcoholic Liver Cirrhosis Hepatic Encephalopathy Cocaine Abuse Coagulopathy Thrombocytopenia Diabetes Insipidus - recheck serum, urine osms - continue desmopressin, D5W for now - monitor BMP - elevate HOB, keep hypocarbic - monitor coags, platelets - transfuse FFP, platelets - vitamin K - neuro checks - continue antibiotics - monitor urine output, creatinine - replete lytes - hold all sedation to assess mental status - not a candidate for weaning at this time - DVT/GI prophylaxis - continue ICU monitoring - poor overall prognosis for meaningful recovery, per meeting with siblings yesterday pt DNR but continue supportive measures at this time critical care time spent in reviewing chart, evaluating patient and formulating plan 35 min
[2017-09-11 13:06] LABS: ANION GAP 8 (8-16); CALCIUM 7.9 mg/dL (8.5-10.1); CO2 24 mmol/L (21-32); CREATININE 1.3 mg/dL (0.7-1.3); GLUCOSE,RANDOM 87 mg/dL (74-106)
--- NOTE | 2017-09-11 15:28 | PN ---
Progress Note (short form) - Note Progress Note: 7 y o m with PMHx chronic alcoholism, actively drinking on last admission requiring detox, as per chart last drink 2 days prior to admission and cocaine use day of admission, liver cirrhosis, HCV, esophageal varices (banding 09/03/17 ), portal hypertension, liver failure, presented to the ED w AMS, +cocaine, found to have large L F/T/P ICH with midline extension and uncal herniation and compression on 4 th ventricle. Pt unresponsive, intubated , no sedation x18 hours CT BRAIN Examination of the bone windows show no fracture. Impression. Large left cerebellar hematoma with diffuse edema involving left cerebral hemisphere, loss of differentiation between the white and galvan matter. Midline shift of midline structure to the right approximately 2 cm. Intraventricular hemorrhage. Compress left lateral ventricle. Dilated right lateral ventricle. Subfalcine, uncal herniation. Effaced prepontine cistern. FU : unresponsive , was able to overbreath vent no other changes, no sz activity noted clinically family by bedside - History Source History Provided By: Medical Record - Past Medical History Cardio/Vascular: Yes: HTN Gastrointestinal: Yes: Diverticulosis, Esophageal Varices, GI Bleed, Other ( hemorrhoidal bleeding) Hepatobiliary: Yes: Cirrhosis (alcoholic), Hepatitis C Psych: Yes: Depression - Past Surgical History Past Surgical History: Yes: None - Alcohol/Substance Use Hx Alcohol Use: Yes (BEERS-09/03/17) History of Substance Use: reports: Cocaine, Heroin, Marijuana - Smoking History Smoking history: Never smoked Have you smoked in the past 12 months: No If you are a former smoker, when did you quit?: over 10 years ago but still smokes marijuana - Social History Usual Living Arrangement: Other (lives with sister) ADL: Support Services Occupation: disabled kitchen staff worker History of Recent Travel: No Home Medications - Allergies Allergies/Adverse Reactions: Allergies Allergy/AdvReac Type Severity Reaction Status Date / Time No Known Allergies Allergy Verified 09/07/17 13:01 - Home Medications Home Medications: Ambulatory Orders Folic Acid 1 mg PO DAILY 09/07/17 Lactulose [Cephulac -] 30 gm PO QID 09/07/17 Pantoprazole Sodium [Protonix] 40 mg PO BID 09/07/17 Prazosin HCl [Minipress -] 1 mg PO TID 09/07/17 Rifaximin [Xifaxan] 550 mg PO BID 09/07/17 Sertraline HCl [Zoloft -] 50 mg PO DAILY 09/07/17 Sucralfate [Carafate -] 1 gm PO QID 09/07/17 Thiamine HCl [Vitamin B-1] 100 mg PO DAILY 09/07/17 Family Disease History - Family Disease History Family Disease History: Diabetes: Father ( of diabetic complications), Other : Mother ( age 40 of cirrhosis) Physical Exam-Neuro Vital Signs: Vital Signs Temperature 97.7 F 09/11/17 14:00 Pulse Rate 85 09/11/17 14:00 Respiratory Rate 16 09/11/17 14:51 Blood Pressure 107/49 09/11/17 14:00 O2 Sat by Pulse Oximetry (%) 95 09/11/17 10:26 Labs: CBC, BMP CBC, BMP 09/11/17 06:00 09/11/17 12:30 - Neuro Exam Level Of Consciousness: Yes: Comatose (breathing with vent , eyes closed, unresponsive, -Dolls, -corneals, , fixed and dilated pupils, no focal twitching , no withdrawl of LE , planatars down) Imaging - Results Cat Scan: Report Reviewed, Image Reviewed Problem List - Problems (1) Alcohol dependence Code(s): F10.20 - ALCOHOL DEPENDENCE, UNCOMPLICATED (2) Cocaine dependence Code(s): F14.20 - COCAINE DEPENDENCE, UNCOMPLICATED (3) Hepatic encephalopathy Code(s): K72.90 - HEPATIC FAILURE, UNSPECIFIED WITHOUT COMA (4) Intracranial hemorrhage Code(s): I62.9 - NONTRAUMATIC INTRACRANIAL HEMORRHAGE, UNSPECIFIED Assessment/Plan 7 y o m with PMHx chronic alcoholism, actively drinking on last admission requiring detox, as per chart last drink 2 days prior to admission and cocaine use day of admission, liver cirrhosis, HCV, esophageal varices (banding 09/03/17 ), portal hypertension, liver failure, presented to the ED w AMS, +cocaine, found to have large L F/T/P ICH with midline extension and uncal herniation and compression on 4 th ventricle. Pt unresponsive, intubated , no sedation ICH--cocaine /coagulopathy with ETOH cirrhosis contributing factors devastating ICH , with herniation and impending hydrocephalus-- clinically appears to have no cortical or brainstem reflexes --minimally overbreathing vent spoke to , no chance of reconvey given this mechanism and cobmorbid state and radiographic findings palliative /withdrawal measures when family agrees , now DNR spoke to floor team Dr Tubbs Problem List - Problems (1) Alcohol dependence Code(s): F10.20 - ALCOHOL DEPENDENCE, UNCOMPLICATED (2) Cocaine dependence Code(s): F14.20 - COCAINE DEPENDENCE, UNCOMPLICATED (3) Hepatic encephalopathy Code(s): K72.90 - HEPATIC FAILURE, UNSPECIFIED WITHOUT COMA (4) Intracranial hemorrhage Code(s): I62.9 - NONTRAUMATIC INTRACRANIAL HEMORRHAGE, UNSPECIFIED
[2017-09-11 17:08] LABS: EOS # 0.4 # (0-4.5); LYMPH # 1.1 (8-40); MCH 25.6 pg (25.7-33.7); MCHC 31.4 g/dl (32.0-35.9); MEAN CELL VOLUME 81.4 fl (80-96); MEAN PLT VOLUME 8.7 fl (7.5-11.1); MONO # 1.3 # (3.8-10.2); NEUT # 3.6 # (42.8-82.8); PLATELET COUNT 48 K/MM3 (134-434); RDW 21.6 % (11.9-15.9); WHITE BLOOD COUNT 6.4 K/mm3 (4.0-10.0)
[2017-09-11 18:05] LABS: ANION GAP 6 (8-16); CALCIUM 7.9 mg/dL (8.5-10.1); CO2 25 mmol/L (21-32); GLUCOSE,RANDOM 90 mg/dL (74-106)
[2017-09-11 18:06] LABS: CREATININE 1.6 mg/dL (0.7-1.3)
--- NOTE | 2017-09-11 19:13 | PN ---
Physical Exam: SUBJECTIVE: Patient seen and examined in ICU. intubated, no response to noxious stimuli, family at bedside OBJECTIVE: Vital Signs Period Temp Pulse Resp BP Sys/[place] Pulse Ox Last 24 Hr 95.3 F-98.1 F 60-86 14-16 97-107/41-62 95-97 Neuro: unresponsive HEENT: pupils fixed, dilated, no oculocephalic reflex, OG tube Pulm: decreased, + MV CV: s1 s2 tachycardia Abd: soft, nontender non distended : quiros w/ clots Ext: + edema Laboratory Results - last 24 hr 09/10/17 09/10/17 09/11/17 19:00 19:00 06:00 WBC RBC Hgb Hct MCV MCH MCHC RDW Plt Count MPV Absolute Neuts (auto) Absolute Lymphs (auto) Absolute Monos (auto) Absolute Eos (auto) Absolute Basos (auto) Total Counted Neutrophils % Neutrophils % (Manual) Band Neutrophils % Lymphocytes % Lymphocytes % (Manual) Monocytes % (Manual) Eosinophils % (Manual) Myelocytes % (Man) Metamyelocytes Platelet Estimate PT with INR INR Puncture Site ABG pH ABG pCO2 at Pt Temp ABG pO2 at Pt Temp ABG HCO3 ABG O2 Sat (Measured) ABG O2 Content ABG Base Excess Luther Test O2 Delivery Device Oxygen Flow Rate Vent Rate Mechanical Rate PEEP Pressure Support Vent Sodium 158 H Potassium 3.5 Chloride 127 H Carbon Dioxide 24 Anion Gap 7 L BUN 14 Creatinine 1.0 Creat Clearance w eGFR Random Glucose 66 L D Serum Osmolality 321 H 316 H Calcium 7.8 L Phosphorus Magnesium Total Bilirubin AST ALT Alkaline Phosphatase Total Protein Albumin Urine Osmolality 09/11/17 09/11/17 09/11/17 06:00 06:00 06:00 WBC 4.8 RBC 3.41 L Hgb 8.8 L Hct 27.4 L MCV 80.4 MCH 25.8 MCHC 32.1 RDW 21.7 H Plt Count 50 L D MPV 9.1 Absolute Neuts (auto) Absolute Lymphs (auto) Absolute Monos (auto) Absolute Eos (auto) Absolute Basos (auto) Total Counted 100 Neutrophils % No Result Required. Neutrophils % (Manual) 67.0 Band Neutrophils % 1.0 Lymphocytes % No Result Required. Lymphocytes % (Manual) 13.0 Monocytes % (Manual) 14 H Eosinophils % (Manual) 3.0 D Myelocytes % (Man) 1 D Metamyelocytes 1 D Platelet Estimate Decreased PT with INR 26.50 H INR 2.35 H Puncture Site ABG pH ABG pCO2 at Pt Temp ABG pO2 at Pt Temp ABG HCO3 ABG O2 Sat (Measured) ABG O2 Content ABG Base Excess Luther Test O2 Delivery Device Oxygen Flow Rate Vent Rate Mechanical Rate PEEP Pressure Support Vent Sodium 156 H Potassium 3.0 L Chloride 125 H Carbon Dioxide 24 Anion Gap 7 L BUN 14 Creatinine 1.0 Creat Clearance w eGFR > 60 Random Glucose 90 D Serum Osmolality Calcium 8.3 L Phosphorus 2.3 L D Magnesium 1.8 Total Bilirubin 3.1 H AST 80 H ALT 34 Alkaline Phosphatase 78 Total Protein 6.6 Albumin 1.8 L Urine Osmolality 09/11/17 09/11/17 09/11/17 07:35 12:30 12:30 WBC RBC Hgb Hct MCV MCH MCHC RDW Plt Count MPV Absolute Neuts (auto) Absolute Lymphs (auto) Absolute Monos (auto) Absolute Eos (auto) Absolute Basos (auto) Total Counted Neutrophils % Neutrophils % (Manual) Band Neutrophils % Lymphocytes % Lymphocytes % (Manual) Monocytes % (Manual) Eosinophils % (Manual) Myelocytes % (Man) Metamyelocytes Platelet Estimate PT with INR INR Puncture Site Right radial ABG pH 7.36 ABG pCO2 at Pt Temp 42.9 ABG pO2 at Pt Temp 84.3 ABG HCO3 23.8 ABG O2 Sat (Measured) 95.8 ABG O2 Content 11.5 L ABG Base Excess -1.0 Luther Test Positive O2 Delivery Device A/c Oxygen Flow Rate 40 Vent Rate 14 Mechanical Rate Yes PEEP 5.0 Pressure Support Vent 450 Sodium 155 H Potassium 3.8 D Chloride 123 H Carbon Dioxide 24 Anion Gap 8 BUN 15 Creatinine 1.3 D Creat Clearance w eGFR Random Glucose 87 Serum Osmolality 316 H Calcium 7.9 L Phosphorus Magnesium Total Bilirubin AST ALT Alkaline Phosphatase Total Protein Albumin Urine Osmolality 09/11/17 09/11/17 09/11/17 14:45 16:45 16:45 WBC RBC Hgb Hct MCV MCH MCHC RDW Plt Count MPV Absolute Neuts (auto) Absolute Lymphs (auto) Absolute Monos (auto) Absolute Eos (auto) Absolute Basos (auto) Total Counted Neutrophils % Neutrophils % (Manual) Band Neutrophils % Lymphocytes % Lymphocytes % (Manual) Monocytes % (Manual) Eosinophils % (Manual) Myelocytes % (Man) Metamyelocytes Platelet Estimate PT with INR INR Puncture Site ABG pH ABG pCO2 at Pt Temp ABG pO2 at Pt Temp ABG HCO3 ABG O2 Sat (Measured) ABG O2 Content ABG Base Excess Luther Test O2 Delivery Device Oxygen Flow Rate Vent Rate Mechanical Rate PEEP Pressure Support Vent Sodium 153 H Potassium 3.5 Chloride 122 H Carbon Dioxide 25 Anion Gap 6 L BUN 16 Creatinine 1.6 H D Creat Clearance w eGFR Random Glucose 90 Serum Osmolality 317 H Calcium 7.9 L Phosphorus Magnesium Total Bilirubin AST ALT Alkaline Phosphatase Total Protein Albumin Urine Osmolality 525 D 09/11/17 16:45 WBC 6.4 D RBC 3.36 L Hgb 8.6 L Hct 27.3 L MCV 81.4 MCH 25.6 L MCHC 31.4 L RDW 21.6 H Plt Count 48 L MPV 8.7 Absolute Neuts (auto) 3.6 L Absolute Lymphs (auto) 1.1 L Absolute Monos (auto) 1.3 L Absolute Eos (auto) 0.4 Absolute Basos (auto) 0.0 L Total Counted Neutrophils % No Result Required. Neutrophils % (Manual) Band Neutrophils % Lymphocytes % No Result Required. Lymphocytes % (Manual) Monocytes % (Manual) Eosinophils % (Manual) Myelocytes % (Man) Metamyelocytes Platelet Estimate PT with INR INR Puncture Site ABG pH ABG pCO2 at Pt Temp ABG pO2 at Pt Temp ABG HCO3 ABG O2 Sat (Measured) ABG O2 Content ABG Base Excess Luther Test O2 Delivery Device Oxygen Flow Rate Vent Rate Mechanical Rate PEEP Pressure Support Vent Sodium Potassium Chloride Carbon Dioxide Anion Gap BUN Creatinine Creat Clearance w eGFR Random Glucose Serum Osmolality Calcium Phosphorus Magnesium Total Bilirubin AST ALT Alkaline Phosphatase Total Protein Albumin Urine Osmolality Active Medications Generic Name Dose Route Start Last Admin Trade Name Freq PRN Reason Stop Dose Admin Albuterol/Ipratropium 1 amp 09/08/17 14:00 09/11/17 14:52 Duoneb - NEB 1 amp TIDR KANDY Administration Desmopressin Acetate 2 mcg 09/09/17 16:01 09/11/17 09:30 Ddavp Injection - IVPB 2 mcg BID KANDY Administration Dextrose 1,000 mls @ 150 mls/hr 09/09/17 22:10 09/10/17 22:58 D5w - IV 150 mls/hr ASDIR KANDY Administration Ceftriaxone Sodium 2 gm/ 100 mls @ 200 mls/hr 09/11/17 10:00 09/11/17 09:51 Dextrose IVPB 200 mls/hr DAILY KANDY Administration Lactulose 20 gm 09/09/17 15:30 09/11/17 17:40 Cephulac (Oral Use) GT 20 gm QID KANDY Administration Lorazepam 1 mg 09/08/17 17:40 Ativan Injection - IVPUSH Q6H PRN ANXIETY Pantoprazole Sodium 40 mg 09/09/17 12:45 09/11/17 09:31 Protonix Iv IVPUSH 40 mg DAILY KANDY Administration Multivit/Folic Acid/Iron 1 tab 09/08/17 17:45 09/11/17 09:52 Vitamins (Sjr) - PO 1 tab DAILY KANDY Administration Sucralfate 1 gm 09/07/17 18:00 09/11/17 17:41 Carafate - PO 1 gm QID KANDY Administration Thiamine HCl 100 mg 09/08/17 22:00 09/10/17 23:17 Vitamin B1 - PO 100 mg HS KANDY Administration Microbiology 09/09/17 06:20 Blood - Peripheral Venous Blood Culture - Preliminary NO GROWTH OBTAINED AFTER 48 HOURS, INCUBATION TO CONTINUE FOR 3 DAYS. 09/09/17 06:56 Blood - Peripheral Venous Blood Culture - Preliminary NO GROWTH OBTAINED AFTER 48 HOURS, INCUBATION TO CONTINUE FOR 3 DAYS. 09/07/17 13:47 Blood - Peripheral Venous Blood Culture - Preliminary Alpha Hemolytic Streptococcus 09/07/17 13:47 Blood - Peripheral Venous Blood Culture - Final Streptococcus Salivarius 09/09/17 13:11 Urine For Antigen Detection Legionella Antigen - Final 09/09/17 13:11 Urine For Antigen Detection Streptococcus pneumoniae Antigen (M - Final 09/08/17 03:37 Urine - Urine Clean Catch Urine Culture - Final NO GROWTH OBTAINED 09/08/17 11:35 Nasopharyngeal Swab Influenza Types A,B Antigen (FLORIDALMA) - Final 09/08/17 11:35 Nasopharyngeal Swab - Final Imagin/19 CT head: large left cerebellar hematoma with diffuse edema involving left cerebral hemisphere; midline shift 2cm; intraventricular hemorrhage; compressed left lateral ventricle, dilated right lateral ventricle; uncal herniation Assessment: 37 year old male with PMH significant for liver cirrhosis, HCV, esophageal varices (banding 09/03/17), portal hypertension, polysubstance abuse (alcohol, cocaine). Hospital course complicated by septic shock and large, severe intracranial bleed. Plan: 1. Intracranial hemorrhage with herniation and impending hydrocephalus - Vent dependent - No corneal or gag reflexes; pupils fixed and dilated - Per Neurosurgery no surgical intervention - DNR status, but for now will maintain intubation 2. Severe sepsis likely secondary to strep pneumonia - Off pressors - Started on ceftriaxone 2gms today 3. Liver cirrhosis/Hep C/Esophageal varices s/p banding/ Portal hypertension/ Hepatic encephalopathy - No ascites, low suspicion for SBP - Continue lactulose enemas q6h 4. Acute respiratory failure - Intubated, off sedation 5. DI - Urine osom >300 now 525 - Will discontinue vasopressin BID - Keep D5w 6. Coagulopathy/Thrombocytopenia - Vit K, FFP, Plts given - Monitor CBC 7. Hypernatremia - On d5w 150cc/hr 8. Hypophosphatemia - Replete per ICU team 9. Polysubstance abuse - No withdrawal at this time 10. DVT prophylaxis: SCDs 11. GI prophylaxis: protonix, carafate Dispo: - Prognosis grave, chances for functional recovery is none Visit type - Emergency Visit Emergency Visit: Yes ED Registration Date: 09/07/17 Care time: The patient presented to the Emergency Department on the above date and was hospitalized for further evaluation of their emergent condition. - New Patient This patient is new to me today: Yes Date on this admission: 09/11/17 - Critical Care Critical Care patient: Yes Total Critical Care Time (in minutes): 35 Critical Care Statement: The care of this patient involved high complexity decision making to prevent further life threatening deterioration of the patient 's condition and/or to evaluate & treat vital organ system(s) failure or risk of failure.
[2017-09-11 21:29] LABS: ANISOCYTOSIS 1+; HYPOCHROMIA 2+; MACROCYTOSIS 1+; MICROCYTOSIS 1+; PROMYELOCYTE 1 % (0-2)
[2017-09-11] MEDS: THIAMINE HCL 100 MG TABLET (FP) PO SCH (21:50)
[2017-09-11] MEDS: DEXTROSE 5%-WATER - 1,000 ML IV SCH (21:50)
[2017-09-12] MEDS: ALBUTEROL SO4 2.5/IPRATROPIUM 0.5 INH SOL 3 ML VIAL.NEB. NEB SCH (06:36)
[2017-09-12 06:39] LABS: EOS # 0.4 # (0-4.5); LYMPH # 1.3 (8-40); MCH 26.1 pg (25.7-33.7); MEAN CELL VOLUME 81.6 fl (80-96); MEAN PLT VOLUME 9.6 fl (7.5-11.1); MONO # 1.5 # (3.8-10.2); NEUT # 5.1 # (42.8-82.8); PLATELET COUNT 59 K/MM3 (134-434); RDW 21.6 % (11.9-15.9); WHITE BLOOD COUNT 8.3 K/mm3 (4.0-10.0)
[2017-09-12 07:07] LABS: ALBUMIN 1.7 g/dl (3.4-5.0); ANION GAP 6 (8-16); CALCIUM 7.7 mg/dL (8.5-10.1); CO2 25 mmol/L (21-32); GLUCOSE,RANDOM 77 mg/dL (74-106); MAGNESIUM 1.5 mg/dL (1.8-2.4)
[2017-09-12 07:10] LABS: ALK PHOS 98 U/L (45-117); BILIRUBIN,TOTAL 3.5 mg/dL (0.2-1.0); CREATININE 2.4 mg/dL (0.7-1.3); PHOSPHOROUS 5.3 mg/dL (2.5-4.9); SGOT/AST 155 U/L (15-37); SGPT/ALT 34 U/L (12-78); TOT PROT 6.6 g/dl (6.4-8.2)
[2017-09-12 07:24] LABS: INR 2.84 (0.82-1.09); PROTHROMBIN TIME (PATIENT) 32.1 SEC (9.98-11.88)
--- NOTE | 2017-09-12 08:49 | PN ---
Progress Note (short form) - Note Progress Note: NEUROSURGERY Intubated On vanco PE: T 97.2, VSS Not breathing over the vent HEENT- NC/AT; Neck- no bruit; Cor- reg; Chest- decreased BS at bases; Abd- obese ; Ext- edema GCS- 3T CN- Pupils B F/D (L 7 mm; R 6 mm), No corneal reflex, no gag, no Doll's; Motor- no movement to voice or pain; Sensation- unable to assess; Blood culture- 2/2 alpha hemolytic strep sensitive to cephalosporin Head CT 12-19: Large L parietal parenchymal hemorrhage extending into B lateral ventricle; 2 cm L to R shift; basal and perimesecephalic cisterns obliterated Repeat head CT: more blurring/ground glass appearance of entire L hemisphere; otherwise without major change L parietal ICH with extension into lateral ventricle and significant midline shift (?cocaine related and exacerbated by hepatic dysfunction and coagulopathy) , no detectible neurological function Prognosis grave; no chance of functional recovery No neurosurgical intervention indicated nor appropriate On ceftriaxone per ID Will sign off
[2017-09-12] MEDS ORDERED: MAGNESIUM SULF 50% (8.12 MEQ/2 ML-1 GM VIAL) IVPB ONE (09:00)
[2017-09-12 09:15] LABS: ANISOCYTOSIS 0; HYPOCHROMIA 3+; MACROCYTOSIS 0; MICROCYTOSIS 1+; MYELOCYTE 0 % (0-2); POIKILOCYTOSIS 1+; POLYCHROMASIA 0; REACTIVE LYMPHOCYTES 0 % (0-80); TARGET CELLS 2+
[2017-09-12 09:19] LABS: METAMYELOCYTE 7 % (0-2)
[2017-09-12] MEDS ORDERED: PT OWN MED DRAWER 7, Y5N ONE (09:49)
[2017-09-12] MEDS: CEFTRIAXONE 2 GM in DEXTROSE 5%-WATER - 100 ML IVPB SCH (10:22)
[2017-09-12] MEDS: PANTOPRAZOLE SODIUM 40 MG VIAL IVPUSH SCH (10:24)
[2017-09-12] MEDS: DEXTROSE 5%-WATER - 1,000 ML IV SCH (10:25)
[2017-09-12] MEDS: PRENATAL VITAMINS W/ FOLIC ACID TABLET (FP) PO SCH (10:31)
[2017-09-12] MEDS: SUCRALFATE 1 GM TABLET (FP) PO SCH (10:31)
[2017-09-12] MEDS: LACTULOSE 20 GM/30 ML UDC (FOR ORAL USE ONLY) GT SCH (10:31)
[2017-09-12 11:12] VITALS: TEMP 98.3
--- NOTE | 2017-09-12 12:33 | PN ---
Teaching Attending Note Name of Resident: Jhonatan Oden ATTENDING PHYSICIAN STATEMENT I saw and evaluated the patient. I reviewed the resident's note and discussed the case with the resident. I agree with the resident's findings and plan as documented. SUBJECTIVE: Patient seen and examined in the ICU. Remains intubated, unresponsive off sedation. No spontaneous breaths noted. Clinical exam reveals no indication of cortical function. Meeting with family members and 2 sisters over the phone that are in [place]. The family is very clear that the patient and the family would want him compassionately extubated and not remain on life support. OBJECTIVE: Gen: intubated, unresponsive HEENT: pupils fixed, dilated, no oculocephalic reflex Heart: RRR Lung: decreased breath sounds at the bases Abd: soft, nontender Ext: + edema Laboratory Results - last 24 hr 09/11/17 09/11/17 09/11/17 12:30 12:30 14:45 WBC RBC Hgb Hct MCV MCH MCHC RDW Plt Count MPV Absolute Neuts (auto) Absolute Lymphs (auto) Absolute Monos (auto) Absolute Eos (auto) Absolute Basos (auto) Neutrophils % Neutrophils % (Manual) Band Neutrophils % Lymphocytes % Lymphocytes % (Manual) Monocytes % (Manual) Eosinophils % (Manual) Basophils % (Manual) Myelocytes % (Man) Promyelocytes % (Man) Metamyelocytes Hypochromia Polychromasia Poikilocytosis Anisocytosis Microcytosis Macrocytosis Target Cells Fragmented RBCs PT with INR INR Sodium 155 H Potassium 3.8 D Chloride 123 H Carbon Dioxide 24 Anion Gap 8 BUN 15 Creatinine 1.3 D Creat Clearance w eGFR Random Glucose 87 Serum Osmolality 316 H Calcium 7.9 L Phosphorus Magnesium Total Bilirubin AST ALT Alkaline Phosphatase Total Protein Albumin Urine Osmolality 525 D 09/11/17 09/11/17 09/11/17 16:45 16:45 16:45 WBC 6.4 D RBC 3.36 L Hgb 8.6 L Hct 27.3 L MCV 81.4 MCH 25.6 L MCHC 31.4 L RDW 21.6 H Plt Count 48 L MPV 8.7 Absolute Neuts (auto) 3.6 L Absolute Lymphs (auto) 1.1 L Absolute Monos (auto) 1.3 L Absolute Eos (auto) 0.4 Absolute Basos (auto) 0.0 L Neutrophils % No Result Required. Neutrophils % (Manual) 57.0 Band Neutrophils % 1.0 Lymphocytes % No Result Required. Lymphocytes % (Manual) 16.0 D Monocytes % (Manual) 19 H* Eosinophils % (Manual) 6.0 H D Basophils % (Manual) Myelocytes % (Man) Promyelocytes % (Man) 1 Metamyelocytes Hypochromia 2+ Polychromasia Poikilocytosis Anisocytosis 1+ Microcytosis 1+ Macrocytosis 1+ Target Cells Fragmented RBCs PT with INR INR Sodium 153 H Potassium 3.5 Chloride 122 H Carbon Dioxide 25 Anion Gap 6 L BUN 16 Creatinine 1.6 H D Creat Clearance w eGFR Random Glucose 90 Serum Osmolality 317 H Calcium 7.9 L Phosphorus Magnesium Total Bilirubin AST ALT Alkaline Phosphatase Total Protein Albumin Urine Osmolality 09/12/17 09/12/17 09/12/17 06:20 06:20 06:20 WBC 8.3 RBC 3.31 L Hgb 8.6 L Hct 27.0 L MCV 81.6 MCH 26.1 MCHC 32.0 RDW 21.6 H Plt Count 59 L D MPV 9.6 D Absolute Neuts (auto) 5.1 L D Absolute Lymphs (auto) 1.3 L Absolute Monos (auto) 1.5 L Absolute Eos (auto) 0.4 Absolute Basos (auto) 0.0 L Neutrophils % No Result Required. Neutrophils % (Manual) 62.3 Band Neutrophils % 1.0 Lymphocytes % No Result Required. Lymphocytes % (Manual) 16.3 Monocytes % (Manual) 7 Eosinophils % (Manual) 6.1 H Basophils % (Manual) 0.0 Myelocytes % (Man) 0 D Promyelocytes % (Man) Metamyelocytes 7 H D Hypochromia 3+ Polychromasia 0 Poikilocytosis 1+ Anisocytosis 0 Microcytosis 1+ Macrocytosis 0 Target Cells 2+ Fragmented RBCs 1+ PT with INR 32.10 H INR 2.84 H Sodium Potassium Chloride Carbon Dioxide Anion Gap BUN Creatinine Creat Clearance w eGFR Random Glucose Serum Osmolality 303 Calcium Phosphorus Magnesium Total Bilirubin AST ALT Alkaline Phosphatase Total Protein Albumin Urine Osmolality 09/12/17 06:20 WBC RBC Hgb Hct MCV MCH MCHC RDW Plt Count MPV Absolute Neuts (auto) Absolute Lymphs (auto) Absolute Monos (auto) Absolute Eos (auto) Absolute Basos (auto) Neutrophils % Neutrophils % (Manual) Band Neutrophils % Lymphocytes % Lymphocytes % (Manual) Monocytes % (Manual) Eosinophils % (Manual) Basophils % (Manual) Myelocytes % (Man) Promyelocytes % (Man) Metamyelocytes Hypochromia Polychromasia Poikilocytosis Anisocytosis Microcytosis Macrocytosis Target Cells Fragmented RBCs PT with INR INR Sodium 148 H Potassium 3.7 Chloride 117 H Carbon Dioxide 25 Anion Gap 6 L BUN 19 H Creatinine 2.4 H D Creat Clearance w eGFR 30.61 Random Glucose 77 Serum Osmolality Calcium 7.7 L Phosphorus 5.3 H D Magnesium 1.5 L Total Bilirubin 3.5 H AST 155 H D ALT 34 Alkaline Phosphatase 98 D Total Protein 6.6 Albumin 1.7 L Urine Osmolality ASSESSMENT AND PLAN: Clinical exam consistent with Brain Acute Respiratory Failure Intracranial Hemorrhage Alpha Strep Bacteremia Septic Shock Acute Kidney Injury Lactic Acidosis Alcoholic Liver Cirrhosis Hepatic Encephalopathy Cocaine Abuse Coagulopathy Thrombocytopenia Diabetes Insipidus Apnea testing for confirmation Patient's family informed that organ donation will approach them The family are in agreement to remove Maximiliano from life support. We will comply with their wishes. Dr Shukla Critical care time spent in reviewing chart, evaluating patient and formulating plan 45 min
[2017-09-12 13:09] LABS: ARTERIAL BLD GAS O2 SATURATION 98.4 % (90-98.9); ARTERIAL BLOOD GAS BASE EXCESS -3.4 meq/l (-2-2); ARTERIAL BLOOD GAS HCO3 21.7 meq/L (22-26); ARTERIAL BLOOD GAS pH 7.33 (7.35-7.45)
[2017-09-12 13:12] LABS: ALLENS TEST POSITIVE; ART PUNCT SITE RIGHT RADIAL; LPM/O2% 40; MECH. VENT. YES; PT. ON O2? YES; TYPE OF O2 VENT; VENT RATE 14; VT/PRESS 450
--- NOTE | 2017-09-12 13:34 | PN ---
Progress Note (short form) - Note Progress Note: Apnea test attempted but could not be completed as patient desaturated to 76% within 55 seconds Will speak to family about further confirmatory testing if they want to proceed with organ donation vs compassionate weaning
--- NOTE | 2017-09-12 14:04 | PN ---
Physical Exam: SUBJECTIVE: Patient seen and examined in ICU Patient intubated and unresponsive off sedation. Patient did not provide any spontaneous breathing today. Meeting with family was held today. Apnea test attempted today but patient desatured to 76%. OBJECTIVE: Vital Signs Period Temp Pulse Resp BP Sys/[place] Pulse Ox Last 24 Hr 95.4 F-98.3 F 78-86 14-16 93-114/41-62 95-96 GENERAL: The patient is intubated and unresponsive off sedation HEAD: Normal with no signs of trauma. EYES: Pupils nonreactive, negative corneal reflex, no oculocephalic reflex, scleral icterus LUNGS: Breath sounds equal, Rhonchi heard scattered throughout, no accessory muscle use. No longer breathing spontaneously. HEART: Tachycardic, S1, S2 without murmur, rub or gallop. ABDOMEN: Soft, nontender, nondistended, normoactive bowel sounds, no guarding, no rebound, no hepatosplenomegaly, no masses. EXTREMITIES: + peripheral edema. NEUROLOGICAL: Hyporeflexive, unable to assess, no corneal reflex, No gag reflex , downgoing babinski bilaterally Laboratory Results - last 24 hr 09/11/17 09/11/17 09/11/17 12:30 14:45 16:45 WBC RBC Hgb Hct MCV MCH MCHC RDW Plt Count MPV Absolute Neuts (auto) Absolute Lymphs (auto) Absolute Monos (auto) Absolute Eos (auto) Absolute Basos (auto) Neutrophils % Neutrophils % (Manual) Band Neutrophils % Lymphocytes % Lymphocytes % (Manual) Monocytes % (Manual) Eosinophils % (Manual) Basophils % (Manual) Myelocytes % (Man) Promyelocytes % (Man) Metamyelocytes Hypochromia Polychromasia Poikilocytosis Anisocytosis Microcytosis Macrocytosis Target Cells Fragmented RBCs PT with INR INR Puncture Site ABG pH ABG pCO2 at Pt Temp ABG pO2 at Pt Temp ABG HCO3 ABG O2 Sat (Measured) ABG O2 Content ABG Base Excess Luther Test O2 Delivery Device Oxygen Flow Rate Vent Mode Vent Rate Mechanical Rate PEEP Pressure Support Vent Sodium Potassium Chloride Carbon Dioxide Anion Gap BUN Creatinine Creat Clearance w eGFR Random Glucose Serum Osmolality 316 H 317 H Calcium Phosphorus Magnesium Total Bilirubin AST ALT Alkaline Phosphatase Total Protein Albumin Urine Osmolality 525 D 09/11/17 09/11/17 09/12/17 16:45 16:45 06:20 WBC 6.4 D RBC 3.36 L Hgb 8.6 L Hct 27.3 L MCV 81.4 MCH 25.6 L MCHC 31.4 L RDW 21.6 H Plt Count 48 L MPV 8.7 Absolute Neuts (auto) 3.6 L Absolute Lymphs (auto) 1.1 L Absolute Monos (auto) 1.3 L Absolute Eos (auto) 0.4 Absolute Basos (auto) 0.0 L Neutrophils % No Result Required. Neutrophils % (Manual) 57.0 Band Neutrophils % 1.0 Lymphocytes % No Result Required. Lymphocytes % (Manual) 16.0 D Monocytes % (Manual) 19 H* Eosinophils % (Manual) 6.0 H D Basophils % (Manual) Myelocytes % (Man) Promyelocytes % (Man) 1 Metamyelocytes Hypochromia 2+ Polychromasia Poikilocytosis Anisocytosis 1+ Microcytosis 1+ Macrocytosis 1+ Target Cells Fragmented RBCs PT with INR INR Puncture Site ABG pH ABG pCO2 at Pt Temp ABG pO2 at Pt Temp ABG HCO3 ABG O2 Sat (Measured) ABG O2 Content ABG Base Excess Luther Test O2 Delivery Device Oxygen Flow Rate Vent Mode Vent Rate Mechanical Rate PEEP Pressure Support Vent Sodium 153 H Potassium 3.5 Chloride 122 H Carbon Dioxide 25 Anion Gap 6 L BUN 16 Creatinine 1.6 H D Creat Clearance w eGFR Random Glucose 90 Serum Osmolality 303 Calcium 7.9 L Phosphorus Magnesium Total Bilirubin AST ALT Alkaline Phosphatase Total Protein Albumin Urine Osmolality 09/12/17 09/12/17 09/12/17 06:20 06:20 06:20 WBC 8.3 RBC 3.31 L Hgb 8.6 L Hct 27.0 L MCV 81.6 MCH 26.1 MCHC 32.0 RDW 21.6 H Plt Count 59 L D MPV 9.6 D Absolute Neuts (auto) 5.1 L D Absolute Lymphs (auto) 1.3 L Absolute Monos (auto) 1.5 L Absolute Eos (auto) 0.4 Absolute Basos (auto) 0.0 L Neutrophils % No Result Required. Neutrophils % (Manual) 62.3 Band Neutrophils % 1.0 Lymphocytes % No Result Required. Lymphocytes % (Manual) 16.3 Monocytes % (Manual) 7 Eosinophils % (Manual) 6.1 H Basophils % (Manual) 0.0 Myelocytes % (Man) 0 D Promyelocytes % (Man) Metamyelocytes 7 H D Hypochromia 3+ Polychromasia 0 Poikilocytosis 1+ Anisocytosis 0 Microcytosis 1+ Macrocytosis 0 Target Cells 2+ Fragmented RBCs 1+ PT with INR 32.10 H INR 2.84 H Puncture Site ABG pH ABG pCO2 at Pt Temp ABG pO2 at Pt Temp ABG HCO3 ABG O2 Sat (Measured) ABG O2 Content ABG Base Excess Luther Test O2 Delivery Device Oxygen Flow Rate Vent Mode Vent Rate Mechanical Rate PEEP Pressure Support Vent Sodium 148 H Potassium 3.7 Chloride 117 H Carbon Dioxide 25 Anion Gap 6 L BUN 19 H Creatinine 2.4 H D Creat Clearance w eGFR 30.61 Random Glucose 77 Serum Osmolality Calcium 7.7 L Phosphorus 5.3 H D Magnesium 1.5 L Total Bilirubin 3.5 H AST 155 H D ALT 34 Alkaline Phosphatase 98 D Total Protein 6.6 Albumin 1.7 L Urine Osmolality 09/12/17 13:00 WBC RBC Hgb Hct MCV MCH MCHC RDW Plt Count MPV Absolute Neuts (auto) Absolute Lymphs (auto) Absolute Monos (auto) Absolute Eos (auto) Absolute Basos (auto) Neutrophils % Neutrophils % (Manual) Band Neutrophils % Lymphocytes % Lymphocytes % (Manual) Monocytes % (Manual) Eosinophils % (Manual) Basophils % (Manual) Myelocytes % (Man) Promyelocytes % (Man) Metamyelocytes Hypochromia Polychromasia Poikilocytosis Anisocytosis Microcytosis Macrocytosis Target Cells Fragmented RBCs PT with INR INR Puncture Site Right radial ABG pH 7.33 L ABG pCO2 at Pt Temp 42.7 ABG pO2 at Pt Temp 107.0 H D ABG HCO3 21.7 L ABG O2 Sat (Measured) 98.4 ABG O2 Content 11.4 L ABG Base Excess -3.4 L Luther Test Positive O2 Delivery Device Vent Oxygen Flow Rate 40 Vent Mode Vt Vent Rate 14 Mechanical Rate Yes PEEP 5.0 Pressure Support Vent 450 Sodium Potassium Chloride Carbon Dioxide Anion Gap BUN Creatinine Creat Clearance w eGFR Random Glucose Serum Osmolality Calcium Phosphorus Magnesium Total Bilirubin AST ALT Alkaline Phosphatase Total Protein Albumin Urine Osmolality Active Medications Generic Name Dose Route Start Last Admin Trade Name Freq PRN Reason Stop Dose Admin Albuterol/Ipratropium 1 amp 09/08/17 14:00 09/12/17 06:36 Duoneb - NEB 1 amp TIDR KANDY Administration Dextrose 1,000 mls @ 150 mls/hr 09/09/17 22:10 09/12/17 10:25 D5w - IV 150 mls/hr ASDIR KANDY Administration Ceftriaxone Sodium 2 gm/ 100 mls @ 200 mls/hr 09/11/17 10:00 09/12/17 10:22 Dextrose IVPB 200 mls/hr DAILY KANDY Administration Lactulose 20 gm 09/09/17 15:30 09/12/17 10:31 Cephulac (Oral Use) GT 20 gm QID KANDY Administration Lorazepam 1 mg 09/08/17 17:40 Ativan Injection - IVPUSH Q6H PRN ANXIETY Pantoprazole Sodium 40 mg 09/09/17 12:45 09/12/17 10:24 Protonix Iv IVPUSH 40 mg DAILY KANDY Administration Multivit/Folic Acid/Iron 1 tab 09/08/17 17:45 09/12/17 10:31 Vitamins (Sjr) - PO 1 tab DAILY KANDY Administration Sucralfate 1 gm 09/07/17 18:00 09/12/17 10:31 Carafate - PO 1 gm QID KANDY Administration Thiamine HCl 100 mg 09/08/17 22:00 09/11/17 21:50 Vitamin B1 - PO 100 mg HS KANDY Administration ASSESSMENT/PLAN: 37M with multiple medical problems presented to the ICU with septic shock requiring aggressive resuscitation and pressors found unresponsive with massive ICH and midline shift, intubated. Neuro Altered Mental Status/hepatic encephalopathy ICH with 2 cm midline shift -Repeat head CT revealed no interval change -Neurosurgery on board, Dr. Steiner -Neurology on board, Dr. Tubbs -Elevate head of bed, keep patient hypocarbic -Vit K/FFP as needed -Monitor PT/INR, H/H -Neuro checks -Last INR 2.35 -Family is in agreement to remove patient from life support. Resp Acute respiratory failure -Intubated -No sedation -Taking spontaneous respirations, but cannot be weaned currently -Family is in agreement to remove patient from life support ID Septic shock secondary to Gram Positive Bacteremia -Dr Cosby on board -Ceftriaxone 2g daily -Patient off pressors Nephro Acute Kidney Injury DI -monitor Cr -Resolved -ddAVP stopped -D5w continued GI Liver failure/Alcoholic liver cirrhosis -Lactulose 20 gm GT q6h -Dr Kuhn on board Heme Coagulopathy/Thrombocytopenia -Vit K, FFP, Plts given prior -Monitor CBC FEN/GI -No IVF at this time -WNL -NPO PPx -SCDs/supratherapeutic INR -IV protonix for GI PPx Dispo: Poor prognosis, family meeting today. Visit type - Emergency Visit Emergency Visit: Yes ED Registration Date: 09/07/17 Care time: The patient presented to the Emergency Department on the above date and was hospitalized for further evaluation of their emergent condition. - New Patient This patient is new to me today: Yes Date on this admission: 09/12/17 - Critical Care Critical Care patient: Yes Total Critical Care Time (in minutes): 45 Critical Care Statement: The care of this patient involved high complexity decision making to prevent further life threatening deterioration of the patient 's condition and/or to evaluate & treat vital organ system(s) failure or risk of failure.
[2017-09-12 14:31] VITALS: BP 100/38
--- NOTE | 2017-09-12 15:05 | PN ---
Progress Note (short form) - Note Progress Note: 37 y o m with PMHx chronic alcoholism, actively drinking on last admission requiring detox, as per chart last drink 2 days prior to admission and cocaine use day of admission, liver cirrhosis, HCV, esophageal varices (banding 09/03/17 ), portal hypertension, liver failure, presented to the ED w AMS, +cocaine, found to have large L F/T/P ICH with midline extension and uncal herniation and compression on 4 th ventricle. Pt unresponsive, intubated , no sedation x18 hours CT BRAIN Examination of the bone windows show no fracture. Impression. Large left cerebellar hematoma with diffuse edema involving left cerebral hemisphere, loss of differentiation between the white and galvan matter. Midline shift of midline structure to the right approximately 2 cm. Intraventricular hemorrhage. Compress left lateral ventricle. Dilated right lateral ventricle. Subfalcine, uncal herniation. Effaced prepontine cistern. FU : unresponsive , was unable to complete apnea , desat no other changes, no sz activity noted clinically family by bedside , deciding via organ harvest - History Source History Provided By: Medical Record - Past Medical History Cardio/Vascular: Yes: HTN Gastrointestinal: Yes: Diverticulosis, Esophageal Varices, GI Bleed, Other ( hemorrhoidal bleeding) Hepatobiliary: Yes: Cirrhosis (alcoholic), Hepatitis C Psych: Yes: Depression - Past Surgical History Past Surgical History: Yes: None - Alcohol/Substance Use Hx Alcohol Use: Yes (BEERS-09/03/17) History of Substance Use: reports: Cocaine, Heroin, Marijuana - Smoking History Smoking history: Never smoked Have you smoked in the past 12 months: No If you are a former smoker, when did you quit?: over 10 years ago but still smokes marijuana - Social History Usual Living Arrangement: Other (lives with sister) ADL: Support Services Occupation: disabled kitchen staff worker History of Recent Travel: No Home Medications - Allergies Allergies/Adverse Reactions: Allergies Allergy/AdvReac Type Severity Reaction Status Date / Time No Known Allergies Allergy Verified 09/07/17 13:01 - Home Medications Home Medications: Ambulatory Orders Folic Acid 1 mg PO DAILY 09/07/17 Lactulose [Cephulac -] 30 gm PO QID 09/07/17 Pantoprazole Sodium [Protonix] 40 mg PO BID 09/07/17 Prazosin HCl [Minipress -] 1 mg PO TID 09/07/17 Rifaximin [Xifaxan] 550 mg PO BID 09/07/17 Sertraline HCl [Zoloft -] 50 mg PO DAILY 09/07/17 Sucralfate [Carafate -] 1 gm PO QID 09/07/17 Thiamine HCl [Vitamin B-1] 100 mg PO DAILY 09/07/17 Family Disease History - Family Disease History Family Disease History: Diabetes: Father ( of diabetic complications), Other : Mother ( age 40 of cirrhosis) Physical Exam-Neuro Vital Signs: Vital Signs Temperature 98.3 F 09/12/17 10:00 Pulse Rate 76 09/12/17 14:00 Respiratory Rate 14 09/12/17 14:00 Blood Pressure 100/38 09/12/17 14:00 O2 Sat by Pulse Oximetry (%) 95 09/12/17 09:45 Labs: CBCD WBC 8.3 K/mm3 (4.0-10.0) 09/12/17 06:20 RBC 3.31 M/mm3 (4.00-5.60) L 09/12/17 06:20 Hgb 8.6 GM/dL (11.7-16.9) L 09/12/17 06:20 Hct 27.0 % (35.4-49) L 09/12/17 06:20 MCV 81.6 fl (80-96) 09/12/17 06:20 MCHC 32.0 g/dl (32.0-35.9) 09/12/17 06:20 RDW 21.6 % (11.9-15.9) H 09/12/17 06:20 Plt Count 59 K/MM3 (134-434) L D 09/12/17 06:20 MPV 9.6 fl (7.5-11.1) D 09/12/17 06:20 CMP Sodium 148 mmol/L (136-145) H 09/12/17 06:20 Potassium 3.7 mmol/L (3.5-5.1) 09/12/17 06:20 Chloride 117 mmol/L (98-107) H 09/12/17 06:20 Carbon Dioxide 25 mmol/L (21-32) 09/12/17 06:20 Anion Gap 6 (8-16) L 09/12/17 06:20 BUN 19 mg/dL (7-18) H 09/12/17 06:20 Creatinine 2.4 mg/dL (0.7-1.3) H D 09/12/17 06:20 Creat Clearance w eGFR 30.61 (>60) 09/12/17 06:20 Calcium 7.7 mg/dL (8.5-10.1) L 09/12/17 06:20 Total Bilirubin 3.5 mg/dL (0.2-1.0) H 09/12/17 06:20 AST 155 U/L (15-37) H D 09/12/17 06:20 ALT 34 U/L (12-78) 09/12/17 06:20 Alkaline Phosphatase 98 U/L (45-117) D 09/12/17 06:20 Total Protein 6.6 g/dl (6.4-8.2) 09/12/17 06:20 Albumin 1.7 g/dl (3.4-5.0) L 09/12/17 06:20 - Neuro Exam Level Of Consciousness: Yes: Comatose (breathing with vent 15/14, eyes closed, unresponsive, -Dolls, -corneals, , fixed and dilated pupils, no focal twitching , no withdrawl of LE , planatars down) Imaging - Results Cat Scan: Report Reviewed, Image Reviewed Problem List - Problems (1) Alcohol dependence Code(s): F10.20 - ALCOHOL DEPENDENCE, UNCOMPLICATED (2) Cocaine dependence Code(s): F14.20 - COCAINE DEPENDENCE, UNCOMPLICATED (3) Hepatic encephalopathy Code(s): K72.90 - HEPATIC FAILURE, UNSPECIFIED WITHOUT COMA (4) Intracranial hemorrhage Code(s): I62.9 - NONTRAUMATIC INTRACRANIAL HEMORRHAGE, UNSPECIFIED Assessment/Plan 37 y o m with PMHx chronic alcoholism, actively drinking on last admission requiring detox, as per chart last drink 2 days prior to admission and cocaine use day of admission, liver cirrhosis, HCV, esophageal varices (banding 09/03/17 ), portal hypertension, liver failure, presented to the ED w AMS, +cocaine, found to have large L F/T/P ICH with midline extension and uncal herniation and compression on 4 th ventricle. Pt unresponsive, intubated , no sedation ICH--cocaine /coagulopathy with ETOH cirrhosis contributing factors devastating ICH , with herniation and impending hydrocephalus-- clinically appears to have no cortical or brainstem reflexes -- no chance of reconvey given this mechanism and cobmorbid state and radiographic findings apnea inconclusive , retrial P organ harvest P depending on family wishes/ apnea exam Dr Tubbs Problem List - Problems (1) Alcohol dependence Code(s): F10.20 - ALCOHOL DEPENDENCE, UNCOMPLICATED (2) Cocaine dependence Code(s): F14.20 - COCAINE DEPENDENCE, UNCOMPLICATED (3) Hepatic encephalopathy Code(s): K72.90 - HEPATIC FAILURE, UNSPECIFIED WITHOUT COMA (4) Intracranial hemorrhage Code(s): I62.9 - NONTRAUMATIC INTRACRANIAL HEMORRHAGE, UNSPECIFIED
[2017-09-12] MEDS ORDERED: morphine CARPU-JECT 2 MG/1 ML DISP.SYRIN IVPUSH ONE (15:32)
[2017-09-12] MEDS ORDERED: morphine SULFATE 4 MG/ML VIAL IVPUSH ONE (15:45)
[2017-09-12 16:02] VITALS: PULSE 56
--- NOTE | 2017-09-12 16:20 | PN ---
Progress Note (short form) - Note Progress Note: Called to see a patient who was DNR and was unresponsive. PE: Gen: Patient lying still in bed unresponsive to verbal or physical stimuli Neuro: Pupils fixed and dilated bilaterally, absent doll's eye reflex CVS: Absent pulses, no heart sounds present Resp: Absent respiration, no breath sounds Patient was pronounced at 4.10pm. Family was at the bedside and was notified. Nurse to inform primary team.
--- NOTE | 2017-09-12 18:45 | DS ---
Physical Exam: SUBJECTIVE: Patient seen and examined. No change. Decision made for compassionate wean OBJECTIVE: Vital Signs Period Temp Pulse Resp BP Sys/[place] Pulse Ox Last 24 Hr 95.4 F-98.3 F 56-86 6-14 93-114/38-62 95-96 Neuro: unresponsive HEENT: pupils fixed, dilated, no oculocephalic reflex, OG tube Pulm: decreased, + MV CV: s1 s2 tachycardia Abd: soft, nontender non distended : quiros w/ clots Ext: + edema Laboratory Results - last 24 hr 09/12/17 09/12/17 09/12/17 06:20 06:20 06:20 WBC 8.3 RBC 3.31 L Hgb 8.6 L Hct 27.0 L MCV 81.6 MCH 26.1 MCHC 32.0 RDW 21.6 H Plt Count 59 L D MPV 9.6 D Absolute Neuts (auto) 5.1 L D Absolute Lymphs (auto) 1.3 L Absolute Monos (auto) 1.5 L Absolute Eos (auto) 0.4 Absolute Basos (auto) 0.0 L Neutrophils % No Result Required. Neutrophils % (Manual) 62.3 Band Neutrophils % 1.0 Lymphocytes % No Result Required. Lymphocytes % (Manual) 16.3 Monocytes % (Manual) 7 Eosinophils % (Manual) 6.1 H Basophils % (Manual) 0.0 Myelocytes % (Man) 0 D Promyelocytes % (Man) Metamyelocytes 7 H D Hypochromia 3+ Polychromasia 0 Poikilocytosis 1+ Anisocytosis 0 Microcytosis 1+ Macrocytosis 0 Target Cells 2+ Fragmented RBCs 1+ PT with INR 32.10 H INR 2.84 H Puncture Site ABG pH ABG pCO2 at Pt Temp ABG pO2 at Pt Temp ABG HCO3 ABG O2 Sat (Measured) ABG O2 Content ABG Base Excess Luther Test O2 Delivery Device Oxygen Flow Rate Vent Mode Vent Rate Mechanical Rate PEEP Pressure Support Vent Sodium Potassium Chloride Carbon Dioxide Anion Gap BUN Creatinine Creat Clearance w eGFR Random Glucose Serum Osmolality 303 Calcium Phosphorus Magnesium Total Bilirubin AST ALT Alkaline Phosphatase Total Protein Albumin Urine Osmolality 09/12/17 09/12/17 06:20 13:00 WBC RBC Hgb Hct MCV MCH MCHC RDW Plt Count MPV Absolute Neuts (auto) Absolute Lymphs (auto) Absolute Monos (auto) Absolute Eos (auto) Absolute Basos (auto) Neutrophils % Neutrophils % (Manual) Band Neutrophils % Lymphocytes % Lymphocytes % (Manual) Monocytes % (Manual) Eosinophils % (Manual) Basophils % (Manual) Myelocytes % (Man) Promyelocytes % (Man) Metamyelocytes Hypochromia Polychromasia Poikilocytosis Anisocytosis Microcytosis Macrocytosis Target Cells Fragmented RBCs PT with INR INR Puncture Site Right radial ABG pH 7.33 L ABG pCO2 at Pt Temp 42.7 ABG pO2 at Pt Temp 107.0 H D ABG HCO3 21.7 L ABG O2 Sat (Measured) 98.4 ABG O2 Content 11.4 L ABG Base Excess -3.4 L Luther Test Positive O2 Delivery Device Vent Oxygen Flow Rate 40 Vent Mode Vt Vent Rate 14 Mechanical Rate Yes PEEP 5.0 Pressure Support Vent 450 Sodium 148 H Potassium 3.7 Chloride 117 H Carbon Dioxide 25 Anion Gap 6 L BUN 19 H Creatinine 2.4 H D Creat Clearance w eGFR 30.61 Random Glucose 77 Serum Osmolality Calcium 7.7 L Phosphorus 5.3 H D Magnesium 1.5 L Total Bilirubin 3.5 H AST 155 H D ALT 34 Alkaline Phosphatase 98 D Total Protein 6.6 Albumin 1.7 L Urine Osmolality HOSPITAL COURSE: Date of Admission:09/07/17 Date of Discharge: 09/12/17 Minutes to complete discharge: 37 Discharge Summary Reason For Visit: HEPATIC ENCEPHALOPATHY Hospital Course: Initial Hospital Course: Briefly, this 37 year old male with PMHx of liver cirrhosis, HCV, esophageal varices (banding 09/03/17), portal hypertension, liver failure, chronic alcohol use (last drink 2 days ago), cocaine use, presented to the for altered mental status, last drink 2 days prior. He had chest pain that radiates to his abdomen. +cocain the morning of admission. Hospital course complicated by septic shock and large, severe intracranial bleed. Subsequent Hospital Course/Summary Plan: 1. Intracranial hemorrhage with herniation and impending hydrocephalus - Vent dependent - No corneal or gag reflexes; pupils fixed and dilated - Per Neurosurgery no surgical intervention 2. Severe sepsis likely secondary to strep pneumonia - Off pressors - Treated w abx 3. Liver cirrhosis/Hep C/Esophageal varices s/p banding/ Portal hypertension/ Hepatic encephalopathy 4. Acute respiratory failure - Intubated, off sedation 5. DI - Improved - s/p vasopressin, dw5 6. Coagulopathy/Thrombocytopenia - Vit K, FFP, Plts given 7. Hypernatremia - On d5w 8. Hypophosphatemia - Repleted 9. Polysubstance abuse - No withdrawal at this time Dispo: - Pt after compassionate wean, post mortum care preformed, family at bedside Condition: - Instructions Referrals: STAFF,NOT ON [Primary Care Provider] - Disposition: - Home Medications Comprehensive Discharge Medication List: Ambulatory Orders Folic Acid 1 mg PO DAILY 09/07/17 Lactulose [Cephulac -] 30 gm PO QID 09/07/17 Pantoprazole Sodium [Protonix] 40 mg PO BID 09/07/17 Prazosin HCl [Minipress -] 1 mg PO TID 09/07/17 Rifaximin [Xifaxan] 550 mg PO BID 09/07/17 Sertraline HCl [Zoloft -] 50 mg PO DAILY 09/07/17 Sucralfate [Carafate -] 1 gm PO QID 09/07/17 Thiamine HCl [Vitamin B-1] 100 mg PO DAILY 09/07/17 This patient is new to me today: No Emergency Visit: Yes ED Registration Date: 09/07/17 Care time: The patient presented to the Emergency Department on the above date and was hospitalized for further evaluation of their emergent condition. Critical Care patient: No - Discharge Referral Referred to [facility] No
== END 2017-09-12 18:38 | disposition expired | DRG 710 ==
LOC: JER 12:40 → UNDOADMIN 15:49 → JERBED 15:49 → J4S 09-08 02:14 → JICU 09-08 08:44
PROVIDERS: ADMIT Internal Medicine; ATTEND Nurse Practitioner Acute Care
PROC: 0W9G3ZX Drainage of Peritoneal Cavity, Percutaneous Approach, Diagnostic (ICD-10-PCS; 2017-09-07)
PROC: HZ2ZZZZ Detoxification Services for Substance Abuse Treatment (ICD-10-PCS; principal; 2017-09-08)
PROC: 0CHY7BZ Insertion of Airway into Mouth and Throat, Via Natural or Artificial Opening (ICD-10-PCS; 2017-09-08)
PROC: 5A1945Z Respiratory Ventilation, 24-96 Consecutive Hours (ICD-10-PCS; 2017-09-08)
PROC: 30233K1 Transfusion of Nonautologous Frozen Plasma into Peripheral Vein, Percutaneous Approach (ICD-10-PCS; 2017-09-09)
PROC: 30233R1 Transfusion of Nonautologous Platelets into Peripheral Vein, Percutaneous Approach (ICD-10-PCS; 2017-09-09)
DX: A40.8 Other streptococcal sepsis (principal); R65.21 Severe sepsis with septic shock; K70.30 Alcoholic cirrhosis of liver without ascites; I85.00 Esophageal varices without bleeding; K76.6 Portal hypertension; F14.20 Cocaine dependence, uncomplicated; R00.0 Tachycardia, unspecified; I45.19 Other right bundle-branch block; I44.5 Left posterior fascicular block; K72.00 Acute and subacute hepatic failure without coma; D69.6 Thrombocytopenia, unspecified; J18.9 Pneumonia, unspecified organism; E83.42 Hypomagnesemia; E87.6 Hypokalemia; E83.51 Hypocalcemia; F19.10 Other psychoactive substance abuse, uncomplicated; K57.90 Diverticulosis of intestine, part unspecified, without perforation or abscess without bleeding; F32.9 Major depressive disorder, single episode, unspecified; K83.1 Obstruction of bile duct; D68.59 Other primary thrombophilia; N17.9 Acute kidney failure, unspecified; E87.2 Acidosis; G93.5 Compression of brain; B19.20 Unspecified viral hepatitis C without hepatic coma; F10.230 Alcohol dependence with withdrawal, uncomplicated; R50.9 Fever, unspecified; E86.0 Dehydration; G93.41 Metabolic encephalopathy; J96.00 Acute respiratory failure, unspecified whether with hypoxia or hypercapnia; I62.9 Nontraumatic intracranial hemorrhage, unspecified; E66.01 Morbid (severe) obesity due to excess calories; Z68.41 Body mass index [BMI] 40.0-44.9, adult; R40.20 Unspecified coma; R68.0 Hypothermia, not associated with low environmental temperature; E87.0 Hyperosmolality and hypernatremia; G91.8 Other hydrocephalus
CPT/HCPCS: 31500; 36415; 36430; 36600; 70450-TC; 71010-TC; 76700-TC; 80048; 80053; 80307; 81003; 81015; 82140; 82248; 82550; 82553; 82803; 83605; 83690; 83735; 83930; 83935; 84100; 84484; 85025; 85027; 85610; 85730; 86140; 86850; 86900; 86901; 87040; 87086; 87186; 87389; 87804; 87899; 93005; 93010; 93306-TC; 94002; 94640; 99285-25; G0480; J2597; P9017; P9034; P9038